=== PATIENT | male | born 1940 | race Caucasian/White ===

== ENCOUNTER → 2017-04-10 09:14 | Outpatient (CLI) | payer MEDICARE, OTHER, SELFPAY ==
--- NOTE | 2017-04-10 11:27 | PET_ITS ---
EXAMINATION: FDG PET CT INDICATIONS: A 76-year-old male with reported history of head and neck and primary lung carcinoma presenting for restaging examination. COMPARISON EXAMINATION: Previous FDG PET study dated 09/19/16. INDEX LESION SIZE SUV INTERPRETATION PERSISTENT: Left mid medial hemithorax pulmonary parenchyma, left upper lobe 19.6 mm (frame 228) compared to 15.8 mm, 09/19/16; craniocaudal 29.6 mm compared to 13.9 mm, 09/19/16 6.5 compared to 5.0, 09/19/16 Fulfills quantitative criteria for viable neoplasm, potential interim metabolic progression based on morphologic parameter NEW: Anterior neck, anterior commissure 14.5 mm (frame 269) 7.3 May be further investigated with CT of the neck with intravenous contrast as defined below TECHNIQUE: Following the intravenous administration of 16.71 mCi of F-18 deoxyglucose via the right wrist, multiplanar image acquisitions of the neck, chest, abdomen and pelvis to level of mid thigh, obtained at one hour post radiopharmaceutical administration contemporaneously interpreted with the current CT of the neck, chest, abdomen and pelvis to level of mid thigh, dated 04/10/17 via coregistration and previous FDG PET study dated 09/19/16 reveal: SERUM GLUCOSE LEVEL: 91 mg/dl. HEIGHT: 69 inches. WEIGHT: 145 lbs. FINDINGS: 1. Increased glucose metabolism is redemonstrated in the left upper medial hemithorax pulmonary parenchyma, left upper lobe generating a current calculated maximum standard uptake value of 5.6 compared to 5.0 defined on the FDG PET study dated 09/19/16. The maximal axial diameter of the metabolic, morphologic abnormality on the current examination is approximately 19.6 mm (AP). The current craniocaudal dimension is approximately 29.6 mm compared to 13.9 mm defined on the FDG PET study dated 09/19/16. 2. Newly identified increased glucose concentration is manifest in the anterior neck at the level of the laryngeal structures adjacent to the anterior commissure generating a calculated maximum standard uptake value of 7.3. The maximal axial diameter of the metabolic, morphologic abnormality on review of CT of the neck dated 04/10/17 is 14.5 mm (AP). 3. Normal physiologic distribution of the radiopharmaceutical is apparent in the hepatic (2.6) and splenic parenchyma, both renal units, bladder and visualized intestinal tract. There is uniform distribution of the radiopharmaceutical concentration compared on the cerebellar hemispheres and cerebral cortex. Diffuse intestinal tract activity is noted throughout all four quadrants of the abdominal-pelvic retroperitoneum, mesentery consistent with normal physiologic distribution of the radiopharmaceutical. Symmetric glucose metabolism is defined at the level of the anterior neck, laryngeal structures, which appears contiguous to the cricopharyngeus musculature without evidence of soft tissue thickening. Pertinent CT findings are as follows. CHEST: Emphysematous changes are noted in the bilateral upper lung zones. Additional parenchymal densities newly identified in the left upper lateral lung field demonstrate no evidence of quantitatively significant increased glucose metabolism. Atherosclerotic calcification is defined in the thoracic aorta without evidence of dilatation, aneurysm formation. Coronary arterial calcification is observed. ABDOMEN AND PELVIS: Atherosclerotic calcification is defined in the abdominal aorta without evidence of dilatation, aneurysm formation. Abdominal-pelvic arterial calcification is demonstrated. Dystrophic calcifications are manifest within the prostate gland. Right-left inguinal soft tissue densities are ametabolic. There is calcification apparent in the right hemiscrotum unchanged from the study dated 09/19/16. SKELETAL: Degenerative changes defined in the cervical, thoracic and lumbar spine demonstrate no evidence for glucose hypermetabolism. PET/PET/CT Tumor Base -Thigh Init IMPRESSION: 1. 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 2. Increased glucose concentration redemonstrated in the left mid medial hemithorax, left upper lobe fulfills quantitative criteria for viable neoplasm. (Chantal et al, Journal of Nuclear Medicine 43:302 P, 2002). 3. Facilitated glucose concentration currently identified in the anterior neck, laryngeal structures at the level of the anterior commissure warrants further investigation with CT of the neck with intravenous contrast and/or direct visualization secondary to the quantitative degree of uptake. Symmetric increased glucose concentration contiguous to the cricopharyngeus musculature is most consistent with physiologic distribution of the radiotracer. 4. Overall, compared to the prior FDG PET study dated 09/19/16, there is persistent evidence of viable neoplasm within the context of the left mid medial lung zone, left upper lobe demonstrating potential interim metabolic progression based on the increased craniocaudal morphologic parameter. Facilitated glucose concentration currently identified at the level of the anterior commissure, laryngeal structures warrants further clinical, potential radiologic investigation. Electronic Signature Tree Julian D.O. Electronically Signed: Tree Julian DO at 22:53 EST Tel , Service support ,
== END ==
PROVIDERS: Family Provider Family Medicine; PCP Family Medicine; Visit Provider Radiology Radiation Oncology
DX: C34.12 Malignant neoplasm of upper lobe, left bronchus or lung (principal); C32.9 Malignant neoplasm of larynx, unspecified
CPT/HCPCS: 78815; 99211; A9552; A4216; G0463

== ENCOUNTER 2017-12-15 05:18 | Day surgery (SDC) | payer MEDICARE, OTHER, SELFPAY ==
[2017-12-15 05:46] VITALS: BP 124/66; PULSE 60; RESP 14; TEMP 37.3; O2SAT 98; BMI 23.6
--- NOTE | 2017-12-15 07:27 | PCM.DCCATA ---
Discharge Diet: No Restrictions Discharge Activity: - - Take it easy the rest of the day of surgery. Be careful not to trip or fall. Avoid bumping the operated eye and do not rub the eye. You may stay alone, but need to be able to call and/or come in if necessary. Try to sleep on the unoperated side or on your back tonight. Call your doctor if you observe: - - new or increased pain, a worsening of vision, or if you have any questions. Also call the office if you are experiencing a severe headache on the operative side, nausea or vomiting. Allergies/Adverse Reactions: Allergies No Known Allergies Allergy (Verified 12/15/17 05:44) Medications to take at Discharge Lisinopril [Zestril] 20 mg PO DAILY 04/17/15 Amlodipine [Norvasc] 2.5 mg PO DAILY 03/15/16 Primary Care Physician: Hilario Rodriguez DO [Primary Care Provider] - Test Results: Test results from this visit will be discussed in further detail at your follow-up appointment, if applicable. -Take a pain reliever such as Tylenol, Aspirin or Ibuprofen if needed for eye aching or pain. If this is not enough relief for you pain, call your doctor (or the doctor aerospace control and warning systems), even at night. -You are scheduled for a follow-up appointment at [facility] the day after surgery. You should have someone drive you. -Transient pain and irritation are due to the incision that was made at the time of surgery and do not indicate any trouble. Our office numbers are or toll-free . If there is no answer, or if it is after our normal business hours, call your surgeon. Our home phone numbers are: Dr. Sanchez Dr. Aguila Dr. Quinones Dr. Whiteside If you are still unable to reach your doctor, call the answering service and [facility] , and the book sewing machine operator can contact the on-call doctor through a long-range beeper system. INSTRUCTIONS FOLLOWING TOPICAL ANESTHETIC CATARACT SURGERY Protect operated eye with glasses or metal shield at all times. Instill one drop of Cipro (or other antibiotic drop), one drop of Prednisolone and one drop of Flurbiprofen in the operated eye four times a day (breakfast, lunch, dinner and bedtime) until the doctor tells you to quit or decrease them. Wait 3-5 minutes between each drop. Your first drop for today was given after surgery. INSTRUCTIONS FOLLOWING RETROBULBAR CATARACT SURGERY Keep the eye patch and metal shield on until you see your surgeon the day after surgery - these will be removed in the office that day. Do not drive while the patch is on your eye. You will be instructed about the use of drops for the operated eye at that visit.
[2017-12-15] MEDS: Tetracaine 0.5% Ophthalmic Bottle 1 DRP OP (07:34)
[2017-12-15] MEDS: Povidone Iodine 30 ML Opthalmic Sol 1 DRP (07:35)
[2017-12-15 08:10] VITALS: BP 119/70; BP 124/66; PULSE 59; RESP 18; TEMP 36.3; O2SAT 99
[2017-12-15 08:15] VITALS: BP 124/66; BP 141/67; PULSE 58; RESP 18; O2SAT 98
[2017-12-15 08:20] VITALS: BP 124/66; BP 131/64; PULSE 55; RESP 18; O2SAT 99
[2017-12-15 08:28] VITALS: BP 124/66; BP 141/64; PULSE 57; RESP 18; TEMP 36.2; O2SAT 100
[2017-12-15 09:09] VITALS: BP 124/66
== END 2017-12-15 09:14 | disposition home or self-care (01) ==
LOC: SDC 05:18 → AC 05:20
PROVIDERS: Family Provider Family Medicine; PCP Family Medicine; Referring Provider Ophthalmology; Visit Provider Ophthalmology
PROC: (CPT 66984; principal; 2017-12-15 07:20)
DX: H25.813 Combined forms of age-related cataract, bilateral (principal); D31.32 Benign neoplasm of left choroid; H57.89 Other specified disorders of eye and adnexa; I10 Essential (primary) hypertension; Z87.891 Personal history of nicotine dependence; Z85.118 Personal history of other malignant neoplasm of bronchus and lung; Z92.21 Personal history of antineoplastic chemotherapy; Z92.3 Personal history of irradiation
CPT/HCPCS: 00142; 66984; J7120

== ENCOUNTER → 2018-03-19 12:12 | Outpatient (CLI) | payer MEDICARE, OTHER, SELFPAY ==
[2018-03-16 12:30] VITALS: BMI 23.9
--- OUTSIDE RECORDS SUMMARY | 2018-05-21 23:24 | XMS RPT_ITS ---
:1940 Author Organization OHIP Support Name Relationship Address Phone R Unavailable Unavailable Unavailable SHELLEY DE LEÓN Unavailable [address] + [place] [address] R Unavailable Unavailable Unavailable SHELLEY DE LEÓN Unavailable [address] + [place] [address] R Unavailable Unavailable Unavailable SHELLEY DE LEÓN Unavailable Unavailable + [place] [address] AMES, ROHIT Unavailable Unavailable + SON-IN-LAW AMES, (POA) Unavailable Unavailable + JENNA SOLARES Unavailable . + ., [place] . R Unavailable Unavailable Unavailable R Unavailable Unavailable Unavailable AMES, ROHIT Unavailable Unavailable + SON-[place]-LA[place] AMES, (POA) Unavailable Unavailable + AMES, ROHIT Unavailable Unavailable + SON[place] AMES, (POA) Unavailable Unavailable + AMES, ROHIT Unavailable Unavailable + SON[place] AMES, (POA) Unavailable Unavailable + AMES, ROHIT Unavailable Unavailable + SON[place] AMES, (POA) Unavailable Unavailable + AMES, ROHIT Unavailable Unavailable + SON[place] AMES, (POA) Unavailable Unavailable + AMES, ROHIT Unavailable Unavailable + SON-[place] AMES, (POA) Unavailable Unavailable + AMES, ROHIT Unavailable Unavailable + SON-[place] AMES, (POA) Unavailable Unavailable + AMES, ROHIT Unavailable Unavailable + SON[place] AMES, (POA) Unavailable Unavailable + AMES, ROHIT Unavailable Unavailable + AMES, (POA), SHELLEY Unavailable Unavailable + JENNA SOLARES Unavailable . + ., [place] . AMES, ROHIT Unavailable [address] + [place] [address] R Unavailable Unavailable Unavailable AMES, ROHIT Unavailable Unavailable + SON-IN-LAW AMES, (POA) Unavailable Unavailable + AMES, ROHIT Unavailable Unavailable + AMES, (POA), SHELLEY Unavailable Unavailable + AMES, ROHIT Unavailable Unavailable + SON-[place]-LA[place] AMES, (POA) Unavailable Unavailable + AMES, ROHIT Unavailable Unavailable + AMES, (POA), SHELLEY Unavailable Unavailable + POA AMES, SHELLEY Unavailable Unavailable + POA AMES, SHELLEY Unavailable Unavailable + POA AMES, SHELLEY Unavailable Unavailable + POA AMES, SHELLEY Unavailable Unavailable + POA AMES, SHELLEY Unavailable Unavailable + POA AMES, SHELLEY Unavailable Unavailable + AMES, ROHIT Unavailable Unavailable + SON-[place]-LA[place] AMES, (POA) Unavailable Unavailable + POA AMES, SHELLEY Unavailable Unavailable + JENNA SOLARES Unavailable . + ., [place] . AMES, ROHIT Unavailable [address] + [place] [address] R Unavailable Unavailable Unavailable Care Team Providers Name Role Phone Cherry Arsen Attending Unavailable Seider, Arsen Referring Unavailable Michael, Hilario Primary Care Unavailable Enriqueta Lopez Attending Unavailable Calabretta, Braxton Attending Unavailable Michael, Hilario Referring Unavailable Michael, Hilario Primary Care Unavailable Miesha, Jadiel Attending Unavailable Miesha, Jadiel Referring Unavailable Michael, Hilario Primary Care Unavailable Jacki Venegas Attending Unavailable Michael, Hilario Referring Unavailable Michael, Hilario Attending Unavailable Michael, Hilario Primary Care Unavailable TESTRAKE, HUGH Attending Unavailable TESTRAKE, HUGH Referring Unavailable Zender, Dr. Anastasia Martinez Attending Unavailable Michael, Dr. Hilario Ivan Primary Care Unavailable Zender, Dr. Anastasia Martinez Admitting Unavailable Seider, Arsen Deluna Referring Unavailable Zender, Dr. Anastasia Martinez Attending Unavailable Michael, Dr. Hilario Ivan Primary Care Unavailable Zender, Dr. Anastasia Martinez Admitting Unavailable Zender, Dr. Anastasia Martinez Attending Unavailable Seider, Arsen Deluna Referring Unavailable Michael, Dr. Hilario vIan Primary Care Unavailable Zender, Dr. Anastasia Martinez Admitting Unavailable Zender, Dr. Anastasia Martinez Attending Unavailable *SELF, REFERRED Referring Unavailable Michael, Dr. Hilario Ivan Primary Care Unavailable Lebron, Dr. Pang Admitting Unavailable Lebron, Dr. Pang Attending Unavailable Zender, Dr. Anastasia Martinez Referring Unavailable Michael, Dr. Hilario Ivan Primary Care Unavailable Zender, Dr. Anastasia Martinez Attending Unavailable Michael, Dr. Hliario Ivan Primary Care Unavailable Zender, Dr. Anastasia Martinez Attending Unavailable Michael, Dr. Hilario Ivan Primary Care Unavailable Zender, Dr. Anastasia Martinez Attending Unavailable Michael, Dr. Hilario Ivan Primary Care Unavailable Lebron, Dr. Pang Admitting Unavailable Lebron, Dr. Pang Attending Unavailable Zender, Dr. Anastasia Martinez Referring Unavailable Michael, Dr. Hilario Ivan Primary Care Unavailable Zender, Dr. Anastasia Martinez Attending Unavailable Michael, Dr. Hilario Ivan Primary Care Unavailable Lebron, Dr. Pang Admitting Unavailable Lebron, Dr. Pang Attending Unavailable Zender, Dr. Anastasia Martinez Referring Unavailable Michael, Dr. Hilario Ivan Primary Care Unavailable Lebron, Dr. Pang Admitting Unavailable Lberon, Dr. Pang Attending Unavailable Zender, Dr. Anastasia Martinez Referring Unavailable Michael, Dr. Hilario Ivan Primary Care Unavailable Zender, Dr. Anastasia Martinez Attending Unavailable Michael, Dr. Hilario Ivan Primary Care Unavailable Lebron, Dr. Pang Admitting Unavailable Lebron, Dr. Pang Attending Unavailable Zender, Dr. Anastasia Martinez Referring Unavailable Michael, Dr. Hilario Ivan Primary Care Unavailable Zender, Dr. Anastasia Martinez Attending Unavailable Michael, Dr. Hilario Ivan Primary Care Unavailable Zender, Dr. Anastasia Martinez Admitting Unavailable Zender, Dr. Anastasia Martinez Referring Unavailable Lebron, Dr. Pang Admitting Unavailable Lebron, Dr. Pang Attending Unavailable Zender, Dr. Anastasia Martinez Referring Unavailable Michael, Dr. Hilario Ivan Primary Care Unavailable Lebron, Dr. Pang Admitting Unavailable Lebron, Dr. Pang Attending Unavailable Zender, Dr. Anastasia Martinez Referring Unavailable Michael, Dr. Hilario Ivan Primary Care Unavailable Lebron, Dr. Pang Admitting Unavailable Lebron, Dr. Pang Attending Unavailable Zender, Dr. Anastasia Martinez Referring Unavailable Michael, Dr. Hilario Ivan Primary Care Unavailable Lebron, Dr. Pang Admitting Unavailable Lebron, Dr. Pang Attending Unavailable Zender, Dr. Anastasia Martinez Referring Unavailable Michael, Dr. Hilario Ivan Primary Care Unavailable Zender, Dr. Anastasia Martinez Attending Unavailable Michael, Dr. Hilario Ivan Referring Unavailable Michael, Dr. Hilario Ivan Primary Care Unavailable Zender, Dr. Anastasia Martinez Attending Unavailable Michael, Dr. Hilario Ivan Primary Care Unavailable Zender, Dr. Anastasia Martinez Attending Unavailable Zender, Dr. Anastasia Martinez Referring Unavailable Michael, Dr. Hilario Ivan Primary Care Unavailable Zender, Dr. Anastasia Martinez Attending Unavailable Zender, Dr. Anastasia Martinez Referring Unavailable Michael, Dr. Hilario Ivan Primary Care Unavailable PROBLEMS PROBLEMS DATE TYPE CONDITION / CODE ATTENDING STATUS SOURCE 03/19/2018 Unknown R05 - Cough / MichaelHilario cintron Active [place] R05(ICD-10) [facility] Repository 03/16/2018 Unknown R20.9 - Unspecified Venegas, Active [place] disturbances of skin [facility] R20.9(ICD-10) Repository 08/29/2017 Unknown Z93.1 - Gastrostomy Calabretta, Active [place] status / [facility] Z93.1(ICD-10) [facility] Repository 07/03/2017 Final diagnosis Essential (primary) Dr. Laci Rodríguez (discharge) hypertension / [facility] I10(ICD-10) Repository 07/03/2017 Final diagnosis Personal history of Dr. Laci Rodríguez (discharge) nicotine dependence [facility] / Z87.891(ICD-10) Repository 07/03/2017 Final diagnosis Dysphagia, Dr. Laci Rodríguez (discharge) unspecified / [facility] R13.10(ICD-10) Repository 07/03/[address] Laci Rodríguez diagnosis of larynx, [facility] unspecified / Repository C32.9(ICD-10) 07/03/2017 Final diagnosis Malignant neoplasm Dr. Laci Rodríguez (discharge) of larynx, [facility] unspecified / Repository C32.9(ICD-10) 07/03/2017 Final diagnosis Pressure ulcer of Dr. Laci Rodríguez (discharge) sacral region, stage [facility] 3 / L89.153(ICD-10) Repository 07/03/2017 Final diagnosis Atelectasis / Dr. Laci Rodríguez (discharge) J98.11(ICD-10) [facility] Repository 07/03/2017 Final diagnosis Chronic obstructive Dr. Laci Rodríguez (discharge) pulmonary disease, [facility] unspecified / Repository J44.9(ICD-10) 07/03/2017 Final diagnosis Alcohol abuse, Dr. Laci Rodríguez (discharge) uncomplicated / [facility] F10.10(ICD-10) Repository 07/03/2017 Final diagnosis Solitary pulmonary Dr. Laci Rodríguez (discharge) nodule / [facility] R91.1(ICD-10) Repository 07/03/2017 Final diagnosis Postprocedural fever Dr. Laci Rodríguez (discharge) / R50.82(ICD-10) [facility] Repository 07/03/2017 Final diagnosis Personal history of Dr. Laci Rodríguez (discharge) antineoplastic [facility] chemotherapy / Repository Z92.21(ICD-10) 07/03/2017 Final diagnosis Personal history of Dr. Laci Rodríguez (discharge) irradiation / [facility] Z92.3(ICD-10) Repository 06/23/2017 Final diagnosis Encounter for Dr. Bird Diana (discharge) antineoplastic Hospitals radiation therapy / Repository Z51.0(ICD-10) 06/23/2017 Final diagnosis Malignant neoplasm Dr. Bird Diana (discharge) of upper lobe, left Hospitals bronchus or lung / Repository C34.12(ICD-10) 06/14/[address] Laci Rodríguez diagnosis of supraglottis / [facility] C32.1(ICD-10) Repository 05/30/2017 Admitting Dysphagia, Dr. Sara Active [place] diagnosis unspecified / [facility] R13.10(ICD-10) Repository 05/30/2017 Final diagnosis Malignant neoplasm Dr. Sara Active [place] (discharge) of supraglottis / [facility] C32.1(ICD-10) Repository 05/11/2017 Final diagnosis Malignant neoplasm Dr. Laci Rodríguez (discharge) of unsp [facility] bronchus or lung / Repository C34.90(ICD-10) 05/11/2017 Final diagnosis Esophagitis, Dr. 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 Laci Rodríguez (discharge) disease, unspecified [facility] / I73.9(ICD-10) Repository 05/11/2017 Final diagnosis Emphysema, Dr. Laci Rodríguez (discharge) unspecified / [facility] J43.9(ICD-10) Repository 05/11/2017 Final diagnosis Alcohol dependence, Dr. Laci Rodríguez (discharge) in remission / [facility] F10.21(ICD-10) Repository 05/11/[address] Sara Active [place] abnormal finding of [facility] lung field / Repository R91.8(ICD-10) PROCEDURES PROCEDURES DATE CODE DESCRIPTION STATUS SOURCE 06/29/2017 [id number](ICD10- [id number] Completed [facility]als Repository 06/27/2017 [id number](ICD10- [id number] Completed [facility] Hospitals Repository 06/27/2017 1QZK0CE(ICD10- [id number] Completed [facility]) Hospitals Repository 06/27/2017 [id number](ICD10- [id number] Completed [facility]) Hospitals Repository 05/11/2017 [address]91([facility] 74382 Completed [place] CPT-4) Hospitals Repository 05/11/2017 07176([facility] 40233 Completed [place] CPT-4) Hospitals Repository 05/11/2017 46702([facility] 23805 Completed [place] CPT-4) Hospitals Repository RESULTS RESULTS Observed: 03/19/2018 Status: F Source: [place] CULTURE, SPUTUM 12:14 PM [facility] REPOSITORY Results called on 03/22/18- by AARON to (NURSE LINE) [phone]. Gram Stain Acceptable Specimen? Acceptable Specimen(Evaluation not needed) Gram Stain No organisms seen No cells seen Resp. Culture Copy of report sent to Infection Control Printer [id number] 03/22/18 [id number] AARON. ORGANISM 1: Meth. resistant Staph. aureus Amount Growth 3+ Meth. resistant Staph. aureus: REACTION Cefoxitin *NF POS Doxycline <=0.5 S Daptomycin $$ 0.25 S Clindamycin $$ R Inducable Clindamycin Resistan POS Erythromycin $ R Gentamicin $ <=0.5 S Levofloxacin $ >=8 R Linezolid $$$$ 2 S Moxifloxicin *NF >=8 R Oxacillin NF >=4 R Tigecycline $$$$ <=0.12 S Rifampin $$ <=0.5 S Tetracycline NF <=1 S Trimethoprim/Sulfametho $ <=10 S Vancomycin $ <=0.5 S (NF) indicates non-formulary drug at [facility]. Approval by Infectious Disease Specialist required before non-formulary drugs may be ordered and/or dispensed. * CLSI guidelines does not recommend testing of cephalosporins. This interpretation is deduced from Beta-lactam/penicillin results. Performed By: #### M100.0800 #### [facility] [address] [place], [address] PULMONARY VISIT REPORT Observed: 03/16/2018 Status: F Source: [place] 3:48 PM [facility] REPOSITORY [facility] [place] [address] [place] [address] OFFICE VISIT Date of Service: 03/16/18 MR#: [id number] Acct: [id number] Name: AMPARO DE LEÓN Rep #: [id number] : 1940 Provider: Jacki Venegas Age/Sex: 77/M Location: [facility] Status: Signed Assessment AND Plan 1. Chest congestion R09.89 Plan New. Treating with liquid Mucinex every 6 hours as needed. Contact the office to give us an update of how this medication is working for the patient. Offered a follow-up visit, the patient and his son declined. They state that they will contact the office if any further follow-up as needed. 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 The patient reports that he takes food and medications by mouth, preferred liquid Mucinex over capsules/pills. 3. Peripheral vascular disease I73.9 Plan Referral to vascular surgeon for evaluation and treatment. Plan Detail Other Orders Referrals: Other Medications New: HPI Shortness of breath: Chief Complaint: Circulation problems HPI Comments Details: This patient presents the office today for a follow-up visit scheduled by his son regarding concerns about the patient's leg circulation. The patient is ambulatory, currently on room air and accompanied today by his son. The patient was last seen in this office on January 25, 2017. At that time he was referred to a thoracic surgeon for a left upper lobe nodule diagnostic and treatment plan. The patient also had a history of laryngeal cancer. He currently has a tracheostomy placed June 27, 2017. The patient is nonverbal, does mouth words and nods yes and no. He is answering questions appropriately. The son does most of the speaking for the patient. Son reports that the patient has concerns about his feet and hands feeling cold. The [place] admits that [place] and did not realize he was making an appointment with a pulmonology practice for these concerns. While here, they decided that they should evaluate since thick sputum. The patient reports that he has chest congestion and feels as though he should be able to expectorate sputum from his tracheostomy. He is able to cough out some white sputum at times. They have not previously tried any Mucinex to thin the secretions. He is not currently on any inhalers. Does not use nebulizer. He only has an occasional cough. Denies any hemoptysis. Denies any fever, chills or body aches. Denies wheezing, chest tightness, chest pain or palpitations. They do report lower extremity edema and shortness of breath on exertion. The biggest concern is the cold sensation he feels in his hands and feet. See complete review of systems. Intake Vital Signs03/16/18 Height 5 ft 9 in 03/16/18 Weight: 162 lb Intake Visit Reasons: Shortness of breath Accompanied by: Son Allergies No Known Allergies Allergy (Verified 03/16/18 12:31) Medications Lisinopril [Zestril] 20 mg PO DAILY 04/17/15 [History Confirmed 03/16/18] Amlodipine [Norvasc] 2.5 mg PO DAILY 03/15/16 [History Confirmed 03/16/18] guaifenesin 200 mg/5 mL oral liquid 400 mg PO Q4H PRN #473 ml 03/16/18 [Rx Confirmed 03/16/18] PFS Medical History Pulmonary nodule, left (Chronic) Odynophagia (Acute) Former smoker (Chronic) Neutropenia (Acute) Normochromic normocytic anemia (Chronic) Peripheral vascular disease (Acute) Radiation esophagitis (Acute) Laryngeal cancer (Chronic) Alcohol abuse (Chronic) Hypertension, essential, benign (Chronic) Difficulty chewing (Chronic) Hypokalemia (Acute) Hypomagnesemia (Acute) Urine retention (Acute) Surgical History Status post insertion of percutaneous endoscopic gastrostomy (PEG) tube (Resolved) s/p PEG tube removal (Acute 08/29/17) Family History Mother Hypertension CVA (cerebral vascular accident) Social History Smoking Status: Former smoker second hand exposure: No alcohol intake: never substance use type: does not use caffeine: Yes what type of physical activity do you participate in: none Review of Systems Const CONSTITUTIONAL: Negative anorexia, body ache, chills, daytime sleepiness, fever(s), night sweats, oral thrush, stops breathing during sleep, weight loss, sleeping in chair, fatigue, weight loss, weight gain, frequent colds, seasonal allergies, other, headache(s) or orthopnea EETM Ear Nose Throat Mouth: Positive hard of hearing; negative hearing normal, hoarseness, dry mouth in morning, change in vision, itchy eyes, eye pain, swallowing Difficulty, ear pain, nose bleed, headache(s), mouth pain, nasal congestion, nasal discharge, sinus pain, sinus pressure, sore throat or other Cardio Cardiovascular: Negative chest pain, chest pain at rest, chest pain with activity, irregular heart rhythm, edema, shortness of breath when lying down, palpitations, murmur or other Resp Respiratory: Positive as per HPI; negative shortness of breath, pain with cough, wheezing, chest congestion, cough, chest tightness, pain on inspiration, inhalers, increase use of rescue inhalers, snoring, apnea or other Gastro Gastrointestional: Negative bloody stools, change in appetite, difficulty swallowing, reflux, hematemesis, melena stool, loose stool, constipation or other Genitourinary: Negative blood in urine, nocturia, pain with urination or other Musc Musculoskeletal: Negative body pain, back pain, neck pain or other Skin/Breast Skin/Breast: Negative dry skin, itching, rash, unusual bruising, breast lump or other Neuro Neurological: Negative restless legs, confusion, weakness or other Psych Psychocological: Negative abnormal sleep pattern, anxiety, thoughts of hurting self/others, hopelessness or other Lymph Lymphatic: Negative easy bleeding, easy bruising, swollen lymph nodes or other Exam Const Constitutional: Positive cooperative, in no acute respiratory distress, well developed, well nourished and poor hygiene Head Head: Positive normocephalic and atraumatic; negative cyanosis of lips/distal nose Eyes Eye: Positive clear conjunctiva; negative nystagmus or scleral abnormality Ears Ear: Positive hard of hearing and external ears normal; negative hearing normal Nose Nose: Positive external nose normal and no nasal discharge; negative epistaxis Mouth Mouth: Positive oral mucosae normal and no lesions; negative malodorous breath or oral thrush present Neck Neck: Positive normal visual inspection, full ROM and trachea midline (tracheostomy dry and intact); negative lymphadenopathy or tender Chest Wall Chest: Positive normal inspection of the chest and symmetric chest movement; negative increased A/P diameter Resp lung sounds: Positive clear to auscultation, diminished, normal expiratory time and normal respiratory effort; negative wheezes, rhonchi, rales, dullness to percussion or wheeze present on forced exhalation Cardio Cardiac: Positive regular rate, regular rhythm, S2 normal and S1 normal; negative murmur GI GI: Positive normal to inspection; negative distended Genitourinary: Positive deferred Musc Musculoskeletal: Positive steady gait and ROM normal; negative kyphosis or scoliosis Skin Pulmonary Skin Exam: Positive ulcers (right littlejohn, scabbed); negative rash Pulses Pulse: Yes pulses normal x4 extremities Extremities Extremities: Yes capillary refill normal, No clubbing, No cyanosis, Yes edema Location: lower extremity location: Bilateral pitting +2 Neuro Neurologic: Yes no focal neuro deficits, Yes normal concentration, Yes understands questions, Yes cooperative, Yes normal cognition, Yes normal coordination, No tremor Lymph Lymphatic: No lymphadenopathy, No tenderness, No cervical adenopathy Psych Appearance: Positive grossly normal and eye contact Mental Status: Positive mental status grossly normal Mood: Positive congruent mood Affect: Positive normal affect Coding Level of Care Code Off vis,est,level 4 Diagnoses Chest congestion R09.89 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 Peripheral vascular disease I73.9 03/16/18 1548 <Electronically signed by Jacki PIERCE> Date Jacki PIERCE Cosigner Signature: Date (if applicable) CC: Hilario Ramirez DO DISCHARGE INSTRUCTION Observed: 12/15/2017 Status: F Source: [place] 7:27 AM [facility] REPOSITORY [facility] Medical Records Department [address] [place] [address] Instructions for Home/Discharge Instructions 12/15/17 0727 MR#: [id number] Acct: [id number] Name: AMPARO DE LEÓN Rep #: [id number] : 1940 77 From: Jadiel Whiteside MD PCP: Hilario Ramirez DO Status: REG SDC Discharge Diet: No Restrictions Discharge Activity: - - Take it easy the rest of the day of surgery. Be careful not to trip or fall. Avoid bumping the operated eye and do not rub the eye. You may stay alone, but need to be able to call and/or come in if necessary. Try to sleep on the unoperated side or on your back tonight. Call your doctor if you observe: - - new or increased pain, a worsening of vision, or if you have any questions. Also call the office if you are experiencing a severe headache on the operative side, nausea or vomiting. Allergies/Adverse Reactions: Allergies No Known Allergies Allergy (Verified 12/15/17 05:44) Medications to take at Discharge Lisinopril [Zestril] 20 mg PO DAILY 04/17/15 Amlodipine [Norvasc] 2.5 mg PO DAILY 03/15/16 Primary Care Physician: Hilario Ramirez DO [Primary Care Provider] - Test Results: Test results from this visit will be discussed in further detail at your follow-up appointment, if applicable. -Take a pain reliever such as Tylenol, Aspirin or Ibuprofen if needed for eye aching or pain. If this is not enough relief for you pain, call your doctor (or the doctor subscription clerk), even at night. -You are scheduled for a follow-up appointment at [facility] the day after surgery. You should have someone drive you. -Transient pain and irritation are due to the incision that was made at the time of surgery and do not indicate any trouble. Our office numbers are or toll-free [phone]. If there is no answer, or if it is after our normal business hours, call your surgeon. Our home phone numbers are: Dr. Sanchez Dr. Aguila Dr. Quinones Dr. Whiteside If you are still unable to reach your doctor, call the answering service and [facility] , and the pin machine operator can contact the on-call doctor through a long-range beeper system. INSTRUCTIONS FOLLOWING TOPICAL ANESTHETIC CATARACT SURGERY Protect operated eye with glasses or metal shield at all times. Instill one drop of Cipro (or other antibiotic drop), one drop of Prednisolone and one drop of Flurbiprofen in the operated eye four times a day (breakfast, lunch, dinner and bedtime) until the doctor tells you to quit or decrease them. Wait 3-5 minutes between each drop. Your first drop for today was given after surgery. INSTRUCTIONS FOLLOWING RETROBULBAR CATARACT SURGERY Keep the eye patch and metal shield on until you see your surgeon the day after surgery - these will be removed in the office that day. Do not drive while the patch is on your eye. You will be instructed about the use of drops for the operated eye at that visit. 12/15/17 0727 <Electronically signed by Jadiel Whiteside MD> Date Jadiel Whiteside MD CC: Hilario Ramirez DO ESTABLISHED VISIT Observed: 09/15/2017 Status: UNK Source: [place] (OTOLARYNGOLOGY) 12:48 PM [facility]PITALS REPOSITORY Chief Complaint 07/14 SCC supraglottic s/p total laryngectomy History of Present Illness AMPARO DE LEÓN is a 76 year old male referred to me today by Dr. Sae England doing ok today. biggest issue is the mucus clogging his lisa tube and discomfort with placing it. eating well. no pain or other complaints. 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 [facility]#[id number]; Therapy: 15Aug2017 to (Last Rx:15Aug2017) Ordered Rx By: Anastasia Rodríguez; Dispense: 0 Days ; #:1; Refill: 11;For: Cancer of supraglottis, Dysphagia, S/P laryngectomy; JUN = N; Sent To: [address] AmLODIPine Besylate 5 MG Oral Tablet; Therapy: 28Apr2017 to Recorded Dispense: 0 Days ; #: Sufficient Tablet; Refill: 0; JUN = N; Record; Last Updated By: Joshua Fowler; 04/28/2017 11:28:19 AM Cilostazol 100 MG Oral Tablet; TAKE ONE TABLET BY MOUTH TWICE DAILY; Therapy: 10Aug2016 to Recorded Rx By: Keshia Perez; Dispense: 30 Days ; #:60 TABS; Refill: 0; JUN = N; Record; Last Updated By: Nicolette Keen; 09/15/2017 11:14:16 AM Lisinopril 20 MG Oral Tablet; Therapy: (Recorded:[id number]) to Recorded Dispense: 0 Days ; #: Sufficient TABS; Refill: 0; JUN = N; Record; Last Updated By: Nicolette Keen; 09/15/2017 11:14:16 AM Lisinopril 20 MG Oral Tablet; Therapy: 28Apr2017 to Recorded Dispense: 0 Days ; #: Sufficient Tablet; Refill: 0; JUN = N; Record; Last Updated By: Joshua Fowler; 04/28/2017 11:28:19 AM Normal Saline Flush 0.9 % Intravenous Solution; USE in tube UP TO five times daily; Therapy: 16Aug2017 to Recorded Rx By: Sara; Dispense: 24 Days ; #:360 SOLN; Refill: 0; JUN = N; Record; Last Updated By: Nicolette Keen; 09/15/2017 11:14:16 AM Nystatin 075795 UNIT/ML Mouth/Throat Suspension; swish and swallow 1 teaspoonful 3 times daily; Therapy: 04Nov2016 to Recorded Rx By: Theo Archibald; Dispense: 17 Days ; #:250 SUSP; Refill: 0; JUN = N; Record; Last Updated By: Nicolette Keen; 09/15/2017 11:14:16 AM Vitals Vital Signs Recorded: 15Sep2017 11:14AM Height5 ft 10 in [id number] lb 1 oz BMI Lgqvjbhfaf027.83 BSA Calculated4.95 Physical Exam The patient's incisions are clean dry and intact. There is no sign of infection. 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 - fu in 2-3 mon I personally spoke with and examined the patient. I agree with the assessment and plan. Dr. Anastasia Rodríguez MD This note was dictated with Mady Naturally Speaking and may contain some grammatical errors due to limitations of the software. Patient Discussion/Summary Dr. Rodríguez did not see anything concerning today. Your care plan is outlined below: -- Follow up with Dr. Rodríguez in 2-3 months. This appointment was scheduled at the end of your visit today. If you need to reschedule, please call the office at [phone]. Please keep in mind that las t minute cancellations will often result in delayed follow-up appointments. Dr. Rodríguez makes every effort to run on time for your appointments. Therefore, if you are more than 30 minutes late unrelated to a scan or another appointment such as chemotherapy or radiation, your kedar ointment will need to be rescheduled to another day. We appreciate your understanding. End of Encounter Meds AmLODIPine Besylate 5 MG Oral Tablet; Therapy: 28Apr2017 to Recorded Cilostazol 100 MG Oral Tablet; TAKE ONE TABLET BY MOUTH TWICE DAILY; Therapy: 10Aug2016 to Recorded Lisinopril 20 MG Oral Tablet; Therapy: (Recorded:[id number]) to Recorded Lisinopril 20 MG Oral Tablet; Therapy: 28Apr2017 to Recorded Normal Saline Flush 0.9 % Intravenous Solution; USE in tube UP TO five times daily; Therapy: 16Aug2017 to Recorded Nystatin 119210 UNIT/ML Mouth/Throat Suspension; swish and swallow 1 teaspoonful 3 times daily; Therapy: [id number] to Recorded Unspecified Medication; Please dispense one box of normal saline 3 ml lavages to use as directed. [facility]#[id number]; Therapy: 15Aug2017 to (Last Rx:15Aug2017) Ordered Signatures Electronically signed by : Anastasia Rodríguez MD; Sep 15 2017 12:48PM EST (Author) SURGERY VISIT REPORT Observed: 08/29/2017 Status: F Source: [place] 2:58 PM [facility] REPOSITORY [facility] [address] [place] [address] [address] [place] [address] OFFICE VISIT Date of Service: 08/29/17 MR#: [id number] Acct: [id number] Name: AMPARO DE LEÓN Rep #: [id number] : 1940 Provider: Braxton Juarez MD Age/Sex: 77/M Location: [facility] Status: Signed Intake Vital Signs08/29/17 Height 5 ft 9 in 08/29/17 Weight: 149 lb 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 Visit 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 Is patient in pain?: No Allergies No Known Allergies Allergy (Verified 08/29/17 13:56) Medications Lisinopril [Zestril] 20 mg PO DAILY 04/17/15 [History Confirmed 08/29/17] Amlodipine [Norvasc] 2.5 mg PO DAILY 03/15/16 [History Confirmed 08/29/17] [facility] Medical History Pulmonary nodule, left (Chronic) Odynophagia (Acute) Former smoker (Chronic) Neutropenia (Acute) Normochromic normocytic anemia (Chronic) Peripheral vascular disease (Acute) Radiation esophagitis (Acute) Laryngeal cancer (Chronic) Alcohol abuse (Chronic) Hypertension, essential, benign (Chronic) Difficulty chewing (Chronic) Hypokalemia (Acute) Hypomagnesemia (Acute) Urine retention (Acute) Surgical History Status post insertion of percutaneous endoscopic gastrostomy (PEG) tube (Resolved) s/p PEG tube removal (Acute 08/29/17) Family History Mother Hypertension CVA (cerebral vascular accident) Social History Smoking Status: Former smoker second hand exposure: No alcohol intake: never substance use type: does not use caffeine: Yes what type of physical activity do you participate in: none HPI HPI HPI: AMPARO DE LEÓN, is a 77 M who presents to the office today for PEG tube removal. The patient had laryngoscopy on June 27 and placement of PEG tube. The patient has been converted back to regular diet and he is no longer using the PEG tube. He is tolerating all of his diet and medication orally with no use of his PEG tube for over a month. ROS General General: Yes fatigue; no weight change Endo Endocrine: No thyroid disease or thyroid cancer Cardio Cardiovascular: No murmur, pacemaker or heart disease Psych Psychiatric: No depression Resp Respiratory: No shortness of breath, No sleep apnea, No emphysema Gastro Additional Details: Feeding tube Exam Const General: cooperative, comfortable Orientation: alert, oriented x3 Neck Other: Patient has tracheostomy Chest Chest palpation AND inspection: normal inspection of the chest Resp Effort AND Inspection: normal respiratory effort Auscultation: clear to auscultation bilaterally Cardio Rate: regular rate Rhythm: regular rhythm Heart Sounds: no murmurs GI Inspection: non-distended Palpation: soft, nontender Other: Feeding tube in place Office Procedures Procedure Time Out Time Out Informed consent given: Yes Consent signed: Yes Time out checklist: patient, procedure, site marked/identified, positioning of patient, supplies available, allergies confirmed, team agrees on procedure Time out staff in room: Yes Time out verified: Yes Time out date: 08/29/17 Time out time: 13:57 Assessment AND Plan Problems 1. Status post insertion of percutaneous endoscopic gastrostomy (PEG) tube Z93.1 Plan 1. The patient is no longer using his PEG tube. I did remove his PEG tube and there is minimal trauma or bleeding. Bandage was applied. I advised the patient to eat light meals for the next 2 days and to come back in follow-up if he is having a bleeding, infection, persistent drainage from the PEG tube site. Braxton Juarez MD Pager: [facility] [address] [place] [address] [facility] [address], [address] [place] [address] Office: Coding Level of Care Code Off vis,new,level 2 Diagnoses Status post insertion of percutaneous endoscopic gastrostomy (PEG) tube Z93.1 08/29/17 1458 <Electronically signed by Braxton Juarez MD> Date Braxton Juarez MD Cosigner Signature: Date (if applicable) CC: Hilario Ramirez DO ESTABLISHED VISIT Observed: 08/07/2017 Status: UNK Source: [place] (OTOLARYNGOLOGY) 8:37 AM HOSPITALS REPOSITORY Chief Complaint 07/14 SCC supraglottic s/p total laryngectomy History of Present Illness AMPARO DE LEÓN is a 76 year old male referred to me today by Dr. Sae England for evaluation of anterio commissure ulceration. 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 now s/p total laryngectomy. margins negative. The patient is doing ok today. No new lumps or bumps in the head or neck. tolerating tube feeds. still in facility. eating well. some issues with stoma. still on liquid diet. 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) Dysphagia (787.20) (R13.10) Past Medical History History of hypertension (V12.59) (Z86.79) History of malignant neoplasm (V10.90) (Z85.9) Family History No pertinent family history Social History Drinks beer (V49.89) (Z78.9) Person living alone (V60.3) (Z60.2) Allergies No Known Drug Allergies Recorded By: Joshua Fowler; 04/28/2017 11:28:19 AM Current Meds AmLODIPine Besylate 5 MG Oral Tablet; Therapy: 28Apr2017 to Recorded Dispense: 0 Days ; #: Sufficient Tablet; Refill: 0; JUN = N; Record; Last Updated By: Joshua Fowler; 04/28/2017 11:28:19 AM Lisinopril 20 MG Oral Tablet; Therapy: 28Apr2017 to Recorded Dispense: 0 Days ; #: Sufficient Tablet; Refill: 0; JUN = N; Record; Last Updated By: Joshua Fowler; 04/28/2017 11:28:19 AM Physical Exam The patient's incisions are clean dry and intact. There is no sign of infection. 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 - changed stoma tie - wear HME or saline bullets every 3 hours - start soft diet and adjust TF as necessary to maintain weight - fu in 6-7 weeks I personally spoke with and examined the patient. I agree with the assessment and plan. Dr. Anastasia Rodríguez MD This note was dictated with Mady Weathers Speaking and may contain some grammatical errors due to limitations of the software. Patient Discussion/Summary Dr. Rodríguez did not see anything concerning today. Your care plan is outlined below: -- OK to advance diet to soft foods and decrease the tube feeds as his oral intake increases. -- Use saline bullets every 3 hours or wear HME. You must do one or the other in order to prevent a mucus plug. -- Follow up with Dr. Rodríguez in 6-7 weeks. This appointment was scheduled at the end of your visit today. If you need to reschedule, please call the office at [phone]. Please keep in mind that last minute cancellations will often result in delayed follow-up appointments. Dr. Rodríguez makes every effort to run on time for your appointments. Therefore, if you are more than 30 minutes late unrelated to a scan or another appointment such as chemotherapy or radiation, your kedar ointment will need to be rescheduled to another day. We appreciate your understanding. End of Encounter Meds AmLODIPine Besylate 5 MG Oral Tablet; Therapy: 28Apr2017 to Recorded Lisinopril 20 MG Oral Tablet; Therapy: 28Apr2017 to Recorded Signatures Electronically signed by : Anastasia Rodríguez MD; Aug 07 2017 8:37AM EST (Author) PROGRESS Observed: 08/04/2017 Status: COMPLETED Source: [place] 2:[address] [facility] REPOSITORY [facility] ID: [id number] Author: Hugh Lopes Service: (none) Author Type: Physician Type: Progress Notes Filed: 08/05/2017 2:12 PM Note Text: Hugh Lopes DPM Department of Podiatry [address] [facility] [address] Dept: [phone] Dept Diabetic Nail Care SUBJECTIVE: Follow up office visit: This 76 year old male presents to clinic c/o painful toenails. Patient states that the nails are especially painful with shoe gear and pressure. Patient is not a diabetic. Patient denies claudication type symptoms when walking. No other pedal complaints at this time. No change in medications or medical history since last visit. OBJECTIVE: Vasc: DP and PT pulses are faintly palpable bilateral. CFT is less than 5 seconds bilateral. Skin temperature is warm to warm proximal to distal bilateral. There is no edema or varicosities noted. Hair growth present. Neuro: Protective sensation is decreased to the foot and toes when tested with the 5.07 SWM bilateral. Vibratory sensation is decreased at the hallu bilateral. significant neurological defecits. Derm: Inspection and palpation performed. Nails 1-5 b/l are painful, discolored-yellow, thick, crumbly, dystrophic and with subungal debris. Skin is of normal turgor and texture. Hyperkeratosis not present. NO ulcerations, scars, verruca or other lesions noted. Ortho: Ankle joint DF is full with the knee extended and full with knee flexed. No pain or crepitus noted. STJ, MTJ ROM are full and free of pain or crepitus. Muscle strength is 5/5 for dorsiflexors, plantarflexors, inverters, everters. ASSESSMENT: (B35.1) Onychomycosis (primary encounter diagnosis) Plan: 1. Patient was seen and evaluated. 2. Nails 1-5 bilateral were debrided in length and thickness. 3. RTC 3-4 months for nail care (M79.675) Pain in toe of left foot Plan: same as above (M79.674) Pain in toe of right foot Plan: same as above The documentation for this note was completed by Sheila Madera RN acting as scribe for Hugh Lopes DPM. August 04, 2017 2:33 PM. I agree with the Chief Complaint, ROS, and Past Histories independently gathered by the clinical administrative support specialist and the remaining scribed note accurately describes my personal service to the patient. Hugh Lopes DPM CNOV Observed: 08/04/2017 Status: COMPLETED Source: [place] 2:10 PM [facility] REPOSITORY Office Visit (PODIWS) AMPARO DE LEÓN ([id number]) 1940 M Date Time Provider Department 08/04/17 2:10 PM HUGH LOPES During your visit today, we recorded the following information about you: Hugh Lopes DPM 08/05/2017 2:12 PM Signed Hugh Lopes DPM Department of Podiatry [address] [facility] [address] Dept: [phone] Dept Diabetic Nail Care SUBJECTIVE: Follow up office visit: This 76 year old male presents to clinic c/o painful toenails. Patient states that the nails are especially painful with shoe gear and pressure. Patient is not a diabetic. Patient denies claudication type symptoms when walking. No other pedal complaints at this time. No change in medications or medical history since last visit. OBJECTIVE: Vasc: DP and PT pulses are faintly palpable bilateral. CFT is less than 5 seconds bilateral. Skin temperature is warm to warm proximal to distal bilateral. There is no edema or varicosities noted. Hair growth present. Neuro: Protective sensation is decreased to the foot and toes when tested with the 5.07 SWM bilateral. Vibratory sensation is decreased at the hallu bilateral. significant neurological defecits. Derm: Inspection and palpation performed. Nails 1-5 b/l are painful, discolored-yellow, thick, crumbly, dystrophic and with subungal debris. Skin is of normal turgor and texture. Hyperkeratosis not present. NO ulcerations, scars, verruca or other lesions noted. Ortho: Ankle joint DF is full with the knee extended and full with knee flexed. No pain or crepitus noted. STJ, MTJ ROM are full and free of pain or crepitus. Muscle strength is 5/5 for dorsiflexors, plantarflexors, inverters, everters. ASSESSMENT: (B35.1) Onychomycosis (primary encounter diagnosis) Plan: 1. Patient was seen and evaluated. 2. Nails 1-5 bilateral were debrided in length and thickness. 3. RTC 3-4 months for nail care (M79.675) Pain in toe of left foot Plan: same as above (M79.674) Pain in toe of right foot Plan: same as above The documentation for this note was completed by Sheila Madera RN acting as scribe for Hugh Lopes DPM. August 04, 2017 2:33 PM. I agree with the Chief Complaint, ROS, and Past Histories independently gathered by the clinical administrative support specialist and the remaining scribed note accurately describes my personal service to the patient. Hugh Lopes DPM Referring Provider: HUGH LOPES [[id number]] Allergies As of Date: 08/04/2017 (No Known Allergies) Date Reviewed: 08/04/2017 Reviewed by: Sheila Madera RN - Fully Assessed Reason for Visit: Established Patient [175] Cmt: nail care Primary Visit Diagnosis:Onychomycosis [B35.1] Other Visit Diagnoses:Pain in toe of left foot [M79.675] Pain in toe of right foot [M79.674] Prescriptions as of 08/04/2017 Sig: LISINOPRIL 20 MG TABLET Take 1 tablet by mouth once d* HYDROCHLOROTHIAZIDE 25 MG TAB* Take 1 tablet by mouth once d* Problem List As Of Date 08/04/2017 Noted Resolved Screening for colon cancer [Z12.11] INVALID FOR* GERD (gastroesophageal reflux disease) [K21.9] INVALID FOR* HTN (hypertension) [I10] INVALID FOR* COPD (chronic obstructive pulmonary disease) [J*INVALID FOR* Uncontrolled stage 2 hypertension [I10] INVALID FOR* Encounter Status:Closed by HUGH LOPES DPM on 08/05/17 TUMOR BOARD NOTE-HEAD Observed: 07/07/2017 Status: UNK [facility]: [facility] 11:45 AM [facility]IT[facility] REPOSITORY Note: Tumor Board Note AMPARO DE LEÓN was presented at [facility] Tumor Board Conference on 07-Jul-[address] Anastasia Rodríguez. Impression: Presented with recurrent laryngeal cancer underwent surgical resection with negative margins, findings consistent with squamous cell carcinoma, T3 N0 M0. Recommendations: Observation. Disclaimer SCC tumor board recommendations represent the consensus opinion of physicians present at a weekly patient care conference. The treating SCC physician is not always present, and many of the physicians formulating the recommendation have not personally seen or examined the patient under discussion. It is understood that the treating SCC physician considers the expertise of the Tumor Board Recommendation in formulating his/her plan for the patient. However, in many situations, based on individualized patient considerations, a different plan is determined by the treating physician to be the optimal medical management. Electronic Signatures: Chris Mixon (N MGR) (Signed 07-Jul-2017 11:47) Authored: Tumor Board, Disclaimer Last Updated: 07-Jul-2017 11:47 by Chris Mixon (N MGR) DISCHARGE SUMMARY Observed: 07/03/2017 Status: COMPLETED Source: [place] 8:43 PM HOSPITALS REPOSITORY Send Summary: Discharge Summary Providers: Provider Role Provider Name ? Referring Anastasia Rodríguez ? Attending Anastasia Rodríguez ? Primary Hilario Ramirez Note Recipients: Hilario Ramirez MD - [id number] [] Anastasia Rodríguez MD - [id number] [Preferred] Discharge: Summary: Admission Date: .27-Jun-2017 06:10:00 Discharge Date: 03-Jul-2017 Attending Physician at Discharge: Anastasia Rodríguez Admission Reason: laryngeal cancer Final Discharge Diagnoses: same Procedures: Date: 27-Jun-2017 08:05:00 Procedure Name: EGD, PEG placement Date: 27-Jun-2017 11:38:00 Procedure Name: total laryngectomy, cricpharyngeal myotomy Condition at Discharge: Satisfactory Disposition at Discharge: Intermediate Facility Vital Signs: Hospital Course: 76 y/o male with a history of supraglottic SCCa (chemoXRT 2017) and recently diagnosed with T1N0M0 laryngeal SCCa now s/p total laryngectomy, cricopharyngeal myotomy, and placement of SBT by Dr. Rodríguez on 06/27/2017. Please see operative report for full details. Patient tolerated the procedure well and recovered briefly in PACU before being transitioned to regular nursing floor. Post-op course was complicated by a post-operative fever. On POD1 the patient had a fever to 38.2. A urine culture was sent and it was negative for infection. A chest x-ray showed the known R upper lobe mass, left upper lobe opacities along with perihilar congestion. On 06/29 the bautista catheter was removed and the patient was able to void without issue. The ARCHITECTURE TECHNICIAN was discontinued and he was successfully transitioned to oral pain meds via his PEG. His tube feed diet was advanced as tolerated; at goal rate he was transitioned to intermittent bolus feeds. IV medication transitioned to oral as diet advanced. On the day of discharge, the pt was tolerating a diet, pain was controlled on pain medications via PEG, and he was ambulating and voiding spontaneously. He were discharged to a fpc facility in stable condition with instructions to follow up as outpatient. Discharge Information: and Continuing Care: Discharge Instructions: Activity: activity as tolerated. May shower.. May not return to school/work. May not drive while taking narcotics. No pushing, pulling, or lifting objects greater than 10 pounds. Weight-bearing Instructions: full weight bearing. Slowly increase your activity each day. No strenuous or vigorous exercising until cleared by your surgeon. Nutrition/Diet: nothing by mouth Tube Feed: Isosource 1.5: 250ml 5x/day; a total of 5 cans/day Flush tube with 60 ml of water before and after feeds Flush tube with 30 ml of free water flush 1 times per day, between feeds Additional Orders: Weight: weekly Additional Instructions: Call the office for signs of infection: sustained elevated temperature greater than 101 degrees, increased incisional pain, increased redness or swelling, tenderness to touch, or drainage along incision. Also call the office for persistent nausea or vomiting. FOR PATIENTS GOING TO [facility] FACILITY: Please make sure this patient has all suctioning, dressing, trach care and tube feeding supplies in their home prior to leaving the fpc facility Rehab Services: Occupational Therapy Orders: Eval and Treat ([facility]) daily Physical Therapy Orders: Eval and Treat ([facility]) daily Speech Therapy Orders: Eval and Treat ([facility]) daily No food or liquid trial until cleared by his surgeon Dr. Rodríguez/ Infectious Disease: PPD Status: not given MRSA: no VRE: no C. Diff: no Other Resistant Organism: no Isolation Type: none Care Recommendation: I recommend that INPATIENT care is required at:: Skilled Estimated Stay: Convalescent stay < 30 days Follow Up Appointments: Follow-Up Appointment 01: Physician/Dept/Service: Dr. Anastasia Rodríguez Reason for Referral: Post op visit Scheduled Date/Time: 12-Jul-2017 11:30 Location: [facility] [id number] [place] [address] Discharge Medications: Home Medication lisinopril - 20 milligram(s) once a day - PEG Tube amLODIPine - 5 milligram(s) once a day - PEG Tube petrolatum topical ointment - 1 application topically 3 times a day - to Incisions docusate sodium 10 mg/mL oral liquid - 10 milliliter(s) by PEG tube 2 times a day Artificial Tears (Preservative Free) - 2 drop(s) in each eye every 4 hours chlorhexidine 0.12% mucous membrane liquid - 15 milliliter(s) mucous membrane 3 times a day; use swabs to perform oral care polyethylene glycol 3350 oral powder for reconstitution - 17 gram(s) by PEG tube once a day PRN Medication acetaminophen 160 mg/5 mL oral liquid - 20.31 milliliter(s) by gastrostomy tube every 4 hours, As Needed - Mild (1-3) oxyCODONE 5 mg/5 mL oral solution - 10 milliliter(s) by gastrostomy tube every 4 hours x 5 days, As Needed -Pain Diagnosis Code: G89.3 ipratropium-albuterol 0.5 mg-2.5 mg/3 mLinhalation solution - 3 milliliter(s) inhaled every 4 hours, As needed, Shortness of Breath Lab Results - Pending: None Radiology Results - Pending: None Electronic Signatures: Caroline Aguilera (Resident)) (Signed 20-Jul-2017 20:45) Authored: Send Summary, Summary Content, Ongoing Care, Signature/Cosignature/Attestation Anastasia Rodríguez) (Signed 25-Jul-2017 11:31) Authored: Summary Content, Ongoing Care, Signature/Cosignature/Attestation Co-Signer: Send Summary, Summary Content, Ongoing Care, Signature/Cosignature/Attestation Last Updated: 25-Jul-2017 11:31 by Anastasia Rodríguez) CBC Collected: 07/03/2017 Status: F Source: [place] 4:30 AM [facility] REPOSITORY TYPE CODE TESTS RESULT OUT OF REFERENCE UNITS RANGE LAB WBCR(LOINC 4.4 - 11.3 x10E9/L ) WBC 5.5 LAB NRBC(LOINC 0.0-0.0 /100 WBC ) NUCLEATED RBC 0.0 LAB RBCCT(LOIN 4.50 - 5.90 x10E12/L C) Low RBC 3.55 LAB HGB(LOINC) 13.5 - 17.5 g/dL Low HGB 10.5 LAB HCT(LOINC) 41.0 - 52.0 % Low HCT 33.3 LAB MCV(LOINC) 80 - 100 fL MCV 94 LAB MCHC2(LOIN 32.0 - 36.0 g/dL C) Low MCHC 31.5 LAB PLTCT(LOIN 150 - 450 x10E9/L C) PLT 202 LAB RDWCV(LOIN 11.5 - 14.5 % C) RDW-CV 14.5 Performed By: #### CBC #### [facility] [address] [place] [address] MAGNESIUM Collected: 07/03/2017 Status: F Source: [place] 4:30 [facility] REPOSITORY TYPE CODE TESTS RESULT OUT OF REFERENCE UNITS RANGE LAB MG(LOINC) 1.60 - 2.40 mg/dL MAGNESIUM 2.04 Performed By: #### MG #### [facility] [address] [place] [address] RENAL FUNCTION PANEL Collected: 07/03/2017 Status: F Source: [place] 4:30 AM [facility] TYPE CODE TESTS RESULT OUT OF REFERENCE UNITS RANGE LAB GLU(LOINC) 74 - 99 mg/dL GLUCOSE 91 LAB SOD(LOINC) 136 - 145 mmol/L SODIUM 141 LAB K(LOINC) 3.5 - 5.3 mmol/L POTASSIUM 4.3 LAB CHLOR(LOIN 98 - 107 mmol/L C) CHLORIDE 106 LAB BIC(LOINC) 21 - 32 mmol/L BICARBONATE 26 LAB ANGAP(LOIN 10 - 20 mmol/L C) ANION GAP 13 LAB UREA(LOINC 6 - 23 mg/dL ) UREA NITROGEN 13 LAB CREA(LOINC 0.50 - 1.30 mg/dL ) CREATININE 0.65 LAB GFRFN(LOIN >60 mL/min/1.7 C) 3m2 GFR-NON AM. >60 LAB GFRAA(LOIN >60 mL/min/1.7 C) 3m2 GFR- AM. >60 Result Comment: CALCULATIONS OF ESTIMATED GFR ARE PERFORMED USING THE MDRD STUDY EQUATION FOR THE IDMS-TRACEABLE CREATININE METHODS. CLIN CHEM 2007;53:766-72 LAB CA(LOINC) 8.6 - 10.6 mg/dL CALCIUM Low 8.5 LAB PHOS(LOINC) 2.5 - 4.9 mg/dL PHOSPHORUS 2.5 Result Comment: The performance characteristics of phosphorus testing in heparinized plasma have been validated by the individual laboratory site where testing is performed. Testing on heparinized plasma is not approved by the FDA; however, such approval is not necessary. LAB ALB(LOINC) 3.4 - 5.0 g/dL Low ALBUMIN 2.8 Performed By: #### RENAL #### [facility] [address] [place] [address] CBC Collected: 07/02/2017 Status: F Source: [place] 6:30 AM [facility] TYPE CODE TESTS RESULT OUT OF REFERENCE UNITS RANGE LAB WBCR(LOINC 4.4 - 11.3 x10E9/L ) WBC 5.6 LAB NRBC(LOINC 0.0-0.0 /100 WBC ) NUCLEATED RBC 0.0 LAB RBCCT(LOIN 4.50 - 5.90 x10E12/L C) Low RBC 3.58 LAB HGB(LOINC) 13.5 - 17.5 g/dL Low HGB 10.7 LAB HCT(LOINC) 41.0 - 52.0 % Low HCT 32.8 LAB MCV(LOINC) 80 - 100 fL MCV 92 LAB MCHC2(LOIN 32.0 - 36.0 g/dL C) MCHC 32.6 LAB PLTCT(LOIN 150 - 450 x10E9/L C) PLT 186 LAB RDWCV(LOIN 11.5 - 14.5 % C) RDW-CV 14.3 Performed By: #### CBC #### [facility] [address] [place] [address] RENAL FUNCTION PANEL Collected: 07/02/2017 Status: F Source: [place] 6:30 AM [facility] TYPE CODE TESTS RESULT OUT OF REFERENCE UNITS RANGE LAB GLU(LOINC) 74 - 99 mg/dL GLUCOSE 97 LAB SOD(LOINC) 136 - 145 mmol/L SODIUM 140 LAB K(LOINC) 3.5 - 5.3 mmol/L POTASSIUM 4.1 LAB CHLOR(LOIN 98 - 107 mmol/L C) CHLORIDE High 108 LAB BIC(LOINC) 21 - 32 mmol/L BICARBONATE 22 LAB ANGAP(LOIN 10 - 20 mmol/L C) ANION GAP 14 LAB UREA(LOINC 6 - 23 mg/dL ) UREA NITROGEN 11 LAB CREA(LOINC 0.50 - 1.30 mg/dL ) CREATININE 0.61 LAB GFRFN(LOIN >60 mL/min/1.7 C) 3m2 GFR-NON AM. >60 LAB GFRAA(LOIN >60 mL/min/1.7 C) 3m2 GFR- AM. >60 Result Comment: CALCULATIONS OF ESTIMATED GFR ARE PERFORMED USING THE MDRD STUDY EQUATION FOR THE IDMS-TRACEABLE CREATININE METHODS. CLIN CHEM 2007;53:766-72 LAB CA(LOINC) 8.6 - 10.6 mg/dL CALCIUM Low 8.3 LAB PHOS(LOINC) 2.5 - 4.9 mg/dL PHOSPHORUS Low 2.4 Result Comment: The performance characteristics of phosphorus testing in heparinized plasma have been validated by the individual laboratory site where testing is performed. Testing on heparinized plasma is not approved by the FDA; however, such approval is not necessary. LAB ALB(LOINC) 3.4 - 5.0 g/dL Low ALBUMIN 3.0 Performed By: #### RENAL #### [facility] [address] [place] [address] MAGNESIUM Collected: 07/02/2017 Status: F Source: [place] 6:30 AM [facility]POS[facility] TYPE CODE TESTS RESULT OUT OF REFERENCE UNITS RANGE LAB MG(LOINC) 1.60 - 2.40 mg/dL MAGNESIUM 1.85 Performed By: #### MG #### [facility] [address] [place] [address] DAILY PROGRESS Observed: 07/02/2017 Status: COMPLETED Source: [place] NOTE-ENT 2:02 AM [facility] REPOSIT[facility] Service: ENT Subjective Data: AMPARO DE LEÓN is a 76 year old Male who is Hospital Day # 5 and POD #4 for Direct Laryngoscopy, Total laryngectomy. Additional Information: S: No subjective complaints. O: AFVSS Gen - NAD, resting comfortably in bed Ears - External ears normal Nose - Anterior nares clear, no rhinorrhea OC/OP - No masses or lesions appreciated, OP without drainage Neck - laryngectomy stoma with intact sutures, neck incision is clean/dry/intact, alfredo tube removed to examine stoma -drains in place with serosang drainage, holding suction Ext - SCDs in place A/P: 76 y/o male with a history of supraglottic SCCa (chemoXRT 2017) and recently diagnosed with T1N0M0 laryngeal SCCa now s/p total laryngectomy, cricopharyngeal myotomy, and placement of SBT. Active Issues Recurrent laryngeal SCCa Etoh abuse smoking - Monitor drains - Diet: NPO, mIVF, advance TFs - Analgesia: PRN tylenol and oxy 5/10 - Fluids: mIVR, wean as TFs increase - Resp: alfredo tube in place, HME filter placed - ID: Unasyn x 4 days - Embolic PPx: SQH, SCDs withhile in bed - GI PPx: PPI - ARMAMENT MECHANIC for post-laryngectomy teaching - restart home meds - Dispo: continued aminah care on SCC5 snf 07/03 [place] [id number] Objective Data: Objective Information: ---- Intake and Output ----- Mn/Dy/Year Time Intake Output Net July 01, 2017 10:00 pm 520 675 -155 July 01, 2017 2:00 pm 730 554 176 July 01, 2017 6:00 am 790 550 240 The Intake and Output Totals for the last 24 hours are: Intake Output Net [phone] Electronic Signatures: Amparo Hubbard (Resident)) (Signed 02-Jul-2017 08:32) Authored: Service, Subjective Data, Objective Data, Assessment and Plan Tavon Rao) (Signed 09-Jul-2017 22:43) Authored: Signature/Cosignature/Attestation Co-Signer: Service, Subjective Data, Objective Data, Assessment and Plan Last Updated: 09-Jul-2017 22:43 by Tavon Rao) CBC Collected: 07/01/2017 Status: F Source: [place] 5:30 AM [facility]POSITORY TYPE CODE TESTS RESULT OUT OF REFERENCE UNITS RANGE LAB WBCR(LOINC 4.4 - 11.3 x10E9/L ) WBC 4.7 LAB NRBC(LOINC 0.0-0.0 /100 WBC ) NUCLEATED RBC 0.0 LAB RBCCT(LOIN 4.50 - 5.90 x10E12/L C) Low RBC 3.17 LAB HGB(LOINC) 13.5 - 17.5 g/dL Low HGB 9.5 LAB HCT(LOINC) 41.0 - 52.0 % Low HCT 29.1 LAB MCV(LOINC) 80 - 100 fL MCV 92 LAB MCHC2(LOIN 32.0 - 36.0 g/dL C) MCHC 32.6 LAB PLTCT(LOIN 150 - 450 x10E9/L C) PLT 174 LAB RDWCV(LOIN 11.5 - 14.5 % C) RDW-CV 14.1 Performed By: #### CBC #### [facility] [address] [place] [address] MAGNESIUM Collected: 07/01/2017 Status: F Source: [place] 5:30 AM [facility]POSITORY TYPE CODE TESTS RESULT OUT OF REFERENCE UNITS RANGE LAB MG(LOINC) 1.60 - 2.40 mg/dL MAGNESIUM 1.92 Performed By: #### MG #### [facility] [address] [place] [address] RENAL FUNCTION PANEL Collected: 07/01/2017 Status: F Source: [place] 5:30 AM [facility]POSITORY TYPE CODE TESTS RESULT OUT OF REFERENCE UNITS RANGE LAB GLU(LOINC) 74 - 99 mg/dL GLUCOSE High 158 LAB SOD(LOINC) 136 - 145 mmol/L SODIUM 140 LAB K(LOINC) 3.5 - 5.3 mmol/L POTASSIUM 3.6 LAB CHLOR(LOIN 98 - 107 mmol/L C) CHLORIDE 107 LAB BIC(LOINC) 21 - 32 mmol/L BICARBONATE 25 LAB ANGAP(LOIN 10 - 20 mmol/L C) ANION GAP 12 LAB UREA(LOINC 6 - 23 mg/dL ) UREA NITROGEN 14 LAB CREA(LOINC 0.50 - 1.30 mg/dL ) CREATININE 0.60 LAB GFRFN(LOIN >60 mL/min/1.7 C) 3m2 GFR-NON AM. >60 LAB GFRAA(LOIN >60 mL/min/1.7 C) 3m2 GFR- AM. >60 Result Comment: CALCULATIONS OF ESTIMATED GFR ARE PERFORMED USING THE MDRD STUDY EQUATION FOR THE IDMS-TRACEABLE CREATININE METHODS. CLIN CHEM 2007;53:766-72 LAB CA(LOINC) 8.6 - 10.6 mg/dL CALCIUM Low 8.1 LAB PHOS(LOINC) 2.5 - 4.9 mg/dL PHOSPHORUS Low 2.3 Result Comment: The performance characteristics of phosphorus testing in heparinized plasma have been validated by the individual laboratory site where testing is performed. Testing on heparinized plasma is not approved by the FDA; however, such approval is not necessary. LAB ALB(LOINC) 3.4 - 5.0 g/dL Low ALBUMIN 2.7 Performed By: #### RENAL #### [facility] [address] [place] [address] DAILY PROGRESS Observed: 07/01/2017 Status: COMPLETED Source: [place] NOTE-ENT 1:30 AM [facility] Service: ENT Subjective Data: AMPARO DE LEÓN is a 76 year old Male who is Hospital Day # 5 and POD #4 for Direct Laryngoscopy, Total laryngectomy. Additional Information: S: No subjective complaints. O: AFVSS Gen - NAD, resting comfortably in bed Ears - External ears normal Nose - Anterior nares clear, no rhinorrhea OC/OP - No masses or lesions appreciated, OP without drainage Neck - laryngectomy stoma with intact sutures, neck incision is clean/dry/intact, alfredo tube removed to examine stoma -drains in place with serosang drainage, holding suction Ext - SCDs in place A/P: 76 y/o male with a history of supraglottic SCCa (chemoXRT 2017) and recently diagnosed with T1N0M0 laryngeal SCCa now s/p total laryngectomy, cricopharyngeal myotomy, and placement of SBT. Active Issues Recurrent laryngeal SCCa Etoh abuse smoking - Monitor drains - Diet: NPO, mIVF, advance TFs - Analgesia: PRN tylenol and oxy 5/10 - Fluids: mIVR, wean as TFs increase - Resp: alfredo tube in place, HME filter placed - ID: Unasyn x 4 days - Embolic PPx: SQH, SCDs withhile in bed - Drains: monitor, stripping with flap checks - GI PPx: PPI - ARMAMENT MECHANIC for post-laryngectomy teaching - restart home meds - Dispo: continued aminah care on SCC5 [place] [id number] Objective Data: Objective Information: ---- Intake and Output ----- Mn/Dy/Year Time Intake Output Net June 29, 2017 10:00 pm 1210 177.5 1032 June 29, 2017 2:00 pm 1000 434.5 565 June 29, 2017 6:00 am 700 412.5 287 The Intake and Output Totals for the last 24 hours are: Intake Output Net 2100 1065 1035 Signature/Cosignature/Attestation: Attending Attestation I saw and evaluated the patient. I personally obtained the miller and critical portions of the history and physical exam or was physically present for miller and critical portions performed by the resident/fellow. I reviewed the resident/fellow?s documentation and discussed the patient with the resident/fellow. I agree with the resident/fellow?s medical decision making as documented in the resident?s note. I personally evaluated the patient (as noted in the above attestation) on 01-Jul-2017 Electronic Signatures: Amparo Hubbard (Resident)) (Signed 01-Jul-2017 11:39) Authored: Subjective Data Marimar Wood (Resident)) (Signed 01-Jul-2017 01:32) Authored: Service, Subjective Data, Objective Data, Assessment and Plan, Signature/Cosignature/Attestation Pacheco Valencia) (Signed 02-Jul-2017 09:37) Authored: Signature/Cosignature/Attestation Co-Signer: Service, Subjective Data, Objective Data, Assessment and Plan, Signature/Cosignature/Attestation Last Updated: 02-Jul-2017 09:37 by Pacheco Valencia) CONSULT-WOUND CARE Observed: 06/30/2017 Status: COMPLETED Source: [place] 4:52 PM [facility] REPOSITORY Service: Service: wound care Consult: Reason: assess sacrum Allergies: ? No Known Allergies: Assessment: Wound location: Right coccyx size:1.5 x 0.7 cm undermining: no tracking: no Wound type: Stage 3 pressure injury Wound bed: yellow, pink Draining: moist Periwound skin: pink blanchable Therapeutic surface: Versacare Bed Recommendation: Daily Irrigate with normal saline or wound cleanser. Pack with Aquacel Ag (Silver) daily and as needed. Cover with Mepilex border dressing Turn and reposition at least every 2 hours. Plan: While inpatient, call with questions or if condition changes. Mini Gould BSN RN CWON Pager [phone] Electronic Signatures: Mini oGuld (STAFF N) (Signed 30-Jun-2017 17:02) Authored: Service, Allergies, Assessment/Recommendations, Signature/Cosignature/Attestation Last Updated: 30-Jun-2017 17:02 by Mini Gould (STAFF N) Observed: 06/30/2017 Status: F Source: [place] [facility] 2:11 PM [facility] REPOSITORY CULT./SM,LOWER PATIENT: AMPARO DE LEÓN LOCATION: C500 C50 BILL#: [id number] : 42 AGE: SEX: M ORDERED BY: ODILON ARRIOLA SOURCE: TRACHEAL ASPIRATE COLLECTED: 06/30/17 14:11 ANTIBIOTICS AT [facility].: RECEIVED : 06/30/17 16:41 SITE: R E S U L T S GRAM STAIN FINAL 06/30/17 17:40 3+ GRANULOCYTES. NO ORGANISMS SEEN. RESPIRATORY CULT./SM,LOWER FINAL 07/02/17 07:06 NO GROWTH Performed By: #### RESPL #### [facility] [address] [place] [address] DAILY PROGRESS Observed: 06/30/2017 Status: COMPLETED [facility]: [facility] 8:20 AM [facility] RE[facility] Service: ENT Subjective Data: AMPARO DE LEÓN is a 76 year old Male who is Hospital Day # 4 and POD #3 for Direct Laryngoscopy, Total laryngectomy. Additional Information: S: No subjective complaints. O: AFVSS Gen - NAD, resting comfortably in bed Ears - External ears normal Nose - Anterior nares clear, no rhinorrhea OC/OP - No masses or lesions appreciated, OP without drainage Neck - laryngectomy stoma with intact sutures, neck incision is clean/dry/intact, alfredo tube removed to examine stoma -drains in place with serosang drainage, holding suction Ext - SCDs in place A/P: 76 y/o male with a history of supraglottic SCCa (chemoXRT 2017) and recently diagnosed with T1N0M0 laryngeal SCCa now s/p total laryngectomy, cricopharyngeal myotomy, and placement of SBT. Active Issues Recurrent laryngeal SCCa Etoh abuse smoking - Monitor drains - Diet: NPO, mIVF, advance TFs - Analgesia: PRN tylenol and oxy 5/10 - Fluids: mIVR, wean as TFs increase - Resp: alfredo tube in place, HME filter placed - ID: Unasyn x 4 days - Embolic PPx: SQH, SCDs while in bed - Drains: monitor, stripping with flap checks - GI PPx: PPI - ARMAMENT MECHANIC for post-laryngectomy teaching - restart home meds - Dispo: continued aminah care on SCC5 ENT [id number] Objective Data: Objective Information: ---- Intake and Output ----- Mn/Dy/Year Time Intake Output Net June 30, 2017 6:00 am 700 210 490 June 29, 2017 10:00 pm 1210 177.5 1032 June 29, 2017 2:00 pm 1000 434.5 565 The Intake and Output Totals for the last 24 hours are: Intake Output Net 2740 822 2088 Recent Lab Results: Results: I have reviewed these laboratory results: Renal Function Panel 04-May-2018 04:37:00 Result Value Glucose, Serum 107 H NA 141 K 3.8 CL 105 Bicarbonate, Serum 28 Anion Gap, Serum 12 BUN 11 CREAT 0.72 GFR-Non >60 GFR- >60 Calcium, Serum 8.0 L Phosphorus, Serum 2.1 L ALB 2.7 L Complete Blood Count 30-Jun-2017 04:37:00 Result Value White Blood Cell Count 6.7 Nucleated Erythrocyte Count 0.0 Red Blood Cell Count 3.21 L HGB 9.5 L HCT 30.1 L MCV 94 MCHC 31.6 L PLT 153 RDW-CV 14.1 Magnesium, Serum 30-Jun-2017 04:37:00 Result Value Magnesium, Serum 2.06 Radiology Results: Results: Xray Chest 1 View [Jun 29 2017 9:20AM] SCIP Measures: Urinary Catheter Removed Post-Op Day 2: yes Patient on Beta Katya Prior to Admission: no Prophylactic antibiotics scheduled to be discontinued with 24 hr of anesthesia end time (48 hr for cardiac surgery): no Reason to Continue Antibiotics: Rule out infection Signature/Cosignature/Attestation: Attending Attestation I saw and evaluated the patient. I personally obtained the miller and critical portions of the history and physical exam or was physically present for miller and critical portions performed by the resident/fellow. I reviewed the resident/fellow?s documentation and discussed the patient with the resident/fellow. I agree with the resident/fellow?s medical decision making as documented in the resident?s note. I personally evaluated the patient (as noted in the above attestation) on 30-Jun-2017 Electronic Signatures: Pacheco Valencia) (Signed 01-Jul-2017 07:27) Authored: Signature/Cosignature/Attestation Co-Signer: Service, Subjective Data, Objective Data, SCIP Measures, Signature/Cosignature/Attestation Jr Mccallum (Resident)) (Signed 30-Jun-2017 08:40) Authored: Service, Subjective Data, Objective Data, SCIP Measures, Signature/Cosignature/Attestation Arsen Pino (Resident)) (Signed 30-Jun-2017 18:28) Entered: Subjective Data, Signature/Cosignature/Attestation Authored: Service, Subjective Data, Objective Data, SCIP Measures, Signature/Cosignature/Attestation Last Updated: 01-Jul-2017 07:27 by Pacheco Valencia) CBC Collected: 06/30/2017 Status: F Source: [place] [address]:[id number] [place] [address] REPOSITORY TYPE CODE TESTS RESULT OUT OF REFERENCE UNITS RANGE LAB WBCR(LOINC 4.4 - 11.3 x10E9/L ) WBC 6.7 LAB NRBC(LOINC 0.0-0.0 /100 WBC ) NUCLEATED RBC 0.0 LAB RBCCT(LOIN 4.50 - 5.90 x10E12/L C) Low RBC 3.21 LAB HGB(LOINC) 13.5 - 17.5 g/dL Low HGB 9.5 LAB HCT(LOINC) 41.0 - 52.0 % Low HCT 30.1 LAB MCV(LOINC) 80 - 100 fL MCV 94 LAB MCHC2(LOIN 32.0 - 36.0 g/dL C) Low MCHC 31.6 LAB PLTCT(LOIN 150 - 450 x10E9/L C) PLT 153 LAB RDWCV(LOIN 11.5 - 14.5 % C) RDW-CV 14.1 Performed By: #### CBC #### [facility] [address] [place] [address] MAGNESIUM Collected: 06/30/2017 Status: F Source: [place] [address]:[address] [place] [address] REPOSITORY TYPE CODE TESTS RESULT OUT OF REFERENCE UNITS RANGE LAB MG(LOINC) 1.60 - 2.40 mg/dL MAGNESIUM 2.06 Performed By: #### MG #### [facility] [address] [place] [address] RENAL FUNCTION PANEL Collected: 06/30/2017 Status: F Source: [place] [address]:[address] [place] [address] REPOSITORY TYPE CODE TESTS RESULT OUT OF REFERENCE UNITS RANGE LAB GLU(LOINC) 74 - 99 mg/dL GLUCOSE High 107 LAB SOD(LOINC) 136 - 145 mmol/L SODIUM 141 LAB K(LOINC) 3.5 - 5.3 mmol/L POTASSIUM 3.8 LAB CHLOR(LOIN 98 - 107 mmol/L C) CHLORIDE 105 LAB BIC(LOINC) 21 - 32 mmol/L BICARBONATE 28 LAB ANGAP(LOIN 10 - 20 mmol/L C) ANION GAP 12 LAB UREA(LOINC 6 - 23 mg/dL ) UREA NITROGEN 11 LAB CREA(LOINC 0.50 - 1.30 mg/dL ) CREATININE 0.72 LAB GFRFN(LOIN >60 mL/min/1.7 C) 3m2 GFR-NON AM. >60 LAB GFRAA(LOIN >60 mL/min/1.7 C) 3m2 GFR- AM. >60 Result Comment: CALCULATIONS OF ESTIMATED GFR ARE PERFORMED USING THE MDRD STUDY EQUATION FOR THE IDMS-TRACEABLE CREATININE METHODS. CLIN CHEM 2007;53:766-72 LAB CA(LOINC) 8.6 - 10.6 mg/dL CALCIUM Low 8.0 LAB PHOS(LOINC) 2.5 - 4.9 mg/dL PHOSPHORUS Low 2.1 Result Comment: The performance characteristics of phosphorus testing in heparinized plasma have been validated by the individual laboratory site where testing is performed. Testing on heparinized plasma is not approved by the FDA; however, such approval is not necessary. LAB ALB(LOINC) 3.4 - 5.0 g/dL Low ALBUMIN 2.7 Performed By: #### RENAL #### [facility] [address] [place] [address] DISCHARGE PROFILE2 Observed: 06/29/2017 Status: UNK Source: [place] 1:28 PM [facility] REPOSITORY Discharge Orders: Anticipated Discharge Date: ? Anticipated Discharge Date 03-Jul-2017 ? Anticipated Discharge Time 11:00 Problem List: Additional Dx: ? Laryngeal cancer: Catalog Name: Malignant neoplasm of larynx, unspecified ? Laryngeal mass: Catalog Name: Other diseases of larynx Significant Events: Surgical Procedure: Clinical Events This Visit, 27-Jun-2017, Direct Laryngoscopy, Total laryngectomy Surgical Procedure: Clinical Events This Visit, 27-Jun-2017, EGD, PEG placement Hospital Providers: Provider Role Provider Name ? Attending Anastasia Rodríguez DNAR: ? DNAR Status none Activity: activity as tolerated. May shower. May not return to school/work Instructions: May not drive while taking narcotics. No pushing, pulling, or lifting objects greater than 10 pounds. Weight-bearing Instructions: full weight bearing. Other activity instructions: Slowly increase your activity each day. No strenuous or vigorous exercising until cleared by your surgeon. Diet: ? Diet nothing by mouth Additional Orders: ? Weight weekly ? Additional Instructions Call the office for signs of infection: sustained elevated temperature greater than 101 degrees, increased incisional pain, increased redness or swelling, tenderness to touch, or drainage along incision. Also call the office for persistent nausea or vomiting. Call Provider If (Homegoing Patients): Breathing faster than normal. Breathing harder than normal or having retractions. Chills. 3 or more loose, watery bowel movements in 24 hours (diarrhea). Any new concerning symptoms. Otolaryngology: Total Laryngectomy: Laryngectomy Care: Cleanse stoma site with 1:1 mixture of hydrogen peroxide and normal saline to remove any crusting. Remove alfredo tube and cleanse with soap and water twice a day to remove any crusting. Dry and re-insert. Change HME disc daily. Suction every 4-6 hours and/or or as needed to clear secretions. May instill 2-3 mLs of normal saline lavage as needed for thick secretions. Change trach ties as needed.. Alfredo tube size 1055. Suction Catheter Size/Type 14Fr. Patient is an obligate neck breather. For respiratory distress give ventilation through the stoma in the neck. PEG Tube Care: PEG Tube Care: Cleanse with 1:1 mixture of hydrogen peroxide and normal saline to remove any crust. Spin bumper daily. If bumper does not spin freely notify MD. Monitor site for signs & symptoms of infection which include redness, warmth, increased tenderness and purulent drainage. Incision Care: Facial/Neck Incision Care: Cleanse all facial/neck incisions twice daily with baby shampoo or mild soap and water. Apply petroleum jelly/vaseline to incision line twice daily until incision has healed. Tube Feed Regimen: Tube Feed: Isosource 1.5: 250ml 5x/day; a total of 5 cans/day. Flush tube with 60 ml of water before and after feeds. Flush tube with 30 ml of free water flush 1 times per day, between feeds. Skilled Facility Instructions: FOR PATIENTS GOING TO [facility] FACILITY: Please make sure this patient has all suctioning, dressing, trach care and tube feeding supplies in their home prior to leaving the [facility] facility. Please order an electrolarynx for the patient prior to his discharge from the facility. Hospital Course (Home Care/Gold Form): Hospital Course: ? Hospital Course: include significant abnormal lab values 76 y/o male with a history of supraglottic SCCa (chemoXRT 2017) and recently diagnosed with T1N0M0 laryngeal SCCa now s/p total laryngectomy, cricopharyngeal myotomy, and placement of SBT by Dr. Rodríguez on 06/27/2017. Please see operative report for full details. Patient tolerated the procedure well and recovered briefly in PACU before being transitioned to regular nursing floor. Post-op course was complicated by a post-operative fever. On POD1 the patient had a fever to 38.2. A urine culture was sent and it was negative for infection. A chest x-ray showed the known R upper lobe mass, left upper lobe opacities along with perihilar congestion. On 06/29 the bautista catheter was removed and the patient was able to void without issue. The ARCHITECTURE TECHNICIAN was discontinued and he was successfully transitioned to oral pain meds via his PEG. His tube feed diet was advanced as tolerated; at goal rate he was transitioned to intermittent bolus feeds. IV medication transitioned to oral as diet advanced. On the day of discharge, the pt was tolerating a diet, pain was controlled on PO pain medication, and they were ambulating and voiding spontaneously. They were discharged to a fpc facility in stable condition with instructions to follow up as outpatient. Infectious Disease: ? PPD Status not given ? MRSA no ? VRE no ? C. Diff no ? Other Resistant Organism no ? Isolation Type none Gold Form Orders: Care Recommendation: ? I recommend that INPATIENT care is required at: Skilled ? Estimated Stay Convalescent stay < 30 days ? Prognosis Good ? Rehab Potential/Function Improve ? Provider Certification I certify that inpatient care is required at the level recommended above. To the best of my knowledge, all information provided about the individual is a true and accurate reflection of the individual's condition. Therapy Orders: ? Occupational Therapy Orders Eval and Treat ([facility]) daily ? Physical Therapy Orders Eval and Treat ([facility]) daily ? Speech Therapy Orders Eval and Treat ([facility]) daily No food or liquid trial until cleared by his surgeon Dr. Rodríguez/ Provider FINAL REVIEW of Orders: Final Review: ? Final Review of Medication Reconciliation and Orders Completed by Physician ? Reviewing Provider Arsen Pino MD (Resident) at 03-Jul-2017 10:27:20 Appointments: Follow-Up Appointment 01: ? Physician/Dept/Service Dr. Anastasia Rodríguez ? Reason for Referral Post op visit ? Scheduled Date/Time 12-Jul-2017 11:30 ? Location [facility] [address] [place] [address] ? ? Comments Please arrive 10-15 minutes early, bring photo ID, insurance information, and current list of medications. If unable to keep this appointment, please call to cancel at least 24 hours prior to appointment. Gold Form - Nursing Summary: Special Treatments/Procedures (in past 14 days): ? Chemotherapy no ? Dialysis no ? IV Medication yes ? Last Date Received 29-Jun-2017 ? Oxygen Therapy yes ? Last Date Received 30-Jun-2017 ? Transfusions no ? Fever no ? Radiation no ? Ventilator no ? Tracheostomy yes ? Date Tracheostomy Inserted 27-Jun-2017 ? Tracheotomy Type alfredo tube ? Tracheotomy Size #6 ? Suctioning yes ? Suctioning Frequency 6-8hours daily ? Secretions clear thick secretion Nutrition: ? Nutritional Status assist feed, feeding tube ? Date Tube Inserted 27-Jun-2017 ? Feeding Tube Type percutaneous tube ? Nutrition Comment Isosource 1.5@ 250x 5 daily Sensory/Comfort: ? Vision adequate ? Speech non-verbal, trach ? Pain no Elimination: ? Bladder continent ? Bowel continent ? Last Bowel Movement 02-Jul-2017 ? Toileting toilet Safety: ? Restraints no ? Sitter no ? Fall Risk weakness Medication/Hygiene/Mobility: ? Medication Administration assist ? Bathing assist ? Dressing assist ? Bed Mobility assist ? Wheelchair assist ? Transfers assist ? Ambulation assist ? Mobility wheel walker Pressure Ulcer 1: ? Location coccyx ? Appearance skin open redness ? Dressing Aqua-Floridalma/ kerlixs ? Dressing Change Frequency once daily Incision 1: ? Location bilateral neck incision ? Appearance partial heal ? Dressing open air petroleum jelly Electronic Signatures: Delta King (RN) (Signed 03-Jul-2017 16:15) Authored: Gold Form - Nursing Summary Cinthya Blas (MEDICAL POLICY SPECIALIST-CORE FILER) (Signed 03-Jul-2017 08:57) Authored: Discharge Orders, Otolaryngology, Hospital Course (Home Care/Gold Form), Gold Form Orders, Appointments, Gold Form - Complaint Investigations Officer Summary Arsen Pino (Resident)) (Signed 03-Jul-2017 10:27) Authored: Provider FINAL REVIEW of Orders Last Updated: 03-Jul-2017 16:15 by Delta King (RN) DAILY PROGRESS Observed: 06/29/2017 Status: COMPLETED Source: [facility] 8:20 AM [facility]ITALS REPOSITORY Service: ENT Subjective Data: AMPARO DE LEÓN is a 76 year old Male who is Hospital Day # 3 and POD #2 for Direct Laryngoscopy, Total laryngectomy. Additional Information: S: temp 38.2 overnight but no subjective complaints. CXR and UA obtained O: AFVSS Gen - NAD, resting comfortably in bed Ears - External ears normal Nose - Anterior nares clear, no rhinorrhea OC/OP - No masses or lesions appreciated, OP without drainage Neck - laryngectomy stoma with intact sutures, neck incision is clean/dry/intact, alfredo tube removed to examine stoma -drains in place with serosang drainage, holding suction Ext - SCDs in place A/P: 76 y/o male with a history of supraglottic SCCa (chemoXRT 2017) and recently diagnosed with T1N0M0 laryngeal SCCa now s/p total laryngectomy, cricopharyngeal myotomy, and placement of SBT. 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, start PRN tylenol and oxy 5/10 - Fluids: mIVR, wean as TFs increase - Resp: alfredo tube in place, HME filter placed - ID: Unasyn x 4 days, temp to 38.2, likely atelectasis, will f/u CXR - Embolic PPx: SQH, SCDs while in bed - Drains: monitor, stripping with flap checks - GI PPx: PPI - ARMAMENT MECHANIC for post-laryngectomy teaching - restart home meds - Dispo: continued aminah care on SCC5 [place] [id number] Objective Data: Objective Information: ---- Intake and Output ----- Mn/Dy/Year Time Intake Output Net June 29, 2017 6:00 am 700 412.5 287 June 28, 2017 10:00 pm 700 287.5 412 June 28, 2017 2:00 pm 700 365 335 The Intake and Output Totals for the last 24 hours are: Intake Output Net 2100 1065 1035 SCIP Measures: Urinary Catheter Removed Post-Op Day 2: yes Patient on Beta Katya Prior to Admission: no Prophylactic antibiotics scheduled to be discontinued with 24 hr of anesthesia end time (48 hr for cardiac surgery): no Reason to Continue Antibiotics: Rule out infection Signature/Cosignature/Attestation: Attending Attestation I saw and evaluated the patient. I personally obtained the miller and critical portions of the history and physical exam or was physically present for miller and critical portions performed by the resident/fellow. I reviewed the resident/fellow?s documentation and discussed the patient with the resident/fellow. I agree with the resident/fellow?s medical decision making as documented in the resident?s note. I personally evaluated the patient (as noted in the above attestation) on 29-Jun-2017 Electronic Signatures: Pacheco Valencia) (Signed 29-Jun-2017 16:45) Authored: Signature/Cosignature/Attestation Co-Signer: Service, Subjective Data, Objective Data, SCIP Measures, Signature/Cosignature/Attestation Arsen Pino (Resident)) (Signed 29-Jun-2017 15:49) Authored: Service, Subjective Data, Objective Data, SCIP Measures, Signature/Cosignature/Attestation Last Updated: 29-Jun-2017 16:45 by Pacheco Valencia) CBC Collected: 06/29/2017 Status: F Source: [place] 5:30 AM [facility]ITALS REPOSITORY TYPE CODE TESTS RESULT OUT OF REFERENCE UNITS RANGE LAB WBCR(LOINC 4.4 - 11.3 x10E9/L ) WBC 8.9 LAB NRBC(LOINC 0.0-0.0 /100 WBC ) NUCLEATED RBC 0.0 LAB RBCCT(LOIN 4.50 - 5.90 x10E12/L C) Low RBC 3.57 LAB HGB(LOINC) 13.5 - 17.5 g/dL Low HGB 10.6 LAB HCT(LOINC) 41.0 - 52.0 % Low HCT 33.6 LAB MCV(LOINC) 80 - 100 fL MCV 94 LAB MCHC2(LOIN 32.0 - 36.0 g/dL C) Low MCHC 31.5 LAB PLTCT(LOIN 150 - 450 x10E9/L C) PLT 155 LAB RDWCV(LOIN 11.5 - 14.5 % C) RDW-CV 14.2 Performed By: #### CBC #### [facility] [address] [place] [address] MAGNESIUM Collected: 06/29/2017 Status: F Source: [place] 5:30 AM HOSPITALS REPOSITORY TYPE CODE TESTS RESULT OUT OF REFERENCE UNITS RANGE LAB MG(LOINC) 1.60 - 2.40 mg/dL MAGNESIUM 1.88 Performed By: #### MG #### [facility] [address] [place] [address] RENAL FUNCTION PANEL Collected: 06/29/2017 Status: F Source: [place] 5:30 AM H[facility]PITALS REPOSITORY TYPE CODE TESTS RESULT OUT OF REFERENCE UNITS RANGE LAB GLU(LOINC) 74 - 99 mg/dL GLUCOSE 97 LAB SOD(LOINC) 136 - 145 mmol/L SODIUM 141 LAB K(LOINC) 3.5 - 5.3 mmol/L POTASSIUM 4.0 LAB CHLOR(LOIN 98 - 107 mmol/L C) CHLORIDE 104 LAB BIC(LOINC) 21 - 32 mmol/L BICARBONATE 25 LAB ANGAP(LOIN 10 - 20 mmol/L C) ANION GAP 16 LAB UREA(LOINC 6 - 23 mg/dL ) UREA NITROGEN 10 LAB CREA(LOINC 0.50 - 1.30 mg/dL ) CREATININE 0.74 LAB GFRFN(LOIN >60 mL/min/1.7 C) 3m2 GFR-NON AM. >60 LAB GFRAA(LOIN >60 mL/min/1.7 C) 3m2 GFR- AM. >60 Result Comment: CALCULATIONS OF ESTIMATED GFR ARE PERFORMED USING THE MDRD STUDY EQUATION FOR THE IDMS-TRACEABLE CREATININE METHODS. CLIN CHEM 2007;53:766-72 LAB CA(LOINC) 8.6 - 10.6 mg/dL CALCIUM 8.8 LAB PHOS(LOINC) 2.5 - 4.9 mg/dL PHOSPHORUS Low 1.9 Result Comment: The performance characteristics of phosphorus testing in heparinized plasma have been validated by the individual laboratory site where testing is performed. Testing on heparinized plasma is not approved by the FDA; however, such approval is not necessary. LAB ALB(LOINC) 3.4 - 5.0 g/dL Low ALBUMIN 3.3 Performed By: #### RENAL #### [facility] [address] [place] [address] TH CHEST 1 VIEW Observed: 06/28/2017 Status: F Source: [place] 9:55 PM HOSPITALS REPOSITORY Patient Name: AMPARO DE LEÓN STUDY: TH CHEST 1 VIEW; 06/28/2017 9:55 pm INDICATION: Signs/Symptoms: Febrile. COMPARISON: Chest radiograph from 05/04/[address] from 05/31/2017 ACCESSION NUMBER(S): [id number] ORDERING CLINICIAN: GLENNY LAL FINDINGS: The cardiomediastinal silhouette appears slightly more prominent than prior, likely due to combination AP projection and low lung volumes. Mild aortic knob calcifications again noted. There is again demonstration of a spiculated left suprahilar lung mass. Additional subtle patchy left upper zone airspace opacities are better seen on CT scan from 05/31/2017, and are likely felt to be inflammatory/infectious in nature. Mild bibasilar atelectasis, unchanged from prior. No sizable pleural effusion or pneumothorax. No acute osseous abnormality. IMPRESSION: 1. Redemonstration of spiculated left suprahilar lung mass. 2. Additional subtle patchy left apical airspace opacities are better seen on CT scan from 05/31/2017 and are likely felt to be inflammatory/infectious in nature. Electronically signed by: KATTY AGUILAR MD URINALYSIS Collected: 06/28/2017 Status: F Source: [place] 8:54 PM HOSPITALS REPOSITORY TYPE CODE TESTS RESULT OUT OF RANGE REFERENCE UNITS LAB COLU(LOIN STRAW,YELLOW C) COLOR YELLOW LAB APPRU(VALERIE CLEAR NC) APPEARANCE CLEAR LAB SPGRU(VALERIE 1.005 - 1.035 NC) SPECIFIC GRAVITY 1.029 LAB PABLO(LOINC 5.0 - 8.0 ) pH 5.0 LAB PROTU(VALERIE NEGATIVE mg/dL NC) PROTEIN Abnormal 30 (1+) LAB GLUCU(VALERIE NEGATIVE mg/dL NC) GLUCOSE NEGATIVE LAB BLDU(LOIN NEGATIVE C) BLOOD Abnormal MODERATE (2+) LAB KETU(LOIN NEGATIVE mg/dL C) KETONES Abnormal 5 (TRACE) LAB BILIU(VALERIE NEGATIVE NC) BILIRUBIN NEGATIVE LAB UROU2(VALERIE 0.0 - 1.9 mg/dL NC) UROBILINOGEN <2.0 LAB NITRU(VALERIE NEGATIVE NC) NITRITE NEGATIVE LAB LEUKU(VALERIE NEGATIVE NC) LEUKOCYTE ESTERASE NEGATIVE Performed By: #### UA #### [facility] [address] [place] [address] UA MICROSCOPIC Collected: 06/28/2017 Status: F Source: [place] 8:54 PM HOSPITALS REPOSITORY TYPE CODE TESTS RESULT OUT OF RANGE REFERENCE UNITS LAB WBCUR(LOINC 0-5 /HPF ) WBC 3 LAB RBCUR(LOINC 0-5 /HPF ) Abnormal RBC 17 LAB MUCOU(LOINC /LPF ) MUCUS 1+ Performed By: #### UAMIC #### [facility] [address] [place] [address] NUTRITION THERAPY-ASSESSMENT Observed: 06/28/2017 Status: UNK Source: [place] 10:08 AM [facility]ITALS REPOSITORY Assessment Subjective/Objective: Note Type: Assessment Note Authored by: Registered Dietitian Acid Adjuster Pager Number: [phone] Nutrition Note: The patient is a 76 year old Male recently diagnosed with T1N0M0 laryngeal SCCa now s/p total laryngetomy, cricopharyngeal myotomy, and placement of SBT. Patient with history of supraglottic SCCa diagnosed February,. Completed chemoradiation in July, (in [place] area). Patient also with new lung nodule. Consult for enteral assessment/recommendation. PEG tube in place. Trickle tube feeds to start 5/3. Medical Surgical History: as stated above HTN Objective Information: Intake Output IV Fluids 3850 mL Urine 1235 mL Blood 30 mL Drain 107.5 mL Height/Weight: Height in feet: 5 feet Height in inches: 9 inch(es) Height in cm: 175.2 centimeter(s) Weight in lbs: 153 pound(s) Weight (kg): 69.4 BMI (kg/m2): 22.609 square meter DBW (kg): 72.7 %DBW: 95 Weight history/ % weight change: UBW per patient: 150-155 lb 05/22/17) 69.2 kg Significant Weight Change: no Recent Lab Results: Results: I have reviewed these laboratory results: Renal Function Panel 28-Jun-2017 05:00:00 Result Value Glucose, Serum 112 H NA 137 K 4.3 CL 102 Bicarbonate, Serum 24 Anion Gap, Serum 15 BUN 11 CREAT 0.74 GFR-Non >60 GFR- >60 Calcium, Serum 8.8 Phosphorus, Serum 2.7 ALB 3.6 Complete Blood Count 28-Jun-2017 05:00:00 Result Value White Blood Cell Count 8.6 Nucleated Erythrocyte Count 0.0 Red Blood Cell Count 3.86 L HGB 11.7 L HCT 38.6 L MCV 100 MCHC 30.3 L PLT 155 RDW-CV 14.1 Magnesium, Serum 28-Jun-2017 05:00:00 Result Value Magnesium, Serum 1.95 Current Active Medications/PN: Ampicillin - Sulbactam 3 gm/NaCL 0.9% IVPB Soln 100 mL, (UNASYN) Every 6 Hours Recommended Infusion Time: 30 minute(s) Stop After 4 Days, 27-Jun-2017 Sodium Chloride 0.9% Infusion, IV Bag Volume = 1,000 mL Run at: 75 mL/hr IntraVenous <Continuous>, 27-Jun-2017 Nutrition Orders: NPO, Routine ., 27-Jun-2017 Food/Nutrition Related History: Change in Oral Intake/Appetite: no change GI Symptoms: none Oral Problems: denies Mobility: normal activity Food/Nutrition Related History: Patient difficulty to orient at times during interview. Patient reports eating well prior to surgery, no difficulty with swallowing. Weight stable. Nutrition Focused Physical Findings: Muscle Wasting: Temporal: yes Shoulder: no Clavicle: defer Scapula/Back: defer Biceps/Triceps: no Interosseous: no Quadriceps: no Calf: no Loss of Subcutaneous Fat: Eyes: no Perioral: no Triceps: no Chest: no Other Physical Findings: Skin: surgical sites Edema: none Change in Metabolic Demand: yes Subjective Global Assessment Rating: malnutrition not present at this time Estimated Needs: kcals/day: 6956-3030 gms protein/day: 85-105 mL fluid/day: 1 mL/kcal or per MD Nutrition Diagnosis: Diagnosis1 new. Dx: Increased nutrient needs. related to increased metabolic demand as evidenced by patient s/p surgery requiring increase nutrition intake to promote post-op healing and recovery. Nutrition Interventions: Individualized Nutrition Prescription Provided for: enteral nutrition, fluids Diet Education: not applicable Provided Nutrition Support Recommendations: Impact peptide 1.5 @ 50 mL/hr: 1800 kcal, 113 grams protein, 1200 mL volume, 924 mL free water Coordination of Care with: ENT Rounds (MD, MATTRESS FILLING MACHINE TENDER, Return Agent) Nutrition Goals: Goals: Nutrition Therapy: nutrition support goals are met within 48 hrs, nutrition support is meeting 75% of nutrient needs, tube feed tolerance, Blood Glucose 80-180 mg/dl, electrolytes within normal limits, promote healing, maintain stable weight Outcomes Summary: Nutrition Therapy Outcome Summary: Nutritional Therapy: Increased nutrient needs -- to start immunoenhancing/high protein tube feed formula NUTRITION RECOMMENDATIONS: Recommendations: 1. Start Impact peptide 1.5 @ 20 mL/hr. Increase by 10 mL ever 4-6 hours as tolerated to goal of 50 mL/hr water flush: 150 mL 6x/day or per MD 2. Once tolerating goal rate switch to bolus feeds: 250 mL 5x/day water flush: 60 mL pre/post bolus + additional 300 mL once between feeds 3. After 5-7 days switch to Isosource 1.5: 250 mL 5x/day (5 cans/day): 1875 kcal, 85 grams protein, 1250 mL volume water flush: 60 mL pre/post bolus + additional 300 mL once between feeds Nutrition Therapy Recommendations: Nutrition Therapy Recommendations: see RDN note 5/2 Dietitian Monitoring and Evaluation Plan: Monitoring and Evaluation Plan: fluid intake/adequacy, digestive function, Nutrition Support tolerance/adequacy, weight trend, skin healing/integrity, labs Electronic Signatures: Farzaneh Cortez (HERMILO, SUNNY) (Signed 28-Jun-2017 10:23) Authored: Assessment Subjective/Objective, Nutrition Focused Physical Findings, Estimated Needs, Nutrition Diagnosis, Nutrition Interventions, Nutrition Goals, Nutrition Recommendations, Dietitian Monitoring and Evaluation Plan Last Updated: 28-Jun-2017 10:23 by Farzaneh Cortez (HERMILO, SUNNY) DAILY PROGRESS Observed: 06/28/2017 Status: COMPLETED Source: [facility] 7:54 AM [facility]ITALS REPOSITORY Service: ENT Subjective Data: AMPARO DE LEÓN is a 76 year old Male who is Hospital Day # 2 and POD #1 for Direct Laryngoscopy, Total laryngectomy. Additional Information: S: weak cough reported overnight no complaints during AM rounds O: AFVSS Gen - NAD, resting comfortably in bed Ears - External ears normal Nose - Anterior nares clear, no rhinorrhea OC/OP - No masses or lesions appreciated, OP without drainage Neck - laryngectomy stoma with intact sutures, neck incision is clean/dry/intact, alfredo tube removed to examine stoma -drains in place with serosang drainage, holding suction Ext - SCDs in place A/P: 76 y/o male with a history of supraglottic SCCa (chemoXRT 2017) and recently diagnosed with T1N0M0 laryngeal SCCa now s/p total laryngectomy, cricopharyngeal myotomy, and placement of SBT. Active Issues Recurrent laryngeal SCCa Etoh abuse smoking - Monitor drains - Diet: NPO, mIVF, TTFs 06/29 - Analgesia: ARCHITECTURE TECHNICIAN - Fluids: mIVR - Resp: alfredo tube in place, HME filter placed - ID: Unasyn x 4 days - Embolic PPx: SQH, SCDs while in bed - Drains: monitor, stripping with flap checks - GI PPx: PPI - ARMAMENT MECHANIC for post-laryngectomy teaching - restart home meds - Dispo: continued aminah care on SCC5 [place] [id number] Objective Data: Objective Information: ---- Intake and Output ----- Mn/Dy/Year Time Intake Output Net June 28, 2017 6:00 am 800 590 210 June 27, 2017 10:00 pm 500 412.5 87 June 27, 2017 2:00 pm 2550 370 2180 The Intake and Output Totals for the last 24 hours are: Intake Output Net 1200 1372 0917 ---Intake--- Enteral - Oral PO Fluid/Feed (oral): 0 mL IV Fluids Lactated Ringer's: 1350 mL Lactated Ringer's: 1350 mL Procedure IV In: 1800 mL Procedure IV In: 1800 mL Procedure IV In: 1800 mL Procedure IV In: 1800 mL Procedure IV In: 1800 mL Procedure IV In: 500 mL Procedure IV In: 500 mL Procedure IV In: 500 mL Procedure IV In: 500 mL Procedure IV In: 500 mL IV Piggybacks: 200 mL ---Output--- Urine Procedure Urine Out: 170 mL Procedure Urine Out: 170 mL Indwelling Catheter - Urethral: 1065 mL Stool Stool: 0 mL GI PEG (Percutaneous Endoscopic Gastrostomy) Tube: 0 mL Blood Procedure Blood Loss: 30 mL Procedure Blood Loss: 30 mL Drain Drain: 35 mL Drain: 35 mL Drain: 35 mL Drain: 35 mL Drain: 72.5 mL Drain: 72.5 mL Drain: 72.5 mL Drain: 72.5 mL SCIP Measures: Urinary Catheter Removed Post-Op Day 2: no Reason Patient Needs Bautista: pod1 Patient on Beta Katya Prior to Admission: no Prophylactic antibiotics scheduled to be discontinued with 24 hr of anesthesia end time (48 hr for cardiac surgery): no Reason to Continue Antibiotics: Rule out infection Signature/Cosignature/Attestation: Attending Attestation I saw and evaluated the patient. I personally obtained the miller and critical portions of the history and physical exam or was physically present for miller and critical portions performed by the resident/fellow. I reviewed the resident/fellow?s documentation and discussed the patient with the resident/fellow. I agree with the resident/fellow?s medical decision making as documented in the resident?s note. I personally evaluated the patient (as noted in the above attestation) on 28-Jun-2017 Electronic Signatures: Elkin Santana) (Signed 09-Jul-2017 11:43) Authored: Signature/Cosignature/Attestation Co-Signer: Service, Subjective Data, Objective Data, SCIP Measures, Signature/Cosignature/Attestation Arsen Pino (Resident)) (Signed 28-Jun-2017 10:22) Authored: Service, Subjective Data, Objective Data, SCIP Measures, Signature/Cosignature/Attestation Last Updated: 09-Jul-2017 11:43 by Elkin Santana) DAILY PROGRESS Observed: 06/28/2017 Status: COMPLETED Source: [facility] , 6:18 AM [facility]PITALS REPOSITORY ENDOSCOPY Service: Surgery Endoscopy Subjective Data: AMPARO DE LEÓN is a 76 year old Male who is Hospital Day # 2 and POD #1 for Direct Laryngoscopy, Total laryngectomy. Doing well overnight, no acute events. Objective Data: Objective Information: ---- Intake and Output ----- Mn/Dy/Year Time Intake Output Net June 28, 2017 6:00 am 400 267.5 132 June 27, 2017 10:00 pm 500 412.5 87 June 27, 2017 2:00 pm 2550 370 2180 The Intake and Output Totals for the last 24 hours are: Intake Output Net 3450 1050 2400 T P R BP SpO2 Value 38 75 16 131/57 93% Date/Time 06/28 6:18 06/28 6:18 06/28 6:18 06/28 6:18 5 6:18 Range (36.9C - 38C ) (74 - 100 ) (14 - 20 ) (126 - 155 )/ (57 - 90 ) (93% - 100% ) As of 28-Jun-2017 00:31:00, patient is on 35% oxygen via tracheostomy collar. Highest temp of 38 C was recorded at 06/27 21:40 Physical Exam: Constitutional: sitting up in bed, calm, family at bedside ENMT: mucous membranes moist, no apparent injury, no lesions seen Head/Neck: b/l drains with serosang output, trach collar Respiratory/Thorax: cta b/l, nonlabored Cardiovascular: RRR Gastrointestinal: soft, nontender, PEG tube at 3.5 cm with 1 cm between bumper and skin; no signs of clotted blood or active bleeding Neurological: alert and oriented x3, intact senses, motor Assessment and Plan: Assessment: 76M with supraglottic SCC with chemo/radiation now POD#1 s/p PEG, total laryngectomy, cricopharyngeal myotomy. PEG site at 3.5 cm from skin with appropriate 1 cm distance from skin. No signs of bleeding. - PEG tube ok for meds and feeds - ok for anticoagulation - maintain external bumper at 3.5 cm - Surgical endoscopy to s/o, please call with questions or concerns Joss Masters PGY3 Surgical Endoscopy [id number] Electronic Signatures: Jose Deluca) (Signed 04-Jul-2017 10:58) Authored: Signature/Cosignature/Attestation Co-Signer: Service, Subjective Data, Objective Data, Assessment and Plan, Signature/Cosignature/Attestation Joss Masters (Resident)) (Signed 28-Jun-2017 07:02) Authored: Service, Subjective Data, Objective Data, Assessment and Plan, Signature/Cosignature/Attestation Last Updated: 04-Jul-2017 10:58 by Jose Deluca) CBC Collected: 06/28/2017 Status: F Source: [place] 5:00 AM HOSPITALS REPOSITORY TYPE CODE TESTS RESULT OUT OF REFERENCE UNITS RANGE LAB WBCR(LOINC 4.4 - 11.3 x10E9/L ) WBC 8.6 LAB NRBC(LOINC 0.0-0.0 /100 WBC ) NUCLEATED RBC 0.0 LAB RBCCT(LOIN 4.50 - 5.90 x10E12/L C) Low RBC 3.86 LAB HGB(LOINC) 13.5 - 17.5 g/dL Low HGB 11.7 LAB HCT(LOINC) 41.0 - 52.0 % Low HCT 38.6 LAB MCV(LOINC) 80 - 100 fL MCV 100 LAB MCHC2(LOIN 32.0 - 36.0 g/dL C) Low MCHC 30.3 LAB PLTCT(LOIN 150 - 450 x10E9/L C) PLT 155 LAB RDWCV(LOIN 11.5 - 14.5 % C) RDW-CV 14.1 Performed By: #### CBC #### [facility] [address] [place] [address] MAGNESIUM Collected: 06/28/2017 Status: F Source: [place] 5:00 HOSPITALS REPOSITORY TYPE CODE TESTS RESULT OUT OF REFERENCE UNITS RANGE LAB MG(LOINC) 1.60 - 2.40 mg/dL MAGNESIUM 1.95 Performed By: #### MG #### [facility] [address] [facility]. [place] [id number] RENAL FUNCTION PANEL Collected: 06/28/2017 Status: F Source: [place] 5:00 HOSPITALS REPOSITORY TYPE CODE TESTS RESULT OUT OF REFERENCE UNITS RANGE LAB GLU(LOINC) 74 - 99 mg/dL GLUCOSE High 112 LAB SOD(LOINC) 136 - 145 mmol/L SODIUM 137 LAB K(LOINC) 3.5 - 5.3 mmol/L POTASSIUM 4.3 LAB CHLOR(LOIN 98 - 107 mmol/L C) CHLORIDE 102 LAB BIC(LOINC) 21 - 32 mmol/L BICARBONATE 24 LAB ANGAP(LOIN 10 - 20 mmol/L C) ANION GAP 15 LAB UREA(LOINC 6 - 23 mg/dL ) UREA NITROGEN 11 LAB CREA(LOINC 0.50 - 1.30 mg/dL ) CREATININE 0.74 LAB GFRFN(LOIN >60 mL/min/1.7 C) 3m2 GFR-NON AM. >60 LAB GFRAA(LOIN >60 mL/min/1.7 C) 3m2 GFR- AM. >60 Result Comment: CALCULATIONS OF ESTIMATED GFR ARE PERFORMED USING THE MDRD STUDY EQUATION FOR THE IDMS-TRACEABLE CREATININE METHODS. CLIN CHEM 2007;53:766-72 LAB CA(LOINC) 8.6 - 10.6 mg/dL CALCIUM 8.8 LAB PHOS(LOINC) 2.5 - 4.9 mg/dL PHOSPHORUS 2.7 Result Comment: The performance characteristics of phosphorus testing in heparinized plasma have been validated by the individual laboratory site where testing is performed. Testing on heparinized plasma is not approved by the FDA; however, such approval is not necessary. LAB ALB(LOINC) 3.4 - 5.0 g/dL ALBUMIN 3.6 Performed By: #### RENAL #### [facility] [address] [place] [address] PATIENT PROFILE - Observed: 06/27/2017 Status: UNK Source: [facility] ADULT V2 7:01 PM HOSPITALS REPOSITORY Profile: Initial Info: How to be Addressed Amparo Spoken Language Preferred Luxembourger Are you currently using the Personal Electronic Health Record or [employer] OGK-5 no Stated Reason for Admission points to neck, laryngectomy Arrived From home Patient Belongings none Medications Brought to Hospital no General Health: Weight in kg 69.6 kilogram(s) Weight in lbs 153.5 pound(s) Height in feet 5 feet Height in inches 9 inch(es) Height in cm 175.2 centimeter(s) BMI (kg/m2) 22.674 square meter Weight Method actual (measured) Scale Type bed Height Method stated Blood Avoidance/Restrictions none Previous Transfusion Reaction no RSP Based Care: How would you like to participate in your care? keep family informed What is the number one concern for you during this hospitalization? learning trach care What is the most important thing we can do to support you during this hospitalization? keep informed Is there anything we need to know to best care for you? manage pain and allow for sleep Substance: Current or Former Substance Use never: Street Drugs YES: Cigarette/Tobacco, Alcohol Tobacco Cessation Education (provide if tobacco use within the last 12 mos) patient declined Health Mgmt: Symptoms/Conditions Managed at Home none Relationship/Environ: Primary Source of Support/Comfort child(mathieu) Lives With alone Living Arrangements house Significant Exposure none Resource/Environmental Concerns none Anticipated Transition To home Services Anticipated at Transition none Significant Indicators Complete Information Review: ? Allergies, Home Meds and Significant Events have been Reviewed and Verified with Patient/Family no ALLERGY, INTOLERANCE, ADVERSE EVENT: Allergies: ? No Known Allergies: Active Electronic Signatures: Jazmin Myles (RN) (Signed 27-Jun-2017 19:43) Authored: Profile, Additional Information Last Updated: 27-Jun-2017 19:43 by Jazmin Myles (RN) ADMISSION RISK SCREEN Observed: 06/27/2017 Status: UNK Source: [facility] - ADULT 6:55 PM HOSPITALS REPOSITORY Allergies: Allergies: ? No Known Allergies: Patient Verification: ? New W ID Band Applied in my Department no ? Type of ID Patient is Wearing W wristband, but not applied here ? Patient Transferred from Other Facility ([facility], [facility],etc) no ? Patient Identity Verified By patient ? ID Band FULL Name, include Middle, spelling matches patient's ID used for verification yes ? ID Band Matches Patient ID used for Verfication yes ? ID Band MRN Matches EMR MRN yes Advance Directive: ? Advance Directive Medical yes (1) ? Advance Directive type Living Will ? Living Will Availability Living Will not available now ? Living Will Requested 27-Jun-2017 ? Advance Directive Mental Health no; information given/requested ? Advance Directive Information Given (Mental Health) patient/family declined Falls Screen: Type of Assessment admission Moderate Risk Factors altered elimination, patient care equipment (scds, iv?s, chest tubes, bautista, etc) High Risk Factors gait instability, symptoms due to meds (sedatives, hypnotics, new diuretics and new laxatives) Risk for Injury Associated with Fall risk of surgical complications post surgery (recent abdominal, thoracic surgery, lower limb amputation) Fall Risk Conclusion high falls risk with risk for associated injury Siler Safety Interventions WDL *orient to call system *instruct to call for assistance before getting out of bed *non-slip footwear when patient is out of bed *call carrion in reach *personal items and telephone in reach *physically safe environment (no spills or clutter) *bed in lowest position with wheels locked *appropriate side rails in place *room/bathroom lighting operational, light cord in reach *appropriate signage on door Fall and Injury Risk Interventions supervised toileting (mandatory for all high risk patients), educate pt/family, monitor med side effects, consult Pharmacy, individualized toileting schedule, educate patient/family for risk for injury (fractures and bleeding), do not leave patient unattended while in the bathroom Family Violence Screen: ? Are you or have you been threatened or abused physically, emotionally, or sexually by anyone? no ? Do you feel UNSAFE going back to the place where you are living? no ? Clinical assessment: Are there any apparent signs of injuries/behaviors that could be related to abuse/neglect no ? Social Service Consult for abuse/neglect needed this visit? no Functional screen: ? Functional Screen: In the recent/past 2-4 weeks, patient or family have noticed no issues that require a rehabilitation consult at this time Learning Assessment (Patient): ? Patient is Able to be Assessed for Learning yes ? Factors Influencing Readiness to Learn anxiety; fatigue; pain ? Factors that Impact Ability to Learn communication limitations, visual problems ? Devices/Methods Used to Communicate glasses ? Learning Preferences audio; verbal instruction; video; written material; skill demonstration; pictorial ? Cultural Considerations none ? Developmental Considerations none ? Jain Considerations none Learning Assessment (Other Learner): ? Other learner available no Suicide/Depression Screen: ? During the past month, have you often been bothered by feeling down, depressed or hopeless? no (1) ? During the past month, have you often had little interest or pleasure in doing things? no (1) ? Have you had any thoughts of harming yourself? no (1) ? Have you had any thoughts of harming anyone else? no (1) Adult Nutrition Screen: ? Have you recently lost weight without trying no ? Have you been eating poorly because of a decreased appetite no ? MST Score 0 ? Risk MST = 0 or 1 Not at risk. Eating well with little or no weight loss ? Additional Risk (Order Nutrition Consult) tube feeding or parenteral nutrition ? Nutrition Consult needed this visit? yes ? Can Patient Participate in Room Service? no ? Patient requires Paper Dishes/Plastic Utensils no Pain Screen: ? Pain Scale numerical 0-10 (1) ? Pain Scale Education teaching provided (1) ? Current Pain Level 0 = None ? Acceptable Pain Level 4 = Moderate ? Expression of Pain (nonverbal) jerking, verbalization, withdrawn ? Chronic Pain no (1) Spiritual Screen: ? Are there any cultural, spiritual, denominational practices/values/needs that are important for us to know? no CAGE: Is this an injured patient at a Trauma Center ([facility] / [place]): no Vaccinations: Vaccination - Influenza Vaccination Screen: ? Is it flu season? (between and ) No Vaccination - Pneumonia Vaccination Screen: ? Patient has received a previous pneumonia vaccine: no/unknown... ? Pneumonia vaccine NOT indicated due to: No contraindications to vaccine ? Pneumonia vaccine indicated? yes Hemant: Skin - Hemant Scale: ? Hemant: Sensory Perception (response to environment) (4) no impairment ? Hemant: Moisture (degree skin exposed to moisture) (3) occasionally moist ? Hemant: Activity (ability to walk) (3) walks occasionally ? Hemant: Mobility (amount/control of body movement) (3) slightly limited ? Hemant: Nutrition (quality of food intake) (2) probably inadequate ? Hemant: Friction and Shear (2) potential problem ? Hemant: Score 17 ? Skin Intervention Orders (Nursing orders will be generated) elevate heels, up in chair < 1 hr intervals, turn side to side every 2 hrs, assess for therapeutic equipment, assess pressure points, hygiene care, toilet/ADL every 2 hrs awake, toilet/ADL every 4 hrs asleep, educate prevent/treat pressure ulcer Significant Indicatiors: Significant Indicators: Complete Pressure Injury: Pressure Injury Present on Admission no Electronic Signatures: Mario Mackenzie) (Signed 27-Jun-2017 19:01) Authored: Admission Risk Screens, Vaccinations, Hemant, Pressure Injury Last Updated: 27-Jun-2017 19:01 by Mario Mackenzie (FRANKLIN) References: 1. Data Referenced From Patient Profile - Preop v2 06/27/2017 6:34 AM DISCHARGE PLANNING Observed: 06/27/2017 Status: UNK Source: UNIVERSITY NOTE 6:33 PM HOSPITALS REPOSITORY Discharge Needs Assessment: ? Discharge Planning Assessment Date 02-Jul-2017 Patient Learning: ? Factors that Impact Ability to Learn none(1) Discharge Planning: Discharge Plannin06/27/17 @ 1700. Pt. arrived from home. Pt. lives alone, family lives across the street. Pt. was able to perform ADLs prior to admission. Pt. did NOT cook while at home. Pt. states that he has difficulty seeing without glasses, and does NOT wear regularly. home care may be appropriate at time of discharge. Will cont. to assess pt; discharge needs. Mario Mackenzie blindstitch lining feller Planning Note: 06/28/17@16:30pm Interdisciplinary rounds completed at the bedside with patient, daughter, RN BRANDON and SW. Pt. admitted with laryngeal cancer and s/p a total laryngectomy and direct laryngoscopy. Plan of care and goals for discharge reviewed with the patient. Patient informed of tentative discharge date. Prior to admission pt. was living at home independently but his family lives across the street and provide assistance. Pt. will need to transition to SNF for education of trach and peg care since his family will not be available to stay with him 24 hours a day for the first week. Pt. and daughter provided with SNF list and they will review and provide three choices. Verified address and phone number. Pt. has Medicare A&B insurance and [employer] as a secondary. PCP is Dr. Ramirez and pharmacy is [facility]. SW will follow to assist with SNF placement. DAJA Stone 06/29/17@14:00pm Social Work Lela from [facility] SNF Admissions called and shared they will be able to accept the patient and understand that pt. will be ready on Monday. I faxed the instructions for the Larytube and HME Guidelines to [facility] at [phone]. Pt. and family have been updated and pt. wants to go to [facility]. Will continue to follow. DAJA Stone 06/30/17@14;00pm Social Work Lela from [facility] SN[facility] called and shared that the RT reviewed the Larytube instructions and they do not feel they can provide the LOC that pt. requires and suggested an LTACH. Shared that pt. is not eligible for LTACH and offered to have them speak with the ENT MATTRESS FILLING MACHINE TENDER but Lela shared they still can not accept. Pt. and family have been updated and will determine if [facility] can accept and pt. and family in agreement with this plan. Will continue to follow for support and discharge planning.DAJA Stone 06/30/17@17:00pm Social Work Contacted [facility] but they now do not have a bed. Referral sent to [facility] to determine if they can accept and provide LOC required for this patient. Will continue to follow. DAJA Stone SOCIAL WORK NOTE Service Station Attendant Called by bedside RN that Pt's son here and had questions about SNF options. Reviewed notes and referrals in [employer] [facility]. Appears that facilities that have been applied to cannot accept or do not have beds. After speaking with son sent additional referrals to 1. [facility] ([place]) [facility] 3. [facility] ([place]) 4. [facility] ([place]) 5. [facility] ([place]) 6. [facility] ([place]). Told son would not anticipate response back over w/e from all facilities. Updated home health care provider in case family has additional questions tomorrow. Stephania Mena [facility] [place] WATER FILTERER [id number] 07/01/17 9:35 SOCIAL WORK NOTE Received call from RN that Pt's son asking to speak to social work. He stated that a family member also wants information sent to [facility] in [place] (not on [facility] list). Information sent there. Also updated son that [facility] in [place] said they could accept and have a private room. Stephania Mena [facility] [id number] 07/01/17 12:50 07/02/17 1256: technical project coordinator note: Gave pt his emergency Alfredo kit - explained use to pt and placed on [place] [id number] Electronic Signatures: Mario Mackenzie (CN) (Signed 27-Jun-2017 18:55) Authored: Discharge Planning Note Stephania Mena (COIL WINDER STRAP) (Signed 01-Jul-2017 12:50) Authored: Discharge Planning Note Clarisse Ba (CLIN COOR) (Signed 02-Jul-2017 12:56) Authored: Discharge Planning Note Shu Mccray (WATER FILTERER) (Signed 30-Jun-2017 16:47) Authored: Discharge Planning Note Last Updated: 02-Jul-2017 12:56 by Clarisse Ba (CLIN COOR) References: 1. Data Referenced From Patient Profile - Preop v2 06/27/2017 6:34 AM ARTERIAL BLOOD GAS Collected: 06/27/2017 Status: F Source: [place] 2:19 PM HOSPITALS REPOSITORY TYPE CODE TESTS RESULT OUT OF REFERENCE UNITS RANGE LAB PHART(LOIN 7.38 - 7.42 C) pH 7.38 LAB PCO2A(LOIN 38 - 42 mmHg C) PCO2 41 LAB PO2A(LOINC 85 - 95 mmHg ) PO2 High 156 LAB TEMP(LOINC degrees C ) PATIENT TEMPERATURE 36.3 Result Comment: NOTE: PATIENT RESULTS ARE NOT CORRECTED FOR TEMPERATURE. LAB SO2%A(LOINC) 94 - 100 % SO2 100 LAB BSEXB(LOINC) -2.0 - 3.0 mmol/L BASE EXCESS-BLOOD -0.8 LAB BICAR(LOINC) 22.0 - mmol/L 26.0 BICARB, CALCULATED 24.3 Performed By: #### [id number] #### [facility] [address] [place] [address] ARTERIAL H+H Collected: 06/27/2017 Status: F Source: [place] 2:19 PM HOSPITALS REPOSITORY TYPE CODE TESTS RESULT OUT OF RANGE REFERENCE UNITS LAB HCTN(LOINC) 41.0 - 52.0 % Low HCT 29.0 LAB HGBNC(LOINC 13.5 - 17.5 g/dL ) Low 9.9 HGB,CALCULAT ED Performed By: #### [id number] #### [facility] [address] [place] [address] POST OPERATIVE NOTE - Observed: 06/27/2017 Status: COMPLETED Source: [place] 11:38 AM HOSPITALS REPOSITORY Post Operative Note: PreOp Diagnosis: laryngeal cancer (Squamous Cell Carcinoma) Post-Procedure Diagnosis: same Procedure: total laryngectomy, cricpharyngeal myotomy Surgeon: Dr. Rodríguez Resident/Fellow/Other Executive Personal Assistant: Xena Santana Anesthesia: General Estimated Blood Loss (mL): 30 Specimen: yes Findings: laryngeal cancer Drains and/or Catheters: Right and Left neck Drain, PEG tube. Signature/Cosignature/Attestation: Attending Attestation I was present for miller portions of the procedure and the procedure lasted longer than 5 minutes. Electronic Signatures: Jr Mccallum (Resident)) (Signed 27-Jun-2017 11:56) Authored: Post Operative Note, Signature/Cosignature/Attestation Caroline Aguilera (Resident)) (Signed 27-Jun-2017 14:57) Authored: Post Operative Note Anastasia Rodríguez) (Signed 30-Jun-2017 14:30) Authored: Signature/Cosignature/Attestation Co-Signer: Post Operative Note, Signature/Cosignature/Attestation Last Updated: 30-Jun-2017 14:30 by Anastasia Rodríguez) POST OPERATIVE NOTE - Observed: 06/27/2017 Status: COMPLETED Source: [place] 8:05 AM HOSPITALS REPOSITORY Post Operative Note: PreOp Diagnosis: dysphagia Post-Procedure Diagnosis: dysphagia Procedure: EGD, PEG placement Surgeon: Dr. Deluca Resident/Fellow/Other Executive Personal Assistant: Dr. Masters Anesthesia: General Estimated Blood Loss (mL): 3 cc Blood Replacement: None Specimen: no Findings: Prior abdominal scarring from previous PEG Patient Returned To/Condition: Remained in OR with ENT Drains and/or Catheters: PEG tube with external bumper at 2.5 cm Signature/Cosignature/Attestation: Attending Attestation I was present for the entire procedure Electronic Signatures: Jose Deluca) (Signed 27-Jun-2017 10:21) Authored: Signature/Cosignature/Attestation Co-Signer: Post Operative Note, Signature/Cosignature/Attestation Joss Masters (Resident)) (Signed 27-Jun-2017 08:07) Authored: Post Operative Note, Signature/Cosignature/Attestation Last Updated: 27-Jun-2017 10:21 by Jose Deluca) ABO/RH GROUP TEST Collected: 06/27/2017 Status: F Source: [place] 6:54 AM [facility] REPOSITORY TYPE CODE TESTS RESULT OUT OF RANGE REFERENCE UNITS LAB ABORH(LOINC ) ABO TYPE A LAB RH(LOINC) RH TYPE POS Performed By: #### VERAB #### [facility] [address] [place] [address] PATIENT PROFILE - Observed: 06/27/2017 Status: UNK Source: [place] PREOP V2 6:34 AM HOSPITALS REPOSITORY Profile: Initial Info: How to be Addressed Amparo Spoken Language Preferred Luxembourger Source of Information patient Are you currently using the Personal Electronic Health Record or [employer] no Are you interested in learning more about [employer] for the management of your health declined Stated Reason for Admission neck surgery for cancer Primary Contact Name and Number daugher/son in law [phone] Limitations on Visitors/Phone Calls none Patient Belongings none Medications Brought to Hospital no General Health: Weight in kg 67.4 kilogram(s) Weight in lbs 148.5 pound(s) Weight Method actual (measured) Scale Type standing Height in cm 174 centimeter(s) Height Method stated BMI (kg/m2) 22.261 square meter Patient or Family Member Reaction to Anesthesia no previous reaction Blood Avoidance/Restrictions none Previous Transfusion Reaction no Health Mgmt: Symptoms/Conditions Managed at Home cardiovascular; respiratory; cancer Cancer Symptoms/Conditions lung Cancer Symptoms/Conditions Comment laryngeal Cardiovascular Symptoms/Conditions hypertension; myocardial infarction Respiratory Symptoms/Conditions COPD Barriers to Managing Health age Relationship/Environ: Lives With alone(1) Living Arrangements house; Son in law lives next door(1) Resource/Environmental Concerns none Anticipated Transition To home Services Anticipated at Transition none Substance: Current or Former Substance Use never: Street Drugs YES: Cigarette/Tobacco, Alcohol Tobacco Cessation Education (provide if tobacco use within the last 12 mos) not applicable Other Tobacco Use Comments 100 PY Alcohol Use Status past alcohol Risk Screens: Advance Directive Medical yes During the past month, have you often been bothered by feeling down, depressed or hopeless? no During the past month, have you often had little interest or pleasure in doing things? no Have you had any thoughts of harming yourself? no Have you had any thoughts of harming anyone else? no Patient is Able to be Assessed for Learning yes Factors Influencing Readiness to Learn acuteness of illness; anxiety Factors that Impact Ability to Learn none Devices/Methods Used to Communicate none Learning Preferences individual instruction; written material Cultural Considerations none Developmental Considerations none Jain Considerations none Other learner available no Falls Risk Patient location auto qualifies him/her for HIGH RISK. Are there any cultural, spiritual, denominational practices/values/needs that are important for us to know? no Pain Scale numerical 0-10 Pain Scale Education teaching provided Current Pain Level 0 = None Acceptable Pain Level 4 = Moderate Chronic Pain no Information Review: ? Allergies, Home Meds and Significant Events have been Reviewed and Verified with Patient/Family yes Allergy, Intolerance, Adverse Event: Allergies: ? No Known Allergies: Active Electronic Signatures: Juliette Julian (MARK ANTHONY) (Signed 27-Jun-2017 06:36) Authored: Profile, Additional Information Last Updated: 27-Jun-2017 06:36 by Juliette Julian (MARK ANTHONY) References: 1. Data Referenced From Patient Profile - Preop v2 05/11/2017 9:47 AM PREOP CHECKLIST Observed: 06/27/2017 Status: UNK Source: [place] 6:33 AM HOSPITALS REPOSITORY Preop Checklist: Preop Checklist: ? Arrival Date 27-Jun-2017 ? Arrival Time 06:20 ? Procedure Type flap ? NPO Status 27-Jun-2017 00:00 ? ID Band On yes ? Allergy Band no known allergies ? Consent Signed yes ? H&P Complete yes ? Anesthesia Assessment Completed yes ? EKG Performed see results tab ? Chest X-Ray Performed see results tab ? Chlorhexadine Bath Given not applicable ? Soap and water bath with hair shampoo the night before surgery yes ? SCD's Applied sent to OR ? [place] Hose Applied no ? Dentures not applicable ? Prosthetics not applicable ? Hearing Aids not applicable ? Valuables Secured not applicable ? Glasses / Contacts not applicable Electronic Signatures: Juliette Julian (MARK ANTHONY) (Signed 27-Jun-2017 06:34) Authored: Preop Checklist Last Updated: 27-Jun-2017 06:34 by Juliette Julian (MARK ANTHONY) HISTORY AND PHYSICAL Observed: 06/27/2017 Status: COMPLETED Source: UNIVERSITY - SURGICAL UPDATE < 6:28 AM HOSPITALS REPOSITORY 30 DAYS History & Physical Reviewed: I have reviewed the History and Physical dated: 20-Jun-2017 History and Physical reviewed and relevant findings noted. Patient examined to review pertinent physical findings.: No significant changes Home Medications Reviewed: no changes noted Allergies Reviewed: no changes noted This patient has been seen and discussed with the attending physician responsible for performing the procedure: yes Signatures/Attestation/Certification: Attending Provider ? Inpatient Certification Statement I certify this patient?s need for inpatient care based on the above documentation including; the order to admit as inpatient, the anticipated length of stay, diagnosis, problem list and plan of care, and discharge plan. Electronic Signatures: Elkin Santana) (Signed 27-Jun-2017 06:28) Authored: History & Physical Reviewed, Signatures/Attestation/Certification Anastasia Rodríguez) (Signed 30-Jun-2017 14:29) Authored: Signatures/Attestation/Certification Co-Signer: History & Physical Reviewed, Signatures/Attestation/Certification Last Updated: 30-Jun-2017 14:29 by Anastasia Rodríguez) OPERATIVE REPORT Observed: 06/27/2017 Status: UNK Source: [place] 12:00 [place] [address] Patient Name: AMPARO DE LEÓN : 1940 Date of Service: 06/27/2017 Patient Location: [id number] Patient Type: I Surgeon: Anastsaia Rodríguez MD Report Type: Operative Reports PREOPERATIVE DIAGNOSIS: Laryngeal squamous cell carcinoma. POSTOPERATIVE DIAGNOSIS: Laryngeal squamous cell carcinoma. OPERATION/PROCEDURE: 1. Total laryngectomy. 2. Cricopharyngeal myotomy. 3. Direct laryngoscopy. SURGEON: Anastasia Rodríguez MD INDUSTRIAL ELECTRICAL ENGINEER(S): Elkin Santana MD ANESTHESIA: General. COMPLICATIONS: None. ESTIMATED BLOOD LOSS: 30 cc. INDICATIONS: Mr. Amparo De León is a 76-year-old gentleman with a history of squamous cell carcinoma, status post chemoradiation with biopsy-proven recurrent disease on the left false vocal cord extending down to the anterior commissure. The patient had a preoperative swallow study which he failed. Therefore, a total laryngectomy was recommended. He had a PET scan that did not show any evidence of josé miguel disease or any metastatic disease. Risks discussed included, but not limited to, bleeding, infection, cranial neuropathies, chyle leak, and wound breakdown. The patient understood these risks, and consent was obtained. DESCRIPTION OF PROCEDURE: The patient was taken to the operating room and laid supine on the table. Time-out was performed, and general anesthesia was induced. The patient was intubated. The table was turned, and a Dedo laryngoscope was used to examine the oral cavity, oropharynx, hypopharynx, and larynx. His tumor seemed limited to the larynx with obvious changes on the left false cord going down to the anterior commissure and near the petiole of the epiglottis. The piriform and the base of tongue were clear bilaterally. After the direct laryngoscopy, an esophagoscopy and PEG tube placement was performed by Dr. Deluca. There were no concerning lesions other than a distal esophageal area of irregularity that had already been biopsied and was negative. Next, the patient was positioned. An apron incision was marked, and the skin was injected with 1% lidocaine with 1:100,000 epinephrine. The neck was then prepped and draped in sterile fashion. A 15 blade was used to make our skin incision. Bovie cautery was used to elevate subplatysmal flaps superiorly up to the level of the hyoid and then inferiorly down to the clavicle. Blue stays were placed. We started by clearly identifying the strap musculature inferiorly. This was done bilaterally with the Harmonic Scalpel. The anterior border of the sternocleidomastoid was also clearly identified inferiorly. Next, we identified the inferior border of the submandibular gland bilaterally and skeletonized the hyoid bone. Next, we elevated the strap musculature off the thyroid gland and then reflected the thyroid gland away from the laryngotracheal complex bilaterally, developing our inner tunnel and developing a plane between the great vessels and the laryngeal framework. Since we are preserving both sides of the thyroid gland, we followed the superior thyroid vessels superiorly, dividing the soft tissue lateral and superficial to this, releasing everything off the superior thyroid vessels and the thyroid. Next, the superior laryngeal neurovascular pedicle was identified bilaterally and divided with clips and Harmonic Scalpel. At this point, we entered inner tunnels, established bilaterally, and the inferior constrictor was released bilaterally off the thyroid lamina as well as the superior corner of the thyroid cartilage. The piriform sinus mucosa was reflected off the laryngeal framework, trying to preserve as much mucosa as possible. Next, we released the suprahyoid musculature and clearly identified our epiglottis. At this point, we made our tracheal cut between our 1st and 2nd tracheal ring and secured the trachea to the inferior skin flap. We divided the posterior wall of the trachea and identified the plane between the esophagus and the trachea releasing the larynx anteriorly. We elevated the cervical esophagus away from the ARCHITECTURE TECHNICIAN. We appeared to have an adequate tracheal margin just on direct visualization. Now, we turned our attention back up to the epiglottis and made our mucosal cuts, trying to preserve as much mucosa as possible, coming down lateral to the piriform mucosa and then through the postcricoid mucosa as well. At this point, the larynx was completely mobilized, and the specimen was divided posteriorly to examine the tumor. We appeared to have adequate mucosal margins all around. Therefore, the specimen was oriented for pathology, and frozen mucosal margins as well as the tracheal margin were all negative for tumor. The wound was then thoroughly irrigated, and hemostasis was achieved with bipolar cautery. Two 10 flat drains were placed, each traveling adjacent to the pharynx. The pharynx was then closed using canal type sutures in attempt to create the mucosa, reestablishing the neopharynx. A second layer using a 4-0 Vicryl was used to bolster our closure. This was done over salivary bypass tube. After the pharyngeal closure was complete, the neck was again irrigated, and there was no evidence of bleeding or chyle on Valsalva. The neck was then closed in layers using 3-0 Vicryl to reapproximate the platysma and a running 5-0 fast for the skin. The stoma had been secured with half mattress sutures to the inferior skin flap and then buried deep sutures to the superior skin flap. At this point, the case was complete. The patient was weaned from anesthesia and taken to PACU in stable condition. Elkin Santana MD for Anastasia Rodríguez MD EST TT: 06/29/2017 10:26 AM EST DICTATION NUMBER: [id number] SPHERIS JOB NUMBER: [id number] CC: Anastasia Rodríguez MD [facility] Electronically Signed by Dr. Anastasia Rodríguez 07/02/2017 11:07:56 PM [facility] SURGICAL PATHOLOGY Observed: 06/27/2017 Status: F Source: [facility]PART[facility] 12:00 AM HOSPITALS REPOSITORY Name AMPARO DE LEÓN Pathologist: ARSEN SALINAS MD Date of Procedure: 06/27/2017 Date Received: 06/27/2017 Date Reported 07/03/2017 Submitting Physician: ANASTASIA RODRÍGUEZ M.D Location: [place] Other External # FINAL DIAGNOSIS A. 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 Tumor Size: 2.5 x 1.7 x 0.8 cm Site(s) of involvement/Extent of Invasion: Carcinoma involves bilateral true and false vocal cords and left aryepiglottic fold. Carcinoma involves thyroid cartilage. Margins: uninvolved. Carcinoma is 1.3 cm from the anterior soft tissue margin. Angiolymphatic invasion: not identified Perineural invasion: present The gross and/or microscopic findings were reviewed in conjunction with pathology resident, Arti Rae M.D. Electronically Signed Out By ARSEN SALINAS MD/OLGA By the signature on this report, the individual or group listed as making the Final Interpretation/Diagnosis certifies that they have reviewed this case. Intraoperative Consultation: A: TOTAL LARYNGECTOMY Frozen Section 1: Date Ordered: {not entered} Date Received: 06/27/2017 10:34 Date Called: 06/27/2017 11:15 Intraoperative Diagnosis: Bronchial and mucosal margins: Negative for carcinoma. Intraoperative Consult Pathologist(s): NITESH MIX M.D., PhD. (P) hng/06/27/2017 Clinical History: Laryngeal Mass Specimens Submitted As: A: TOTAL LARYNGECTOMY Gross Description: A. Received fresh for intraoperative consultation, labeled with the patient's name and hospital number, is a total laryngectomy specimen, 8.5 x 7.0 x 5.0 cm, including hyoid bone, 6.5 x 5.0 x 1.5 cm, larynx from epiglottis to subglottis, and two tracheal rings. The thyroid gland is not present. The outer portion of the specimen is inked black. The specimen is opened longitudinally along the posterior surface. An ulcerated area, 2.5 x 1.7 x 0.8 cm, is present, involving the true and false left vocal cords extending to the right. The lesion is 1.7 cm from the closet proximal mucosal margin [aryepiglottic] and 3.4 cm from the distal tracheal margin. On cut section, the mass invades to a depth of 0.8 cm and is 1.3 cm from anterior soft tissue margin. It does not extend into the thyroid cartilage. The anterior surface is covered by red- brown strap muscles, which are grossly unremarkable. There is no evidence of neoplasm within the soft tissue. Photographs have been taken. Industrial Editor sections are submitted in 23 cassettes following decalcification. MXB/KAF Summary of Cassettes: Specimen Label Site A 1-2 lowest tracheal ring 3-7 mucosal margins circumferentially 8-9 anterior soft tissue margin, at the area of the lesion 10 lateral soft tissue margins, left 11 lateral soft tissue margin, right 12 posterior soft tissue margin 13-14 mass with deepest extent and tumor with adjacent left true and false vocal cords and ventricle 15 left true and false vocal cords, and ventricle, reminder 16-18 right true and false vocal cords, and ventricle with tumor 19 anterior commissure 20 aryepiglottic folds / pyriform sinuses (perpendicular sections), left 21 aryepiglottic folds / pyriform sinuses (perpendicular sections), right 22-23 epiglottis (perpendicular section), including pre- epiglottic space mxb/06/28/2017 Performed By: #### [facility] #### [facility] Surgical Pathology Department [address] [place], [place] [id number] OPERATIVE REPORT Observed: 06/27/2017 Status: UNK Source: [place] 12:00 [place] [address] Patient Name: AMPARO DE LEÓN : 1940 Date of Service: 06/27/2017 Patient Location: [facility] [place] [id number] Patient Type: I Surgeon: Jose Deluca MD Report Type: Operative Reports PREOPERATIVE DIAGNOSIS: Dysphagia. POSTOPERATIVE DIAGNOSIS: Dysphagia. OPERATION/PROCEDURE: Percutaneous endoscopic gastrostomy. SURGEON: Jose Deluca MD INDUSTRIAL ELECTRICAL ENGINEER(S): ANESTHESIA: General endotracheal. COMPLICATIONS: None. INDICATIONS: The patient is a 76-year-old male undergoing surgery by the ENT service for oropharyngeal cancer. PEG tube was required due to suspected postprocedural dysphagia. Risks and benefits were explained by the ENT service. PROCEDURE: The patient was taken to the operating room and placed on the operating room table in supine position. Following induction of general anesthetic, the patient was intubated endotracheally. A time-out was performed per protocol, and he received preoperative IV antibiotics and DVT prophylaxis. The endoscope was placed by the ENT service for evaluation of esophagus, stomach, and duodenum. The abdominal wall was prepped and draped sterilely. At a site in the left upper quadrant, where single finger depression was seen in the gastric lumen, safe check technique was performed after prepping the abdominal wall with simultaneous aspiration of air in the syringe and visualization of the needle in the gastric lumen. At this site, an 8 mm transverse incision was created, and the Angiocath was advanced into the gastric lumen. This was grasped with endoscopic snare and the blue guidewire was advanced and endoscope were brought out through the mouth. PEG tube was affixed to this and brought back to the anterior abdominal wall. Second intubation was performed. External T-bar was placed at 3.5 cm allowing for 1 cm laxity at the abdominal wall. There was no evidence of bleeding internally nor externally. Gastroscope was withdrawn without further findings. The patient tolerated the procedure well. Jose Deluca MD EST TT: 06/27/2017 10:00 PM EST DICTATION NUMBER: [id number] SIMÓN JOB NUMBER: [id number] CC: Anastasia RAMIREZ Electronically Signed by Dr. Jose Deluca 07/07/2017 01:24:43 PM AMB - NARRATIVE Observed: 06/23/2017 Status: UNK Source: [facility] NOTE-RADIATION ONCOLOGY 12:53 PM HOSPITALS REPOSITORY Discipline and Description: Discipline: Radiation oncology Topic: Treatment completion note Description: Brief History: 76 year old male with a history of laryngeal cancer s/p chemoradiation completed at [facility] in . He developed a biopsy proven recurrence along the left false vocal cord. PET scan also showed a REMA lung nodule that was hypermetabolic and noted to be enlarged from a prior scan. This was biopsied at an outside hospital and found to be SCC, believed to be a new primary. He was recommended to undergo SBRT to the lung lesion prior to treatment of the laryngeal recurrence. The radiation planning and treatment procedures were explained to the patient in advance, and all questions were answered. The benefits and goals of treatment, options and alternatives, limitations, side effects and risks of radiation were also explained. The patient provided informed consent. Technical Summary: Region(s) Treated: REMA Radiation Dose Prescribed: 50 Gy/5 fx Radiation Technique/Machine Used: SBRT on Versa Additional radiation technical details available in our radiation oncology EMR [employer] and our treatment planning system. Radiation Treatment Dates: 06/14/2017 - 06/23/2017 Total Elapsed Days: 10 Clinical Summary: The patient tolerated treatment well with only mild fatigue. He otherwise had no acute toxicity associated with treatment. Followup/Disposition: The patient will be seen in our department for followup visit in approximately 1 month. He will have surgery for his recurrent laryngeal cancer with Dr. Rodríguez in two weeks. Thank you for allowing me to participate in the care of this very nice patient. Radhames Todd PGY-II Radiation Oncology Send Note Using Auto Fax: Note Recipients: Hilario Ramirez MD - [id number] [] Anastasia Rodríguez MD - [id number] [Preferred] Electronic Signatures: Radhames Todd ( (Resident)) (Signed 28-Jun-2017 12:59) Authored: Discipline and Description, To Send Document via Auto Fax Bird Diana) (Signed 29-Jun-2017 14:34) Authored: Discipline and Description Co-Signer: Discipline and Description, To Send Document via Auto Fax Last Updated: 29-Jun-2017 14:34 by Bird Diana) CBC Collected: 06/14/2017 Status: F Source: [place] [address] [place] [address] REPOSITORY TYPE CODE TESTS RESULT OUT OF REFERENCE UNITS RANGE LAB WBCR(LOINC 4.4 - 11.3 x10E9/L ) WBC 5.9 LAB NRBC(LOINC 0.0-0.0 /100 WBC ) NUCLEATED RBC 0.0 LAB RBCCT(LOIN 4.50 - 5.90 x10E12/L C) Low RBC 4.29 LAB HGB(LOINC) 13.5 - 17.5 g/dL Low HGB 13.0 LAB HCT(LOINC) 41.0 - 52.0 % Low HCT 39.8 LAB MCV(LOINC) 80 - 100 fL MCV 93 LAB MCHC2(LOIN 32.0 - 36.0 g/dL C) MCHC 32.7 LAB PLTCT(LOIN 150 - 450 x10E9/L C) PLT 201 LAB RDWCV(LOIN 11.5 - 14.5 % C) RDW-CV 13.9 Performed By: #### CBC #### [facility] [address] [place] [address] PREALBUMIN Collected: 06/14/2017 Status: F Source: [address] REPOSITORY TYPE CODE TESTS RESULT OUT OF REFERENCE UNITS RANGE LAB PREAL(LOIN 18.0 - 40.0 mg/dL C) PREALBUMIN 23.0 Performed By: #### PREAL #### [facility] [address] [place] [address] COMPREHENSIVE PANEL Collected: 06/14/2017 Status: F Source: [place] [address] [place] [address] REPOSITORY TYPE CODE TESTS RESULT OUT OF REFERENCE UNITS RANGE LAB GLU(LOINC) 74 - 99 mg/dL GLUCOSE 94 LAB SOD(LOINC) 136 - 145 mmol/L SODIUM 139 LAB K(LOINC) 3.5 - 5.3 mmol/L POTASSIUM 5.3 LAB CHLOR(LOIN 98 - 107 mmol/L C) CHLORIDE 103 LAB BIC(LOINC) 21 - 32 mmol/L BICARBONATE 28 LAB ANGAP(LOIN 10 - 20 mmol/L C) ANION GAP 13 LAB UREA(LOINC 6 - 23 mg/dL ) UREA NITROGEN 17 LAB CREA(LOINC 0.50 - 1.30 mg/dL ) CREATININE 0.79 LAB GFRFN(LOIN >60 mL/min/1.7 C) 3m2 GFR-NON AM. >60 LAB GFRAA(LOIN >60 mL/min/1.7 C) 3m2 GFR- AM. >60 Result Comment: CALCULATIONS OF ESTIMATED GFR ARE PERFORMED USING THE MDRD STUDY EQUATION FOR THE IDMS-TRACEABLE CREATININE METHODS. CLIN CHEM 2007;53:766-72 LAB CA(LOINC) 8.6 - 10.6 mg/dL CALCIUM 9.4 LAB ALB(LOINC) 3.4 - 5.0 g/dL ALBUMIN 4.1 LAB AP(LOINC) 33 - 136 U/L ALKALINE PHOSPHATASE 56 LAB TP(LOINC) 6.4 - 8.2 g/dL TOTAL PROTEIN 6.4 LAB AST(LOINC) 9 - 39 U/L AST 10 LAB TBILI(LOINC) 0.0 - 1.2 mg/dL BILIRUBIN,TOTAL 0.4 LAB ALT(LOINC) 10 - 52 U/L ALT Low 7 Result Comment: Patients treated with Sulfasalazine may generate falsely decreased results for ALT. Performed By: #### CMP #### [facility] [address] [place] [address] COAGULATION SCREEN Collected: 06/14/2017 Status: F Source: [place] 3:01 PM HOSPITALS REPOSITORY TYPE CODE TESTS RESULT OUT OF REFERENCE UNITS RANGE LAB PT(LOINC) 9.8 - 12.7 sec PROTHROMBIN TIME 11.2 LAB INR(LOINC) 0.9 - 1.1 PT, INR 1.0 LAB APTT(LOINC 25 - 36 sec ) APTT 31 Result Comment: THE APTT IS NO LONGER USED FOR MONITORING UNFRACTIONATED HEPARIN THERAPY. FOR MONITORING HEPARIN THERAPY, USE THE HEPARIN ASSAY. Performed By: #### COAGS #### [facility] [address] [place] [address] TSH Collected: 06/14/2017 Status: F Source: [place] 3:01 PM HOSPITALS REPOSITORY TYPE CODE TESTS RESULT OUT OF RANGE REFERENCE UNITS LAB TSH2(LOINC) 0.44 - 3.98 mIU/L TSH 3.92 Result Comment: TSH testing is performed using different testing methodology at [facility] than at other [facility]. Direct result comparisons should only be made within the same method. . Patients receiving more than 5 mg/day of biotin may have interference in test results. A sample should be taken no sooner than eight hours after previous dose. Contact [phone] for additional information. Performed By: #### TSH2 #### [facility] [address] [place] [address] TYPE + SCREEN Collected: 06/14/2017 Status: F Source: [place] 3:01 PM HOSPITALS REPOSITORY TYPE CODE TESTS RESULT OUT OF REFERENCE UNITS RANGE LAB ABORH(LOINC ) ABO TYPE A LAB RH(LOINC) RH TYPE POS LAB ABSC(LOINC) ANTIBODY NEG SCREEN Performed By: #### T+S #### [facility] [address] [place] [address] TUMOR BOARD NOTE-HEAD Observed: 06/02/2017 Status: UNK Source: [facility] AND NECK 11:37 AM HOSPITALS REPOSITORY Note: Tumor Board Note AMPARO DE LEÓN was presented at [facility] Tumor Board Conference on 02-Jun-2017 . Presenter: Dr. Anastasia Rodríguez Impression: Presented with history of laryngeal cancer S/P chemoradiation 2016 with lung cancer found during that workup up; surveillance imaging revealing recurrent mass, biopsy revealing squamous cell carcinoma, p16 neg; T1 N0 M0. Recommendations: Surgical resection. Disclaimer SCC tumor board recommendations represent the consensus opinion of physicians present at a weekly patient care conference. The treating SCC physician is not always present, and many of the physicians formulating the recommendation have not personally seen or examined the patient under discussion. It is understood that the treating SCC physician considers the expertise of the Tumor Board Recommendation in formulating his/her plan for the patient. However, in many situations, based on individualized patient considerations, a different plan is determined by the treating physician to be the optimal medical management. Electronic Signatures: Chris Mixon (N MGR) (Signed 02-Jun-2017 11:41) Authored: Tumor Board, Disclaimer Last Updated: 02-Jun-2017 11:41 by Chris Mixon (N MGR) NR CT NECK WITH Observed: 05/30/2017 Status: F Source: [facility] CONTRAST 1:09 PM HOSPITALS REPOSITORY Patient Name: AMPARO DE LEÓN STUDY: NR CT NECK WITH CONTRAST; 05/30/2017 1:09 pm INDICATION: Signs/Symptoms: eval for disease. COMPARISON: None. ACCESSION NUMBER(S): [id number] ORDERING CLINICIAN: ANASTASIA RODRÍGUEZ TECHNIQUE: Following intravenous injection 90 cc Optiray [address] was performed from the skullbase to the thoracic inlet and multiplanar reconstructions were made. FINDINGS: *The visualized paranasal sinuses nasopharynx and oropharynx are unremarkable. *There is thickening of the epiglottis and aryepiglottic folds Likely due to previous or ongoing irradiation. *The major salivary glands are normal. *There is no measurable cervical lymphadenopathy. *The larynx and related cartilages are normal. *Atherosclerotic calcifications at the bifurcations. Luminal narrowing cannot be excluded. *The thyroid gland is normal. *The thoracic inlet is normal. IMPRESSION: *Thickening of the epiglottis and aryepiglottic folds consistent with previous or ongoing irradiation *No evidence of mass with in the aerodigestive tract *No evidence of regional lymph node metastases. THIS EXAMINATION WAS INTERPRETED AT [facility] [place] Electronically signed by: CLEMENTE MONROE MD GI COMP PHARYNGEAL Observed: 05/30/2017 Status: F Source: [facility] SPEECH EVAL 11:44 AM HOSPITALS REPOSITORY Patient Name: AMPARO DE LEÓN STUDY: GI COMP PHARYNGEAL SPEECH EVAL; 05/30/2017 11:44 am INDICATION: Signs/Symptoms: eval swallowing function for any aspiration. COMPARISON: None. ACCESSION NUMBER(S): [id number] ORDERING CLINICIAN: ANASTASIA RODRÍGUEZ TECHNIQUE: Radiographic and videographic assistance was provided to the speech pathologist performing modified barium swallow. The patient was given food of different consistencies mixed with approximately 150 mL of barium and the swallowing response was observed. Fluoroscopic time was 3.2 minutes. FINDINGS: Oral phase swallowing function was remarkable for poor bolus formation, oral residue, and spillage into pharynx (poolling) with thin, nectar, honey, puree, and solids. The pharyngeal phase was remarkable for residue in valleculae with thin, nectar, honey, puree, and solid, laryngeal penetration with thin, nectar, and honey, aspiration (before, during, and after swallow) with thin, and reduced laryngeal elevation/epiglottic deflection. IMPRESSION: 1. Abnormal modified barium swallow study; .. Correlate with detailed report from speech pathologist for dietary recommendations. I personally reviewed the images/study and I agree with the findings as stated. This study was interpreted at [facility], [place], [place]. Electronically signed by: SIMONE COSTELLO MD [facility] SURGICAL PATHOLOGY Observed: 05/27/2017 Status: F Source: [facility] DEPARTMENT 12:00 AM HOSPITALS REPOSITORY Pathologist: ARSEN SALINAS MD Date of Procedure: 05/27/2017 Date Received: 05/27/2017 Date Reported: 05/29/2017 Submitting Physician: ANASTASIA RODRÍGUEZ M.D Location: [facility] [place] FINAL DIAGNOSIS . [place], [place], [id number] (03/08/17): 1. LUNG, LEFT UPPER LOBE, TRANSBRONCHIAL BIOPSY: -- PULMONARY PARENCHYMA WITH NO EVIDENCE OF MALIGNANCY. 2. LUNG, LEFT UPPER LOBE, ENDOBRONCHIAL BIOPSY: -- SCANT MINUTE FOCI OF SQUAMOUS CELL CARCINOMA, SEE NOTE. Note: A submitted immunostain for p40 is positive in tumor nuclei. A submitted immunostain for p16 shows predominantly nuclear staining in the carcinoma with weak cytoplasmic staining. A submitted immunostain for TTF- 1 is negative in the carcinoma. The findings are not specific with regard to site of origin. Per report, the amount of material present is insufficient for further studies. Electronically Signed Out By ARSEN SALINAS MD/OLGA By the signature on this report, the individual or group listed as making the Final Interpretation/Diagnosis certifies that they have reviewed this case. Clinical History: Lung nodule Specimens Submitted As: A: [id number] (03/08/17) Slide/Block Description Received from [facility], Department of Pathology and Laboratory Medicine, [address] [place] [address], [place], [address], are eight (8) slides labelled [id number]. Keep Slides: N Slides Returned: N Personal Consult: N Performed By: #### [facility] #### [facility] Surgical Pathology Department [address] [facility] [address] CLINIC NOTE - RAD Observed: 05/22/2017 Status: COMPLETED Source: [place] ONC-OUTPATIENT CONSULT 6:09 PM HOSPITALS REPOSITORY Visit Information: Visit Type Outpatient Consult Disease Group Adult Oncology History of Present Illness: Interval History: I am asked by Dr. Rodríguez to see him to discuss about SBRT to his left upper lobe cancer. Briefly, AMPARO DE LEÓN is a 76 year old male who was diagnosed with laryngeal cancer in February 2016. At that time, he had hoarseness. During the workup, a left upper lobe nodule was noted. He had chemoradiation for his laryngeal cancer in [place] that completed in July 2016. During the follow up, the REMA lung nodule has gotten bigger. He had bronchoscopy and biopsy of the lung nodule in [facility] and confirmed to be malignant. A repeat PET scan 04/10/2017 showed that the REMA lung nodule measured 1.96 X 2.96 CM, with SUV of 5.6. There is also FDG uptake in the anterior larynx. He was seen by Dr. Rodríguez on 04/28 and had EUS with Dr. Rodríguez on 05/11. A 5 mm area of ulceration was noted along the left anterior false cord. This was biopsied and sent to Pathology. During the esophagoscopy, friable papillomatous circumferential area was noted at 40 cm from the superior incisors. Multiple biopsies from this region were sent to Pathology for analysis. Biopsy of the larynx showed INVASIVE POORLY DIFFERENTIATED KERATINIZING SQUAMOUS CELL CARCINOMA. P16 by immunohistochemistry: Negative. Biopsy of the esophagus showed no evidence of malignancy. He is going to have supracricoid laryngectomy with Dr. Rodríguez. And Dr. Rodríguez asked me to see him about SBRT to the REMA lung cancer. Patient denies fever, chills or night sweats. No problems eating drinking or swallowing. No hemoptysis. He has stable hoarseness. No weight Loss. Nothing makes it better or worse. phlegm is his biggest issue. The patient's family and social history was reviewed in detail along with a complete review of systems was performed. Please see the scanned in patient intake form that I personally reviewed with the patient. ? System Review All other systems have been reviewed and are negative for complaint. ? Constitutional POSITIVE: Malaise NEGATIVE: Fever, Chills, Anorexia, Weight Loss ? Eyes NEGATIVE: Blurry Vision, Drainage, Diploplia, Redness, Vision Loss/ Change ? ENMT NEGATIVE: Nasal Discharge, Nasal Congestion, Ear Pain, Mouth Pain, Throat Pain Comments hoarseness ? Respiratory POSITIVE: Dry Cough, Shortness of Breath NEGATIVE: Productive Cough, Hemoptysis, Wheezing ? Cardiology POSITIVE: Dyspnea on Exertion NEGATIVE: Chest Pain, Orthopnea, Palpitations, Syncope ? Gastrointestinal NEGATIVE: Abdominal Pain, Constipation, Diarrhea, Nausea, Vomiting ? Genitourinary NEGATIVE: Discharge, Dysuria, Flank Pain, Frequency, Hematuria ? Musculoskeletal POSITIVE: Stiffness NEGATIVE: Decreased ROM, Pain, Swelling, Weakness ? Neurological NEGATIVE: Dizziness, Confusion, Headache, Seizures, Syncope Allergies and Intolerances: Allergies: No Known Allergies: Active Outpatient Medication Profile: * Incomplete Medication History as of 22-May-2017 16:52 documented in Structured Notes amLODIPine 5 mg oral tablet: Last Dose Taken: lisinopril 20 mg oral tablet: Last Dose Taken: Problem List: Family History: Family History: No Family History items are recorded in the problem list. Smoking Status: former smoker Additional History: 2 pack per day for 60 years. Quit after the dignosis Performance Status: ECOG Performance Status: 1- Restricted from physically stenuous work Vitals and Measurements: Vitals: Temp: 36.8 HR: 71 RR: 18 BP: 100/68 SPO2%: NA Measurements: HT(cm): 175 WT(kg): 69.2 BSA: 1.83 BMI: 22.5 Physical Exam: Constitutional: Well developed, awake/alert/oriented x3, no distress, alert and cooperative. There is horseness Eyes: PERRL, EOMI, clear sclera ENMT: No trismus. mucous membranes moist, no visible and palpable lesions. Tongue mobile. Head/Neck: Neck supple, trachea midline, no palpable nodes. There is submental swelling. Respiratory/Thorax: Patent airways, CTAB, scattered wheesing Cardiovascular: Regular, rate and rhythm. Gastrointestinal: Nondistended, soft, non-tender, no rebound tenderness or guarding. Musculoskeletal: ROM intact, no joint swelling, normal strength Extremities: normal extremities Neurological: alert and oriented x3 Lymphatic: No significant lymphadenopathy Psychological: Appropriate mood and behavior Skin: Warm and dry, no lesions, no rashes Lab Results: Lab Results: ? Results CBC date/time WBC HGB HCT PLT Neut 04-May-2017 09:32 6.3 13.2(L) 40.5(L) 195 4.23 BMP date/time NA K CL CO2 BUN CREAT 04-May-2017 09:32 138 4.9 103 N/A 26(H) 0.97 Assessment and Plan: Assessment and Plan: 76 year old male with recurrent laryngeal cancer after chemoradiation. He also has a stage T1BNo REMA lung cancer. I agree that he is a good candidate for SBRT to the lung cancer. I discuss with him and his son-in-law about the diagnosis and the rationale, procedure and potential side effects of SBRT. He agrees to proceed. We will plan to complete his SBRT before his laryngeal surgery. I will go ahead to schedule CT simulation. Note Recipients: Anastasia Rodríguez MD - [id number] Hilario Ramirez MD - [id number] Attestation: Attestation: I saw and evaluated the patient. I personally obtained the miller and critical portions of the history and physical exam or was physically present for miller and critical portions performed by the resident/fellow. I reviewed the resident/fellow?s documentation and discussed the patient with the resident/fellow. I agree with the resident/fellow?s medical decision making as documented in the resident?s note I personally evaluated the patient (as noted in the above attestation) on: 22-May-2017 Electronic Signatures: Bird Diana) (Signed 22-May-2017 18:47) Authored: Information and History, History of Present Illness, Review of Systems, Allergies and Outpatient Medication Profile, Problem List, Social History, Performance Assessments, Vitals and Measurements, Physical Exam, Results, Assessment and Plan, To Send Document via Auto Fax, Attestation Last Updated: 22-May-2017 18:47 by Bird Diana) CLINIC NOTE - Observed: 05/22/2017 Status: UNK Source: [facility] 4:50 PM [facility]PITALS REPOSITORY Patient Visit Information: ? Visit Type Consult ? Source of Information patient ? Accompanied by family Vital Signs: ? Temp (degrees C) 36.8 degrees C ? Temperature tympanic ? Heart Rate (beats/min) 71 beats per minute ? Respiration (breaths/min) 18 breath per minute ? BP Systolic (mm Hg) 100 mmHg ? BP Diastolic (mm Hg) 68 mmHg ? BP Mean (mm Hg) 78 mmHg ? Height in cm 175 centimeter(s) ? Weight in kg 69.2 kilogram(s) ? Weight Method standing scale ? BMI (kg/m2) 22.5 ? BSA (m2) 1.83 ? SpO2 Patient On room air Allergies: No Known Allergies: Active Outpatient Medication Profile: * Incomplete Medication History as of 22-May-2017 16:52 documented in Structured Notes amLODIPine 5 mg oral tablet: Last Dose Taken: lisinopril 20 mg oral tablet: Last Dose Taken: Each Visit: Have you fallen in the last 6 months? no Do you have a fear of falling? no Not a falls risk implement environmental risk factors interventions Is the patient using an assistive device no Do you feel you need assistance? no Are there cultural/spiritual/denominational practices/values/needs important for us to know during your visit today no Nutrition Referrals for (to be completed by nurse) Head and Neck pt here for lung cancer treatment - s/p PRACTICE PROFESSIONAL for HN During the past 2 weeks my weight has (0) not changed As compared to my normal intake, I would rate my food intake during the past month as (0) unchanged I have had the following problems that have kept me from eating enough during the past 2 weeks (Check all that apply) (0) no problem eating Activities and function Over the past month, I would generally rate my activity as (0) normal with no limitations Score 6 or > notify clinician 0 Clinician notified no Electronic Signatures: Josefina Aly (FRANKLIN) (Signed 22-May-2017 16:53) Authored: Patient Visit Information, Vital Signs, Allergies, Outpatient Medication Profile, Adult Admission Risk Screen Last Updated: 22-May-2017 16:53 by Josefina Aly (FRANKLIN) POST OPERATIVE NOTE - Observed: 05/11/2017 Status: COMPLETED Source: [place] 11:08 AM [facility]OSPITALS REPOSITORY Post Operative Note: PreOp Diagnosis: supraglottic mass, lung cancer Post-Procedure Diagnosis: same Procedure: DL Bronchoscopy Esophagoscopy Surgeon: Sara Resident/Fellow/Other Executive Personal Assistant: Allie Anesthesia: General Estimated Blood Loss (mL): <5ml Specimen: yes Complications: none Findings: A 5mm area of ulceration noted along the Left anterior false cord. Friable papillomatous lesion noted at 40cm from incisors during esophagoscopy. Bx sent to pathology Signature/Cosignature/Attestation: Attending Attestation I was present for miller portions of the procedure and the procedure lasted longer than 5 minutes. Electronic Signatures: Simone Mcduffie (Resident)) (Signed 11-May-2017 11:13) Authored: Post Operative Note, Signature/Cosignature/Attestation Anastasia Rodríguez) (Signed 15-May-2017 13:24) Authored: Signature/Cosignature/Attestation Co-Signer: Post Operative Note, Signature/Cosignature/Attestation Last Updated: 15-May-2017 13:24 by Anastasia Rodríguez) HISTORY AND PHYSICAL Observed: 05/11/2017 Status: COMPLETED Source: [place] - SURGICAL UPDATE < 10:41 AM HOSPITALS REPOSITORY 30 DAYS History & Physical Reviewed: I have reviewed the History and Physical dated: 04-May-2017 History and Physical reviewed and relevant findings noted. Patient examined to review pertinent physical findings.: No significant changes Home Medications Reviewed: no changes noted Allergies Reviewed: no changes noted This patient has been seen and discussed with the attending physician responsible for performing the procedure: yes Signatures/Attestation/Certification: Attending Provider ? Inpatient Certification Statement N/A - observation patient/other outpatient visits Electronic Signatures: Simone Mcduffie (Resident)) (Signed 11-May-2017 11:42) Authored: History & Physical Reviewed, Signatures/Attestation/Certification Anastasia Rodríguez) (Signed 15-May-2017 13:24) Authored: Signatures/Attestation/Certification Co-Signer: History & Physical Reviewed, Signatures/Attestation/Certification Last Updated: 15-May-2017 13:24 by Anastasia Rodríguez) PREOP CHECKLIST Observed: 05/11/2017 Status: UNK Source: [place] 9:54 AM [facility]OS[facility]ITALS REPOSITORY Preop Checklist: Preop Checklist: ? Arrival Date 11-May-2017 ? Arrival Time 09:44 ? Procedure Type Laryngoscopy ? NPO Status 10-May-2017 22:00 ? ID Band On yes ? Allergy Band no known allergies ? Consent Signed yes ? H&P Complete pending ? Anesthesia Assessment Completed pending ? EKG Performed see results tab ? Chest X-Ray Performed not ordered ? Chlorhexadine Bath Given not applicable ? Soap and water bath with hair shampoo the night before surgery yes ? SCD's Applied sent to [place] ? [place] Hose Applied yes ? Dentures sent with family with shelley ? Prosthetics not applicable ? Hearing Aids not applicable ? Valuables Secured not applicable ? Glasses / Contacts not applicable ? Bowel Prep no Cardiovascular Assessment: ? Apical regular ? Radial Pulses palpable ? Pedal Pulses palpable ? Extremities warm Respiratory Assessment: ? Respirations unlabored regular ? Air Exchange equal Neurological Assessment: ? Level of Consciousness alert, oriented ? Mobility moves all extremities ? Able to Express Self yes ? Age Appropriate yes ? Emotional Status calm Preop Education: ? Surgical Site Infection Prevention yes ? Pain Scales and Management yes Language / Communication: ? Language / Communication Luxembour[place] Electronic Signatures: Jazmin Pruitt (RN) (Signed 11-May-2017 09:55) Authored: Preop Checklist Last Updated: 11-May-2017 09:55 by Jazmin Pruitt (RN) [facility] SURGICAL PATHOLOGY Observed: 05/11/2017 Status: F Source: [facility] 12:00 AM [facility]OSPITALS REPOSITORY Name AMPARO DE LEÓN Pathologist: BROOKE PETE MD Date of Procedure: 05/11/2017 Date Received: 05/11/2017 Date Reported 05/16/2017 Submitting Physician: ANASTASIA RODRÍGUEZ M.D Location: [facility] Other External # FINAL DIAGNOSIS A. 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 SEE NOTE. P16 by immunohistochemistry: Negative Reference Range: Negative: <50% strong nuclear and cytoplasmic invasive tumor cell staining Equivocal: 50-70% strong nuclear and cytoplasmic invasive tumor cell staining Positive: >70% strong nuclear and cytoplasmic invasive tumor cell staining B. ESOPHAGEAL BIOPSY: --FRAGMENTS OF SQUAMOCOLUMNAR JUNCTION MUCOSA WITH MILD CHRONIC ACTIVE INFLAMMATION. SEE NOTE --NO EVIDENCE OF INTESTINAL METAPLASIA. Note: An immunostain for Helicobacter pylori is negative. Tinsel Machine Operator: Dr. Sae Hough (part B) kourtney The gross and/or microscopic findings were reviewed in conjunction with pathology resident, Ailyn Stein M.D. Electronically Signed Out By BROOKE PETE MD/KOURTNEY By the signature on this report, the individual or group listed as making the Final Interpretation/Diagnosis certifies that they have reviewed this case. Clinical History: Supraglottic CA, Lung CA Specimens Submitted As: A: LEFT ANTERIOR FALSE CORD B: ESOPHAGEAL BIOPSY Gross Description: A: Received in formalin, labeled with the patient's name and hospital number and A, are multiple fragments of tolentino-white, soft tissue aggregating to 1.1 x 0.2 x 0.2 cm. The specimen is submitted in toto in one cassette. DJO B: Received in formalin, labeled with the patient's name and hospital number and B, are multiple fragments of tolentino-white, soft tissue aggregating to 0.9 x 0.2 x 0.2 cm. The specimen is submitted in toto in one cassette. DJO djo/05/11/2017 One or more of the reagents used to perform assays on this specimen MAY have contained components considered to be Laboratory Developed Tests (LDT). LDT's have not been cleared or approved by the U.S. Food and Drug Administration. These assays/tests were developed and their performance characteristics determined by the Department of Pathology Immunohistochemistry Lab at [facility]. The FDA does not require this test to go through premarket FDA review. This test is used for clinical purposes. It should not be regarded as investigational or for research. This laboratory is certified under the Clinical Laboratory Improvement Amendments (CLIA) as qualified to perform high complexity clinical laboratory testing. The assays/tests were performed with appropriate positive and negative controls which stained appropriately.The assays/tests were performed with appropriate positive and negative controls which stained appropriately. Performed By: #### [facility] #### [facility] Surgical Pathology Department [address] [facility] [address] CBC AND DIFFERENTIAL Collected: 05/04/2017 Status: F Source: [place] 9:32 AM HOSPITALS REPOSITORY TYPE CODE TESTS RESULT OUT OF REFERENCE UNITS RANGE LAB WBCR(LOINC 4.4 - 11.3 x10E9/L ) WBC 6.3 LAB NRBC(LOINC 0.0-0.0 /100 WBC ) NUCLEATED RBC 0.0 LAB RBCCT(LOIN 4.50 - 5.90 x10E12/L C) Low RBC 4.34 LAB HGB(LOINC) 13.5 - 17.5 g/dL Low HGB 13.2 LAB HCT(LOINC) 41.0 - 52.0 % Low HCT 40.5 LAB MCV(LOINC) 80 - 100 fL MCV 93 LAB MCHC2(LOIN 32.0 - 36.0 g/dL C) MCHC 32.6 LAB PLTCT(LOIN 150 - 450 x10E9/L C) PLT 195 LAB RDWCV(LOIN 11.5 - 14.5 % C) RDW-CV 13.5 LAB NEUT(LOINC 40.0 - 80.0 % ) % NEUTROPHIL 66.7 LAB IG(LOINC) 0.0 - 0.9 % % AUTOMATED 0.8 IMMATURE GRAN Result Comment: Percent differential counts (%) should be interpreted in the context of the absolute cell counts (cells/L). LAB LYMPH(LOINC) 13.0 - % 44.0 % LYMPHOCYTE 19.0 LAB MONO(LOINC) 2.0 - 10.0 % % MONOCYTE High 11.4 LAB EOS(LOINC) 0.0 - 6.0 % % EOSINOPHIL 1.3 LAB BASO(LOINC) 0.0 - 2.0 % % BASOPHIL 0.8 LAB #NEUT(LOINC) 1.60 - x10E9/L 5.50 NEUTROPHIL 4.23 LAB #LYMP(LOINC) 0.80 - x10E9/L 3.00 LYMPHOCYTE 1.20 LAB #MONO(LOINC) 0.05 - x10E9/L 0.80 MONOCYTE 0.72 LAB #EOS(LOINC) 0.00 - x10E9/L 0.40 EOSINOPHIL 0.08 LAB #BASO(LOINC) 0.00 - x10E9/L 0.10 BASOPHIL 0.05 Performed By: #### CBCDF #### [facility] [address] [place] [id number] COAGULATION SCREEN Collected: 05/04/2017 Status: F Source: [place] 9:32 [facility] REPOS[facility] TYPE CODE TESTS RESULT OUT OF REFERENCE UNITS RANGE LAB PT(LOINC) 9.8 - 12.7 sec PROTHROMBIN TIME 11.8 LAB INR(LOINC) 0.9 - 1.1 PT, INR 1.1 LAB APTT(LOINC 25 - 36 sec ) APTT 30 Result Comment: THE APTT IS NO LONGER USED FOR MONITORING UNFRACTIONATED HEPARIN THERAPY. FOR MONITORING HEPARIN THERAPY, USE THE HEPARIN ASSAY. Performed By: #### COAGS #### [facility] [address] [place] [id number] COMPREHENSIVE PANEL Collected: 05/04/2017 Status: F Source: [place] 9:32 [facility] REPOS[facility] TYPE CODE TESTS RESULT OUT OF REFERENCE UNITS RANGE LAB GLU(LOINC) 74 - 99 mg/dL GLUCOSE High 119 LAB SOD(LOINC) 136 - 145 mmol/L SODIUM 138 LAB K(LOINC) 3.5 - 5.3 mmol/L POTASSIUM 4.9 LAB CHLOR(LOIN 98 - 107 mmol/L C) CHLORIDE 103 LAB BIC(LOINC) 21 - 32 mmol/L BICARBONATE 24 LAB ANGAP(LOIN 10 - 20 mmol/L C) ANION GAP 16 LAB UREA(LOINC 6 - 23 mg/dL ) UREA High NITROGEN 26 LAB CREA(LOINC 0.50 - 1.30 mg/dL ) CREATININE 0.97 LAB GFRFN(LOIN >60 mL/min/1.7 C) 3m2 GFR-NON AM. >60 LAB GFRAA(LOIN >60 mL/min/1.7 C) 3m2 GFR- AM. >60 Result Comment: CALCULATIONS OF ESTIMATED GFR ARE PERFORMED USING THE MDRD STUDY EQUATION FOR THE IDMS-TRACEABLE CREATININE METHODS. CLIN CHEM 2007;53:766-72 LAB CA(LOINC) 8.6 - 10.6 mg/dL CALCIUM 9.5 LAB ALB(LOINC) 3.4 - 5.0 g/dL ALBUMIN 4.2 LAB AP(LOINC) 33 - 136 U/L ALKALINE PHOSPHATASE 54 LAB TP(LOINC) 6.4 - 8.2 g/dL TOTAL PROTEIN 6.4 LAB AST(LOINC) 9 - 39 U/L AST 11 LAB TBILI(LOINC) 0.0 - 1.2 mg/dL BILIRUBIN,TOTAL 0.5 LAB ALT(LOINC) 10 - 52 U/L ALT Low 8 Result Comment: Patients treated with Sulfasalazine may generate falsely decreased results for ALT. Performed By: #### CMP #### [facility] [address] [address] CHEST; 2 VIEW AP Observed: 05/04/2017 Status: F Source: [place] 9:16 AM HOSPITALS REPOSITORY Patient Name: AMPARO DE LEÓN STUDY: CHEST; 2 VIEW AP; 05/04/2017 9:16 am INDICATION: Signs/Symptoms: C32.1/Resp NOS PRE-OP. COMPARISON: None. ACCESSION NUMBER(S): [id number] ORDERING CLINICIAN: ANASTASIA RODRÍGUEZ FINDINGS: CARDIOMEDIASTINAL SILHOUETTE: Cardiomediastinal silhouette is normal in size and configuration. Extensive coronary artery calcifications and correlate with coronary artery disease risk factors. LUNGS: There is pulmonary hyperinflation. Several nodular densities overlying the left apex are noted. While this probably represents areas of atelectasis/scar comparison to more remote x-rays would be helpful. If these are not available limited CT scan through the lung apices are recommended to exclude developing nodules or infiltrates. ABDOMEN: No remarkable upper abdominal findings. BONES: Osteopenia and loss of height of several mid thoracic vertebral bodies consistent with insufficiency fractures. IMPRESSION: Pulmonary hyperinflation and correlate with a component of emphysema. Nonspecific left apical nodular airspace opacities probably reactive in nature but comparison to mA right x-rays or limited CT scan evaluation to exclude developing nodules or infiltrates. I personally reviewed the image(s) / study and resident interpretation. I agree with the findings as stated. This study was interpreted at [place], [place]. Electronically signed by: Anisa ESTRADA MD PET/CT TUMOR BASE Observed: 04/10/2017 Status: F Source: [facility] [facility] 11:27 AM [facility] REPOSITORY [facility] Imaging Services [address] [place] [id number] PET/CT Tumor Base -Thigh Init MR#: [id number] Acct: [id number] Name: AMPARO DE LEÓN Rep #: [id number] : 1940 M 76 From: Tree Julian DO PCP: Hilario Ramirez DO Status: REG CLI Study: PET/CT Tumor Base -Thigh Init Date of Exam: 04/10/17 Exam# [id number] Ordering Dr: Arsen Carey MD EXAMINATION: FDG PET CT INDICATIONS: A 76-year-old male with reported history of head and neck and primary lung carcinoma presenting for restaging examination. COMPARISON EXAMINATION: Previous FDG PET study dated 09/19/16. INDEX LESION SIZE SUV INTERPRETATION PERSISTENT: Left mid medial hemithorax pulmonary parenchyma, left upper lobe 19.6 mm (frame 228) compared to 15.8 mm, 09/19/16; craniocaudal 29.6 mm compared to 13.9 mm, 09/19/16 6.5 compared to 5.0, 09/19/16 Fulfills quantitative criteria for viable neoplasm, potential interim metabolic progression based on morphologic parameter NEW: Anterior neck, anterior commissure 14.5 mm (frame 269) 7.3 May be further investigated with CT of the neck with intravenous contrast as defined below TECHNIQUE: Following the intravenous administration of 16.71 mCi of F-18 deoxyglucose via the right wrist, multiplanar image acquisitions of the neck, chest, abdomen and pelvis to level of mid thigh, obtained at one hour post radiopharmaceutical administration contemporaneously interpreted with the current CT of the neck, chest, abdomen and pelvis to level of mid thigh, dated 04/10/17 via coregistration and previous FDG PET study dated 09/19/16 reveal: SERUM GLUCOSE LEVEL: 91 mg/dl. HEIGHT: 69 inches. WEIGHT: 145 lbs. FINDINGS: 1. Increased glucose metabolism is redemonstrated in the left upper medial hemithorax pulmonary parenchyma, left upper lobe generating a current calculated maximum standard uptake value of 5.6 compared to 5.0 defined on the FDG PET study dated 09/19/16. The maximal axial diameter of the metabolic, morphologic abnormality on the current examination is approximately 19.6 mm (AP). The current craniocaudal dimension is approximately 29.6 mm compared to 13.9 mm defined on the FDG PET study dated 09/19/16. 2. Newly identified increased glucose concentration is manifest in the anterior neck at the level of the laryngeal structures adjacent to the anterior commissure generating a calculated maximum standard uptake value of 7.3. The maximal axial diameter of the metabolic, morphologic abnormality on review of CT of the neck dated 04/10/17 is 14.5 mm (AP). 3. Normal physiologic distribution of the radiopharmaceutical is apparent in the hepatic (2.6) and splenic parenchyma, both renal units, bladder and visualized intestinal tract. There is uniform distribution of the radiopharmaceutical concentration compared on the cerebellar hemispheres and cerebral cortex. Diffuse intestinal tract activity is noted throughout all four quadrants of the abdominal-pelvic retroperitoneum, mesentery consistent with normal physiologic distribution of the radiopharmaceutical. Symmetric glucose metabolism is defined at the level of the anterior neck, laryngeal structures, which appears contiguous to the cricopharyngeus musculature without evidence of soft tissue thickening. Pertinent CT findings are as follows. CHEST: Emphysematous changes are noted in the bilateral upper lung zones. Additional parenchymal densities newly identified in the left upper lateral lung field demonstrate no evidence of quantitatively significant increased glucose metabolism. Atherosclerotic calcification is defined in the thoracic aorta without evidence of dilatation, aneurysm formation. Coronary arterial calcification is observed. ABDOMEN AND PELVIS: Atherosclerotic calcification is defined in the abdominal aorta without evidence of dilatation, aneurysm formation. Abdominal-pelvic arterial calcification is demonstrated. Dystrophic calcifications are manifest within the prostate gland. Right-left inguinal soft tissue densities are ametabolic. There is calcification apparent in the right hemiscrotum unchanged from the study dated 09/19/16. SKELETAL: Degenerative changes defined in the cervical, thoracic and lumbar spine demonstrate no evidence for glucose hypermetabolism. PET/PET/CT Tumor Base -Thigh Init IMPRESSION: 1. 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 2. Increased glucose concentration redemonstrated in the left mid medial hemithorax, left upper lobe fulfills quantitative criteria for viable neoplasm. (Chantal et al, Journal of Nuclear Medicine 43:302 P, 2002). 3. Facilitated glucose concentration currently identified in the anterior neck, laryngeal structures at the level of the anterior commissure warrants further investigation with CT of the neck with intravenous contrast and/or direct visualization secondary to the quantitative degree of uptake. Symmetric increased glucose concentration contiguous to the cricopharyngeus musculature is most consistent with physiologic distribution of the radiotracer. 4. Overall, compared to the prior FDG PET study dated 09/19/16, there is persistent evidence of viable neoplasm within the context of the left mid medial lung zone, left upper lobe demonstrating potential interim metabolic progression based on the increased craniocaudal morphologic parameter. Facilitated glucose concentration currently identified at the level of the anterior commissure, laryngeal structures warrants further clinical, potential radiologic investigation. Electronic Signature Tree Julian D.O. Electronically Signed: Tree Julian DO at 22:53 EST Tel , Service support , CC: Hilario Ramirez DO; Arsen Carey MD Pay Station Collector: Signed ALLERGIES ALLERGIES DATE TYPE / CODE NAME / CODE REACTION SEVERITY SOURCE 03/16/2018 Drug No Known Unknown [facility] Allergy/416 Allergies/[id number] [facility] [id number](SNOM 0388(RXNORM) Repository ED CT) Drug NO KNOWN [facility] Class/44780 ALLERGIES Main [place] 1003(SNOMED Repository CT) ENCOUNTERS ENCOUNTERS ADMIT/DISCHARGE ACCOUNT ADMITTING ENCOUNTER LOCATION SOURCE NUMBER CLASS 03/19/2018 [id number] Ambulatory [facility] ing:BFHLAB Repository 03/16/2018/03/16/19 [id number] Ambulatory BMSBuilding:B [place] 19 [place].PMW [facility] [place] 12/15/2017/12/16/[id number] ing:SDCRoom: Repository AC02 09/15/[id number] Repository 08/29/2017/08/30/19 [id number] Ambulatory BMSBuilding:B [place] 18 MS.WSA [facility] [place] 08/04/2017/08/09/19 [id number] Ambulatory [address] Repository 07/31/[id number] Repository 07/12/[id number] Repository 07/12/2017 [id number] [facility] Repository 06/27/2017/07/04/[id number] Sara Inpatient UHCBuilding:C [place] 18 Anastasia A Encounter 500Room: [facility] T5251Gpr: Repository H4575G 06/23/[id number] Bird Diana [facility] Repository 06/22/[id number] Bird Diana [facility] Repository 06/21/[id number] Bird Diana [facility] Repository 06/19/[id number] Bird Diana [facility] Repository 06/16/2017 [id number] [facility] Repository 06/16/2017 [id number] Ambulatory [facility] Repository 06/16/[id number] Bird Diana [facility] Repository 06/14/2017 [id number] [facility] Repository 06/14/[id number] Bird Diana [facility] Repository 06/09/[id number] Bird Diana [facility] Repository 05/31/[id number] Bird Diana [facility] Repository 05/30/2017 [id number] Ambulatory [facility] Repository 05/30/2017 [id number] Ambulatory [facility] Repository 05/27/2017 [id number] [facility] Repository 05/22/[id number] Bird Diana Ambulatory [facility] Repository 05/22/[id number] Sara Ambulatory [facility] Hospitals Repository 05/11/2017/05/12/[id number] Sara [facility] MORRoom: Hospitals TZMZ2Fqy: Repository TMOR10 05/04/2017 [id number] Ambulatory [facility] Repository 05/04/[id number] Sara [facility] Repository 04/10/2017 [id number] [facility]:ONC Repository PAYERS PAYERS ENCOUNTER GUARANTOR PAYER SUBSCRIBER SOURCE 03/19/2018 AMPARO E Primary AMPARO E [place] [id number] Insurance:MEDICARE RASTETTERDOB: Community KAYLEN PART A [facility] [id number] [place] Number: Repository [address]Qia: [phone] [id number] [phone] () Date:2018-03-19 03/19/2018 Secondary AMPARO E [place] Insurance:CIGNAPolicy [facility]: [facility] Number: [id number] Hospital [id number] Repository Date:6683-81-33[address], [place] [address]WD: 03/19/2018 Tertiary NOT GIVENUNK [place] Insurance:SELF PAY [facility] Number: Effective Repository Date:2018-03-19 03/16/2018 AMPARO E Primary AMPARO E [place] [id number] Insurance:MEDICARE RASTETTERDOB: Community KAYLEN PART A [facility] [id number] Number: Repository [address]Bvi: 330 [id number] [phone] () Date:2018-02-28 03/16/2018 Secondary AMPARO E [place] Insurance:CIGNAPolicy RASTETTERDOB: Community Number: [id number] Hospital [id number] Repository Date:3335-96-64[address], [place] [address]LS: 03/16/2018 Tertiary NOT GIVENUNK [place] Insurance:SELF PAY [facility]: Effective Repository Date:2018-03-14 12/15/2017 [facility] Insurance:MEDICARE RASTETTERDOB: Community KAYLEN PART A [facility] [id number] Number: Repository [address]Oah: 330 [id number] [phone] () Date:2017-11-03 12/15/2017 Secondary AMPARO E [place] Insurance:CIGNAPolicy RASTETTERDOB: Community Number: [id number] Hospital [id number] Repository Date:8481-29-79[address], [place] [address]YB: 12/15/2017 Tertiary NOT GIVENUNK [place] Insurance:SELF PAY [facility] Number: Effective Repository Date:2017-11-03 09/15/2017 [facility] Insurance:MedicarePol RASTETTERDOB: [facility] icy Number: [id number] Repository KAYLEN [id number] 2 [place] Date:2046-68-13Xdjp [place], [place] [address]Oao: (330) Name:Ashley Martinez [address]Rbw: (HP) [phone] () 09/15/2017 Secondary [facility] Insurance:MedicarePol RASTETTERDOB: Hospitals icy Number: [id number] Repository [id number] 2 KAYLEN Date:4854-19-46Jkwq [place] Name:Ashley Land [address]Wwr: () 09/15/2017 Tertiary [facility] Insurance:Cigna RASTETTERDOB: [facility] [id number] Repository Number: 2 KAYLEN [id number] [place] Date:6974-44-27Xtan 17[address]Lsl: (330) Name:[address]5642 () 08/29/2017 AMPARO E Primary AMPARO E [place] [id number] Insurance:MEDICARE RASTETTERDOB: [facility] [id number] [place] Number: Repository [phone]: 330) [id number] [phone] (HP) Date:2017-08-22 08/29/2017 Secondary AMPARO E [place] [facility] Community Number: [id number] Hospital [id number] Repository Date:1141-66-50WM[address] [address]BD: 08/29/2017 Tertiary NOT GIVENUNK [place] Insurance:SELF PAY [facility] Number: Effective Repository Date:2017-08-29 07/31/2017 [facility]: Insurance:MedicarePol RASTETTERDOB: [facility] icy Number: [id number] Repository KAYLEN [id number] [facility] [place] Date:7624-32-94Utlw [place], [place] [address]Jil: (330) Name:Ashley Martinez [address]Qus: (HP) [phone] () 07/31/2017 Secondary [place] [employer] Insurance:MedicarePol RASTETTERDOB: [facility] icy Number: [id number] Repository [id number] 2 KAYLEN Date:1274-79-28Htnf [place] Name:Ashley Emery [address]Rmg: () 07/31/2017 Tertiary [place] [employer] Insurance:Cigna RASTETTERB: [facility] [id number] Repository Number: 2 KAYLEN [id number] [place] Date:4783-47-09Sqbw [address]Agc: (330) Name:[address]5642 () 07/12/2017 [facility]: Insurance:MedicarePol RASTETTERDOB: [facility] icy Number: [id number] Repository KAYLEN [id number] 2 [place] Date:7897-34-49Dkgn [place] [address]Uic: (330) Name:Ashley Michelle [address]17[address]Epr: (HP) [phone] () 07/12/2017 Secondary [facility] Insurance:MedicarePol RASTETTERDOB: [facility] icy Number: [id number] Repository [id number] 2 KAYLEN Date:8756-22-93Phql [place] Name:Ashley Land [address]Tjg: (HP) 07/12/2017 Tertiary [facility] Insurance:[facility] Hospital[facility]: [facility] [id number] Repository Number: 2 K[place] [id number] [place] Date:4243-00-10Fdaa [address]Eoq: (330) Name:[address]5642 () 07/12/2017 [facility]: Insurance:MedicarePol RASTETTERDOB: [facility] icy Number: [id number] Repository KAYLEN [id number] 2 [place], [place] Date:8422-21-84Zcse [place], [place] [address]Cil: (330) Name:Ashley Martinez [address]Pek: (HP) [phone] () 07/12/2017 Secondary [facility] Insurance:MedicarePol RASTETTDOB: Hospitals icy Number: [id number] Repository [id number] 2 KAYLEN Date:2868-95-65Azzr [place] Name:Ashley Land [address]Fcn: () 07/12/2017 [facility] Insurance:[facility] HospitalB: [facility] [id number] Repository Number: 2 K[place] [id number] [place] Date:3654-95-86Kgew 118[address]Pdm: (330) Name:[place] [address] () 06/27/2017 [facility] Insurance:MedicarePol RASTETTERDOB: [facility] icy Number: [id number] Repository KAYLEN [id number] 2 [place] Date:2011-74-75Jtgs [place] [address]Zct: (330) Name:Ashley Martinez [address]Xdg: (HP) [phone] () 06/27/2017 Secondary [facility] Insurance:MedicarePol RASTETTERDOB: [facility] icy Number: [id number] Repository [id number] 2 K[place]LEN Date:0602-03-00Agqx [place] Name:Ashley Land [address]Ant: () 06/27/2017 [facility] Insurance:[facility] HospitalB: [facility] [id number] Repository Number: 2 [place] [id number] [place] Date:1990-76-11Pome [address]Nhx: (330) Name:[address]5642 () 06/23/2017 [facility]: Insurance:MedicarePol RASTETTERDOB: [facility] icy Number: [id number] Repository K[place]LEN [id number] 2 [place] Date:9406-04-30Eooj [place] [address]Txa: (330) Name:Ashley Martinez [address]Jrw: (HP) [phone] (HP) 06/23/2017 Secondary [facility] Insurance:MedicarePol RASTETTERDOB: [facility] icy Number: [id number] Repository [id number] 2 KAYLEN Date:8290-18-49Ymoa [place] Name:Ashley Land [address]Yzc: (HP) 06/23/2017 Tertiary [facility] Insurance:[facility] HospitalB: [facility] [id number] Repository Number: 2 K[place]LEN [id number] [place] Date:6805-48-60Knyh [address]Vde: (330) Name:[facility] [phone] () 06/22/2017 [facility]: Insurance:MedicarePol RASTETTERDOB: [facility] icy Number: [id number] Repository KAYLEN [id number] 2 [place] Date:5119-83-88Libg [place] [address]Tzq: (330) Name:Ashley Martinez [address]Oph: (HP) [phone] (HP) 06/22/2017 Secondary [facility] Insurance:MedicarePol RASTETTERDOB: [facility] icy Number: [id number] Repository [id number] 2 KAYLEN Date:6927-48-61Ydqs [place] Name:Ashley Land [address]Khu: (HP) 06/22/2017 Tertiary [facility] Insurance:[facility] HospitalB: [facility] [id number] Repository Number: 2 K[place]LEN [id number] [place] Date:2334-30-04Znuo [address]Bjt: (330) Name:[facility] [phone] () 06/21/2017 [facility]: Insurance:MedicarePol RASTETTERDOB: [facility] icy Number: [id number] Repository KAYLEN [id number] 2 [place] Date:9153-90-62Ahko [place] [address]Tzy: (330) Name:Ashley Martinez 957[address]Hbc: (HP) [phone] (HP) 06/21/2017 Secondary [facility] Insurance:MedicarePol RASTETTERDOB: Hospitals icy Number: [id number] Repository [id number] 2 KAYLEN Date:1892-06-73Gvqo [place] Name:[place]ley [place] [address]Ivb: (HP) 06/21/2017 Tertiary [facility] Insurance:[facility] HospitalB: [facility] [id number] Repository Number: 2 KAYLEN [id number] [place] Date:1462-51-18Qoan [address]Dga: (330) Name:[address]5642 () 06/19/2017 [facility]: Insurance:MedicarePol RASTETTERDOB: [facility] icy Number: [id number] Repository KAYLEN [id number] 2 [place] Date:5168-89-56Ftca [place] [address]Kyn: (330) Name:Ashley Martinez 27[address]Weo: (HP) [phone] (HP) 06/19/2017 Secondary [facility] Insurance:MedicarePol RASTETTBANNERB: Hospitals icy Number: [id number] Repository [id number] 2 KAYLEN Date:6765-23-04Ikpg [place] Name:Ashley Land [address]Tad: (HP) 06/19/2017 Tertiary [facility] Insurance:[facility] HospitalB: [facility] [id number] Repository Number: 2 KAYLEN [id number] [facility], [place] Date:6199-04-30Rptc [address]Ijm: (330) Name:[address]5642 () 06/16/2017 [facility]: Insurance:MedicarePol RASTETTERDOB: [facility] icy Number: [id number] Repository KAYLEN [id number] 2 KAYLEN [facility] Date:1284-50-29Tfua [place], [place] [address]Egz: (330) Name:Ashley Martinez 240[address]Pwn: () [phone] () 06/16/2017 Secondary [facility] Insurance:MedicarePol RASTETTERDOB: [facility] icy Number: [id number] Repository [id number] 2 KAYLEN Date:9433-60-13Vckc [place] Name:Ashley Land [address]Xhc: () 06/16/2017 Tertiary [facility] Insurance:[facility] HospitalB: [facility] [id number] Repository Number: 2 KAYLEN [id number] [facility], [place] Date:3775-53-49Mykh [address]Ozo: (330) Name:[address]5642 () 06/16/2017 [facility] Primary AMPARO E [place] [id number] Insurance:MEDICARE [facility] VEGASTETTERDOB: Community KAYLEN PART A [facility] [id number] Hospital [place] Number: Repository [address]Cuv: [id number] [phone] Date:2017-06-16 () 06/16/2017 Secondary AMPARO E [place] Insurance:[facility]: Community Number: [id number] Hospital [id number] Repository Date:8571-14-03WP [place] [address]CR: 06/16/2017 Tertiary NOT GIVENUNK [place] Insurance:SELF PAY [facility] Number: Effective Repository Date:2017-06-16 06/16/2017 [facility]: Insurance:MedicarePol RASTETTERDOB: [facility] icy Number: [id number] Repository KAYLEN [id number] 2 [place] Date:9393-16-99Dkvh [place], [place] [address]Zyo: (330) Name:Ashley Martinez [address]Esd: (HP) [phone] () 06/16/2017 Secondary [facility] Insurance:MedicarePol RASTETTERDOB: [facility] icy Number: [id number] Repository [id number] 2 KAYLEN Date:5576-48-61Suhd [place] Name:Ashley Land [address]Mdf: (HP) 06/16/2017 Tertiary [facility] Insurance:[facility] HospitalB: [facility] [id number] Repository Number: 2 K[place]LEN [id number] [place] Date:3340-54-70Bcjl [address]Icv: (330) Name:[address]56 () 06/14/2017 [facility] Insurance:MedicarePol RASTETTERDOB: [facility] icy Number: [id number] Repository KAYLEN [id number] 2 [place] Date:9030-15-38Atnv [place], [place] [address]Jiw: (330) Name:Ashley Michelle 614[address]Zxf: (HP) [phone] (HP) 06/14/2017 Secondary [facility] Insurance:MedicarePol RASTETTERDOB: Hospitals icy Number: [id number] Repository [id number] 2 K[place]LEN Date:2950-11-43Wbzb [place] Name:Ashley Land [address]Rtl: () 06/14/2017 [facility] Insurance:[facility] HospitalB: [facility] [id number] Repository Number: 2 K[place]LEN [id number] [place] Date:0417-83-37Bitz [address]Upa: (330) Name:[address]5642 () 06/14/2017 [facility]: Insurance:MedicarePol RASTETTERDOB: [facility] icy Number: [id number] Repository KAYLEN [id number] 2 [place] Date:8443-29-30Zuue [place] [address]Vgf: (330) Name:Ashley Martinez [address]Baj: (HP) [phone] () 06/14/2017 [facility] Insurance:MedicarePol RASTETTERDOB: [facility] icy Number: [id number] Repository [id number] 2 K[place]LEN Date:0049-43-69Nbqq [place] Name:Ashley Land [address]Jft: () 06/14/2017 [facility] Insurance:[facility] HospitalB: [facility] [id number] Repository Number: 2 K[place]LEN [id number] [place] Date:2636-06-06Mevp [address]Poz: (330) Name:[facility] [id number] () 06/09/2017 [facility]: Insurance:MedicarePol RASTETTERDOB: [facility] icy Number: [id number] Repository KAYLEN [id number] 2 [place] Date:8676-31-43Behx [place] [address]Xkt: (330) Name:Ashley Martinez [address]Ywy: (HP) [phone] (HP) 06/09/2017 Secondary [facility] Insurance:MedicarePol RASTETTERDOB: [facility] icy Number: [id number] Repository [id number] 2 K[place]LEN Date:3637-49-63Dehf [place] Name:Ashley Land [address]Xgp: (HP) 06/09/2017 Tertiary [facility] Insurance:[facility] HospitalB: [facility] [id number] Repository Number: 2 [place] [id number] [place] Date:0590-79-02Qgum [address]Kfl: (330) Name:[facility] [phone] () 05/31/2017 [facility]: Insurance:MedicarePol RASTETTERDOB: [facility] icy Number: [id number] Repository KAYLEN [id number] 2 [place] Date:1351-12-99Nwey [place], [place] [address]Say: (330) Name:Ashley Martinez 206[address]Ybm: (HP) [phone] (HP) 05/31/2017 Secondary [facility] Insurance:MedicarePol RASTETTERDOB: Hospitals icy Number: [id number] Repository [id number] 2 KAYLEN Date:1977-04-75Gbex [place] Name:Ashley Land [address]Mkn: (HP) 05/31/2017 Tertiary [facility] Insurance:[facility] HospitalB: [facility] [id number] Repository Number: 2 K[place] [id number] [place] Date:0479-65-18Zrnq 888[address]Vkl: (330) Name:[facility] [phone] () 05/30/2017 [facility]: Insurance:MedicarePol RASTETTERDOB: [facility] icy Number: [id number] Repository KAYLEN [id number] 2 [place] Date:4132-67-18Fmux [place] [address]Mpl: (330) Name:Ashley Martinez 400[address]Mka: (HP) [phone] (HP) 05/30/2017 Secondary [facility] Insurance:MedicarePol RASTETTERDOB: Hospitals icy Number: [id number] Repository [id number] 2 [place]LEN Date:3464-84-99Xwxy [place] Name:Ashley Land [address]Kqz: () 05/30/2017 Tertiary [facility] Insurance:[facility] HospitalB: [facility] [id number] Repository Number: 2 [place] [id number] [place] Date:8238-09-16Quoz [address]Tqd: (330) Name:[address]56 () 05/30/2017 [facility]: Insurance:MedicarePol RASTETTERDOB: [facility] icy Number: [id number] Repository KAYLEN [id number] 2 [place] Date:0914-42-79Vgjt [place] [address]Jbw: (330) Name:Ashley Martinez 28[address]Kji: (HP) [phone] (HP) 05/30/2017 Secondary [facility] Insurance:MedicarePol RASTETTERDOB: Hospitals icy Number: [id number] Repository [id number] 2 KAYLEN Date:0086-92-22Abad [place], [place] Name:Ashley Land [address]Zph: (HP) 05/30/2017 Tertiary [facility] Insurance:[facility] HospitalB: [facility] [id number] Repository Number: 2 K[place] [id number] [place] Date:7741-18-50Sdla [address]Uyf: (330) Name:[address]5642 () 05/27/2017 [facility]: Insurance:MedicarePol RASTETTERDOB: [facility] icy Number: [id number] Repository KAYLEN [id number] 2 [place] Date:1588-85-62Gicl [place] [address]Lkx: (330) Name:Ashley Michelle 679[address]Yfu: (HP) [phone] (HP) 05/27/2017 Secondary [facility] Insurance:MedicarePol RASTETTERDOB: [facility] icy Number: [id number] Repository [id number] 2 K[place]LEN Date:1186-50-92Sryo [place] Name:Ashley Land [address]Ehd: (HP) 05/27/2017 Tertiary [facility] Insurance:[facility] HospitalB: [facility] [id number] Repository Number: 2 [place] [id number] [place] Date:5973-09-16Zhui 6[address]Zoy: (330) Name:[facility] [id number] () [facility]/22/2017 [facility] Insurance:MedicarePol RASTETTERDOB: [facility] icy Number: [id number] Repository KAYLEN [id number] 2 [place] Date:5599-46-34Ptbn [place] [address]Yki: (330) Name:Ashley Martinez 74[address]Hkd: (HP) [phone] (HP) 05/22/2017 Secondary [facility] Insurance:MedicarePol RASTETTDOB: Hospitals icy Number: [id number] Repository [id number] 2 K[place]LEN Date:3770-82-07Vlxy [place] Name:Ashley Land [address]Gwv: () 05/22/2017 [facility] Insurance:[facility] HospitalB: [facility] [id number] Repository Number: 2 [place] [id number] [place] Date:9107-84-79Pcgh [address]Sls: (330) Name:[place] [address] () 05/22/2017 [facility]: Insurance:MedicarePol RASTETTERDOB: [facility] icy Number: [id number] Repository KAYLEN [id number] 2 [place] Date:3280-62-82Zqgi [place] [address]Yef: (330) Name:Ashley Martinez 627[address]Uwj: (HP) [phone] () 05/22/2017 Secondary [facility] Insurance:MedicarePol RASTETTERDOB: [facility] icy Number: [id number] Repository [id number] 2 [place] Date:4785-07-34Vtsm [place] Name:Ashley Land [address]Noh: () 05/22/2017 [facility] Insurance:[facility]: [facility] [id number] Repository Number: 2 [place] [id number] [place] Date:0665-78-10Mwvq [address]Jpa: (330) Name:[address]5642 () 05/11/2017 [facility] Insurance:MedicarePol RASTETTERDOB: [facility] icy Number: [id number] Repository KAYLEN [id number] 2 [place] Date:2617-23-75Dswh [place] [address]Sid: (330) Name:Ashley Martinez 23[address]Bqv: (HP) [phone] (HP) 05/11/2017 Secondary [facility] Insurance:MedicarePol RASTETTERDOB: [facility] icy Number: [id number] Repository [id number] 2 KAYLEN Date:9539-67-31Fsoq [place] Name:Ashley Land [address]Wal: (HP) 05/11/2017 T[facility]iary [facility] Insurance:[facility]: [facility] [id number] Repository Number: 2 [place] [id number] [place] Date:[id number] [id number]: (330) Name:[facility] [phone] () [facility]04/2017 [facility] Insurance:MedicarePol RASTETTERDOB: [facility] icy Number: [id number] Repository KAYLEN [id number] 2 KAYLEN [facility], [place] Date:[facility] [place] [place] [address]Wvr: (330) A [id number]: (HP) [phone] (HP) 05/04/2017 [facility] Insurance:MedicarePol RASTETTERDOB: [facility] icy Number: [id number] Repository [id number] 2 KAYLEN Date:Plan Name:[place], [place] B [address]Isf: (HP) 05/04/2017 [facility] [id number] Repository Number: 2 KAYLEN [id number] [facility], [place] Date:Plan Name:[facility] [id number]: (HP) [facility]04/2017 [facility] Insurance:MedicarePol RASTETTERDOB: [facility] icy Number: [id number] Repository KAYLEN [id number] 2 [place] [place], [place] Date:7153-50-77Obbs [place], [place] [address]Dpz: ([phone]) Name:Ashley Martinez [id number]: () [phone] () 05/04/2017 Secondary [employer] [facility] RASTETTERDOB: [facility] icy Number: [id number] Repository [id number] 2 KAYLEN Date:0848-69-44Vrtw [place], [place] Name:Ashley Land [id number]: () 05/04/2017 Tertiary [facility] Insurance:[facility] HospitalTETTERDOB: [facility] [id number] Repository Number: 2 KAYLEN [id number] [place], [place] Date:[id number] [address]Hfe: [phone]) Name:[place] [phone] () 04/10/2017 AMPARO E Primary AMPARO E [place] [id number] Insurance:MEDICARE [facility]ST[facility]TERDOB[facility] [id number] Repository [id number]: [id number] [phone] Date:2017-04-06 () 04/10/2017 Secondary AMPARO E [place] [facility] RASTETTERDOB: Community Number: [id number] [id number] Repository Date:0781-10-50IS [place] [address]GU: 04/10/2017 Tertiary NOT GIVENUNK [place] Insurance:SELF [facility]Y [facility] Number: Effective Repository Date:2017-04-06
== END ==
PROVIDERS: Family Provider Family Medicine; PCP Family Medicine; Visit Provider Family Medicine
DX: R05 Cough (principal)
CPT/HCPCS: 87070; 87077; 87186; 87205

== ENCOUNTER → 2018-04-05 12:16 | Outpatient (CLI) | payer MEDICARE, OTHER, SELFPAY ==
[2018-03-16 12:30] VITALS: BMI 23.9
--- NOTE | 2018-04-05 12:19 | ART_ITS ---
Reason For Study: atherosclerosis Left Segmental Pressures Left brachial= 113mmHg. Left posterior tibial artery = 65mmHg. Left dorsalis pedis artery = 57mmHg. Right Segmental Pressures Right brachial= 104mmHg. Right posterior tibial artery = 76mmHg. Right dorsalis pedis artery = 61mmHg. Indices The right ankle brachial index by the dorsalis pedis is .54. The right ankle brachial index by the posterior tibial artery is .67. The left ankle brachial index by the dorsalis pedis is .50. The left ankle brachial index by the posterior tibial artery is .58. Interpretation Summary 1. Bilateral moderate arterial occlussive disease with AUBREY 0.67/0.58 and biphasic flow noted. Ordering Physician: Remi Schmitt Performed By: SAGAR BALLARD RVT
== END ==
PROVIDERS: Family Provider Family Medicine; PCP Family Medicine; Referring Provider Surgery Vascular Surgery; Visit Provider Surgery Vascular Surgery
DX: I70.213 Atherosclerosis of native arteries of extremities with intermittent claudication, bilateral legs (principal); I10 Essential (primary) hypertension; Z87.891 Personal history of nicotine dependence
CPT/HCPCS: 93922

== ENCOUNTER → 2018-04-13 10:06 | Outpatient (CLI) | payer MEDICARE, OTHER, SELFPAY ==
[2018-03-16 12:30] VITALS: BMI 23.9
== END ==
PROVIDERS: Family Provider Family Medicine; PCP Family Medicine; Visit Provider Family Medicine
DX: J04.10 Acute tracheitis without obstruction (principal)
CPT/HCPCS: 87070; 87077; 87186; 87205

== ENCOUNTER 2018-07-23 10:57 | Emergency (ER) | payer MEDICARE, OTHER, SELFPAY ==
[2018-03-16 12:30] VITALS: BMI 23.9
[2018-07-23 10:58] VITALS: BP 115/64; PULSE 79; RESP 16; TEMP 36.6; O2SAT 97; BMI 23.3
[2018-07-23 12:09] LABS: Bacteria 0 SEEN /hpf (None Seen); Mucous, Urine 0 SEEN /hpf (<or=2+); Red Blood Cells-Urine 0 SEEN /hpf (0-5); Squamous Epithelial Cells - UA 0 SEEN /hpf (0-5); White Blood Cells 0 SEEN /hpf (0-5)
[2018-07-23] MEDS: Morphine 4 MG/ML Syringe IV ×2 (12:10→12:49)
[2018-07-23] MEDS: Ondansetron 4 MG/2 ML Vial IV (12:10)
[2018-07-23 12:24] LABS: Absolute Lymphocyte Count 0.99 X10^3/ul (0.83-4.51); Absolute Neutrophil Count 4.7 X10^3/uL (2.0-7.7); Basophil# 0.01 X10^3/uL; Basophil% 0.2 % (0-1); Eosinophil# 0.15 X10^3/uL; Eosinophils% 2.3 % (0-5); Hematocrit 39.7 % (40-54); Hemoglobin 12.7 g/dl (13.0-16.5); Lymphocyte # 0.99 X10^3/ul (4.0); Mean Corpuscular Hgb 27.8 pg (27.0-32.0); Mean Corpuscular Volume 86.9 fL (80-94); Mean Platelet Vol. 9.2 fl (6.2-12.0); Monocyte# 0.75 X10^3/uL; Monocyte% 11.4 % (0-10); Neutrophil # 4.67 X10^3/uL (2.7-7.7); Neutrophil % 70.9 % (47-70); Platelet Count 327 K/mm3 (150-450); RBC Distribution Width SD 47.3 fl (35.1-43.9); Red Blood Count 4.57 M/mm3 (4.6-6.2); White Blood Count 6.6 K/mm3 (4.4-11.0)
[2018-07-23 12:25] LABS: POSITIVE COUNT NO; POSITIVE DIFFERENTIAL NO; POSITIVE MORPHOLOGY NO
[2018-07-23 12:28] LABS: Color, Urine Yellow (Yellow); Glucose, Dipstick Normal (Normal); Ketone-Dipstick Negative (Negative); Leukocyte Esterase-Dipstick Negative /ul (Negative); Nitrite-Dipstick Negative (Negative); Occult Blood-Urine Negative /ul (Negative); Protein-Dipstick Negative (Negative); Urine Bilirubin Dipstick Negative (Negative); Urine Clarity Clear (Clear); Urine Urobilinogen Normal (Normal)
[2018-07-23 12:36] LABS: ALB/GLOB Ratio 0.9 RATIO (0.9-2.4); AST(SGOT) 10 U/L (15-37); Alanine Aminotransfer ALT/SGPT 11 U/L (16-61); Albumin, Serum 3.7 g/dL (3.2-5.0); Alkaline Phosphatase 72 U/L (45-117); Anion Gap 6 (5-15); BUN 16 mg/dL (7-18); BUN/Creat Ratio 18.4 RATIO (10-20); Calcium,Total 9.3 mg/dL (8.5-10.1); Chloride 104 mmol/L (98-107); Creatinine, Serum 0.87 mg/dL (0.70-1.30); EST Glomerular Filtration Rate 91 mL/min (>60); Est Glom Filt Rate - Afr Amer 110 mL/min (>60); Estimated Creatinine Clearance 72.23 ml/min; Glucose 100 mg/dL (74-106); Potassium 4.4 mmol/L (3.5-5.1); Protein, Total 7.7 g/dL (6.4-8.2); Sodium Level 137 mmol/L (136-145)
--- NOTE | 2018-07-23 12:43 | CT_ITS ---
STUDY: CT ABDOMEN AND PELVIS WITHOUT CONTRAST REASON FOR EXAM: Male, 77 years old. Left flank pain radiating to left thigh RADIATION DOSAGE (If Supplied By Facility): CTDIvol = ( 6.33 ) mGy, DLP = ( 31.36 ) mGycm TECHNIQUE: Transaxial images were obtained from the dome of the diaphragm to the symphysis pubis without oral contrast, and without intravenous contrast. Sagittal and coronal images were reconstructed. Individualized dose optimization techniques were used for this CT. COMPARISON: 01/17/2017 FINDINGS: The visualized lung bases are unremarkable. Mild cardiomegaly Normal liver. Normal gallbladder and extrahepatic biliary system. Normal spleen. Normal pancreas. Normal bilateral adrenal glands. There is mild cortical atrophy of the right kidney, consistent with chronic medical renal disease. Normal left kidney. There is a small hiatal hernia. Normal small intestine. Significant fecal retention noted throughout the colon. Chronic diverticulosis without evidence of acute diverticulitis. The appendix is visualized and appears normal. There is diffuse atherosclerotic calcification of the abdominal aorta, without a demonstrated aneurysm. Normal inferior vena cava. Normal retroperitoneum. Prominent distention of the bladder. Enlarged prostate with calcifications Normal abdominal wall. Diffuse demineralization. Chronic compression fracture of L1 and L2. CT/Abdomen/Pelvis without Cont IMPRESSION: Significant fecal retention noted throughout the colon. Correlate diverticulosis without acute diverticulitis. Normal appendix No evidence of left-sided urolithiasis or renal obstruction. Mild atrophy of the right kidney. Prominent distention of the bladder with enlarged prostate could represent urinary retention Electronically Signed: Napoleon Hanley DO at 13:23 EDT Tel , Service support ,
[2018-07-23] MEDS: guaiFENesin 1,200 MG Tablet 1200 MG PO (12:53)
[2018-07-23 14:15] VITALS: BP 145/72; PULSE 75; RESP 18; O2SAT 95
--- NOTE | 2018-07-23 14:23 | ED.DCSUM_ITS ---
- ER Visit Summary Date of Service: 07/23/18 Chief Complaint: Back pain with left-sided back pain for 2 to 3 weeks History of Present Illness: The patient is a 77 M no fever chills no cough congestion most of the pain is in the left flank and left paraspinal region. He denies any abdominal pain. 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 Physical Examination: Not appear in acute distress. Moist mucous membranes, no obvious facial deformity. There is right and left sided swelling which is chronic over the lower face region No C-spine tenderness supple neck. Tracheostomy site is clean dry and intact Regular rate and rhythm without any obvious murmurs Course lungs bilaterally speaking in full sentences without any obvious respiratory distress Abdomen soft and nontender no guarding or rebound Moves all extremities without any difficulty or pain. There is left paraspinal and CVA tenderness which appears to be mechanical, worse with movement and palpation Skin does not show any obvious rashes or lesions, no trauma. Alert oriented ?3 with no gross focal deficit Emergency Department Course and Treatment: Patient is given analgesia, I did a work-up including urinalysis and CT which showed significant constipation, urinalysis was negative blood work is negative. Patient will be discharged with reassurance, as well as MiraLAX. Logical symptoms and does not meet criteria for an emergent MRI. Discharge stable condition Impression: [Back pain Constipation] This note was generated with [employer] dictation software. It may contain incorrect words, spelling, and punctuation that were not noted in review of the chart prior to signing ED Disposition - Plan for ED Patient: Disposition: Home or Assisted Living Instructions: Relieving Back Pain, ED Constipation Prescriptions: Polyethylene Glycol 3350 [Miralax] 17 gm PO DAILY #10 packet Cyclobenzaprine [Flexeril] 10 mg PO TID #20 tab Referrals: Hilario Rodriguez DO [Primary Care Provider] -
[2018-07-23 14:39] VITALS: RESP 18
[2018-07-23] MEDS: Electrolyte Solution/Peg's 4000 ML PO (14:51)
== END 2018-07-23 14:52 | disposition home or self-care (01) ==
PROVIDERS: Emergency Provider Emergency Medicine; Family Provider Family Medicine; PCP Family Medicine
DX: M54.9 Dorsalgia, unspecified (principal); K59.00 Constipation, unspecified; Z79.899 Other long term (current) drug therapy; Z93.0 Tracheostomy status; Z85.819 Personal history of malignant neoplasm of unspecified site of lip, oral cavity, and pharynx
CPT/HCPCS: 31720; 74176; 80053; 81001; 85025; 96374; 96375; 96376; 99282; J7030; A4216; J2405

== ENCOUNTER → 2018-08-01 07:04 | Outpatient (CLI) | payer MEDICARE, OTHER, SELFPAY ==
[2018-07-23 10:58] VITALS: BMI 23.3
--- NOTE | 2018-08-01 07:45 | MRI_ITS ---
STUDY: MRI LUMBAR SPINE WITHOUT CONTRAST REASON FOR EXAM: Male, 77 years old. Severe low back pain and left leg weakness. History of lung and throat carcinoma. TECHNIQUE: Standardized fat and water weighted pulse sequences were obtained in the sagittal and axial planes. COMPARISON: CT abdomen and pelvis without contrast 07/23/2018. FINDINGS: T11-T12: (Sagittal only). Normal endplates. Normal disc height and morphology. No ventral extradural defect. Normal central canal and bilateral intervertebral neural foramina. T12-L1: Normal T12 inferior endplate. Old anterior wedge compression fracture of the upper L1 vertebral body. Increased disc space height due to the compression fracture of the upper L1 vertebral body. Normal central canal and bilateral lateral recesses. Normal facet joints. Normal bilateral intervertebral neural foramina. Normal lumbar lordosis. There is no substantial scoliosis. Normal conus medullaris that terminates at the T12-L1 disc level. L1-2: Normal L1 inferior endplate. Old compression fracture of the upper L2 vertebral body. Increased disc space height to 2 compression fracture of the upper L2 vertebral body. No extruded disc fragment. Normal central canal and bilateral lateral recesses. Normal facet joints. Normal bilateral intervertebral neural foramina. L2-3: Normal endplates. Normal disc height, hydration and morphology. Normal bilateral facet joints. Normal central canal and bilateral lateral recesses. Normal bilateral intervertebral neural foramina. L3-4: Normal endplates. Normal disc space height. Mild central canal stenosis with an AP canal diameter of 1.06 cm. Mild degenerative facet arthropathy. Normal bilateral lateral recesses. Mild asymmetric degenerative facet arthropathy. Normal bilateral intervertebral neural foramina. L4-5: Modic type II degenerative vertebral marrow fatty change underneath the L4 inferior endplate. Expansile lytic metastases to the L5 vertebral body, normal central canal. Moderate stenosis of the lateral recesses. Normal right lateral recess. Normal right facet joint. Normal right intervertebral neural foramen. Left L5 pedicle, left L5 transverse process, left L4-L5 facet joint and the left L4 pedicle. This is causing moderate stenosis of the left intervertebral neural foramen. L5-S1: Normal S1 superior endplate. Intact L5 inferior endplate despite lytic metastases. Moderate disc space height narrowing. Normal central canal and bilateral lateral recesses. Lytic metastases includes the left L5-S1 facet joint. Moderate stenosis of the bilateral intervertebral foramina. Normal visualized sacral ala. Normal visualized paraspinous soft tissue structures. MRI/Spine Lumbar (Routine) IMPRESSION: 1. 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 This is causing moderate stenosis of the left L4-L5 intervertebral neural foramen. 2. Moderate stenosis of the bilateral L5-S1 intervertebral neural foramina. 3. Mild central canal stenosis at L3-L4 disc level. 4. Old compression fractures of the upper L1-L2 vertebral bodies. 5. T11 benign vertebral body hemangioma. Electronically Signed: Andrew Boggs MD at 16:04 EDT , Service support ,
== END ==
PROVIDERS: Family Provider Family Medicine; PCP Family Medicine; Referring Provider Family Medicine; Visit Provider Family Medicine
DX: R29.898 Other symptoms and signs involving the musculoskeletal system (principal)
CPT/HCPCS: 72148

== ENCOUNTER 2018-08-01 15:21 | Inpatient (IN) | payer MEDICARE, OTHER, SELFPAY ==
[2018-08-01 15:22] VITALS: BP 134/70; PULSE 111; RESP 20; TEMP 36.9; O2SAT 96; BMI 24.7
--- NOTE | 2018-08-01 15:41 | ED.VIS.GEN ---
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 Patient states it was like I was spitting it up from my throat. History is somewhat limited because he is trached and cannot talk and writes much of his statements down. He denies vomiting. He has a chronic cough with thick mucus production that has basically been unchanged recently, the trach is been there for about a year ever since a resection of laryngeal cancer. Denies having any trouble breathing today. States his abdomen hurts him from time to time, he states it was hurting him a little earlier but now it is fine. He has been constipated recently and doing MiraLAX and laxatives, along with enemas/suppositories, he had a CT of his abdomen/pelvis a week or so ago showing this, he did have a bowel movement subsequently but he has not had one in the past 2 days. He is on no anticoagulants. He denies having a nosebleed that he knows of. Family saw no bright red blood in anything that he put into the bucket. None of it came out of his tracheostomy. It apparently was a large amount of liquid and all was black. No syncope, he states he basically feels fine now. Ate breakfast this AM about 4-5 hrs prior to this, eggs, hashbrowns, coffee. He had a outpatient MRI of his low back today and working up pain that was radiating into his legs off and on, because of his history of cancer. He states that his back pain is minimal at this time. - Past Medical History (1) Peripheral vascular disease Status: Chronic (2) Radiation esophagitis Status: Chronic (3) Hypertension, essential, benign Status: Chronic (4) Laryngeal cancer Status: Chronic Comment: diagnosed February of 2016 on biopsy of the epiglottis and false vocal cord (5) Normochromic normocytic anemia Status: Chronic Comment: due to laryngeal CA and chemotherapy/radiation (6) Pulmonary nodule, left Status: Chronic (7) Status post insertion of percutaneous endoscopic gastrostomy (PEG) tube Status: Resolved Past Medical History - Allergies and Home Meds Allergies/Adverse Reactions: Allergies No Known Allergies Allergy (Verified 08/01/18 15:36) Primary Care Physician: Hilario Rodriguez DO [Primary Care Provider] - Surgical History: - - larynx. tracheostomy. PEG and removal. Lives: Spouse/ Significant Other Smoking Status: Former smoker - Family History Maternal Family History: Family History (Last Reviewed 03/16/18 @ 12:42 by Jacki Venegas NP-C) Mother Hypertension CVA (cerebral vascular accident) Family History: Reports: No pertinent history Review of Systems General: Denies: Chills, Fever Eyes: Denies: Visual changes - bilaterally, Diplopia ENT: Reports: Sore throat. Denies: Rhinorrhea Cardiovascular: Reports: Chest pain Respiratory: Reports: Cough, Sputum. Denies: Dyspnea Gastrointestinal: Reports: Abdominal pain - gone now, Constipation. Denies: Nausea, Melena, Hematochezia Genitourinary: Denies: Dysuria, Hematuria Musculoskeletal: Reports: Back pain. Denies: Neck pain, Extremity Pain Skin: Denies: Rash, Wounds Neurological: Denies: Headache, Weakness, Numbness Physical Exam Vital Signs/Narrative: Vital Signs Temp Pulse Resp BP Pulse Ox 08/01/18 15:22 98.4 F 111 H 20 H 134/70 H 96 Inital Vital Signs reviewed: Yes General: Well nourished, Well developed, No Acute Distress Head: Normocephalic, Atraumatic Eyes: Perrl, EOMI ENT: Moist mucous membranes, No rhinorrhea, - - asymmetric left jaw swelling. no intraoral mucosal lesion/abn/bleeding. Both nares clear, no blood/discharge present. even w/ tongue depressor, limited view of POP due to painless difficulty opening mouth. Neck: Supple, Nontender, No lymphadenopathy, - - trach site benign, trach patent Cardiovascular: Regular rate, Regular rhythm, No murmurs, Tachycardia - mild Respiratory: No distress, CTA bilaterally, Chest nontender Abdomen: Soft, Nontender, Nondistended, Normal bowel sounds. Negative for: Pulsatile mass Back: Nontender, Normal Inspection, - - painless ROM. Negative for: CVA tenderness, Spinal tenderness Extremities: Nontender, No edema Skin: Normal color, No rash, No Trauma Neurological: Alert, Cranial nerves II-XII grossly intact, Normal Strength, Normal Sensation Psychological: Normal affect, Normal Mood Diagnostic/Tx/Re-eval Laboratory Results 08/01/18 08/01/18 08/01/18 15:55 15:55 15:55 WBC 6.9 RBC 4.00 L Hgb 11.3 L Hct 34.9 L MCV 87.3 MCH 28.3 MCHC 32.4 RDW 15.0 H RDW Differential 48.4 H Plt Count 310 MPV 9.3 Immature Gran % (Auto) 0.400 Neut % (Auto) 79.6 H Lymph % (Auto) 9.5 L [place] % (Auto) 8.6 Eos % (Auto) 1.6 Baso % (Auto) 0.3 Absolute Neuts (auto) 5.5 Absolute Lymphs (auto) 0.65 L Total Counted Not Reportable Sodium 141 Potassium 4.2 Chloride 106 Carbon Dioxide 27.0 Anion Gap 8 BUN 22 H Creatinine 1.14 Estim Creat Clear Calc 51.54 Est GFR (MDRD) Af Amer 80 Est GFR (MDRD) Non-Af 66 BUN/Creatinine Ratio 19.3 Glucose 154 H Calcium 9.2 Blood Type A POSITIVE Antibody Screen NEGATIVE - Medical Decision Making Labs show a drop in hemoglobin over 1 g in the past week, and his BUN is 22 which is abnormal, not very high, possibly due to recent upper GI bleeding also possibly just simply mildly dehydrated. He has had no active symptoms in the emergency department, other than a mild resting tachycardia he has been clinically and hemodynamically stable. On reevaluation he is doing well and family states that they obtain more history that he did vomit up a small amount of blood prior to the black substance that was nonbloody. It did sound like he had hematemesis. With vomiting for several days before this, a Ifeoma-Aguilar tear could be an explanation for this. Gastritis or peptic ulcer disease is also possible not able to be ruled out in the emergency department. His abdomen is very benign so no acute/emergent imaging is necessary, he did have an abdominal/pelvic CT about a week ago that showed no masses or other acute pathology except for constipation. I reassured the family about this as well. He lives alone. I think he should be admitted to be observed and ensure stability and lack of recurrent or active bleeding, which I doubt he is having now based on lack of symptoms. Discussed with Dr. Cope who request that I speak with surgery for since we do not have gastroenterology. Discussed with Dr. Cho who is willing to evaluate and consult on this patient. Admitted to medical surgical observation. ED Disposition - Plan for ED Patient: Disposition: Acute Care [facility] Diagnosis: Upper GI bleeding Referrals: Hilario Rodriguez DO [Primary Care Provider] -
[2018-08-01 16:09] LABS: Absolute Lymphocyte Count 0.65 X10^3/ul (0.83-4.51); Absolute Neutrophil Count 5.5 X10^3/uL (2.0-7.7); Basophil# 0.02 X10^3/uL; Basophil% 0.3 % (0-1); Eosinophil# 0.11 X10^3/uL; Eosinophils% 1.6 % (0-5); Hematocrit 34.9 % (40-54); Hemoglobin 11.3 g/dl (13.0-16.5); Lymphocyte # 0.65 X10^3/ul (4.0); Lymphocyte % 9.5 % (19-41); Mean Corp Hgb Conc 32.4 g/gl (32-36); Mean Corpuscular Hgb 28.3 pg (27.0-32.0); Mean Corpuscular Volume 87.3 fL (80-94); Mean Platelet Vol. 9.3 fl (6.2-12.0); Monocyte# 0.59 X10^3/uL; Monocyte% 8.6 % (0-10); Neutrophil # 5.45 X10^3/uL (2.7-7.7); Neutrophil % 79.6 % (47-70); Platelet Count 310 K/mm3 (150-450); RBC Distribution Width SD 48.4 fl (35.1-43.9); White Blood Count 6.9 K/mm3 (4.4-11.0)
[2018-08-01 16:16] LABS: Anion Gap 8 (5-15); BUN 22 mg/dL (7-18); BUN/Creat Ratio 19.3 RATIO (10-20); Calcium,Total 9.2 mg/dL (8.5-10.1); Chloride 106 mmol/L (98-107); Creatinine, Serum 1.14 mg/dL (0.70-1.30); EST Glomerular Filtration Rate 66 mL/min (>60); Est Glom Filt Rate - Afr Amer 80 mL/min (>60); Estimated Creatinine Clearance 51.54 ml/min; Glucose 154 mg/dL (74-106); Potassium 4.2 mmol/L (3.5-5.1); Sodium Level 141 mmol/L (136-145)
[2018-08-01 16:20] LABS: POSITIVE COUNT NO; POSITIVE DIFFERENTIAL NO; POSITIVE MORPHOLOGY NO
--- NOTE | 2018-08-01 17:54 | NURSING ---
HOSPITALIST FOR DR DOTSON
[2018-08-01] MEDS: Pantoprazole Sodium 40 MG Tablet PO (18:02)
--- NOTE | 2018-08-01 18:17 | CASEMGMT ---
RN CM Assessment Introduced role of RN CM to patient and patient family, Dtr Jade Rosenbaum and Son in law Malcolm.? Patient is alert, oriented and able?to participate in RN CM Assessment, however Patient mouths words, writes on paper, information obtained from Dtr and Son-in-law at bedside. ?Care providers, pharmacy, and demographics verified. Presentation: Black Liquid from Mouth and Nose, +Constipation, +Back Pain, +Trach Re-Admit: No Barriers/Issues: Per Dtr Jade patient lives alone and had Surgery/HHC over 1yr ago. States Concern for patient living alone and needing some help,slowly deconditioning. [facility] has discussed and looking into SENIOR LIVING, however [facility] would not take patient d/t patient requiring higher skilled level. This CM discussed LT planning and encouraged to reach out to Area of Aging/to apply and see if qualifies for AJIT for possible [facility] bed. Denies being a . Also given General Resource guide with ROMY and other Contacts. PCP: Hilario Rodriguez Specialists: Uro- Dr Hickman, Vasc Surgeon- Dr Rasheed, Onc- Dr Goodman Preferred Pharmacy: [facility] Insurance: [employer], [employer] PPO Rx Benefit:?Yes LNOK: Son-in-law Malcolm Garcia, Dtr Jade Rosenbaum LW/HPOA: Yes both, aware not on file at [facility], HPOA- Dtr Jade Rosenbaum Living Arrangements:?Lives alone in a [place] home, approx 3 steps to enter ADL?s: Independent with ambulation and ADL's Transportation: Patient drives DME: Shower bench, RTS, Suction equipment for Trach, Walker HHC: Past, cannot recall Agency SNF: [facility] in past Goal: Home with [facility] Nurse/Aide to assist with bathing vs SENIOR LIVING DC PLAN: Home with [facility], Family would like to speak with washtub worker regarding DC Options/resources for SENIOR LIVING. SW to provide resources for Private Pay help. TAYLOR Navarrete
[2018-08-01 18:25] VITALS: BMI 24.7
[2018-08-01 18:59] VITALS: BP 154/78; PULSE 95; RESP 17
--- NOTE | 2018-08-01 19:48 | HP.PCM_ITS ---
Problem List (1) Upper GI bleeding Status: Acute (2) Former smoker Status: Chronic Comment: quit February 2016 (3) Normochromic normocytic anemia Status: Chronic Comment: due to laryngeal CA and chemotherapy/radiation (4) Peripheral vascular disease Status: Chronic (5) Laryngeal cancer Status: Chronic Comment: diagnosed February of 2016 on biopsy of the epiglottis and false vocal cord (6) Alcohol abuse Status: Chronic Comment: states he quit drinking in February of 2016 when he was diagnosed with Laryngeal cancer...also quit smoking (7) Hypertension, essential, benign Status: Chronic History of Present Illness Date of Admission: 08/01/18 Chief Complaint: Hematemesis The patient is a 77 y/o M w/ PMHx: Former EtOH Abuse, PVD, HTN, HLD, Former Tobacco use, Hx Laryngeal CA s/p chemotherapy and radiation s/p Trach and prior PEG now reversed who presents to the [facility] ED on 08/01/18 with history of ongoing lower back discomfort for the last 2 weeks with recent ED evaluation near the end of June with a noncontrast CT obtained at that time with significant prostate enlargement as well as bladder distention and constipation with attempts to relieve his constipation and despite some improvement with bowel function ongoing back discomfort with follow-up MRI ordered but in the interim patient had notably increased Aleve oral intake with onset of black coffee-ground melanotic emesis with ongoing intractable nausea as well as vomiting aggressively for the last several days prompting evaluation in the ED. Work-up in the ED included T 98.4, heart rate initially 111 with improvement 95, BP 134/70, respiratory rate 20, 96% on room air, CBC with WBC 6.9, hemoglobin 11.3, platelet 310 without market shift, BMP with BUN 22, glucose [address] Khan discussed patient presentation with Dr. Cho who evaluated the patient in the ED and was amenable to patient admission to [facility]. Hospitalist medicine was requested to admit patient. Past Medical History Past Medical History (Chronic Problems): Chronic Problems (Last Reviewed 03/16/18 @ 12:42 by Jacki Venegas NP-C) Pulmonary nodule, left (Chronic) Former smoker (Chronic) quit February 2016 Normochromic normocytic anemia (Chronic) due to laryngeal CA and chemotherapy/radiation Peripheral vascular disease (Chronic) Radiation esophagitis (Chronic) 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 on biopsy of the epiglottis and false vocal cord Alcohol abuse (Chronic) states he quit drinking in February of 2016 when he was diagnosed with Laryngeal cancer...also quit smoking Hypertension, essential, benign (Chronic) Difficulty chewing (Chronic) Medical History: Medical History (Last Reviewed 03/16/18 @ 12:42 by STAN Medina) Pulmonary nodule, left (Chronic) R91.1 Odynophagia (Acute) R13.10 Former smoker (Chronic) Z87.891 quit February 2016 Neutropenia (Acute) D70.9 Normochromic normocytic anemia (Chronic) D64.9 due to laryngeal CA and chemotherapy/radiation Peripheral vascular disease (Chronic) I73.9 Radiation esophagitis (Chronic) K20.8 Laryngeal cancer (Chronic) C32.9 diagnosed February of 2016 on biopsy of the epiglottis and false vocal cord Alcohol abuse (Chronic) F10.10 states he quit drinking in February of 2016 when he was diagnosed with Laryngeal cancer...also quit smoking Hypertension, essential, benign (Chronic) I10 Difficulty chewing (Chronic) R63.3 Hypokalemia (Acute) E87.6 Hypomagnesemia (Acute) E83.42 Urine retention (Acute) R33.9 Allergies No Known Allergies Allergy (Verified 08/01/18 15:36) Home Medications: Ambulatory Orders Medication Instructions Recorded Lisinopril [Zestril] 20 mg PO DAILY 04/17/15 Amlodipine Besylate 7.5 mg PO DAILY 08/01/18 Guaifenesin [Mucinex] 1,200 mg PO BID 08/01/18 Ibuprofen [Advil Liqui-Gels] 400 mg PO Q4H PRN PRN 08/01/18 Oxybutynin Chloride [Ditropan Xl] 10 mg PO DAILY 08/01/18 Polyethylene Glycol 3350 [Miralax] 17 gm PO DAILY 08/01/18 Tamsulosin HCl 0.8 mg PO DAILY 08/01/18 Surgical History: Surgical History (Last Reviewed 03/16/18 @ 12:42 by STAN Medina) Status post insertion of percutaneous endoscopic gastrostomy (PEG) tube (Resolved) Z93.1 s/p PEG tube removal Onset Date: ~08/29/17 Surgical History: - - Laryngeal CA resection, tracheostomy, PEG insertion and removal. Psychiatric History: No pertinent psych hx Lives: Spouse/ Significant Other Smoking Status: Former smoker Tobacco Use: Non-smoker Alcohol: Sober Drugs: None - *Family History Maternal Family History: Family History (Last Reviewed 03/16/18 @ 12:42 by STAN Medina) Mother Hypertension CVA (cerebral vascular accident) History Items: Hypertension, Stroke Paternal Family History: Family History (Last Reviewed 03/16/18 @ 12:42 by STAN Medina) Mother Hypertension CVA (cerebral vascular accident) History Items: Hypertension Review of Systems Constitutional: Reports: Anorexia, Malaise, Weakness, Fatigue. Denies: Chills, Fever, Weight Change HEENT: Denies: Head Aches, Sinus Congestion, Sinus Drainage Cardiovascular: Denies: Chest Pain, Palpitations Respiratory: Denies: Cough, Shortness of breath at rest, Sputum production Gastrointestinal: Reports: Abdominal Pain, Constipation, Hematemesis, Nausea, Vomiting Genitourinary: Reports: Retention. Denies: Dysuria Musculoskeletal: Reports: Back Pain, Joint Pain. Denies: Joint Tenderness Skin: Denies: Rash, Wounds Neurological: Reports: Balance problems. Denies: Focal weakness, Numbness, Tingling Psychiatric: Denies: Anxiety, Depression, Homicidal Ideations, Suicidal Ideations Hematologic/ Lymphatic: Reports: Anemia, Easy Bruising, Easy Bleeding VTE Information - Inpt Only VTE Present on Admission: No VTE Mechan Device Prophylaxis: SCD's VTE Pharm Prophylaxis ordered?: No Reason prophylaxis not ordered:: Medical Contraindication Patient Problems: Active and Suspected Problems (Last Reviewed 03/16/18 @ 12:42 by STAN Medina) Upper GI bleeding (Acute) Subjective: Seated upright in the ED bed, fatigued appearing. Objective: Physical Examination: General: awake, alert, oriented x 3 and cooperative, seated upright the ED bed, fatigued appearing. Skin: normal color, turgor, no icterus, cyanosis. HEENT: AT/NC, EOMI, PERRLA, dry MM, no carotid bruits or JVD noted, trach in place, no discharge. Lungs: CTA bilaterally, moderate effort, mild decrease BL bases, no rales, ronchi or wheezing. Heart: Regular rate and rhythm; no gallop, rub audible. Abdomen: soft, NTTP, ND, hyperactive BS, no HSM. Extremities: no cyanosis, clubbing, or edema. Neurological: patient awake, alert, oriented x 3; cognitive function intact; pupils equally reactive to light and accomodation; cranial nerves II-XII grossly normal, moving all 4 extremities though severely limited by complaint of lumbar back discomfort especially with increased movement attempts, no focal deficits, moderately to severely globally decreased. Psychiatric: affect appears fatigued, no acute evidence of depressive or anxiety feelings. - Physical Exam Vital Signs Temp Pulse Resp BP Pulse Ox 98.4 F 95 17 154/78 H 96 08/01/18 15:22 08/01/18 18:59 08/01/18 18:59 08/01/18 18:59 08/01/18 15:22 Oxygen Delivery Method Room Air Weight: 157 lb 13.616 oz Body Mass Index (BMI) 24.7 Laboratory Tests Past 24 Hrs 08/01/18 08/01/18 08/01/18 15:55 15:55 15:55 WBC 6.9 RBC 4.00 L Hgb 11.3 L Hct 34.9 L MCV 87.3 MCH 28.3 MCHC 32.4 RDW 15.0 H RDW Differential 48.4 H Plt Count 310 MPV 9.3 Immature Gran % (Auto) 0.400 Neut % (Auto) 79.6 H Lymph % (Auto) 9.5 L [place] % (Auto) 8.6 Eos % (Auto) 1.6 Baso % (Auto) 0.3 Absolute Neuts (auto) 5.5 Absolute Lymphs (auto) 0.65 L Total Counted Not Reportable Sodium 141 Potassium 4.2 Chloride 106 Carbon Dioxide 27.0 Anion Gap 8 BUN 22 H Creatinine 1.14 Estim Creat Clear Calc 51.54 Est GFR (MDRD) Af Amer 80 Est GFR (MDRD) Non-Af 66 BUN/Creatinine Ratio 19.3 Glucose 154 H Calcium 9.2 Blood Type A POSITIVE Antibody Screen NEGATIVE Assessment/Plan All Active Problems (Last Reviewed 03/16/18 @ 12:42 by Jacki Venegas, VANNESA-C) Upper GI bleeding (Acute) Chest congestion (Acute) Status post insertion of percutaneous endoscopic gastrostomy (PEG) tube (Resolved) Odynophagia (Acute) Neutropenia (Acute) Hypokalemia (Acute) Hypomagnesemia (Acute) Urine retention (Acute) Abnormal cardiac enzyme level (Resolved) Syncope (Resolved) The patient is a 77 y/o M w/ PMHx: Former EtOH Abuse, PVD, HTN, HLD, Former Tobacco use, Hx Laryngeal CA s/p chemotherapy and radiation s/p Trach and prior PEG now reversed who presents to the [facility] ED on 08/01/18 with history of ongoing lower back discomfort for the last 2 weeks with recent ED evaluation near the end of June with a noncontrast CT obtained at that time with significant prostate enlargement as well as bladder distention and constipation with attempts to relieve his constipation and despite some improvement with bowel function ongoing back discomfort with follow-up MRI ordered but in the interim patient had notably increased Aleve oral intake with onset of black coffee-ground melanotic emesis. (1) Acute GI Bleed w/ resultant Acute on Chronic Blood Loss Anemia: Patient w/ hematemesis: Admission Hgb 11.3, decreased from prior 07/23/18 Hgb 12.7, althouhg baseline appears 10-11 range, will admit to [facility] given clinically stable, maintain on IVFs, obtain serial H+H q 6 hours, maintain on IV PPI. Dr. Cho consulted. Likely onset secondary to recent NSAID increased intake secondary to intractable back pain. Per Dr. Cho, noted suspected PUD or diffuse gastritis related to recent NSAID intake versus possible MW Tear with frequent emesis. (2) Intractable Back Pain secondary to Metastatic Disease with Laryngeal CA: Recent complaints, ongoing discomfort since ED prior evaluation, MRI Lumbar Spine obtained w/ noted expansile lytic metastases to the left L5 vertebral body, left L5 pedicle, left L4 pedicle, left L4-L5 facet joint, left L5 transverse process causing moderate stenosis of the left L4-L5 intervertebral neural foramen, moderate stenosis of the bilateral L5-S1 intervertebral neural foramina, mild central canal stenosis at L3-L4 disc level, old compression fractures of the upper L1-L2 vertebral bodies, T11 benign vertebral body hemangioma. s/p Radiation and chemotherapy, s/p Trach and PEG which has since been reversed. Dr. Goodman consulted, pending. (3) Constipation: Recent constipation, several bowel regimens instituted, noted BP liquid following 2 days prior, but prior to this had no BM for nearly 1-2 weeks per family. Complicated presentation as ongoing nausea and emesis. Holding on further oral aggressive regimen pending #1 evaluation. (4) BPH with Hx Urinary Retention: Prior UroLift, following with Dr. Hickman, continue home Flomax regimen and encourage continued outpatient follow-up. (5) Hypertension: Continue home regimen including lisinopril, Norvasc, PRN hydralazine. (6) Former EtOH Abuse: Sober since 2017 dx Laryngeal CA, encouraged continued sobriety. (7) GERD: PPI. (8) DVT Prophylaxis: SCDs, defer chemoprophylaxis given acute presentation #1. Code Visit OBSV E&M: 72303 Initial observation care L3
--- NOTE | 2018-08-01 20:25 | CON.PCM_ITS ---
Problem List (1) Upper GI bleeding Status: Acute Reason for Consult Date of Consultation: 08/01/18 History of Present Illness: The patient is a 77 year old gentleman who I have been asked to see by Dr. Lyla Edward for surgical consultation regarding upper GI bleeding. The patient's been ill for the last week and a half with severe left flank pain left lower back pain. A month ago he had a UroLift procedure for prostate he presented to the emergency room here was drawn July 23, 2018. This was because of severe low back left flank pain. A noncontrasted CT was obtained. Significant prostate enlargement and significant bladder distention was byron ntified. It was felt that he was constipated. Over the next ensuing several days efforts were made to relieve his constipation. It is of note that the CAT scan was without IV or oral contrast. The patient took some suppositories that improve that. His flank pain persisted. A MRI was ordered. In the meantime the patient apparently started taking Aleve. Today he had black coffee ground melanotic emesis.. June 2016 his hemoglobin was 11.5. July 21, 2018 it was 12.7. August 01, 2018 it was11.3. The patient was brought to the emergency room because for the past couple days he has had intractable nausea vomiting and retching. There is concerned that he might have a Ifeoma-Aguilar tear. 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 He had a lung cancer treated with radiation he had the laryngeal cancer treated with radiation and then he had recurrence that he had it treated with a total laryngectomy. The patient has had 2 previous PEG tubes. Once with with his original diagnosis of laryngeal cancer and then at the second placement was performed when he had the recurrent disease. As an outpatient on August 01, 2018 today he had an MRI performed. This demonstrates an expansile lytic metastasis to the left L5 vertebrae left L5 pedicle left L4 pedicle left L4-5 facet joint at the left L5 transverse process causing moderate stenosis of the left L4-5 intervertebral neural foramen. There is mild central canal stenosis at L3-4. Old compression fractures of L1-2. The patient's local radiation oncologist is Dr. Evangelista and his medical oncologist is Dr Goodman and his primary care physician is Dr. Hilario Rodriguez. The patient denies any other previous abdominal surgery. 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 and chemotherapy/radiation Peripheral vascular disease (Chronic) Radiation esophagitis (Chronic) 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 on biopsy of the epiglottis and false vocal cord Alcohol abuse (Chronic) states he quit drinking in February of 2016 when he was diagnosed with Laryngeal cancer...also quit smoking Hypertension, essential, benign (Chronic) Difficulty chewing (Chronic) Medical History: Medical History (Last Reviewed 03/16/18 @ 12:42 by STAN Medina) Pulmonary nodule, left (Chronic) R91.1 Odynophagia (Acute) R13.10 Former smoker (Chronic) Z87.891 quit February 2016 Neutropenia (Acute) D70.9 Normochromic normocytic anemia (Chronic) D64.9 due to laryngeal CA and chemotherapy/radiation Peripheral vascular disease (Chronic) I73.9 Radiation esophagitis (Chronic) K20.8 Laryngeal cancer (Chronic) C32.9 diagnosed February of 2016 on biopsy of the epiglottis and false vocal cord Alcohol abuse (Chronic) F10.10 states he quit drinking in February of 2016 when he was diagnosed with Laryngeal cancer...also quit smoking Hypertension, essential, benign (Chronic) I10 Difficulty chewing (Chronic) R63.3 Hypokalemia (Acute) E87.6 Hypomagnesemia (Acute) E83.42 Urine retention (Acute) R33.9 Allergies No Known Allergies Allergy (Verified 08/01/18 15:36) Home Medications: Ambulatory Orders Medication Instructions Recorded Lisinopril [Zestril] 20 mg PO DAILY 04/17/15 Amlodipine Besylate 7.5 mg PO DAILY 08/01/18 Guaifenesin [Mucinex] 1,200 mg PO BID 08/01/18 Ibuprofen [Advil Liqui-Gels] 400 mg PO Q4H PRN PRN 08/01/18 Oxybutynin Chloride [Ditropan Xl] 10 mg PO DAILY 08/01/18 Polyethylene Glycol 3350 [Miralax] 17 gm PO DAILY 08/01/18 Tamsulosin HCl 0.8 mg PO DAILY 08/01/18 Surgical History: Surgical History (Last Reviewed 03/16/18 @ 12:42 by STAN Medina) Status post insertion of percutaneous endoscopic gastrostomy (PEG) tube (Resolved) Z93.1 s/p PEG tube removal Onset Date: ~08/29/17 Surgical History: - - larynx. tracheostomy. PEG and removal. Lives: Spouse/ Significant Other Smoking Status: Former smoker Tobacco Use: Cigarettes - *Family History Maternal Family History: Family History (Last Reviewed 03/16/18 @ 12:42 by STAN Medina) Mother Hypertension CVA (cerebral vascular accident) History Items: No pertinent history Review of Systems Constitutional: Reports: Anorexia, Weakness, Fatigue HEENT: Reports: Difficulty Swallowing Cardiovascular: Reports: - - Midsternal chest pain. Epigastric pain Respiratory: Reports: Hemoptysis Gastrointestinal: Reports: Constipation. Denies: Abdominal Pain Endocrine: Reports: - - Denies weight loss. Denies: Change in Body Habitus Patient Problems: Active and Suspected Problems (Last Reviewed 03/16/18 @ 12:42 by STAN Medina) Upper GI bleeding (Acute) - Physical Exam General: Alert, Cooperative, - - Dark emesis HEENT: - - Fullness of the left mandible cheek area, permanent tracheostomy Lungs: Clear to auscultation, Normal air movement Cardiovascular: Regular rate, Regular Rhythm Abdomen: Bowel Sounds Present, Soft, Non Tender, Non-Distended Extremities: No Calf Tenderness Neurological: - - Cognition intact Vital Signs Temp Pulse Resp BP Pulse Ox 98.4 F 95 17 154/78 H 96 08/01/18 15:22 08/01/18 18:59 08/01/18 18:59 08/01/18 18:59 08/01/18 15:22 Oxygen Delivery Method Room Air Weight: 157 lb 13.616 oz Body Mass Index (BMI) 24.7 Laboratory Tests Past 24 Hrs 08/01/18 08/01/18 08/01/18 15:55 15:55 15:55 WBC 6.9 RBC 4.00 L Hgb 11.3 L Hct 34.9 L MCV 87.3 MCH 28.3 MCHC 32.4 RDW 15.0 H RDW Differential 48.4 H Plt Count 310 MPV 9.3 Immature Gran % (Auto) 0.400 Neut % (Auto) 79.6 H Lymph % (Auto) 9.5 L [place] % (Auto) 8.6 Eos % (Auto) 1.6 Baso % (Auto) 0.3 Absolute Neuts (auto) 5.5 Absolute Lymphs (auto) 0.65 L Total Counted Not Reportable Sodium 141 Potassium 4.2 Chloride 106 Carbon Dioxide 27.0 Anion Gap 8 BUN 22 H Creatinine 1.14 Estim Creat Clear Calc 51.54 Est GFR (MDRD) Af Amer 80 Est GFR (MDRD) Non-Af 66 BUN/Creatinine Ratio 19.3 Glucose 154 H Calcium 9.2 Blood Type A POSITIVE Antibody Screen NEGATIVE Assessment/Plan All Active Problems (Last Reviewed 03/16/18 @ 12:42 by Jacki Venegas, VANNESA-C) Upper GI bleeding (Acute) Chest congestion (Acute) Status post insertion of percutaneous endoscopic gastrostomy (PEG) tube (Resolved) Odynophagia (Acute) Neutropenia (Acute) Hypokalemia (Acute) Hypomagnesemia (Acute) Urine retention (Acute) Abnormal cardiac enzyme level (Resolved) Syncope (Resolved) 77-year-old gentleman who has been taking NSAIDs in the form of Aleve and treatment of severe left flank low back pain which likely is secondary to bony metastasis. He has a history of left lung cancer and laryngeal cancer. He has had 2 previous PEG tubes but the most recent one removed a year ago. He has had a mild drop in hemoglobin. The material that he is currently vomiting is dark. He previously had significant bladder distention. Not sure whether he continued she was have retention. I offered consideration for post void straight cath residual. Nursing staff will contact his urologist for input regarding this issue. I suspect possible peptic ulcer disease or diffuse gastritis related to the NSAID. It is of course also possible that he has a Ifeoma-Aguilar tear secondary to his vomiting. He has had a previous history of tobacco and alcohol use but none currently. He does not have any history of esophageal varices. I will pursue PT PTT. Patient will require hydration. Keep him n.p.o. Plan an upper endoscopy tomorrow. The patient will benefit from hematology oncology and radiation oncology advice. The patient may also require pain specialty assistance. The patient is clearly at higher risk. I anticipate proceeding with monitored anesthesia care to facilitate the esophagogastroduodenoscopy. The patient and family members present have had an opportunity to ask and have questions answered. We will proceed as scheduling timing permits tomorrow. Michael Cho M.D., F.A.C.S.
[2018-08-01 21:36] VITALS: BMI 22.1
[2018-08-01 21:37] VITALS: BP 105/77; PULSE 89; RESP 24; TEMP 36.8; O2SAT 98
[2018-08-01] MEDS: 0.9% Normal Saline 1,000 ML 100 ML IV (22:03)
[2018-08-01 22:09] LABS: Hemoglobin 11.4 g/dl (13.0-16.5)
[2018-08-01 22:18] VITALS: O2SAT 97
[2018-08-01] MEDS: Morphine 2 MG/ML Syringe IV (22:45)
[2018-08-01] MEDS: 0.9% NaCl Peripheral Flush Adult/Peds IV ×2 (22:48→22:49)
[2018-08-01 23:30] VITALS: PULSE 89; RESP 24; O2SAT 98
[2018-08-02] VITALS (12 sets, daily range): BP systolic 113–152; BP diastolic 71–90; PULSE 62–94; RESP 16–20; TEMP 36.5–37.4; O2SAT 94–99; BMI 22.1
[2018-08-02 04:02] LABS: Absolute Lymphocyte Count 0.78 X10^3/ul (0.83-4.51); Basophil# 0.02 X10^3/uL; Basophil% 0.4 % (0-1); Eosinophil# 0.17 X10^3/uL; Hematocrit 31.7 % (40-54); Hemoglobin 10.3 g/dl (13.0-16.5); Lymphocyte # 0.78 X10^3/ul (4.0); Lymphocyte % 13.7 % (19-41); Mean Corp Hgb Conc 32.5 g/gl (32-36); Mean Corpuscular Hgb 28.2 pg (27.0-32.0); Mean Corpuscular Volume 86.8 fL (80-94); Mean Platelet Vol. 9.2 fl (6.2-12.0); Monocyte% 12.3 % (0-10); Neutrophil # 4.01 X10^3/uL (2.7-7.7); Neutrophil % 70.2 % (47-70); POSITIVE COUNT NO; POSITIVE DIFFERENTIAL NO; POSITIVE MORPHOLOGY NO; Platelet Count 280 K/mm3 (150-450); RBC Distribution Width CV 14.9 % (11.6-14.6); RBC Distribution Width SD 46.4 fl (35.1-43.9); Red Blood Count 3.65 M/mm3 (4.6-6.2); White Blood Count 5.7 K/mm3 (4.4-11.0)
[2018-08-02 04:05] LABS: International Normalized Ratio 1.1; Prothrombin Time (Protime)PT. 14.2 SECONDS (11.7-14.9)
[2018-08-02 04:39] LABS: AST(SGOT) 9 U/L (15-37); Alanine Aminotransfer ALT/SGPT 13 U/L (16-61); Albumin, Serum 2.9 g/dL (3.2-5.0); Alkaline Phosphatase 47 U/L (45-117); Anion Gap 7 (5-15); BUN 21 mg/dL (7-18); BUN/Creat Ratio 26.6 RATIO (10-20); Calcium,Total 8.3 mg/dL (8.5-10.1); Chloride 110 mmol/L (98-107); Creatinine, Serum 0.79 mg/dL (0.70-1.30); EST Glomerular Filtration Rate 101 mL/min (>60); Est Glom Filt Rate - Afr Amer 123 mL/min (>60); Estimated Creatinine Clearance 60.62 ml/min; Glucose 93 mg/dL (74-106); Magnesium 1.9 mg/dL (1.6-2.6); Phosphorus 2.7 mg/dL (2.5-4.9); Potassium 4.2 mmol/L (3.5-5.1); Protein, Total 5.9 g/dL (6.4-8.2); Sodium Level 141 mmol/L (136-145)
[2018-08-02] MEDS: Morphine 2 MG/ML Syringe IV ×2 (05:45→12:25)
--- NOTE | 2018-08-02 06:00 | EKG12_ITS ---
Test Reason : PRE-OP Blood Pressure : / mmHG Vent. Rate : 090 BPM Atrial Rate : 090 BPM P-R Int : 156 ms QRS Dur : 082 ms QT Int : 348 ms P-R-T Axes : 047 -22 043 degrees QTc Int : 425 ms Normal sinus rhythm Normal ECG Confirmed by MARION RODRIGUES, SANDRA ([id number]), deputy editor in chief NORMA TAYLOR ([id number] on 08/03/2018 8:16:46 AM Referred By: Lyla Edward Confirmed By:SANDRA SCHULTZ MD
[2018-08-02] MEDS: 0.9% Normal Saline 1,000 ML 100 ML IV ×2 (07:49→23:09)
--- NOTE | 2018-08-02 09:27 | PCM.PROGNOTE ---
Patient Problems: Active and Suspected Problems (Last Reviewed 03/16/18 @ 12:42 by STAN Medina) Upper GI bleeding (Acute) Cancer of left lung (Acute) Cancer, metastatic to bone (Acute) Lesion of lumbar spine (Acute) Subjective: The patient is a 77-year-old male with a past medical history of former alcohol abuse, peripheral vascular disease, hypertension, hyperlipidemia, former tobacco dependence, and history of simultaneous left lung and laryngeal cancer (status post chemotherapy, radiation, total laryngectomy and trach) who presented to the ED at [facility] on 08/01/18 after having a black emesis at home. He admitted to taking Aleve at home for persistent low back pain. He complained of nausea and emesis for the previous few days. Vital signs of presentation to the emergency department were temperature 98.4, pulse rate 111, blood pressure 134/70, respiratory rate 20 and he was 96 to 98% saturated on room air. CBC was remarkable for a hemoglobin of 11.3 with normochromic normocytic indices. Hemoglobin on 07/23/2018 was 12.7 and the preceding month was 11.5. Weightless were within normal limits. BMP was remarkable for an elevated BUN at 22 and a creatinine of 1.14, up from 0.87 on 07/23/2018. MRI was done on 08/01 as an OP and showed a expansile lytic metastasis to the left L5 vertebral body, left L5 pedicle, left L4 pedicle, left L4-L5 facet joint and the left L5 transverse process. This lytic metastasis is causing moderate stenosis of the left L4-L5 intervertebral neural foramen. There was moderate stenosis of bilateral L5-S1 intervertebral neuroforamina. There was mild central canal stenosis at L3-L4. There were old compression fractures of the upper L1-L2 vertebral bodies. Patient was evaluated by Dr. Michael Cho in the emergency room and he felt comfortable keeping the patient at [facility]. Dr. Cho recommended admission and to keep the patient n.p.o. for EGD on 08/02/2018. Patient was placed on a Protonix 40 mg IV every 12 hours. Afebrile since admission. Vital signs are stable. Pulse ox is 96 to 98% on room air. Fluid balance since admission is +860 cc. All lab was personally reviewed. White blood cell count remains normal with an unremarkable differential. Hemoglobin is 10.3 and platelets are 280,000. PT and PTT are within normal limits. BUN is 21 and the creatinine is 0.79 today, down from 1.14 with hydration. Continues to c/o back pain on the left side. denies radiation of the pain into the LLE. 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 Also c/o pain in the left jaw and sometimes has trouble swallowing. - Physical Exam General: Alert, Oriented x3, Cooperative HEENT: Atraumatic, Normocephalic, - - the left neck is indurated and brawny.....no definite mass is palpated, the right neck is much softer Oral: No Gingival or Mucosal Lesions/ Ulcerations, Dry Mucosa, - - white coating on the tongue - appears to be thrush Neck: No JVD, Negative Carotid Bruits Lungs: Clear to auscultation Cardiovascular: Regular rate, Regular Rhythm, Normal S1, Normal S2, No murmurs, No rub noted, No Gallop Abdomen: Bowel Sounds Present, Soft, Non Tender, Non-Distended Extremities: No clubbing, No cyanosis, No edema Skin: No breakdown Lymphatic: - - no supraclavicular adenopwthy appreciated Psych/Mental Status: Appropriate Vital Signs Temp Pulse Resp BP Pulse Ox 98.8 F 90 18 125/71 H 97 08/02/18 07:30 08/02/18 07:30 08/02/18 07:30 08/02/18 07:30 08/02/18 07:30 Oxygen Delivery Method Room Air Weight: 150 lb 5.684 oz Body Mass Index (BMI) 22.1 Intake and Output for Last 24 Hours 07/31/18 08/01/18 08/02/18 23:59 23:59 23:59 Intake Total 1320 / 1320 Output Total 460 / 460 Balance 860 / 860 Laboratory Tests Past 24 Hrs 08/01/18 08/01/18 08/01/18 15:55 15:55 15:55 WBC 6.9 RBC 4.00 L Hgb 11.3 L Hct 34.9 L MCV 87.3 MCH 28.3 MCHC 32.4 RDW 15.0 H RDW Differential 48.4 H Plt Count 310 MPV 9.3 Immature Gran % (Auto) 0.400 Neut % (Auto) 79.6 H Lymph % (Auto) 9.5 L [place] % (Auto) 8.6 Eos % (Auto) 1.6 Baso % (Auto) 0.3 Absolute Neuts (auto) 5.5 Absolute Lymphs (auto) 0.65 L Total Counted Not Reportable PT INR APTT Sodium 141 Potassium 4.2 Chloride 106 Carbon Dioxide 27.0 Anion Gap 8 BUN 22 H Creatinine 1.14 Estim Creat Clear Calc 51.54 Est GFR (MDRD) Af Amer 80 Est GFR (MDRD) Non-Af 66 BUN/Creatinine Ratio 19.3 Glucose 154 H Calcium 9.2 Phosphorus Magnesium Total Bilirubin AST ALT Alkaline Phosphatase Total Protein Albumin Globulin Albumin/Globulin Ratio Blood Type A POSITIVE Antibody Screen NEGATIVE 08/01/18 08/02/18 08/02/18 21:50 03:36 03:36 WBC 5.7 RBC 3.65 L Hgb 11.4 L 10.3 L Hct 35.0 L 31.7 L MCV 86.8 MCH 28.2 MCHC 32.5 RDW 14.9 H RDW Differential 46.4 H Plt Count 280 MPV 9.2 Immature Gran % (Auto) 0.400 Neut % (Auto) 70.2 H Lymph % (Auto) 13.7 L [place] % (Auto) 12.3 H Eos % (Auto) 3.0 Baso % (Auto) 0.4 Absolute Neuts (auto) 4.0 Absolute Lymphs (auto) 0.78 L Total Counted Not Reportable PT 14.2 INR 1.1 APTT 33.0 Sodium Potassium Chloride Carbon Dioxide Anion Gap BUN Creatinine Estim Creat Clear Calc Est GFR (MDRD) Af Amer Est GFR (MDRD) Non-Af BUN/Creatinine Ratio Glucose Calcium Phosphorus Magnesium Total Bilirubin AST ALT Alkaline Phosphatase Total Protein Albumin Globulin Albumin/Globulin Ratio Blood Type Antibody Screen 08/02/18 03:36 WBC RBC Hgb Hct MCV MCH MCHC RDW RDW Differential Plt Count MPV Immature Gran % (Auto) Neut % (Auto) Lymph % (Auto) [place] % (Auto) Eos % (Auto) Baso % (Auto) Absolute Neuts (auto) Absolute Lymphs (auto) Total Counted PT INR APTT Sodium 141 Potassium 4.2 Chloride 110 H Carbon Dioxide 24.0 Anion Gap 7 BUN 21 H Creatinine 0.79 Estim Creat Clear Calc 60.62 Est GFR (MDRD) Af Amer 123 Est GFR (MDRD) Non-Af 101 BUN/Creatinine Ratio 26.6 H Glucose 93 Calcium 8.3 L Phosphorus 2.7 Magnesium 1.9 Total Bilirubin 0.40 AST 9 L ALT 13 L Alkaline Phosphatase 47 Total Protein 5.9 L Albumin 2.9 L Globulin 3.0 Albumin/Globulin Ratio 1.0 Blood Type Antibody Screen Medical Necessity - Tobacco Use Smoking Status: Former smoker Tobacco Use: Non-smoker Assessment/Plan All Active Problems (Last Reviewed 03/16/18 @ 12:42 by Jacki Venegas, CLOTH EXAMINER-C) Upper GI bleeding (Acute) Cancer of left lung (Acute) Cancer, metastatic to bone (Acute) Lesion of lumbar spine (Acute) Chest congestion (Acute) Status post insertion of percutaneous endoscopic gastrostomy (PEG) tube (Resolved) Odynophagia (Acute) Neutropenia (Acute) Hypokalemia (Acute) Hypomagnesemia (Acute) Urine retention (Acute) Abnormal cardiac enzyme level (Resolved) Syncope (Resolved) Impressions 1. UGI bleed - PUD? toya sims tear? 2. Hx of laryngeal CA - S/P laryngectomy 3. hx of lung CA - due to metastatic laryngeal CA or to primary lung CA - nephew tells me it is a second primary 4. 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 S/P tracheostomy 6. intractable back pain 7. former nicotine and alcohol dependence 8. anemia due to blood loss +/- CA 9. HTN 10. possible recurrent laryngeal CA in the left neck 11. thrush with some painful swallowing - possible esophageal candidiasis 12. BPH with urine retention - urinating every hour and does not feel as though he is emptying his bladder EGD today continue the protonix consult oncology start pain meds for the new anthony mets lumbar spine - diflucan Will need palliative radiation to the LS spine for pain relief Contniue to hydrate recheck the lab in the AM ST eval for swallowing Recheck lab in the a.m. Pt is no longer able to care for himself and family is interested in assisted living Code Visit Inpatient E&M: 08839 Subs Hosp L3
--- NOTE | 2018-08-02 10:10 | NURSING ---
called report to ac. pt left for surgery
--- NOTE | 2018-08-02 11:00 | EGD_PTH ---
PATIENT: AMPARO DE LEÓN LOC: MS3 U#:[id number] AGE/SX: 77/M ROOM: MS311 RE08/02/[address]: Dr. Crista Camargo DO : 1940 BED: 1 DIS: 08/05/2018 SPEC #: [id number] RECD: 08/02/18 11:36 STATUS: ANDRIA REQ #: [id number] GILLIAN: 08/02/18 11:[address]: Michael Cho DEPT: SURGICAL PATHOLOGY RECD BY: Kathy Leija ENTERED: 08/02/18 13:45 SP TYPE: EGD BIOPSY OTHR DR: MD Dr. Crista Meredith, MD Dr. Hilario Benson Dr., DO MD Shweta Jay, ZOOLOGY PROFESSOR-C Tissues: A - Gastric mucous membrane B - Esophagus, NOS Procedures: PAS Fungus (control) Special Stain Group I Surgery Specimen Level IV Comments: @ Ordering doctor for SSI edited from to @ by APURVA at 08/03/18 1111 @ Ordering doctor for SUIV edited from to @ by APURVA at 08/03/18 1111 @ Ordering doctor for PASF edited from to @ by APURVA at 08/03/18 1111 @ Submitting doctor edited from to @ by APURVA at 08/03/18 1111 HEADER OPERATION: EGD ([facility]) PRE-OP DIAGNOSIS: Acute GI bleed TISSUE SUBMITTED: A. Antral biopsy and H. Pylori, B. Distal esophagus biopsy MICROSCOPIC DIAGNOSIS A. Gastric antrum, biopsy: Mild chronic gastritis. See comment. B. Distal esophagus, biopsy: Ulceration with associated acute and chronic inflammation and granulation. Negative for fungal organisms. See comment. AM:lisa 08/03/18 COMMENT A. The results of immunohistochemistry for Helicobacter pylori will be reported separately ([id number]). B. PASF stain with matched control supports the above diagnosis. MICROSCOPIC DESCRIPTION Slides are reviewed. GROSS DESCRIPTION A - Received in fixative is one container labeled with the patient's name and designated antral biopsy. The specimen consists of one irregular fragment of light tolentino soft tissue that measures 0.5 x 0.3 x 0.1 cm. The specimen is totally submitted in one cassette. B - Received in fixative is one container labeled with the patient's name and designated distal esophagus biopsy. The specimen consists of multiple irregular fragments of light tolentino soft tissue that in aggregate measure 0.7 x 0.3 x 0.1 cm. The specimen is totally submitted in one cassette. / SJ:lisa 08/02/18 TC: CPT: 84312 x2, 33260
--- NOTE | 2018-08-02 11:00 | IMM_PTH ---
PATIENT: AMPARO DE LEÓN LOC: MS3 U#:[id number] AGE/SX: 77/M ROOM: TN311 RE08/02/[address]: Dr. Crista Camargo DO : 1940 BED: 1 DIS: 08/05/2018 SPEC #: [id number] RECD: 08/02/18 13:52 STATUS: SOUAnabell REQ #: [id number] GILLIAN: 08/02/18 11:[address]: Michael Cho DEPT: IMMUNOHISTOCHEMISTRY RECD BY: Arlen Perez ENTERED: 08/02/18 13:53 SP TYPE: IMMUNO OTHR DR: MD Dr. Crista Meredith DO Dr. Joseph Prah, MD Dr. Mark Stutzman, DO Tyra Schlabach, AUTOMOTIVE DETAILER-C Tissues: A - Stomach, NOS Procedures: H Pylori (initial) PHYSICIAN & INSTITUTION [place] [id number] SPECIMEN INFORMATION: Tissue Source: A - Antral biopsy Clinical Info: Acute GI bleed Specimen Number: [id number] CPT code: 73576 METHODOLOGY: Deparaffinized sections of prefer/formalin-fixed tissue or PAP/DQ stained slides are incubated with monoclonal/polyclonal antibodies/oligonucleotide probes. Localization is made via biotin free immunoperoxidase method. Appropriate controls are performed and reacted as expected. Results on target cell population are indicated in the following table: RESULTS: ANTIBODY / CLONE RESULT Block A H Pylori (polyclonal) negative These tests were developed and their performance characteristics determined by [facility]. They may not have been cleared or approved by the U.S. Food and Drug Administration. The FDA has determined that such clearance or approval is not necessary. INTERPRETATION: A. Antral biopsy: Negative for Helicobacter pylori organisms. AM:lisa 08/03/18
--- NOTE | 2018-08-02 11:04 | PN.SURG_ITS ---
Patient Problems: Active and Suspected Problems (Last Reviewed 03/16/18 @ 12:42 by STAN Medina) Upper GI bleeding (Acute) Subjective: Patient to go for upper scope today for hematemesis. He denies any further hematemesis. - Physical Exam General: Alert, Oriented x3, Cooperative Vital Signs Temp Pulse Resp BP Pulse Ox 98.8 F 90 18 125/71 H 97 08/02/18 07:30 08/02/18 07:30 08/02/18 07:30 08/02/18 07:30 08/02/18 07:30 Oxygen Delivery Method Room Air Weight: 150 lb 5.684 oz Body Mass Index (BMI) 22.1 Intake and Output for Last 24 Hours 07/31/18 08/01/18 08/02/18 23:59 23:59 23:59 Intake Total 1320 / 1320 Output Total 460 / 460 Balance 860 / 860 Laboratory Tests Past 24 Hrs 08/01/18 08/01/18 08/01/18 15:55 15:55 15:55 WBC 6.9 RBC 4.00 L Hgb 11.3 L Hct 34.9 L MCV 87.3 MCH 28.3 MCHC 32.4 RDW 15.0 H RDW Differential 48.4 H Plt Count 310 MPV 9.3 Immature Gran % (Auto) 0.400 Neut % (Auto) 79.6 H Lymph % (Auto) 9.5 L [place] % (Auto) 8.6 Eos % (Auto) 1.6 Baso % (Auto) 0.3 Absolute Neuts (auto) 5.5 Absolute Lymphs (auto) 0.65 L Total Counted Not Reportable PT INR APTT Sodium 141 Potassium 4.2 Chloride 106 Carbon Dioxide 27.0 Anion Gap 8 BUN 22 H Creatinine 1.14 Estim Creat Clear Calc 51.54 Est GFR (MDRD) Af Amer 80 Est GFR (MDRD) Non-Af 66 BUN/Creatinine Ratio 19.3 Glucose 154 H Calcium 9.2 Phosphorus Magnesium Total Bilirubin AST ALT Alkaline Phosphatase Total Protein Albumin Globulin Albumin/Globulin Ratio Blood Type A POSITIVE Antibody Screen NEGATIVE 08/01/18 08/02/18 08/02/18 21:50 03:36 03:36 WBC 5.7 RBC 3.65 L Hgb 11.4 L 10.3 L Hct 35.0 L 31.7 L MCV 86.8 MCH 28.2 MCHC 32.5 RDW 14.9 H RDW Differential 46.4 H Plt Count 280 MPV 9.2 Immature Gran % (Auto) 0.400 Neut % (Auto) 70.2 H Lymph % (Auto) 13.7 L [place] % (Auto) 12.3 H Eos % (Auto) 3.0 Baso % (Auto) 0.4 Absolute Neuts (auto) 4.0 Absolute Lymphs (auto) 0.78 L Total Counted Not Reportable PT 14.2 INR 1.1 APTT 33.0 Sodium Potassium Chloride Carbon Dioxide Anion Gap BUN Creatinine Estim Creat Clear Calc Est GFR (MDRD) Af Amer Est GFR (MDRD) Non-Af BUN/Creatinine Ratio Glucose Calcium Phosphorus Magnesium Total Bilirubin AST ALT Alkaline Phosphatase Total Protein Albumin Globulin Albumin/Globulin Ratio Blood Type Antibody Screen 08/02/18 03:36 WBC RBC Hgb Hct MCV MCH MCHC RDW RDW Differential Plt Count MPV Immature Gran % (Auto) Neut % (Auto) Lymph % (Auto) [place] % (Auto) Eos % (Auto) Baso % (Auto) Absolute Neuts (auto) Absolute Lymphs (auto) Total Counted PT INR APTT Sodium 141 Potassium 4.2 Chloride 110 H Carbon Dioxide 24.0 Anion Gap 7 BUN 21 H Creatinine 0.79 Estim Creat Clear Calc 60.62 Est GFR (MDRD) Af Amer 123 Est GFR (MDRD) Non-Af 101 BUN/Creatinine Ratio 26.6 H Glucose 93 Calcium 8.3 L Phosphorus 2.7 Magnesium 1.9 Total Bilirubin 0.40 AST 9 L ALT 13 L Alkaline Phosphatase 47 Total Protein 5.9 L Albumin 2.9 L Globulin 3.0 Albumin/Globulin Ratio 1.0 Blood Type Antibody Screen Medical Necessity - Tobacco Use Smoking Status: Former smoker Tobacco Use: Non-smoker Assessment/Plan All Active Problems (Last Reviewed 03/16/18 @ 12:42 by Jacki Venegas NP-C) Upper GI bleeding (Acute) Chest congestion (Acute) Status post insertion of percutaneous endoscopic gastrostomy (PEG) tube (Resolved) Odynophagia (Acute) Neutropenia (Acute) Hypokalemia (Acute) Hypomagnesemia (Acute) Urine retention (Acute) Abnormal cardiac enzyme level (Resolved) Syncope (Resolved) I am following this patient with Dr. Cho Proceed with upper scope. Code Visit Inpatient E&M: 46065 Subs Hosp L1 - No charge
--- NOTE | 2018-08-02 11:12 | CASEMGMT ---
Per admission questions patient has a Healthcare POA and Healthcare LW. He is aware they are not on file at [facility]. Cathleen ABRAHAM MSW
--- NOTE | 2018-08-02 11:17 | CASEMGMT ---
URMILA spoke w/pt's son in law Álvarez, and sister Emily initially in room in regard to discharge plan. Pt is off the floor at a test at present. We reviewed all options, including SNF, home health care, and assisted living. Family explains pt is having a difficult time at home, and they were already looking into assisted living for pt. They explain looked at [facility] but were told pt's care needs were too great. They have an appointment with [facility] on Monday. Family asked about Medicare and the coverage for SNF and AL. SW explained that shelter facility is covered by Medicare after a 3 day inpt stay. SW explained that AL is not covered by Medicare at all. SW explained that Medicaid can cover AL in certain facilities, to get that coverage however is a process. Son in law Fowler said that they are looking at pt's finances now, have an patent prosecution attorney involved, to see what pt can and cannot afford. URMILA explained will get family lists for AL, SNF w/prices and home health care. Malcolm was thinking about the cost for AL vs SNF vs private hiring additional help at home. Malcolm explained that pt has been in a lot of pain recently and is having difficulty getting around and caring for himself at present. URMILA explained will need to see if pt will have a three day qualifying stay under Medicare, or if would be private pay. Malcolm asked about cost, URMILA explained will get him a list of local nursing homes w/approximate costs, as well as AL and home health care agencies. URMILA brought all of the above information to the surgery waiting area, spoke again pedro/Malcolm, granddaughter Zaria and sister Emily. SW gave son the AL list, home health care list, and SNF list w/approximate cost. SW encouraged them to look into nursing facilities and let SW where they may want to send a referral. URMILA explained did speak w/physician and it's unclear if pt will qualify under Medicare or not, pt may. SW also explained that oncology's input will be needed, as far as what the plan may be for radiation/chemo, and if the pt even wants this. SW explained also that this could impact if a facility can take pt or not. Family feels that they would be able to transport pt for any cancer treatments. URMILA again asked family to let SW know where they may want a referral sent, family states understanding. URMILA spoke w/Melinda in TCU in regard to radiation and chemo, for clarification. She explained if pt needs radiation and gets it at [facility], they can take pt. The issue becomes transportation to and from radiation if it's elsewhere. She explained that radiation can be billed separately to Medicare by the group home, but they have to cover transportation. If a pt needs chemo, they cannot take the pt. TCU would have availability later in the week for this pt. SW spoke w/Malcolm again and explained the above information, he states understanding. They may be agreeable to TCU should pt have a three day qualifying stay, especially if radiation is needed. Pt is just coming up now from his procedure earlier, and still needs to speak w/oncology, so some questions still need answered before making a definite answer. SW did put pt on TCU list. Plan: TBD. Pt on TCU list, is yet to be determined how long pt will be here, and if SNF vs C vs AL is appropriate. Also, pt still to meet w/oncology to determine a plan in regard to the cancer. URMILA will continue to follow. DAJA Payne
--- NOTE | 2018-08-02 11:23 | PCA ---
pt off floor
--- NOTE | 2018-08-02 11:24 | OP.ENDO_ITS ---
08/02/2018 Hilario Rodriguez [address] [facility] [place] [address] Re : Upper GI endoscopy procedure for Henri Garcia Dear Dr. Rodriguez This procedure was performed on July. My impressions and recommendations are as follows: Impressions : - LA Grade D reflux, monilial, acute and erosive esophagitis. Biopsied. Upper GI bleeding is secondary to severe erosive distal esophagitis with likely monilial component - 6 cm hiatal hernia. - Normal stomach. Biopsied. - Normal examined duodenum. Recommendations : - [facility] - NPO except sips chips - Continue present medications. - Telephone my office for pathology results in 1 week. My findings are described in the full procedure note, which is enclosed. If I can be of further assistance, please feel free to contact me at Doctor phone number(s): Work: . Sincerely, Michael Cho MD 08/02/2018 11:24:22 AM This report has been signed electronically.
[2018-08-02] MEDS: Lisinopril 20 MG Tablet PO (12:27)
[2018-08-02] MEDS: guaiFENesin 1,200 MG Tablet 1200 MG PO ×2 (12:28→21:34)
[2018-08-02] MEDS: amLODIPine 5 MG Tablet 7.5 MG PO (12:28)
[2018-08-02] MEDS: Tolterodine Tartrate 2 MG CAP.SA PO (12:29)
[2018-08-02] MEDS: Fluconazole Suspension 40 MG/ML 35 ML Bottle 200 MG PO (14:01)
[2018-08-02] MEDS: oxyCODONE 5 MG Tablet 10 MG PO ×3 (14:02→23:08)
--- NOTE | 2018-08-02 15:55 | ONC.CONS.INP ---
Subjective Date of Service:: 08/02/18 Chief Complaint: H/o laryngeal ca, probable metastatic bone lesion History of Present Illness: Mr. Henri Garcia is 77 -year-old man with a PMH positive for ETOH abuse, tobacco use. He underwent microlaryngoscopy with biopsy on 03/15/2016, which revealed a supraglottic mass with involvement the vocal cords. 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 He underwent a PET CT scan on 04/11/2016, which demonstrated abnormal hypermetabolic activity in the anterior neck involving the pre-epiglottic space and a left upper lobe lung nodule (. He received concomitant chemoradiation with cisplatin on 04/26/2016- 06/27/2016. He had a PET/CT 09/19/2016 which continued to demonstrate uptake in the and also REMA node increased in size and avidity. At that time, patient was referred for biopsy of lung mass. The patient has been lost to follow up with [facility] since 08/2016. Per son and daughter in law, patient underwent biopsy of left lung mass at a facility in [place] (?[facility]) and also a repeat laryngeal biopsy at approx early 2017. Patient was told the pathology of them did not match and believed lung to be a separate primary. Subsequently he underwent what was described as SBRT to left lung 09/2017 at and a complete laryngectomy 09/2017 at . States he followed up with the surgeon and radiation oncologist at each once but has not seen a medical oncologist since 2017. Reports patient began c/o mid to low back pain May 2018, he attributed initially to a fall he experienced January 2018. Progressively worsened (taking Aleve), presented to his pcp and MRI lumbar spine was ordered. At that visit, a large left sided mass noted along his mandible and pcp ordered CT neck as well. In the interim, patient experienced hematemesis and presented to [facility] ED 08/01/18. He was subsequently admitted and underwent EGD earlier today. MRI spine obtained 08/01/18 revealed expansile lytic metastases to the left L5 and L4, causing moderate stenosis of the left L4-L5 intervertebral neural foramen and an old compression fractures of the upper L1-L2 vertebral bodies. EGD revealed acute and erosive esophagitis. On Protonix. Rates left-sided low back pain 5 out of 10, occasionally radiates down left leg. Specifically denies numbness tingling of LLE, incontinence and saddle anesthesia. In terms of left jaw mass, admits it is impairing his ability to eat and as a result he has lost approximately 5 pounds. Past Medical History: Chronic Problems (Last Reviewed 03/16/18 @ 12:42 by STAN Medina) Pulmonary nodule, left (Chronic) Former smoker (Chronic) quit February 2016 Normochromic normocytic anemia (Chronic) due to laryngeal CA and chemotherapy/radiation Peripheral vascular disease (Chronic) Radiation esophagitis (Chronic) 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 on biopsy of the epiglottis and false vocal cord Alcohol abuse (Chronic) states he quit drinking in February of 2016 when he was diagnosed with Laryngeal cancer...also quit smoking Hypertension, essential, benign (Chronic) Difficulty chewing (Chronic) Past Medical/Surgical History: Past Medical History - Most Recent Inpatient Visit Past Medical History Start: 08/01/18 18:23 Text: Status: Complete Freq: Protocol: Document 08/01/18 18:25 [facility] (Rec: 08/01/18 18:28 [facility] [id number]) BMI Required to complete PMH What is Patient's BMI 24.7 Past Medical History Unable History Recalled No Query Text:Pt Unable/Family Not Present Neurologic Medical History Hx Stroke/TIA No Hx Dementia/Alzheimer's No Hx Parkinson's Disease No Hx Seizures No Hx Multiple Sclerosis No Hx Migraines No Cardiac Medical History VTE Present on Admission No Hx of Deep Vein Thrombosis/VTE/PE No Hx Hypertension Yes: controlled with med Hx Chest Pain/Angina Yes Hx Heart Attack No Hx Cardiac Surgery/Stents/Etc. No Hx Heart Failure No Hx Pacemaker/AICD No Hx Irregular Heartbeat and/or Afib No Hx Anticoagulant Therapy No Query Text:(Coumadin, Aspirin, Plavix, Xarelto, etc.) Hx Pain in Legs when Walking/Leg Cramps Yes: lower legs with pain with walking Respiratory Medical History Hx COPD Yes: mild/no inhaler Hx Emphysema No Hx Smoking Yes: 1 ppd/quit 2 yrs ago Smoking Status Former smoker Tobacco Use Cigarettes Years Smoking 60 Packs Smoked per Day 2 Hx Smoking Cessation Date 2015 Hx Smoking Cessation Counseling No Hx Smoking Exposure No Hx Tobacco Use in last 12 months Yes Sent to [facility] Yes Hx of Pipe Smoking No Hx of Cigar Smoking No Hx Sleep Apnea No Do you snore loudly (louder than talking No or can be heard through closed doors)? Do you often feel tired/ fatigued/ Yes sleepy during daytime? Has anyone observed you stop breathing No during sleep? STOP Results Positive GI Medical History Hx Ulcer No Hx Hepatitis No Hx Cirrhosis No Hx GI Bleed No Hx Unplanned Weight Loss No Genitourinary Medical History Indwelling Catheter in Place on Arrival/ No Admission Hx Renal Disease No Hx Dialysis No Musculoskeletal History Hx Arthritis No Hx Rheumatoid Arthritis No Endocrine Medical History Hx Diabetes No Hx Thyroid Disease No Hematologic Medical History Hx of Blood Transfusion No Hx of Transfusion in last 3 Months No Ever experience any problems with No transfusion(s)? Hx of Preganancy in last 3 Months N/A Nurse Filling Out Transfusion & JLAMP Questions: Date: 08/01/18 Time: 18:27 Psycho/Social Medical History Hx Depression No Hx Anxiety No Hx Behavior Disorder No Hx Alcohol Use Yes: 3-4 beers per day/quit 3yrs ago since troat cancer Hx Substance Use No Other Medical History Hx Blood Disorders No Hx Anemia No Hx Cancer Yes: throat ca/lung ca/chemo and radiation/remission Hx Drug Resistant Organism No Wound/Pressure Injury Present on Arrival No /Admission Query Text:If yes, chart assessment in Shift/Clinical Findings Central Line/PICC/VAD Present on Arrival No /Admission Antibiotics within last 7 days? No Risk for Readmission Number of Risk Factors 4 At Risk for Readmission Patient is At Risk For Readmission Patient is eligible for Call Back Y Past Medical History (Last Reviewed 03/16/18 @ 12:42 by Jacki Venegas NP-C) Pulmonary nodule, left (Chronic) Odynophagia (Acute) Former smoker (Chronic) Neutropenia (Acute) Normochromic normocytic anemia (Chronic) Peripheral vascular disease (Chronic) Radiation esophagitis (Chronic) Laryngeal cancer (Chronic) Alcohol abuse (Chronic) Hypertension, essential, benign (Chronic) Difficulty chewing (Chronic) Hypokalemia (Acute) Hypomagnesemia (Acute) Urine retention (Acute) Past Surgical History (Last Reviewed 03/16/18 @ 12:42 by Jacki Venegas NP-C) Status post insertion of percutaneous endoscopic gastrostomy (PEG) tube (Resolved) s/p PEG tube removal (Acute ~08/29/17) Maternal Family History: Family History (Last Reviewed 03/16/18 @ 12:42 by STAN Medina) Mother Hypertension CVA (cerebral vascular accident) Family History: Hypertension, Stroke Paternal Family History: Family History (Last Reviewed 03/16/18 @ 12:42 by STAN Medina) Mother Hypertension CVA (cerebral vascular accident) Family History: Hypertension - Social History Lives: Spouse/ Significant Other Smoking Status: Former smoker Tobacco Use: Non-smoker Alcohol: Sober Drugs: None Allergies/Adverse Reactions: Allergy/AdvReac Type Severity Reaction Status Date / Time No Known Allergies Allergy Verified 08/01/18 15:36 Review of Systems Constitutional:: Reports: Weakness, Weight loss, Appetite change. Denies: Fever, Sweats, Chills Cardiovascular:: Denies: Chest pain, Palpitations, Dyspnea on exertion, Orthopnea, PND, Shortness of breath Respiratory: Reports: Cough. Denies: Hemoptysis, Shortness of Breath, Wheezing Gastrointestinal:: Reports: Constipation - Occasionally, Difficulty swallowing. Denies: Abdominal pain, Nausea, Vomiting, Diarrhea, Melena, Hematochezia Genitourinary: Denies: Dysuria, Hematuria, 15, Flank pain Musculoskeletal:: Reports: Back pain - See HPI. Denies: Myalgia, Arthralgia Skin: Denies: Rash, Skin Changes, Wounds Neurological:: Denies: Headache, Dizziness, Numbness, Tingling, Visual changes, Tinnitus, Hearing loss Psychiatric: Denies: Anxiety, Depression, Homicidal Ideations, Suicidal Ideations Vital Signs Height 5 ft 9 in Weight: 150 lb 5.684 oz Weight in Pounds 150.4 lbs Pulse Ox 96 Temperature 97.7 F Pulse Rate 94 Respiratory Rate 16 Blood Pressure 152/71 Blood Pressure Position Semi-Fowlers - Physical Exam General: Alert, Oriented x3, No apparent distress HEENT: Atraumatic, PERRLA, EOMI, Normocephalic, - - Left side of mandible mass nontender to palpation Oropharynx:: Negative for: Dry mucosa, Ulcerated lesions Neck:: Supple, Trachea midline, - - Trach in place. Negative for: JVD, bilateral Cardiac:: Regular rate, Regular rhythm, Normal S1, Normal S2. Negative for: Murmur Lungs: Diminished, Excusion symmetrical. Negative for: Rhonchi, Wheezes Abdomen:: Bowel sounds x 4, Soft, Non-tender, Non-distended. Negative for: Hepatosplenomegaly Extremities:: Negative for: Cyanosis, Edema, Calf tenderness Neurological: Neuro grossly intact Skin:: Negative for: Lesions, Rash, Petechiae, Ecchymosis Psychiatric:: Appropriate affect, Euthymic Lymphatics:: Negative for: Cervical lymphadenopathy, Supraclavicular lymphadenopathy, Axillary lymphadenopathy Laboratory Data: Laboratory Tests 08/02/18 08/02/18 08/02/18 Range/Units 03:36 03:36 03:36 WBC 5.7 (4.4-11.0) K/mm3 RBC 3.65 L (4.6-6.2) M/mm3 Hgb 10.3 L (13.0-16.5) g/dl Hct 31.7 L (40-54) % MCV 86.8 (80-94) fL MCH 28.2 (27.0-32.0) pg MCHC 32.5 (32-36) g/gl RDW 14.9 H (11.6-14.6) % RDW Differential 46.4 H (35.1-43.9) fl Plt Count 280 (150-450) K/mm3 MPV 9.2 (6.2-12.0) fl Immature Gran % (Auto) 0.400 (0.0-0.9) % Neut % (Auto) 70.2 H (47-70) % Lymph % (Auto) 13.7 L (19-41) % Calloway % (Auto) 12.3 H (0-10) % Eos % (Auto) 3.0 (0-5) % Baso % (Auto) 0.4 (0-1) % Absolute Neuts (auto) 4.0 (2.0-7.7) X10^3/uL Absolute Lymphs (auto) 0.78 L (0.83-4.51) X10^3/ul Total Counted Not Reportable PT 14.2 (11.7-14.9) SECONDS INR 1.1 APTT 33.0 (24.1-36.2) Seconds Sodium 141 (136-145) mmol/L Potassium 4.2 (3.5-5.1) mmol/L Chloride 110 H (98-107) mmol/L Carbon Dioxide 24.0 (21.0-32.0) mmol/L Anion Gap 7 (5-15) BUN 21 H (7-18) mg/dL Creatinine 0.79 (0.70-1.30) mg/dL Estim Creat Clear Calc 60.62 ml/min Est GFR (MDRD) Af Amer 123 (>60) mL/min Est GFR (MDRD) Non-Af 101 (>60) mL/min BUN/Creatinine Ratio 26.6 H (10-20) RATIO Glucose 93 (74-106) mg/dL Calcium 8.3 L (8.5-10.1) mg/dL Phosphorus 2.7 (2.5-4.9) mg/dL Magnesium 1.9 (1.6-2.6) mg/dL Total Bilirubin 0.40 (0.20-1.00) mg/dL AST 9 L (15-37) U/L ALT 13 L (16-61) U/L Alkaline Phosphatase 47 (45-117) U/L Total Protein 5.9 L (6.4-8.2) g/dL Albumin 2.9 L (3.2-5.0) g/dL Globulin 3.0 (2.2-4.2) g/dL Albumin/Globulin Ratio 1.0 (0.9-2.4) RATIO Blood Type Antibody Screen 08/01/18 08/01/18 08/01/18 Range/Units 21:50 15:55 15:55 WBC (4.4-11.0) K/mm3 RBC (4.6-6.2) M/mm3 Hgb 11.4 L (13.0-16.5) g/dl Hct 35.0 L (40-54) % MCV (80-94) fL MCH (27.0-32.0) pg MCHC (32-36) g/gl RDW (11.6-14.6) % RDW Differential (35.1-43.9) fl Plt Count (150-450) K/mm3 MPV (6.2-12.0) fl Immature Gran % (Auto) (0.0-0.9) % Neut % (Auto) (47-70) % Lymph % (Auto) (19-41) % Calloway % (Auto) (0-10) % Eos % (Auto) (0-5) % Baso % (Auto) (0-1) % Absolute Neuts (auto) (2.0-7.7) X10^3/uL Absolute Lymphs (auto) (0.83-4.51) X10^3/ul Total Counted PT (11.7-14.9) SECONDS INR APTT (24.1-36.2) Seconds Sodium 141 (136-145) mmol/L Potassium 4.2 (3.5-5.1) mmol/L Chloride 106 (98-107) mmol/L Carbon Dioxide 27.0 (21.0-32.0) mmol/L Anion Gap 8 (5-15) BUN 22 H (7-18) mg/dL Creatinine 1.14 (0.70-1.30) mg/dL Estim Creat Clear Calc 51.54 ml/min Est GFR (MDRD) Af Amer 80 (>60) mL/min Est GFR (MDRD) Non-Af 66 (>60) mL/min BUN/Creatinine Ratio 19.3 (10-20) RATIO Glucose 154 H (74-106) mg/dL Calcium 9.2 (8.5-10.1) mg/dL Phosphorus (2.5-4.9) mg/dL Magnesium (1.6-2.6) mg/dL Total Bilirubin (0.20-1.00) mg/dL AST (15-37) U/L ALT (16-61) U/L Alkaline Phosphatase (45-117) U/L Total Protein (6.4-8.2) g/dL Albumin (3.2-5.0) g/dL Globulin (2.2-4.2) g/dL Albumin/Globulin Ratio (0.9-2.4) RATIO Blood Type A POSITIVE Antibody Screen NEGATIVE 08/01/18 Range/Units 15:55 WBC 6.9 (4.4-11.0) K/mm3 RBC 4.00 L (4.6-6.2) M/mm3 Hgb 11.3 L (13.0-16.5) g/dl Hct 34.9 L (40-54) % MCV 87.3 (80-94) fL MCH 28.3 (27.0-32.0) pg MCHC 32.4 (32-36) g/gl RDW 15.0 H (11.6-14.6) % RDW Differential 48.4 H (35.1-43.9) fl Plt Count 310 (150-450) K/mm3 MPV 9.3 (6.2-12.0) fl Immature Gran % (Auto) 0.400 (0.0-0.9) % Neut % (Auto) 79.6 H (47-70) % Lymph % (Auto) 9.5 L (19-41) % Calloway % (Auto) 8.6 (0-10) % Eos % (Auto) 1.6 (0-5) % Baso % (Auto) 0.3 (0-1) % Absolute Neuts (auto) 5.5 (2.0-7.7) X10^3/uL Absolute Lymphs (auto) 0.65 L (0.83-4.51) X10^3/ul Total Counted Not Reportable PT (11.7-14.9) SECONDS INR APTT (24.1-36.2) Seconds Sodium (136-145) mmol/L Potassium (3.5-5.1) mmol/L Chloride (98-107) mmol/L Carbon Dioxide (21.0-32.0) mmol/L Anion Gap (5-15) BUN (7-18) mg/dL Creatinine (0.70-1.30) mg/dL Estim Creat Clear Calc ml/min Est GFR (MDRD) Af Amer (>60) mL/min Est GFR (MDRD) Non-Af (>60) mL/min BUN/Creatinine Ratio (10-20) RATIO Glucose (74-106) mg/dL Calcium (8.5-10.1) mg/dL Phosphorus (2.5-4.9) mg/dL Magnesium (1.6-2.6) mg/dL Total Bilirubin (0.20-1.00) mg/dL AST (15-37) U/L ALT (16-61) U/L Alkaline Phosphatase (45-117) U/L Total Protein (6.4-8.2) g/dL Albumin (3.2-5.0) g/dL Globulin (2.2-4.2) g/dL Albumin/Globulin Ratio (0.9-2.4) RATIO Blood Type Antibody Screen Assessment and Plan Mr. Garcia is a 77 y/o man with a PMH significant for PVD, HTN, HLD, Former Tobacco and ETOH use and Hx Laryngeal CA s/p concomitant chemoradiation with high-dose cisplatin in 2017. Patient presented to [facility] emergency department on 08/01/2018 subsequent to one episode of hematemesis and with a history of ongoing lower back discomfort x2 weeks. 1. Intractable back pain- MRI lumbar spine obtained 08/01/18 revealed expansile lytic metastases to the left L5 vertebral body, left L5 pedicle, left L4 pedicle, left L4-L5 facet joint, left L5 transverse process causing moderate stenosis of the left L4-L5 intervertebral neural foramen, moderate stenosis of the bilateral L5-S1 intervertebral neural foramina, mild central canal stenosis at L3-L4 disc level, old compression fractures of the upper L1-L2 vertebral bodies, T11 benign vertebral body hemangioma. Palliative radiation may be considered in the future subsequent to further imaging. In the interim analgesia recommended. Specifically he is not experiencing any symptoms concerning for spinal cord compression. 2. Left sided mandibular fullness-area is fixed not mobile. Nontender to palpation. Interfering with patient's ability to eat. Very concerning for recurrence. 3. H/o laryngeal ca-status post concomitant chemoradiation with high-dose cisplatin in 2017. Patient self-reported recurrence in 2018 status post complete laryngectomy approximately June 2017 at . 4. H/o of left sided lung ca- Patient is unsure of histology. Believes he underwent SBRT to left lung lesion approx June 2017 at . Collectively, presentation is concerning for recurrent disease with likely skeletal metastasis. CT neck/chest and complete imaging of spine by way of MRI would be of benefit. metastatic disease. Daughter and son in law are fair historians, although he is a complex case in that his care has been quite fragmented and he has been lost to medical oncology follow-up. Will urgently request records from (laryngectomy and SBRT left lung) and [facility] (left lung biopsy). Patient's case was discussed with Dr. Katz as well as Dr. Santos and both were in agreement with aforementioned plan. Shweta Davies, MSN, RECREATION SPECIALIST, AOCNP Medications: Prescriptions This Visit Medication Instructions Recorded Amlodipine Besylate 7.5 mg PO DAILY 08/01/18 Guaifenesin [Mucinex] 1,200 mg PO BID 08/01/18 Ibuprofen [Advil Liqui-Gels] 400 mg PO Q4H PRN PRN 08/01/18 Oxybutynin Chloride [Ditropan Xl] 10 mg PO DAILY 08/01/18 Polyethylene Glycol 3350 [Miralax] 17 gm PO DAILY 08/01/18 Tamsulosin HCl 0.8 mg PO DAILY 08/01/18 Medications Added to Medication List This Visit Category Date Time Status Amlodipine [Norvasc] Med 08/02/18 10:00 Active 7.5 mg PO DAILY Fluconazole Suspension [Fluconazole] Med 08/02/18 12:27 Active 200 mg PO DAILY Lisinopril [Zestril] Med 08/02/18 10:00 Active 20 mg PO DAILY Oxycodone [Oxyir] Med 08/02/18 12:33 Active 10 mg PO Q4H PRN PRN Polyethylene Glycol 3350 [Miralax] Med 08/02/18 10:00 Active 17 gm PO DAILY Tolterodine Tartrate [Detrol LA] Med 08/02/18 10:00 Active 2 mg PO DAILY Primary Care Provider: Hilario Rodriguez DO Referring Provider: Lyla Edward MD - Problem List (1) Laryngeal cancer Status: Chronic Comment: diagnosed February of 2016 on biopsy of the epiglottis and false vocal cord (2) Cancer of left lung Status: Acute Qualifiers: Lung location: upper lobe of lung Qualified Code(s): C34.12 - Malignant neoplasm of upper lobe, left bronchus or lung (3) Lesion of lumbar spine Status: Acute
--- NOTE | 2018-08-02 17:02 | MRI_ITS ---
HISTORY: Lung cancer, metastatic disease to bone, back pain COMPARISON: CT chest, MR cervical and lumbar spine performed same day. TECHNIQUE: Multisequence multiplanar MR imaging of the thoracic spine was performed per department protocol without and with 14 mL Dotarem IV gadolinium. # of images incl. paperwork: 226 FINDINGS: Large area of signal abnormality involving the T3 vertebral body extending into the left pedicle as seen by decreased signal on T1 and hyperintense signal on T2 and STIR, and robust enhancement following contrast administration compatible with metastatic disease. Similar signal abnormality involving the T2 vertebral body with extension into the right pedicle and abnormal enhancement particularly within the right pedicle also representing metastatic focus. No other abnormal enhancement or signal abnormality to suggest additional foci of metastatic disease. There are benign osseous hemangiomas within the T9 and T10 vertebral bodies. There is a subacute moderate-sized Schmorl's node of the T12 vertebral body with up to 50% loss of central height which demonstrates enhancement along the margins of the Schmorl's node. Small Schmorl's node inferior endplate of T6 with mild focal enhancement. Thoracic alignment is preserved. No acute fracture or subluxation. Old moderate T8 compression fracture with 50% loss of central height. Old inferior T6 vertebral body compression fracture with up to 40% loss of central height. T12 and L1 large Schmorl's nodes with 50% loss of central height. No significant anterior marginal osteophytes. No significant disc space narrowing. Thoracic cord is normal in caliber, morphology, and signal characteristics. No abnormal enhancement. Throughout the thoracic spine, no significant disc bulges or disc protrusions. No canal or foraminal stenosis. Partially seen large left upper lobe lung mass.Paravertebral soft tissues show no gross signal abnormalities. MRI/Spine Thoracic W/WO Contrast IMPRESSION: 1. Metastatic disease involving the T3 and T2 vertebra as described above without pathologic fracture. 2. Benign osseous hemangiomas within the T9 and T10 vertebral bodies. 3. No canal or foraminal stenosis of the thoracic spine. 4. No acute compression fractures. Multiple old compression fractures as described. at 0306 Reported and signed by: Devaughn Garcia MD Electronically Signed: Devaughn Garcia MD at 3:05 EDT Tel , Service support ,
--- NOTE | 2018-08-02 17:02 | CT_ITS ---
HISTORY: Laryngeal cancer, history of radiation esophagitis. Throat pain. COMPARISON: CT chest performed that same time. CT neck 03/02/2016. PET CT 04/10/2017 TECHNIQUE: Helical CT axial images are obtained from the base of skull through the thoracic inlet with 100ml of Isovue 300 intravenous contrast. Multiplanar reconstruction. A radiation dose optimization technique was used for this scan. # of images incl. paperwork: 328 FINDINGS: AERODIGESTIVE: Interval total laryngectomy. Tracheostomy tube in place. Small focus of questionable focal asymmetry versus postoperative change along the right anterior aspect of the infrahyoid airway best seen on series 3 image 49. Nasopharynx has a normal appearance. No abnormal enhancement is seen within the postoperative bed. Tongue base has a normal appearance. LYMPH NODES: No abnormal cervical lymphadenopathy. NECK GLANDS: Unremarkable bilateral parotid and submandibular glands. Note that the submandibular glands are somewhat atrophied when compared to February 2016 exam compatible with history of radiation. Portions of the residual thyroid gland is unremarkable. SOFT TISSUES: The neck and facial soft tissues show no cellulitic changes or abnormal fluid collections. SKULL BASE: Imaged portions of the paranasal sinuses and mastoid air cells are essentially clear. VASCULAR: Carotid vasculature shows moderate atherosclerotic changes at the carotid bifurcations without occlusion or high-grade stenosis of bilateral ICAs. No contrast opacification of the left vertebral artery. Normal-appearing right vertebral artery. Normal origin of the great vessels. LUNG APICES: The visualized lung apices demonstrate partially seen large left upper lobe solid mass. Please refer to CT chest performed at same time for further detail. BONES: No destructive lytic or blastic osseous lesions. Mild cervical spine degenerative changes. CT/Soft Tissue Neck WITH Contrast IMPRESSION: 1. Status post total laryngectomy. Tracheostomy tube in place. 2. Small focus of mild asymmetry right anterior aspect of the resection bed as described above without abnormal enhancement. This may be postoperative in nature. Nevertheless, follow-up with PET/CT may be more helpful for evaluation of the neck for residual/recurrent neoplasm. 3. No abnormal cervical lymphadenopathy. 4. Partially seen left upper lobe pulmonary mass, please refer to CT chest performed at same time for further detail. Individualized dose optimization techniques were used for this CT. at 2310 Reported and signed by: Devaughn Garcia MD Electronically Signed: Devaughn Garcia MD at 23:09 EDT Tel , Service support ,
--- NOTE | 2018-08-02 17:02 | CT_ITS ---
HISTORY: History of laryngeal cancer and lung cancer COMPARISON: CT chest 01/17/[address] 04/10/2017 TECHNIQUE: Helical CT axial images of the thorax with 100ml of Isovue 300 intravenous contrast. Multiplanar reconstruction. A radiation dose optimization technique was used for this scan. # of images incl. paperwork: 861 FINDINGS: LUNGS: Marked interval increase size of left upper lobe mass which is confluent with the left suprahilar region, measuring 4.0 x 5.6 x 5.5 cm in greatest TV/AP/CC dimensions. There is encasement and severe narrowing of the left upper lobe segmental pulmonary artery at the level of the hilum. Mild bibasilar subsegmental atelectasis. Mild centrilobular pulmonary emphysema. Mild scarring right middle lobe and superior segment left lower lobe. No additional pulmonary masses or suspicious nodules. MEDIASTINUM: Other than direct extension of right upper lobe mass into the right hilum as described, the remainder of the mediastinum demonstrates no abnormal lymphadenopathy. No right hilar lymphadenopathy. There has been interval laryngectomy with placement of tracheostomy tube. PLEURA: Small left pleural effusion. No right pleural effusion. No pneumothorax. CARDIAC: Normal heart size. Small pericardial effusion. VASCULAR: Thoracic aorta is normal in caliber without aneurysm. Moderate ASVD. The pulmonary vasculature demonstrates no significant dilatation. CHEST WALL: Chest wall is intact. No abnormal axillary lymphadenopathy. BONES: No suspicious osseous lytic or blastic lesions seen. Several old thoracic vertebral body compression deformities. UPPER ABDOMEN: The visualized upper abdomen demonstrates partially seen enlargement of the left adrenal gland without definite focal mass, unchanged from prior exam.. No acute abnormality of the visualized upper abdomen. CT/Chest WITH Contrast IMPRESSION: 1. Marked interval increase size of left upper lobe mass now measuring 4.0 x 5.6 x 5.5 cm with direct extension into the left hilum with severe narrowing of the left upper lobe pulmonary artery. 2. No evidence for metastases within the remainder of the lungs. 3. Small left pleural effusion. Small pericardial effusion. 4. Mild bibasilar subsegmental atelectasis. 5. Pulmonary emphysema. 6. Interval laryngectomy as described with tracheostomy tube in place. 7. Please refer to MRI thoracic and lumbar spine performed on same day, for further detail regarding osseous metastases. Individualized dose optimization techniques were used for this CT. at 2339 Reported and signed by: Devaughn Garcia MD Electronically Signed: Devaughn Garcia MD at 23:38 EDT Tel , Service support ,
--- NOTE | 2018-08-02 17:02 | MRI_ITS ---
HISTORY: Metastatic disease to bone, lung cancer, history of laryngeal cancer, lumbar back pain COMPARISON: MRI thoracic spine and CT chest performed same day. TECHNIQUE: Post gadolinium-enhanced T1-weighted sagittal and axial MR imaging of the lumbar spine was performed with 14 ml of Dotarem IV gadolinium. # of images incl. paperwork: 70 FINDINGS: There is extensive abnormal enhancement involving the L5 vertebral body which extends into the left pedicle and left facet joints and then extends cranially with involvement of the left L4 facet joints and L4 left-sided pedicle. This results in complete obliteration of the left L4-L5 neural foramina. No pathologic fracture of the L5 vertebra. Lumbar alignment is preserved. Large old Schmorl's nodes of the L1 and L2 vertebra with up to 50% loss of central height. There is enhancement along the margins of the L1 Schmorl's node which is most likely reactive in nature and perhaps secondary to acute on chronic changes resulting in reactive changes accounting for the enhancement and less likely small metastatic deposit. Partially seen T11 benign osseous hemangioma, please refer to MRI thoracic spine performed same day for further detail. Lumbar alignment is within normal limits . No acute fracture or subluxation. No significant anterior marginal osteophytes. The conus is identified opposite the L1 level and is normal in morphology and signal characteristics. Severe disc space narrowing L4-L5. Moderate disc space narrowing L5-S1. Note that this study was probably performed for postgadolinium enhanced imaging. No significant canal stenosis throughout the lumbar spine. Aforementioned severe left foraminal stenosis at L4-L5 due to obliteration from extensive tumor involvement. Moderate left foraminal stenosis at L5-S1. No other significant neural foraminal stenosis. Post contrast imaging demonstrates no abnormal enhancement of the cauda equina or neural roots to suggest arachnoiditis or neuritis respectively. Paravertebral soft tissues show no gross signal abnormalities. MRI/Spine Lumbar WITH Contrast IMPRESSION: 1. Extensive metastatic disease involving the L5 vertebra and posterior elements with cranial extension into the facet joints of left L4 and left L4 pedicle. Obliteration of the left L4-L5 neural foramina with tumor. 2. Focal enhancement involving a large Schmorl's node of superior endplate of L1 which most likely is reactive in nature and represents acute on chronic Schmorl's node and less likely a small deposit of metastatic disease. 3. Please refer to MRI thoracic spine performed at same time for further detail regarding thoracic spine metastatic disease. at 0318 Reported and signed by: Devaughn Garcia MD Electronically Signed: Devaughn Garcia MD at 3:16 EDT Tel , Service support ,
--- NOTE | 2018-08-02 17:02 | MRI_ITS ---
HISTORY: Metastatic disease to bone, lung cancer, history of prior chemoradiation COMPARISON: CT chest performed same day and MRI thoracic spine same day TECHNIQUE: Multisequence multiplanar MR imaging of the cervical spine was performed per department protocol without and with 14 ml of Dotarem intravenous gadolinium. # of images incl. paperwork: 336 FINDINGS: Cervical alignment is within normal limits. No acute fracture or subluxation. Vertebral body heights are normal. Mild anterior marginal osteophytes at C5, C6, C7 levels. No abnormal marrow signal of the cervical spine to suggest metastatic disease. Fatty marrow changes suggestive of prior radiation treatment. Moderate discogenic endplate marrow changes at the C5-C6 level. Abnormal marrow signal within the T2 and T3 vertebral bodies compatible with metastatic disease, please refer to MRI thoracic spine performed at same time for further detail. The visualized posterior fossa is normal in signal. Cervicomedullary junction and cervical cord are normal in caliber, morphology, and signal characteristics without abnormal enhancement. Moderate disc space narrowing at C5-C6 and C6-C7 levels. All the cervical disks are desiccated. C2-3: A 2 mm central disc protrusion mildly effacing the ventral thecal sac without overall canal stenosis. No foraminal stenosis. C3-4: 3 mm central disc protrusion which combines with mild hypertrophic changes of the posterior elements results in mild canal stenosis. No neural foraminal stenosis. C4-5: 3 mm asymmetric to the right broad-based disc protrusion which combines with mild hypertrophic changes of the posterior elements results in moderate canal stenosis and moderate right foraminal stenosis. No left foraminal stenosis. C5-6: A 2 mm broad-based disc osteophyte complex resulting in mild canal stenosis and mild bilateral neural foraminal stenosis. C6-7: A 3 mm asymmetric to the right broad-based disc protrusion resulting in mild canal stenosis and moderate right foraminal stenosis. Moderate left foraminal stenosis. C7-T1: No disc bulges, disc protrusions, canal stenosis or neural foraminal stenosis. No abnormal enhancement is seen involving the cervical cord, nerve roots, or abnormal enhancing cervical osseous lesions or soft tissue lesions. Abnormal enhancement of T2 and T3 vertebral bodies will be discussed in more detail on the MR thoracic spine performed at same time. Paravertebral soft tissues show no gross signal abnormalities. MRI/Spine Cervical W/WO Contrast IMPRESSION: 1. No MR evidence for metastatic disease to cervical spine. 2. Metastatic disease of the T2 and T3 vertebral bodies, please refer to MRI thoracic spine performed at same time for further detail. 3. Varying degrees of canal and foraminal stenosis from the C3-C4 through the C6-C7 levels as described above, most pronounced at C4-C5. 4. Evidence of prior radiation treatment as demonstrated by fatty marrow changes of the cervical spine. at 0127 Reported and signed by: Devaughn Garcia MD Electronically Signed: Devaughn Garcia MD at 1:26 EDT Tel , Service support ,
[2018-08-02] MEDS: Acetaminophen 325 MG Tablet 650 MG PO (21:33)
[2018-08-03] VITALS (15 sets, daily range): BP systolic 98–145; BP diastolic 40–88; PULSE 81–99; RESP 12–18; TEMP 36.6–37.2; O2SAT 92–98
--- NOTE | 2018-08-03 | ASPIGT_PTH ---
PATIENT: AMPARO DE LEÓN LOC: MS3 U#:[id number] AGE/SX: 77/M ROOM: MS311 RE08/02/[address]: Dr. Crista Camargo DO : 1940 BED: 1 DIS: 08/05/2018 SPEC #: [id number] RECD: 08/03/18 11:42 STATUS: ANDRIA REObey #: [id number] GILLIAN: 08/03/18 00:[address]: Crista Camargo DEPT: SURGICAL PATHOLOGY RECD BY: Kathy Leija ENTERED: 08/03/18 13:58 SP TYPE: ASP RAD OTHR DR: MD Dr. Devang Meredith MD Dr. Mark Stutzman, DO Dr. Robert D Cebul, MD Dr. Steve Walston, DO Tyra Schlabach, RETAIL SALES ASSOCIATE SEASONAL-C Tissues: A - Vertebra, NOS Procedures: FNA Specimen Adequacy Special Stain Group II Surgery Specimen Level IV Imprint (control) HEADER OPERATION: CT guided lumbar mass biopsy PRE-OP DIAGNOSIS: Throat cancer, mets to spine/bone TISSUE SUBMITTED: Left paraspinal mass L5, 18 gauge core x2 MICROSCOPIC DIAGNOSIS Left paraspinal mass, CT-guided core biopsy: Metastatic non-small cell carcinoma, favor squamous cell carcinoma. SJ:lisa 08/06/18 COMMENT The specimen is evaluated at the time of biopsy by Dr. Barros. Immediate Evaluation = Malignant cells present. Immunohistochemistry ([id number]) supports the above diagnosis. As per EMR, the patient has history of laryngeal carcinoma and also lung mass. Correlation with clinical, radiologic findings and appropriate follow up are necessary. Case has been reviewed in consultation with Dr. Maya who concurs with the above diagnosis. IDC:AM MICROSCOPIC DESCRIPTION Slides are reviewed. GROSS DESCRIPTION Received in fixative is one container labeled with the patient's name and designated paraspinal mass L5, CT-guided core biopsy. The specimen consists of multiple elongated fragments of tolentino soft tissue that in aggregate measure 1 x 0.1 x <0.1 cm. The specimen is totally submitted in one cassette. / SJ:rg 08/03/18 TC:[address] [facility]: [id number], [id number] ADDENDUM ADDENDUM ADDENDUM ADDENDUM ADDENDUM ADDENDUM ADDENDUM 08/27/2018 10:10 ADDENDUM 08/27/2018 10:10 ADDENDUM 08/27/2018 10:10 ADDENDUM 08/27/2018 10:10 ADDENDUM 08/27/2018 10:10 PD-L1 (KEYTRUDA) [facility] INTERPRETATION: Expression Tumor proportion score: 1% Please see complete report in e-chart or EMR for complete details
--- NOTE | 2018-08-03 | IMM_PTH ---
PATIENT: AMPARO DE LEÓN LOC: MS3 U#:[id number] AGE/SX: 77/M ROOM: MS311 RE08/02/[address]: Dr. Crista Camargo DO : 1940 BED: 1 DIS: 08/05/2018 SPEC #: [id number] RECD: 08/06/18 12:03 STATUS: ANDRIA REObey #: [id number] GILLIAN: 08/03/18 00:[address]: Crista Camargo DEPT: IMMUNOHISTOCHEMISTRY RECD BY: Arlen Perez ENTERED: 08/06/18 12:07 SP TYPE: IMMUNO OTHR DR: MD Dr. Devang Meredith MD Dr. Mark Stutzman, DO Dr. Robert D Cebul, MD Dr. Steve Walston, DO Tyra Schlabach, BUNDLING MACHINE OPERATOR-C Tissues: Vertebra, NOS Procedures: RCC (add) NAPSIN A (add) CK20 (add) CK5-6 (add) CK7 (add) CK8 (add) HEP PAR (add) P16 (add) TTF1 (add) Vimentin (add) Pankeratin (initial) P40 (add) PSAP (add) PHYSICIAN & [place] [id number] SPECIMEN INFORMATION: Tissue Source: Left paraspinal mass L5, CT-guided biopsy Clinical Info: Left paraspinal mass L5 Specimen Number: [id number] CPT code: 42205, 61327 x12 METHODOLOGY: Deparaffinized sections of prefer/formalin-fixed tissue or PAP/DQ stained slides are incubated with monoclonal/polyclonal antibodies/oligonucleotide probes. Localization is made via biotin free immunoperoxidase method. Appropriate controls are performed and reacted as expected. Results on target cell population are indicated in the following table: RESULTS: ANTIBODY / CLONE RESULT AE1-3 (AE1/AE3/PCK26) positive CK7 (OV-TL12/30) negative CK8 (99utyxN55) positive, focal CK20 (KS20.8) negative Vimentin (V9) negative TTF-1 (8G7G3/1) negative Napsin A (Rabbit Polyclonal) negative HepPar (OCh1E5) negative RCC (PN-15) negative PSAP (PASE/4LJ) negative CK5-6 (D5 & 1684) positive P40 (BC28) positive P16 (E6H4) positive, patchy and focal (negative for block staining) These tests were developed and their performance characteristics determined by [facility]. They may not have been cleared or approved by the U.S. Food and Drug Administration. The FDA has determined that such clearance or approval is not necessary. INTERPRETATION: Left paraspinal mass, CT-guided core biopsy: Metastatic non-small cell carcinoma, favor squamous cell carcinoma. SJ:lisa 08/07/18 Case has been reviewed in consultation with Dr. Maya who concurs with the above diagnosis. IDC:AM
--- NOTE | 2018-08-03 05:58 | PCM.PN.SRG ---
Patient Problems: Active and Suspected Problems (Last Reviewed 03/16/18 @ 12:42 by Jacki Venegas RESIDENTIAL DOOR UNIT INSTALLER-C) Upper GI bleeding (Acute) Cancer of left lung (Acute) Cancer, metastatic to bone (Acute) Lesion of lumbar spine (Acute) Subjective: Pt states he has not had any further hematemesis, denies current abdominal pain - Physical Exam Abdomen: Soft, Non Tender Vital Signs Temp Pulse Resp BP Pulse Ox 97.8 F 81 18 98/46 L 94 08/03/18 03:36 08/03/18 03:36 08/03/18 03:36 08/03/18 03:36 08/03/18 03:36 Oxygen Delivery Method Room Air Weight: 150 lb 5.684 oz Body Mass Index (BMI) 22.1 Intake and Output for Last 24 Hours 08/01/18 08/02/18 08/03/18 23:59 23:59 23:59 Intake Total 2658 / 2658 829 / 829 Output Total 1410 / 1410 925 / 925 Balance 1248 / 1248 -96 / -96 Medical Necessity - Tobacco Use Smoking Status: Former smoker Tobacco Use: Non-smoker Assessment/Plan All Active Problems (Last Reviewed 03/16/18 @ 12:42 by Jacki Venegas, RESIDENTIAL DOOR UNIT INSTALLER-C) Upper GI bleeding (Acute) Cancer of left lung (Acute) Cancer, metastatic to bone (Acute) Lesion of lumbar spine (Acute) Chest congestion (Acute) Status post insertion of percutaneous endoscopic gastrostomy (PEG) tube (Resolved) Odynophagia (Acute) Neutropenia (Acute) Hypokalemia (Acute) Hypomagnesemia (Acute) Urine retention (Acute) Abnormal cardiac enzyme level (Resolved) Syncope (Resolved) Labs pending Pt with suspected monilial/reflux hemorrhagic esophagitis and hiatal hernia Recommend medical treatment with 3 weeks oral fluconazole and ongoing PPI Will convert to oral pantoprazole Will start oral diet At this point he appears stable and I will sign off, recontact as needed please
--- NOTE | 2018-08-03 06:03 | PN.SURG_ITS ---
Patient Problems: Active and Suspected Problems (Last Reviewed 03/16/18 @ 12:42 by Jacki Venegas ENVIRONMENTAL ENGINEERING ASSISTANT-C) Upper GI bleeding (Acute) Cancer of left lung (Acute) Cancer, metastatic to bone (Acute) Lesion of lumbar spine (Acute) Subjective: Pt states he has not had any further hematemesis, denies current abdominal pain - Physical Exam Abdomen: Soft, Non Tender Vital Signs Temp Pulse Resp BP Pulse Ox 97.8 F 81 18 98/46 L 94 08/03/18 03:36 08/03/18 03:36 08/03/18 03:36 08/03/18 03:36 08/03/18 03:36 Oxygen Delivery Method Room Air Weight: 150 lb 5.684 oz Body Mass Index (BMI) 22.1 Intake and Output for Last 24 Hours 08/01/18 08/02/18 08/03/18 23:59 23:59 23:59 Intake Total 2658 / 2658 829 / 829 Output Total 1410 / 1410 925 / 925 Balance 1248 / 1248 -96 / -96 Medical Necessity - Tobacco Use Smoking Status: Former smoker Tobacco Use: Non-smoker Assessment/Plan All Active Problems (Last Reviewed 03/16/18 @ 12:42 by Jacki Venegas, ENVIRONMENTAL ENGINEERING ASSISTANT-C) Upper GI bleeding (Acute) Cancer of left lung (Acute) Cancer, metastatic to bone (Acute) Lesion of lumbar spine (Acute) Chest congestion (Acute) Status post insertion of percutaneous endoscopic gastrostomy (PEG) tube (Resolved) Odynophagia (Acute) Neutropenia (Acute) Hypokalemia (Acute) Hypomagnesemia (Acute) Urine retention (Acute) Abnormal cardiac enzyme level (Resolved) Syncope (Resolved) Labs pending Pt with suspected monilial/reflux hemorrhagic esophagitis and hiatal hernia Recommend medical treatment with 3 weeks oral fluconazole and ongoing PPI Will convert to oral pantoprazole Will start oral diet At this point he appears stable and I will sign off, recontact as needed please
[2018-08-03 06:30] LABS: Hematocrit 31.5 % (40-54); Hemoglobin 10.1 g/dl (13.0-16.5); Mean Corp Hgb Conc 32.1 g/gl (32-36); Mean Corpuscular Hgb 28.3 pg (27.0-32.0); Mean Corpuscular Volume 88.2 fL (80-94); Mean Platelet Vol. 9.1 fl (6.2-12.0); Platelet Count 265 K/mm3 (150-450); RBC Distribution Width CV 14.8 % (11.6-14.6); RBC Distribution Width SD 46.5 fl (35.1-43.9); Red Blood Count 3.57 M/mm3 (4.6-6.2); Scan Indicated on CBC? Y/N NO; White Blood Count 5.5 K/mm3 (4.4-11.0)
[2018-08-03 06:41] LABS: Anion Gap 7 (5-15); BUN 11 mg/dL (7-18); BUN/Creat Ratio 13.7 RATIO (10-20); Calcium,Total 8.3 mg/dL (8.5-10.1); Chloride 108 mmol/L (98-107); EST Glomerular Filtration Rate 99 mL/min (>60); Est Glom Filt Rate - Afr Amer 120 mL/min (>60); Estimated Creatinine Clearance 75.78 ml/min; Glucose 72 mg/dL (74-106); Potassium 4.4 mmol/L (3.5-5.1); Sodium Level 140 mmol/L (136-145)
--- NOTE | 2018-08-03 09:15 | CT_ITS ---
PROCEDURE: CT guided biopsy of the destructive soft tissue mass along the left side of the L5 vertebrae. DATE OF EXAMINATION: August 03, 2018. INDICATION: Male, 77 years old. Metastatic laryngeal carcinoma. PHYSICIAN: Dr. Pedicelli. [place] RADIATION DOSAGE (If Supplied By Facility): CTDIvol = ( 27.5 ) mGy, DLP = ( 311.21 ) mGycm. Individualized dose optimization techniques were utilized. CONSENT: The risks, benefits and alternatives to the procedure were explained to the patient, and the patient agreed to the procedure and signed the consent. SEDATION: Conscious sedation was performed. The patient received 2 mg of Versed and 50 mcg of fentanyl intravenously. Conscious sedation was started 11:10 AM and terminated at 11:32 AM. The patient was independently monitored by the department nurse. STERILE BARRIER TECHNIQUE: The following sterile barrier precautions were used during the procedure: hand hygiene; use of 2% chlorhexidine aseptic; use of a cap, mask, sterile gown, sterile gloves, sterile full body drape, and a large sterile sheet. PROCEDURE/TECHNIQUE: (All elements of maximal sterile barrier technique followed, including US elements as applicable) The risks, benefits, and alternatives to the procedure were explained to patient, and the patient agreed to the procedure and signed a consent form for the procedure. A timeout was performed to confirm the patient's identity, the type of procedure, to be performed and the site of entry. The patient was in the [id number] decubitus position. The overlying skin was prepped and draped in usual sterile fashion. The left paralumbar mass was localized. Utilizing a 18-gauge core biopsy needle, 2 core biopsies were performed. The specimen was sent to the pathology for adequacy. CT/Biopsy/Inj or Needle Placement IMPRESSION: Successful CT-guided biopsy of the left L5 paravertebral mass. The patient tolerated the procedure well. Electronically Signed: Zacarias Ga, at 13:26 EDT , Service support ,
[2018-08-03] MEDS: amLODIPine 5 MG Tablet 7.5 MG PO (09:22)
[2018-08-03] MEDS: Pantoprazole Sodium 40 MG Tablet PO (09:22)
[2018-08-03] MEDS: guaiFENesin 1,200 MG Tablet 1200 MG PO ×2 (09:23→23:01)
[2018-08-03] MEDS: Lisinopril 20 MG Tablet PO (09:23)
[2018-08-03] MEDS: Polyethylene Glycol 3350 17 GM PACKET PO (09:23)
[2018-08-03] MEDS: Fluconazole Suspension 40 MG/ML 35 ML Bottle 200 MG PO (09:24)
[2018-08-03] MEDS: 0.9% Normal Saline 1,000 ML 100 ML IV (09:25)
[2018-08-03] MEDS: oxyCODONE 5 MG Tablet 10 MG PO ×4 (10:00→23:07)
--- NOTE | 2018-08-03 10:09 | CON.PCM_ITS ---
Date of Service: 08/02/18 Referring Provider: Dr. Raman RODRIGUES Diagnosis: Henri Garcia is a 77-year-old male who was diagnosed with a squamous cell carcinoma of the supraglottic larynx and treated with definitive concurrent chemoradiation (from 04/26/2016 - 06/27/2016) who appears to have been diagnosed with a local recurrence of disease and underwent complete laryngectomy (10/16/2017) and also was diagnosed with a left upper lobe lung cancer status post SBRT (2017). He now presents with progressive low back pain and left leg radiculopathy and has evidence for a large metastatic lesion involving L5 as well as apparent metastatic disease involving T2 and T3 with evidence of a 4 x 5.6 x 5.5 cm left upper lobe mass with extension directly into the left hilum. History of Present Illness: 03/15/2016: Patient was diagnosed with a supraglottic mass involving the vocal cords, biopsy of the mass proved positive for invasive squamous cell carcinoma which was p16 positive. 04/11/2016: PET scan was performed which demonstrated increased glucose metabolism defined in the anterior neck at the level of the laryngeal structures in the midline in the region of the preepiglottic space extending anteriorly towards the anterior commissure with a calculus in maximum SUV of 12. There is also focal increased glucose concentration demonstrated in the left mid medial hemithorax pulmonary parenchyma left upper lobe generating a calculated maximum SUV of 2.2 which fits borderline quantitative criteria for neoplasm the corresponding CT abnormality is measured at 1.8 cm. From 04/26/2016 - 06/27/2016: Received concurrent chemoradiation therapy with cisplatin. 09/19/2016: PET scan was performed which demonstrated focal increased glucose concentration in the left mid medial hemithorax pulmonary parenchyma left upper lobe generating a calculated maximum SUV of 5 compared to 2.2 on the previous scan dated 04/11/2016. The maximal diameter of this CT abnormality is 1.6 cm. There has been interval metabolic resolution of the prior to find laryngeal hypermetabolic focus. 10/11/2016: Patient underwent CT-guided biopsy of left upper lobe lung lesion and pathology demonstrated minute fragments of lung parenchyma tissue with mild interstitial fibrosis, this is negative for malignancy in the submitted specimen. 02/14/2017: Patient underwent FNA of a mid neck mass which was negative for malignant cells. 04/10/2017: PET scan was performed which demonstrated increased glucose meta bolism redemonstrated in the left upper medial hemithorax pulmonary parenchyma left upper lobe generating a current maximum SUV of 5.6 compared to 5 on the previous PET scan from 09/19/2016. The maximal diameter of this lesion is about 1.9 cm ap x 3 cm cc. Newly identified increased glucose concentration is manifest in the anterior neck at the level of the laryngeal structures adjacent to the anterior commissure generating a calculated maximum SUV of 7.3 with the maximal axial diameter of the CT structure at 1.5 cm, this warrants direct visualization or CT of the neck with contrast as there is symmetric increased glucose concentration contiguous with her cricopharyngeal musculature and this may represent physiologic distribution. Following the CT-guided biopsy attempt in September 2016 patient was lost to follow-up in [place]. The patient's family explained that he underwent a repeat laryngeal biopsy at in 2018 and was told that this pathology was different from the original laryngeal tumor and he subsequently underwent a complete laryngectomy in 10/16/2017. They also report that he had a left lung biopsy in early 2017 and was subsequently treated with SBRT to the left lung in September 2017. Since this time he has seen his surgeon and radiation oncologist at each 1 time but otherwise has not been followed by oncology. May 2018: Patient began having low back pain that he had attributed to a fall in January 2018. This has progressively worsened and he has been taking Aleve frequently. PCP also noted a potential large left-sided mass noted in the mandible and a CT neck was pursued as well as spine imaging for the back pain. 07/23/2018: CT chest abdomen without contrast was performed which demonstrated a chronic compression fracture of L1 and L2. Significant fecal retention noted through the colon. No evidence of left-sided ureter lysis or renal obstruction, there is mild atrophy of the right kidney, prominent distention of the bladder with enlarged prostate could represent urinary retention. No other abnormalities were noted. 08/01/2018: Patient presented to the emergency room with several day history of ongoing intractable nausea with vomiting as well as coffee ground melanotic emesis. 08/02/2018: EGD was performed which demonstrated upper GI bleeding secondary to erosive distal esophagitis and a 6 cm hiatal hernia. 08/02/2018: MRI of the cervical, thoracic, and lumbar spine was completed. This demonstrated evidence for metastatic disease involving the T3 and T2 vertebra, there is disease in the T3 vertebral body extending into the left pedicle and in the T2 vertebral body extending into the right pedicle. There is extensive abnormal enhancement involving the L5 vertebral body extending into the left pedicle and left facet joints which also extends cranially with involvement of the left L4 facet joint in L4 left-sided pedicle with resulting complete obliteration of the left L4-5 neural foramina, there is no pathologic fracture of L5. There is a large Schmorl's node of the L1 and L2 vertebra with up to 50% loss of height and enhancement along the margin is most likely reactive. There is a benign osseous hemangioma noted in T9 and T10. Cervical spine demonstrated no abnormalities. 08/02/2018: CT neck with contrast was performed. There has been interval total laryngectomy with a tracheostomy tube in place. There is a small focus of questionable asymmetry versus postoperative change along the right anterior aspect of the infrahyoid airway. No abnormal enhancement is seen within the postoperative bed. No abnormal cervical lymphadenopathy is noted. No other abnormalities are described. Could consider PET/CT for further evaluation of the small focal asymmetry. 08/02/2018: CT chest with contrast was performed and this demonstrated a marked interval increase in size of the left upper lobe mass which is confluent with the left suprahilar region and measures 4 x 5.6 x 5.5 cm in greatest dimensions. There is encasement and severe narrowing of the left upper lobe segmental pulmonary artery at the level of the hilum. There are no other additional pulmonary masses or suspicious nodules. There is no evidence for suspicious adenopathy involving the mediastinum. There is a small left pleural effusion and a small pericardial effusion. Pulmonary emphysema is noted. There are no suspicious osseous lytic or blastic lesions seen, several old thoracic vertebral body compression deformities are noted. No other evidence of disease is appreciated. Radiation Treatment History: 1) From 04/26/2016 - 06/27/2016: Received concurrent chemoradiation therapy with cisplatin, for supraglottic SCC. Treatment records not available at this time. 2) 09/2017: underwent lung SBRT to left upper lobe lung cancer per patient family. Treatment records not available at this time. Interval History: Patient was seen as an inpatient consult due to back pain and suspected metastatic disease recurrence. History was gathered from the patient as well as his family including his sister and son-in-law. Patient reports that about 11 months ago he began having mild back pain which intensified in May 2018 after sustaining a fall. The pain is in the low back focused mostly on the left and does radiate at times into his left thigh. He denies focal weakness. He does have bilateral cold feeling/may be numbness in the feet which is not new. He also reports over the last few months having a more difficult time with urination with a weaker stream, he was seen by urology and had a procedure to improve this but patient states this did not help. He currently has a catheter for urinary retention. Patient denies having shortness of breath. He does have persistent congestion in his chest. He presented after having hematemesis but reports no episodes while in the hospital. He denies having melena. Other than the low back he denies any other sites of pain. He denies headaches, vision changes, changes in cognition. He has a total laryngectomy with tracheostomy but swallows without difficulty. He does not have a PEG tube. He believes over the last year there has been some increase in the soft tissue mass involving his left neck/cheek area making it more difficult for him to eat, this does not cause pain. He denies having unexpected weight loss. He previously lived at home alone and believes he was able to take care of his daily needs but was having more difficulty recently. Patient denies having other problems or concerns at this time. I have reviewed the medical, surgical, and other pertinent history in details and have updated medication and allergy information in the electronic medical record. 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 and chemotherapy/radiation Peripheral vascular disease (Chronic) Radiation esophagitis (Chronic) Supralaryngeal cancer (Chronic) diagnosed February of 2016 on biopsy of the epiglottis and false vocal cord Alcohol abuse (Chronic) states he quit drinking in February of 2016 when he was diagnosed with Laryngeal cancer...also quit smoking Hypertension, essential, benign (Chronic) Difficulty chewing (Chronic) Hypokalemia (Acute) Hypomagnesemia (Acute) Urine retention (Acute) Lung Cancer Surgical History Status post insertion of percutaneous endoscopic gastrostomy (PEG) tube (Resolved) s/p PEG tube removal (Acute ~08/29/17) Social History - Tobacco Smoking Status Former smoker Social History - Living Arrangements Patients Living Arrangements Alone Home Medications Medication Instructions Recorded Lisinopril [Zestril] 20 mg PO DAILY 04/17/15 Amlodipine Besylate 7.5 mg PO DAILY 08/01/18 Guaifenesin [Mucinex] 1,200 mg PO BID 08/01/18 Ibuprofen [Advil Liqui-Gels] 400 mg PO Q4H PRN PRN 08/01/18 Oxybutynin Chloride [Ditropan Xl] 10 mg PO DAILY 08/01/18 Polyethylene Glycol 3350 [Miralax] 17 gm PO DAILY 08/01/18 Tamsulosin HCl 0.8 mg PO DAILY 08/01/18 Allergy/AdvReac Type Severity Reaction Status Date / Time No Known Allergies Allergy Verified 08/01/18 15:36 Review of Systems: A 12-point review of systems was completed and was negative except for what is noted in the HPI/Interval History and by the nurse. Height/Weight/BMI: Height: 5 ft 9 in Weight: 150.4 lbs Vital Signs Temperature 98.1 F 08/03/18 09:15 Temperature Source Oral 08/03/18 09:15 Pulse Rate 99 08/03/18 09:15 Pulse Strength Weak (1+) 08/02/18 07:30 Respiratory Rate 18 08/03/18 09:15 Respiratory Effort 08/02/18 21:44 Respiratory Depth Normal 08/02/18 21:44 Respiratory Pattern Normal 08/02/18 21:44 Blood Pressure 116/67 08/03/18 09:15 Blood Pressure Mean 83 08/03/18 09:15 Blood Pressure Source Monitor 08/03/18 09:15 Blood Pressure Position Semi-Fowlers 08/03/18 09:15 Blood Pressure Location Right Arm 08/03/18 09:15 Baseline BP 125/71 08/02/18 11:44 Pulse Ox 95 08/03/18 09:15 Oxygen Delivery Method Room Air 08/03/18 09:15 Physical Exam: ECO KARNOFSKY SCORE: 60% CONSTITUTIONAL: Well-developed, well-nourished, and in no apparent distress. HEENT: Mucous membranes moist. No evidence of thrush or lesions within the visualized oropharynx or oral cavity. No trismus. Pupils are equal, round, and reactive to light and accommodation. Extraocular movements are intact. Sclerae are anicteric. NECK: Supple,with no thyromegaly, and non-tender. Trachea midline. No cervical or supraclavicular adenopathy noted. CARDIAC: Regular rate and rhythm. Normal S1, S2. No murmurs, rubs, or gallops. PULMONARY/CHEST: Lungs are clear to auscultation and percussion bilaterally. No wheezes, rhonchi, or crackles noted. No increased work of breathing. ABDOMINAL: Abdomen soft, non-tender, non-distended. No hepatomegaly. Normoactive bowel sounds in all four quadrants. No guarding, rebound. BACK: Straight and aligned. No CVA tenderness. Axial skeleton non-tender to percussion. EXTREMITIES: Full range of motion in all four extremities, with normal strength equally and symmetrically. No evidence of edema. No clubbing. SKIN: Skin is warm and dry. No rashes or lesions evident. NEUROLOGICAL EXAM: Alert and oriented x 3. Cranial nerves II through XII are grossly intact. No focal neurological deficit. Speech is fluent. There is no upper or lower extremity sensory deficit or motor deficit. Muscle strength is 5/5 in all muscle groups. Gait and posture are steady. There are no abnormal cerebellar signs. PSYCHIATRIC: Appropriate mood and affect for the clinical situation. Imaging: As per HPI Laboratory Data: Laboratory Tests 08/03/18 06:05 WBC 5.5 Hgb 10.1 L Plt Count 265 CMP, CBC, Coags 08/02/18 unremarkable Assessment/Plan: Henri Garcia is a 77-year-old male who was diagnosed with a squamous cell carcinoma of the supraglottic larynx and treated with definitive concurrent chemoradiation (from 04/26/2016 - 06/27/2016) who appears to have been diagnosed with a local recurrence of disease and underwent complete laryngectomy (10/16/2017) and also was diagnosed with a left upper lobe lung cancer status post SBRT (2017). He now presents with progressive low back pain and left leg radiculopathy and has evidence for a large metastatic lesion involving L5 as well as apparent metastatic disease involving T2 and T3 with evidence of a 4 x 5.6 x 5.5 cm left upper lobe mass with extension directly into the left hilum. I reviewed in detail the imaging findings with the patient and his family. In summary there is a very large left upper lobe mass in the same location as his previously identified lung cancer likely representing lung cancer recurrence and there is evidence of bone metastases at T2 and T3 as well as L5. Clinically his symptoms of mid/left low back pain extending to the left thigh are consistent with the L5 disease and foraminal narrowing, it is unclear if he has urinary retention related to this disease or if this is a separate issue but may be related. There are no neurologic symptoms and pain is under much better control currently. I reviewed that these findings are highly suggestive of lung cancer recurrence and likely metastatic disease from the lung cancer primary. CT head and neck demonstrated no evidence of disease recurrence from the previously treated supraglottic laryngeal cancer. I discussed my recommendations to pursue CT-guided biopsy of the L5 metastasis to confirm metastatic disease and also confirm origin. I reviewed that if this is found to be stage IV lung cancer the mainstay for treatment will be systemic therapy and he will be meeting with medical oncology in the near future to discuss options. I reviewed the use of radiation therapy for bone metastases with goals of palliating symptoms and preventing symptom worsening or neurologic compromise. We will attempt to obtain all outside treatment records to confirm the history gathered from his family. He will be discharged tomorrow to rehab and current plan is for him to return on 08/06/[address] simulation to initiate treatment planning. GI bleeding appears to have resolved and his hemoglobin is stable, he is being managed on Protonix. I reviewed the logistics of radiation therapy including CT simulation, treatment planning, and daily fractionated treatment delivery with weekly physician visits. The risks, benefits, and alternatives to palliative radiation therapy were discussed in detail and all questions were addressed. I reviewed the potential acute and chronic toxicities from palliative lumbar spine radiation and this would include but is not limited to fatigue, skin irritation, reduced blood count, pain flare, diarrhea/loose stool, bone weakening/fracture risk, rare risk of nerve damage or secondary cancer formation. Following our discussion the patient was in agreement to pursue biopsy as well as planned for palliative radiation therapy and informed consent was obtained. We will plan to have him return to our department on 08/06/[address] simulation. Thank you for allowing me to participate in the management and care of your patient. If I may answer any questions in the interim, please do not hesitate to contact me at any time. Jason Santos DO, MS Part Maker, Department of Radiation Oncology [facility]
[2018-08-03] MEDS: Ondansetron 4 MG/2 ML Vial IV (11:08)
[2018-08-03] MEDS: fentaNYL 100 MCG/2 ML Ampul IV (11:10)
[2018-08-03] MEDS: Midazolam 2 MG/2 ML Syringe IV (11:10)
--- NOTE | 2018-08-03 11:31 | PCA ---
pt off floor
--- NOTE | 2018-08-03 12:03 | NURSING ---
REPORT CALLED TO MARK ANTHONY SÁNCHEZ FOLLOWING CT BIOPSY. AWARE VS AT [id number] AND 1232. PT RETURNS TO FLOOR VIA TRANSPORTER ON BED.
--- NOTE | 2018-08-03 12:12 | CASEMGMT ---
Social Work Note URMILA updated that pt's son in law Malcolm is requesting to speak to this worker. URMILA met with pt Malcolm, introduced self and role at [facility]. Pt is currenrly off floor for procedure. Malcolm states that the oncologist updated him that pt does have stage 4 cancer. SW provided support to Malcolm. Malcolm states that the plan, he thinks, is for pt to go to TCU Monday. Malcolm asked then what the next steps will be for pt. URMILA confirmed with Malcolm that pt is able to go to TCU Monday and that they have a bed on hold for pt and physician is aware of discharge plan. URMILA informed Malcolm that it was mentioned that pt will be going to [facility] then on Monday for Palliative Care radiation. Malcolm confirms that that is the plan. URMILA informed Malcolm that once pt is on TCU and receives his Palliative Radiation there will be a SW on TCU that will be able to assist pt with the next step from TCU. URMILA spoke with Malcolm regarding [facility], Patient Portal Representative at SNF,skilled at different SNF and Palliative Care/Hospice. URMILA again though informed Malcolm that it is too soon to tell what pt's next step will be once pt discharges from TCU but again stated that there will be a SW on TCU that will be able to assist pt and Malcolm on pt's next transition from TCU. URMILA educated Malcolm on private pay at [facility] and SNF and also Hospice referral process and the option to go to SNF with Hospice in the event pt refuses further treatment later on. URMILA informed Malcolm that this worker is available till about 3:30pm today but there is a SW on Monday that will be available to talk to Malcolm if he has further questions. Malcolm states understanding and thanked this worker. SW provided support to Malcolm throughout the entire conversation and again reiterated that there will be a SW on TCU that will continue to work with pt. URMILA also informed Malcolm that there will be weekly family meetings on TCU where pt's family is able to meet with staff on TCU and discuss pt's continued care. Malcolm states understanding. URMILA placed a call to Melinda in TCU, left message, confirming that pt will be discharged to TCU Monday and that pt will go to [facility] on Monday to begin Palliative radiation. Green sheet on chart. Plan: TCU Monday Marcela Link FARM MACHINERY SET UP MECHANIC, HEAD OF PHYSICS
[2018-08-03] MEDS: Tolterodine Tartrate 2 MG CAP.SA PO (12:34)
--- NOTE | 2018-08-03 15:55 | PCM.PN.BLA ---
Progress Note Biopsies show esophagitis and mild gastritis, H pylori negative. No obvious yeast However, the pt was felt to have oral thrush and he had plagues that appeared c/w paul so I recommend oral diflucan at least for a short course of treatment R Cebul
--- NOTE | 2018-08-03 17:54 | PCM.PROGNOTE ---
Patient Problems: Active and Suspected Problems (Last Reviewed 03/16/18 @ 12:42 by STAN Medina) Upper GI bleeding (Acute) Cancer of left lung (Acute) Cancer, metastatic to bone (Acute) Lesion of lumbar spine (Acute) Subjective: Afebrile, vital signs stable, 92 to 94% saturation on room air. Complaining of being hungry this morning and was placed on a full liquid diet by Dr. Cho which she is tolerating well. All lab and imaging was personally reviewed. The white blood cell count is normal at 5.5 today. Hemoglobin is stable at 10.1. Platelets are within normal limits. The creatinine today is 0.8, down from 1.14 at admission. Serum calcium corrected for hypoalbuminemia is within normal limits. There were no bony metastasis in the cervical spine. The thoracic MRI revealed bone metastasis in T2 and T3. The lumbar spine MRI with contrast confirmed the bone metastasis in L4 and L5. CT of the chest with contrast showed an enlarging left upper lobe mass. Soft tissue CT of the neck showed a small focus of mild asymmetry in the right anterior aspect of the resection bed without abnormal enhancement, possibly postoperative in nature but a PET/CT was recommended to further evaluate this area. In addition to being hungry he complained of some difficulty with swallowing and a consult for speech therapy was put in. He told me that the Oxy IR has helped somewhat with the pain and he looked comfortable. Speech therapy after evaluation recommended and unrestricted p.o. diet. They did not feel he was at risk for aspiration. The patient was seen in consultation by Dr. Santos from radiation oncology today and I reviewed his consult. CT simulation scheduled for Monday. He went for a biopsy of the L% vertebral mass today with IR Biopsies of the esophagus and stomach showed esophagitis and mild gastritis. H. pylori was negative. There was no obvious yeast. He did have plaques that appear to be consistent with Lina at the time of the EGD. Objective: - Physical Exam General: Alert, Oriented x3, Cooperative HEENT: Atraumatic, Normocephalic, - - the left neck is indurated and brawny.....no definite mass is palpated, the right neck is much softer...likely due to previous radiation Oral: No Gingival or Mucosal Lesions/ Ulcerations, Dry Mucosa, - - white coating on the tongue - appears to be thrush Neck: No JVD, Negative Carotid Bruits Lungs: Clear to auscultation Cardiovascular: Regular rate, Regular Rhythm, Normal S1, Normal S2, No murmurs, No rub noted, No Gallop Abdomen: Bowel Sounds Present, Soft, Non Tender, Non-Distended Extremities: No clubbing, No cyanosis, No edema Skin: No breakdown Lymphatic: - - no supraclavicular adenopathy appreciated Psych/Mental Status: Appropriate - Physical Exam Vital Signs Temp Pulse Resp BP Pulse Ox 98.5 F 88 18 126/72 H 92 08/03/18 15:15 08/03/18 15:15 08/03/18 15:15 08/03/18 15:15 08/03/18 15:15 Oxygen Flow Rate (L/min) [5] 4 Oxygen Flow Rate (L/min) [4] 4 Oxygen Flow Rate (L/min) [3] 4 Oxygen Flow Rate (L/min) [2] 4 Oxygen Delivery Method [5] Nasal Cannula Oxygen Delivery Method [4] Nasal Cannula Oxygen Delivery Method [3] Nasal Cannula Oxygen Delivery Method [2] Nasal Cannula Oxygen Delivery Method [1 ( Room Air Initial Baseline)] Oxygen Delivery Method Room Air Weight: 150 lb 5.684 oz Body Mass Index (BMI) 22.1 Intake and Output for Last 24 Hours 08/01/18 08/02/18 08/03/18 23:59 23:59 23:59 Intake Total 2658 / 2658 1558 / 1558 Output Total 1410 / 1410 1325 / 1325 Balance 1248 / 1248 233 / 233 Laboratory Tests Past 24 Hrs 08/03/18 08/03/18 06:05 06:05 WBC 5.5 RBC 3.57 L Hgb 10.1 L Hct 31.5 L MCV 88.2 MCH 28.3 MCHC 32.1 RDW 14.8 H RDW Differential 46.5 H Plt Count 265 MPV 9.1 Sodium 140 Potassium 4.4 Chloride 108 H Carbon Dioxide 25.0 Anion Gap 7 BUN 11 Creatinine 0.80 Estim Creat Clear Calc 75.78 Est GFR (MDRD) Af Amer 120 Est GFR (MDRD) Non-Af 99 BUN/Creatinine Ratio 13.7 Glucose 72 L Calcium 8.3 L Medical Necessity - Tobacco Use Smoking Status: Former smoker Tobacco Use: Non-smoker Assessment/Plan All Active Problems (Last Reviewed 03/16/18 @ 12:42 by Jacki Venegas, [employer]ELOPMENT [employer]NAGER-C) Upper GI bleeding (Acute) Cancer of left lung (Acute) Cancer, metastatic to bone (Acute) Lesion of lumbar spine (Acute) Chest congestion (Acute) Status post insertion of percutaneous endoscopic gastrostomy (PEG) tube (Resolved) Odynophagia (Acute) Neutropenia (Acute) Hypokalemia (Acute) Hypomagnesemia (Acute) Urine retention (Acute) Abnormal cardiac enzyme level (Resolved) Syncope (Resolved) Impressions 1. UGI bleed - esophagitis and gastritis on the biopsies. No ulcer. Favor Ifeoma Aguilar tear 2. Hx of laryngeal CA - S/P laryngectomy 3. hx of lung CA - a primary lung CA 4. new bone metastasis in the lumbar spine at L5 and in the Thoracic spine at T2, T3. 5. S/P tracheostomy 6. intractable back pain due to the L5 bone metastasis with extension into the left foramen causing pain radiating into the Left leg 7. former nicotine and alcohol dependence 8. anemia due to blood loss +/- CA 9. HTN 10. possible recurrent laryngeal CA in the left neck - ruled out on CT neck 11. thrush with some painful swallowing - possible esophageal candidiasis...no yeast obvious on the biopsy but with plaques in the esophagus - CMV? 12. BPH with urine retention - urinating every hour and does not feel as though he is emptying his bladder continue the Diflucan and get a scraping of the tongue for fungal stain and culture CMV IGG and I[facility] TCU on Monday and CT simulation on Monday await the path results on the L5 bone biopsy DC the IV fluids if tolerating full liquids continue the Oxy IR for pain....if not with good relief consider changing to a Fentanyl patch or adding a long acting opiate until the tumor shrinks with the radiation Code Visit Inpatient E&M: 22805 Subs Hosp L2
[2018-08-04 05:24] VITALS: BP 98/55; PULSE 78; RESP 18; TEMP 37.3; O2SAT 94
[2018-08-04 07:57] VITALS: O2SAT 92
[2018-08-04 07:58] VITALS: BP 102/61; PULSE 88; RESP 16; TEMP 37.3; O2SAT 93
[2018-08-04] MEDS: oxyCODONE 5 MG Tablet 10 MG PO (08:05)
[2018-08-04] MEDS: Polyethylene Glycol 3350 17 GM PACKET PO (10:40)
[2018-08-04] MEDS: Pantoprazole Sodium 40 MG Tablet PO (10:40)
[2018-08-04] MEDS: Finasteride 5 MG Tablet PO (10:40)
[2018-08-04] MEDS: amLODIPine 5 MG Tablet 7.5 MG PO (10:40)
[2018-08-04] MEDS: Tamsulosin HCl 0.4 MG Capsule PO ×2 (10:40→18:13)
[2018-08-04] MEDS: guaiFENesin 1,200 MG Tablet 1200 MG PO ×2 (10:40→21:16)
[2018-08-04] MEDS: Fluconazole Suspension 40 MG/ML 35 ML Bottle 200 MG PO (10:41)
[2018-08-04 10:49] VITALS: BP 121/59; PULSE 93
[2018-08-04] MEDS: 0.9% NaCl Peripheral Flush Adult/Peds IV ×2 (11:42→13:42)
[2018-08-04] MEDS: proMETHazine 25 MG/ML Syringe 12.5 MG IV ×2 (11:42→20:20)
[2018-08-04] MEDS: oxyCODONE HCl Cr 10 MG Tablet PO ×2 (13:39→21:16)
[2018-08-04] MEDS: 0.9% Normal Saline 1,000 ML 80 ML IV (13:45)
[2018-08-04 14:26] VITALS: BP 117/59; PULSE 82; RESP 16; TEMP 37.1; O2SAT 96
--- NOTE | 2018-08-04 17:12 | PCM.PROGNOTE ---
Patient Problems: Active and Suspected Problems (Last Reviewed 03/16/18 @ 12:42 by Jacki Venegas NP-C) Upper GI bleeding (Acute) Cancer of left lung (Acute) Cancer, metastatic to bone (Acute) Lesion of lumbar spine (Acute) Subjective: Afebrile, vital signs stable, 93 to 96% saturated on room air. Poor oral intake. Urine in the Bautista bag is dark yellow/orange Started having bilious vomit this AM.....improved after Phenergan. He tells me that the Oxycodone is not very effective and he still has 7/10 pain. Objective: PHYSICAL EXAM: GENERAL: alert, Cooperative, NAD, sitting in the bedside chair but asking to go back to bed ORAL: dry mucosa, tongue has a patchy white coating NECK: No JVD, no nuchal rigidity, trachea midline LUNGS: CTA, symmetric chest expansion, not tachypneic, trach site is without purulent discharge or periwound erythema HEART: RRR, Normal S1 and S2, no rub, no gallop ABDOMEN: soft, NT, ND, BS present, no guarding with palpation EXTREMITIES: no edema, no cyanosis, no calf tenderness SKIN: No rashes, no breakdown NEUROLOGIC: no focal neurologic deficits PSYCH: appropriate, normal affect, pleasant - Physical Exam Vital Signs Temp Pulse Resp BP Pulse Ox 98.7 F 82 16 117/59 L 96 08/04/18 14:26 08/04/18 14:26 08/04/18 14:26 08/04/18 14:26 08/04/18 14:26 Oxygen Flow Rate (L/min) [5] 4 Oxygen Flow Rate (L/min) [4] 4 Oxygen Flow Rate (L/min) [3] 4 Oxygen Flow Rate (L/min) [2] 4 Oxygen Delivery Method [5] Nasal Cannula Oxygen Delivery Method [4] Nasal Cannula Oxygen Delivery Method [3] Nasal Cannula Oxygen Delivery Method [2] Nasal Cannula Oxygen Delivery Method [1 ( Room Air Initial Baseline)] Oxygen Delivery Method Room Air Weight: 150 lb 5.684 oz Body Mass Index (BMI) 22.1 Intake and Output for Last 24 Hours 08/02/18 08/03/18 08/04/18 23:59 23:59 23:59 Intake Total 2658 / 2658 2286 / 2286 220 / 220 Output Total 1410 / 1410 1650 / 1650 1125 / 1125 Balance 1248 / 1248 636 / 636 -905 / -905 Laboratory Tests Past 24 Hrs 08/01/18 15:55 CMV IgG Ab Pending CMV IgM Ab Pending Medical Necessity - Tobacco Use Smoking Status: Former smoker Tobacco Use: Non-smoker Assessment/Plan All Active Problems (Last Reviewed 03/16/18 @ 12:42 by Jacki Venegas, VANNESA-C) Upper GI bleeding (Acute) Cancer of left lung (Acute) Cancer, metastatic to bone (Acute) Lesion of lumbar spine (Acute) Chest congestion (Acute) Status post insertion of percutaneous endoscopic gastrostomy (PEG) tube (Resolved) Odynophagia (Acute) Neutropenia (Acute) Hypokalemia (Acute) Hypomagnesemia (Acute) Urine retention (Acute) Abnormal cardiac enzyme level (Resolved) Syncope (Resolved) Impressions 1. UGI bleed - esophagitis and gastritis on the biopsies. No ulcer. Favor Ifeoma Aguilar tear 2. Hx of laryngeal CA - S/P laryngectomy 3. hx of lung CA - a primary lung CA....records have been requested from the institution that previously treated 4. new bone metastasis in the lumbar spine at L5 and in the Thoracic spine at T2, T3. S/P L5 bone bx on 08/03 5. S/P tracheostomy 6. intractable back pain due to the L5 bone metastasis with extension into the left foramen causing pain radiating into the Left leg 7. former nicotine and alcohol dependence 8. anemia due to blood loss +/- CA 9. HTN 10. possible recurrent laryngeal CA in the left neck - ruled out on CT neck 11. thrush with some painful swallowing - possible esophageal candidiasis...no yeast obvious on the biopsy but with plaques in the esophagus - CMV? 12. BPH with urine retention - urinating every hour and does not feel as though he is emptying his bladder 13. recurrent vomiting today 14. clinically dry Phenergan PRN.....if this is not effective consider trying Reglan IV fluids today recheck lab in the AM Add Oxycontin 10 mg q 12H to drug regimen for better pain control Fungal smear on tongue scrapings he is pending and so is the fungal culture Continue Diflucan for now If stable will be transferred to TCU tomorrow Code Visit Inpatient E&M: 54886 Subs Hosp L2
[2018-08-04 20:23] VITALS: BP 123/57; PULSE 90; RESP 16; TEMP 37.6; O2SAT 96
[2018-08-05] MEDS: 0.9% Normal Saline 1,000 ML 80 ML IV ×2 (02:20→14:32)
[2018-08-05 02:22] VITALS: BP 94/47; PULSE 87; RESP 16; TEMP 37.7; O2SAT 97
[2018-08-05 06:53] LABS: Anion Gap 9 (5-15); BUN 12 mg/dL (7-18); BUN/Creat Ratio 14.7 RATIO (10-20); Calcium,Total 8.4 mg/dL (8.5-10.1); Chloride 105 mmol/L (98-107); Creatinine, Serum 0.82 mg/dL (0.70-1.30); EST Glomerular Filtration Rate 97 mL/min (>60); Est Glom Filt Rate - Afr Amer 118 mL/min (>60); Estimated Creatinine Clearance 73.93 ml/min; Glucose 96 mg/dL (74-106); Magnesium 1.9 mg/dL (1.6-2.6); Potassium 4.3 mmol/L (3.5-5.1); Sodium Level 138 mmol/L (136-145)
[2018-08-05 07:07] LABS: Absolute Lymphocyte Count 0.88 X10^3/ul (0.83-4.51); Absolute Neutrophil Count 3.6 X10^3/uL (2.0-7.7); Basophil# 0.02 X10^3/uL; Basophil% 0.4 % (0-1); Eosinophil# 0.17 X10^3/uL; Eosinophils% 3.1 % (0-5); Hematocrit 29.8 % (40-54); Hemoglobin 9.7 g/dl (13.0-16.5); Lymphocyte # 0.88 X10^3/ul (4.0); Lymphocyte % 15.9 % (19-41); Mean Corp Hgb Conc 32.6 g/gl (32-36); Mean Corpuscular Hgb 28.4 pg (27.0-32.0); Mean Corpuscular Volume 87.4 fL (80-94); Monocyte# 0.83 X10^3/uL; Neutrophil # 3.63 X10^3/uL (2.7-7.7); Neutrophil % 65.2 % (47-70); Platelet Count 253 K/mm3 (150-450); RBC Distribution Width CV 14.9 % (11.6-14.6); RBC Distribution Width SD 48.2 fl (35.1-43.9); Red Blood Count 3.41 M/mm3 (4.6-6.2); White Blood Count 5.6 K/mm3 (4.4-11.0)
[2018-08-05 07:15] LABS: POSITIVE COUNT NO; POSITIVE DIFFERENTIAL NO; POSITIVE MORPHOLOGY NO
[2018-08-05] MEDS: oxyCODONE 5 MG Tablet 10 MG PO (07:35)
[2018-08-05] MEDS: Acetaminophen 325 MG Tablet 650 MG PO (08:16)
--- NOTE | 2018-08-05 08:17 | NURSING ---
trach care provided for patient at his request, sterile technique utilized. medicated for pain. denies further needs call light within reach. no distress noted.
[2018-08-05 08:22] VITALS: BP 110/59; PULSE 93; RESP 16; TEMP 37.3; O2SAT 93
[2018-08-05] MEDS: proMETHazine 25 MG/ML Syringe 12.5 MG IV (09:03)
[2018-08-05] MEDS: 0.9% NaCl Peripheral Flush Adult/Peds IV ×3 (09:04→19:46)
[2018-08-05] MEDS: Bisacodyl 10 MG Suppository RECTAL (09:32)
[2018-08-05] MEDS: Metoclopramide 10 MG/2 ML Vial 5 MG IV ×2 (11:11→19:46)
[2018-08-05] MEDS: Finasteride 5 MG Tablet PO (14:32)
[2018-08-05] MEDS: Fluconazole Suspension 40 MG/ML 35 ML Bottle 200 MG PO (14:32)
[2018-08-05] MEDS: Tamsulosin HCl 0.4 MG Capsule PO ×2 (14:32→18:38)
[2018-08-05] MEDS: Pantoprazole Sodium 40 MG Tablet PO (14:32)
[2018-08-05] MEDS: guaiFENesin 1,200 MG Tablet 1200 MG PO (14:32)
[2018-08-05 15:49] VITALS: BP 117/47; PULSE 85; RESP 18; TEMP 37.4; O2SAT 93
--- NOTE | 2018-08-05 16:29 | PCM.TXEXTCAR ---
- Diet 08/03/18 15:43 Diet: Full Liquid Is pt able to select menu?: Yes - Routine Orders/Code Status Enema Type: Fleetz Enema Frequency: Daily PRN Suppository Type: Dulcolax 10mg Suppository Frequency: Daily PRN O2 Frequency: PRN Keep PO Greater than or Equal to (%): 90 - Therapies Weight Bearing: Full weight bearing Physical Therapy: Eval and Treat Occupational Therapy: Eval and Treat - Problem/Diagnosis (1) Cancer of left lung Status: Chronic Current Visit: Yes (2) Cancer, metastatic to bone Status: Chronic Current Visit: Yes (3) Upper GI bleeding Status: Acute Current Visit: Yes (4) Hypokalemia Status: Resolved Current Visit: No (5) Hypomagnesemia Status: Resolved Current Visit: No (6) Neutropenia Status: Resolved Current Visit: No (7) Odynophagia Status: Acute Current Visit: No (8) Urine retention Status: Acute Current Visit: No (9) Alcohol abuse Status: Chronic Comment: states he quit drinking in February of 2016 when he was diagnosed with Laryngeal cancer...also quit smoking Current Visit: No (10) Difficulty chewing Status: Chronic Current Visit: No (11) Former smoker Status: Chronic Comment: quit February 2016 Current Visit: No (12) Hypertension, essential, benign Status: Chronic Current Visit: No (13) Laryngeal cancer Status: Chronic Comment: diagnosed February of 2016 on biopsy of the epiglottis and false vocal cord Current Visit: No (14) Normochromic normocytic anemia Status: Chronic Comment: due to laryngeal CA and chemotherapy/radiation Current Visit: No (15) Peripheral vascular disease Status: Chronic Current Visit: No (16) Radiation esophagitis Status: Chronic Current Visit: No (17) Status post insertion of percutaneous endoscopic gastrostomy (PEG) tube Status: Inactive Current Visit: No (18) Tracheostomy in place Status: Chronic Current Visit: Yes (19) Chronic back pain Status: Chronic Comment: new bone lesion at L5 - biopsied on 08/03/18 Current Visit: Yes (20) Alcohol dependence in remission Status: Chronic Current Visit: Yes (21) Thrush of mouth and esophagus Status: Suspected Comment: fungal stain and culture of the tongue scrapings is pending Current Visit: Yes (22) BPH (benign prostatic hyperplasia) Status: Chronic Current Visit: Yes (23) Nausea and vomiting Status: Acute Comment: suspect due to narcotics Current Visit: Yes - Allergies/Procedures Done in Hospital Allergies/Adverse Reactions: Allergies No Known Allergies Allergy (Verified 08/01/18 15:36) Procedures: - - bone biopsy by Dr. Ga on 08/03/18 - report is pending - Type of Care/Length of Stay Estimated LOS: Convalescent Care Less Than 30 days Type of Care Needed: Skilled Rehab Potential: Fair Prognosis: Fair - Additional Orders/Day of Discharge H&P will serve as current which was dated: 08/01/18 Day of Discharge: 08/05/18 - Dietary and Speech Recommendations Dietitian Recommendations/Changes: Recommend advance diet as tolerated to transitional. Will provide Ensure Enlive 120 mL 4x/day w/ medpass. - Follow Up Care Primary Care Physician: Hilario Rodriguez DO [Primary Care Provider] - Please follow up with your Primary Care Physician in: following DC from TCU Please Follow Up With: Jason Santos DO When: Has an appt Monday for CT simulation to start radiation to the lumber spine
--- NOTE | 2018-08-05 16:40 | PCM.DC.SUM ---
Discharge Date and Diagnosis - Problem List Patient Problems: Active and Suspected Problems (Last Reviewed 03/16/18 @ 12:42 by STAN Medina) Upper GI bleeding (Acute) Thrush of mouth and esophagus (Suspected) fungal stain and culture of the tongue scrapings is pending Nausea and vomiting (Acute) suspect due to narcotics Date of Admission: 08/01/18 Date of Discharge: 08/05/18 - Primary Discharge Diagnosis Active and Suspected Problems (Last Reviewed 03/16/18 @ 12:42 by STAN Medina) Upper GI bleeding (Acute) - suspect due to a Ifeoma Aguilar tear and erosive esophagitis Thrush of mouth and esophagus (Suspected) fungal stain and culture of the tongue scrapings is pending - CMV also pending for esophagitis with plaques Nausea and vomiting (Acute) suspect due to narcotics Urine retention requiring Bautista placement - Secondary Discharge Diagnosis Chronic Problems (Last Reviewed 03/16/18 @ 12:42 by STAN Medina) Cancer of left lung (Chronic) - a primary lung CA Cancer, 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 No MR evidence for metastatic disease to cervical spine. 2. Metastatic disease of the T2 and T3 vertebral bodies, please refer to MRI thoracic spine performed at same time for further detail. 3. Varying degrees of canal and foraminal stenosis from the C3-C4 through the C6-C7 levels as described above, most pronounced at C4-C5. 4. Evidence of prior radiation treatment as demonstrated by fatty marrow changes of the cervical spine. at 0127 Reported and signed by: Devaughn Garcia MD Electronically Signed: Devaughn Garcia MD at 1:26 EDT Tel , Service support , Chest CT 08/02/18 17:02 IMPRESSION: 1. Marked interval increase size of left upper lobe mass now measuring 4.0 x 5.6 x 5.5 cm with direct extension into the left hilum with severe narrowing of the left upper lobe pulmonary artery. 2. No evidence for metastases within the remainder of the lungs. 3. Small left pleural effusion. Small pericardial effusion. 4. Mild bibasilar subsegmental atelectasis. 5. Pulmonary emphysema. 6. Interval laryngectomy as described with tracheostomy tube in place. 7. Please refer to MRI thoracic and lumbar spine performed on same day, for further detail regarding osseous metastases. Individualized dose optimization techniques were used for this CT. at 2339 Reported and signed by: Devaughn Garcia MD Electronically Signed: Devaughn Garcia MD at 23:38 EDT Tel , Service support , Lumbar Spine MRI 08/02/18 17:02 IMPRESSION: 1. Extensive metastatic disease involving the L5 vertebra and posterior elements with cranial extension into the facet joints of left L4 and left L4 pedicle. Obliteration of the left L4-L5 neural foramina with tumor. 2. Focal enhancement involving a large Schmorl's node of superior endplate of L1 which most likely is reactive in nature and represents acute on chronic Schmorl's node and less likely a small deposit of metastatic disease. 3. Please refer to MRI thoracic spine performed at same time for further detail regarding thoracic spine metastatic disease. at 0318 Reported and signed by: Devaughn Garcia MD Electronically Signed: Devaughn Garcia MD at 3:16 EDT Tel , Service support , Soft Tissue Neck CT 08/02/18 17:02 IMPRESSION: 1. Status post total laryngectomy. Tracheostomy tube in place. 2. Small focus of mild asymmetry right anterior aspect of the resection bed as described above without abnormal enhancement. This may be postoperative in nature. Nevertheless, follow-up with PET/CT may be more helpful for evaluation of the neck for residual/recurrent neoplasm. 3. No abnormal cervical lymphadenopathy. 4. Partially seen left upper lobe pulmonary mass, please refer to CT chest performed at same time for further detail. Individualized dose optimization techniques were used for this CT. at 2310 Reported and signed by: Devaughn Garcia MD Electronically Signed: Devaughn Garcia MD at 23:09 EDT Tel , Service support , Thoracic Spine MRI 08/02/18 17:02 IMPRESSION: 1. Metastatic disease involving the T3 and T2 vertebra as described above without pathologic fracture. 2. Benign osseous hemangiomas within the T9 and T10 vertebral bodies. 3. No canal or foraminal stenosis of the thoracic spine. 4. No acute compression fractures. Multiple old compression fractures as described. at 0306 Reported and signed by: Devaughn Garcia MD Electronically Signed: Devaughn Garcia MD at 3:05 EDT Tel , Service support , Biopsy CT 08/03/18 09:15 IMPRESSION: Successful CT-guided biopsy of the left L5 paravertebral mass. The patient tolerated the procedure well. Electronically Signed: Zacarias Ga, at 13:26 EDT , Service support , Laboratory Results - last 24 hr 08/05/18 08/05/18 05:31 05:31 WBC 5.6 RBC 3.41 L Hgb 9.7 L Hct 29.8 L MCV 87.4 MCH 28.4 MCHC 32.6 RDW 14.9 H RDW Differential 48.2 H Plt Count 253 MPV 9.0 Immature Gran % (Auto) 0.400 Neut % (Auto) 65.2 Lymph % (Auto) 15.9 L [place] % (Auto) 15.0 H Eos % (Auto) 3.1 Baso % (Auto) 0.4 Absolute Neuts (auto) 3.6 Absolute Lymphs (auto) 0.88 Total Counted Not Reportable Sodium 138 Potassium 4.3 Chloride 105 Carbon Dioxide 24.0 Anion Gap 9 BUN 12 Creatinine 0.82 Estim Creat Clear Calc 73.93 Est GFR (MDRD) Af Amer 118 Est GFR (MDRD) Non-Af 97 BUN/Creatinine Ratio 14.7 Glucose 96 Calcium 8.[address] Jason Santos-radiation oncology [employer] Shweta Davies - oncology Dr. Michael Cho - General surgery Operations: None Procedures: EGD - Impressions : - LA Grade D reflux, monilial, acute and erosive esophagitis. Biopsied. Upper GI bleeding is secondary to severe erosive distal esophagitis with likely monilial component - 6 cm hiatal hernia. - Normal stomach. Biopsied. - Normal examined duodenum., - - bone biopsy of L5 by Dr. Ga on 08/03/18 Summary of Care Provided: The patient is a 77-year-old male with a past medical history of former alcohol abuse, peripheral vascular disease, hypertension, hyperlipidemia, former tobacco dependence, and history of simultaneous left lung and laryngeal cancer (status post chemotherapy, radiation, total laryngectomy and trach) who presented to the ED at [facility] on 08/01/18 after having a black emesis at home. He admitted to taking Aleve at home for persistent low back pain. He complained of nausea and emesis for the previous few days. Vital signs of presentation to the emergency department were temperature 98.4, pulse rate 111, blood pressure 134/70, respiratory rate 20 and he was 96 to 98% saturated on room air. CBC was remarkable for a hemoglobin of 11.3 with normochromic normocytic indices. Hemoglobin on 07/23/2018 was 12.7 and the preceding month was 11.5. Weightless were within normal limits. BMP was remarkable for an elevated BUN at 22 and a creatinine of 1.14, up from 0.87 on 07/23/2018. MRI was done on 08/01 as an OP and showed a expansile lytic metastasis to the left L5 vertebral body, left L5 pedicle, left L4 pedicle, left L4-L5 facet joint and the left L5 transverse process. This lytic metastasis is causing moderate stenosis of the left L4-L5 intervertebral neural foramen. There was moderate stenosis of bilateral L5-S1 intervertebral neuroforamina. There was mild central canal stenosis at L3-L4. There were old compression fractures of the upper L1-L2 vertebral bodies. Patient was evaluated by Dr. Michael Cho in the emergency room and he felt comfortable keeping the patient at [facility]. Dr. Cho recommended admission and to keep the patient n.p.o. for EGD on 08/02/2018. Patient was placed on a Protonix 40 mg IV every 12 hours. He was taken to the endoscopy suite on 08/03/18 for EGD and this revealed LA Grade D reflux, suspected monilial erosive esophagitis with plaquing, 6 cm hiatal hernia and a normal stomach and duodenum. He was started on a full liquid diet the following day which he tolerated well. Oncology was consulted to the pt for the large lytic lesion located at L5. Dr. Santos was also consulted and a bone biopsy was done by Dr. Ga on 08/03/18. Pathology is pending. A CT scan of the neck and the chest showed an enlarging lung mass in the REMA. There was no definite evidence of any recurrent disease in the neck. Dr. Santos has him scheduled for CT simulation on 08/06/18 to start radiation to the lytic lesion at L5 for palliation and pain relief. He continued to complain of severe back pain and was started on oxycodone but stated it did not last very long and he was started on Oxycontin 10 mg BID. On 08/04/18 he started having bilious vomiting that continued despite Zofran and Phenergan. OxyContin and oxycodone were discontinued and the patient was given Reglan with improvement. Later in the day he tolerated his diet and had no more nausea or vomiting. He was started on a low dose of Gabapentin to see if this would help the pain in the back that radiates around to the abdomen. He was transferred to TCU and will be transported to radiation daily from TCU. Will continue Protonix 40 PO BID. Fungal stain and culture of scrapings from the tongue are pending. CMV IGM and IGG are pending. CMV can also cause plaques in the esophagus. PHYSICAL EXAM: GENERAL: alert, Cooperative, NAD, sitting in bed ORAL: dry mucosa, tongue has a patchy white coating NECK: No JVD, no nuchal rigidity, trachea midline LUNGS: CTA, symmetric chest expansion, not tachypneic, trach site is without purulent discharge or periwound erythema HEART: RRR, Normal S1 and S2, no rub, no gallop ABDOMEN: soft, NT, ND, BS present, no guarding with palpation....had a few episodes bilious emesis this AM and this has resolved EXTREMITIES: no edema, no cyanosis, no calf tenderness SKIN: No rashes, no breakdown NEUROLOGIC: no focal neurologic deficits PSYCH: appropriate, normal affect, pleasant This note was generated with [employer]! dictation software. It may contain incorrect words, spelling, and punctuation that were not noted in checking the note before signing. Patient Problems: Active and Suspected Problems (Last Reviewed 03/16/18 @ 12:42 by Jacki Venegas NP-C) Upper GI bleeding (Acute) Thrush of mouth and esophagus (Suspected) fungal stain and culture of the tongue scrapings is pending Nausea and vomiting (Acute) suspect due to narcotics - Physical Exam Vital Signs Temp Pulse Resp BP Pulse Ox 99.4 F H 85 18 117/47 L 93 08/05/18 15:49 08/05/18 15:49 08/05/18 15:49 08/05/18 15:49 08/05/18 15:49 Oxygen Flow Rate (L/min) [5] 4 Oxygen Flow Rate (L/min) [4] 4 Oxygen Flow Rate (L/min) [3] 4 Oxygen Flow Rate (L/min) [2] 4 Oxygen Delivery Method [5] Nasal Cannula Oxygen Delivery Method [4] Nasal Cannula Oxygen Delivery Method [3] Nasal Cannula Oxygen Delivery Method [2] Nasal Cannula Oxygen Delivery Method [1 ( Room Air Initial Baseline)] Oxygen Delivery Method Room Air Weight: 150 lb 5.684 oz Body Mass Index (BMI) 22.1 Intake and Output for Last 24 Hours 08/03/18 08/04/18 08/05/18 23:59 23:59 23:59 Intake Total 2286 / 2286 614 / 614 2228 / 2228 Output Total 1650 / 1650 1125 / 1125 2100 / 2100 Balance 636 / 636 -511 / -511 128 / 128 Laboratory Tests Past 24 Hrs 08/05/18 08/05/18 05:31 05:31 WBC 5.6 RBC 3.41 L Hgb 9.7 L Hct 29.8 L MCV 87.4 MCH 28.4 MCHC 32.6 RDW 14.9 H RDW Differential 48.2 H Plt Count 253 MPV 9.0 Immature Gran % (Auto) 0.400 Neut % (Auto) 65.2 Lymph % (Auto) 15.9 L [place] % (Auto) 15.0 H Eos % (Auto) 3.1 Baso % (Auto) 0.4 Absolute Neuts (auto) 3.6 Absolute Lymphs (auto) 0.88 Total Counted Not Reportable Sodium 138 Potassium 4.3 Chloride 105 Carbon Dioxide 24.0 Anion Gap 9 BUN 12 Creatinine 0.82 Estim Creat Clear Calc 73.93 Est GFR (MDRD) Af Amer 118 Est GFR (MDRD) Non-Af 97 BUN/Creatinine Ratio 14.7 Glucose 96 Calcium 8.4 L Magnesium 1.9 Home Medications: Medications to take at Discharge Amlodipine Besylate 7.5 mg PO DAILY 08/01/18 Guaifenesin [Mucinex] 1,200 mg PO BID 08/01/18 Oxybutynin Chloride [Ditropan Xl] 10 mg PO DAILY 08/01/18 Acetaminophen [Tylenol Extra Strength] 1,000 mg PO Q8H #1 tablet 08/05/18 Finasteride [Proscar] 5 mg PO DAILY tablet 08/05/18 Fluconazole Suspension [Fluconazole] 200 mg PO DAILY ml 08/05/18 Gabapentin [Neurontin] 100 mg PO BID #1 capsule 08/05/18 Gabapentin [Neurontin] 200 mg PO QHS #1 capsule 08/05/18 Lisinopril [Zestril] 10 mg PO DAILY #1 tablet 08/05/18 Melatonin 3 mg PO QHS PRN PRN tablet 08/05/18 Pantoprazole Sodium [Protonix] 40 mg PO DAILY tablet 08/05/18 Polyethylene Glycol 3350 [Miralax] 17 gm PO BID packet 08/05/18 Tamsulosin HCl [Flomax] 0.4 mg PO BID@0830,1730 capsule 08/05/18 Following Prescrptions Were Given to Patient: Acetaminophen [Tylenol Extra Strength] 1,000 mg PO Q8H #1 tablet Gabapentin [Neurontin] 200 mg PO QHS #1 capsule Lisinopril [Zestril] 10 mg PO DAILY #1 tablet Gabapentin [Neurontin] 100 mg PO BID #1 capsule Primary Care Physician: Hilario Rodriguez DO [Primary Care Provider] - Please follow up with your Primary Care Physician in: following DC from TCU Please Follow Up With: Jason Santos DO When: Has an appt Monday for CT simulation to start radiation to the lumber spine Disposition: [facility] facility Minutes spent on discharge:: 40 Patient Condition:: Stable Medical Necessity - Tobacco Use Smoking Status: Former smoker Tobacco Use: Non-smoker Meaningful Use Info Meaningful Use Diagnoses (Choose all that apply): None applicable Code Visit Inpatient E&M: 81472 Disch Hosp
--- NOTE | 2018-08-05 16:44 | DS.PCM_ITS ---
Discharge Date and Diagnosis - Problem List Patient Problems: Active and Suspected Problems (Last Reviewed 03/16/18 @ 12:42 by STAN Medina) Upper GI bleeding (Acute) Thrush of mouth and esophagus (Suspected) fungal stain and culture of the tongue scrapings is pending Nausea and vomiting (Acute) suspect due to narcotics Date of Admission: 08/01/18 Date of Discharge: 08/05/18 - Primary Discharge Diagnosis Active and Suspected Problems (Last Reviewed 03/16/18 @ 12:42 by STAN Medina) Upper GI bleeding (Acute) - suspect due to a Ifeoma Aguilar tear and erosive esophagitis Thrush of mouth and esophagus (Suspected) fungal stain and culture of the tongue scrapings is pending - CMV also pending for esophagitis with plaques Nausea and vomiting (Acute) suspect due to narcotics Urine retention requiring Bautista placement - Secondary Discharge Diagnosis Chronic Problems (Last Reviewed 03/16/18 @ 12:42 by STAN Medina) Cancer of left lung (Chronic) - a primary lung CA Cancer, 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 No MR evidence for metastatic disease to cervical spine. 2. Metastatic disease of the T2 and T3 vertebral bodies, please refer to MRI thoracic spine performed at same time for further detail. 3. Varying degrees of canal and foraminal stenosis from the C3-C4 through the C6-C7 levels as described above, most pronounced at C4-C5. 4. Evidence of prior radiation treatment as demonstrated by fatty marrow changes of the cervical spine. at 0127 Reported and signed by: Devaughn Garcia MD Electronically Signed: Devaughn Garcia MD at 1:26 EDT Tel , Service support , Chest CT 08/02/18 17:02 IMPRESSION: 1. Marked interval increase size of left upper lobe mass now measuring 4.0 x 5.6 x 5.5 cm with direct extension into the left hilum with severe narrowing of the left upper lobe pulmonary artery. 2. No evidence for metastases within the remainder of the lungs. 3. Small left pleural effusion. Small pericardial effusion. 4. Mild bibasilar subsegmental atelectasis. 5. Pulmonary emphysema. 6. Interval laryngectomy as described with tracheostomy tube in place. 7. Please refer to MRI thoracic and lumbar spine performed on same day, for further detail regarding osseous metastases. Individualized dose optimization techniques were used for this CT. at 2339 Reported and signed by: Devaughn Garcia MD Electronically Signed: Devaughn Garcia MD at 23:38 EDT Tel , Service support , Lumbar Spine MRI 08/02/18 17:02 IMPRESSION: 1. Extensive metastatic disease involving the L5 vertebra and posterior elements with cranial extension into the facet joints of left L4 and left L4 pedicle. Obliteration of the left L4-L5 neural foramina with tumor. 2. Focal enhancement involving a large Schmorl's node of superior endplate of L1 which most likely is reactive in nature and represents acute on chronic Schmorl's node and less likely a small deposit of metastatic disease. 3. Please refer to MRI thoracic spine performed at same time for further detail regarding thoracic spine metastatic disease. at 0318 Reported and signed by: Devaughn Garcia MD Electronically Signed: Devaughn Garcia MD at 3:16 EDT Tel , Service support , Soft Tissue Neck CT 08/02/18 17:02 IMPRESSION: 1. Status post total laryngectomy. Tracheostomy tube in place. 2. Small focus of mild asymmetry right anterior aspect of the resection bed as described above without abnormal enhancement. This may be postoperative in nature. Nevertheless, follow-up with PET/CT may be more helpful for evaluation of the neck for residual/recurrent neoplasm. 3. No abnormal cervical lymphadenopathy. 4. Partially seen left upper lobe pulmonary mass, please refer to CT chest performed at same time for further detail. Individualized dose optimization techniques were used for this CT. at 2310 Reported and signed by: Devaughn Garcia MD Electronically Signed: Devaughn Garcia MD at 23:09 EDT Tel , Service support , Thoracic Spine MRI 08/02/18 17:02 IMPRESSION: 1. Metastatic disease involving the T3 and T2 vertebra as described above without pathologic fracture. 2. Benign osseous hemangiomas within the T9 and T10 vertebral bodies. 3. No canal or foraminal stenosis of the thoracic spine. 4. No acute compression fractures. Multiple old compression fractures as described. at 0306 Reported and signed by: Devaughn Garcia MD Electronically Signed: Devaughn Garcia MD at 3:05 EDT Tel , Service support , Biopsy CT 08/03/18 09:15 IMPRESSION: Successful CT-guided biopsy of the left L5 paravertebral mass. The patient tolerated the procedure well. Electronically Signed: Zacarias Ga, at 13:26 EDT , Service support , Laboratory Results - last 24 hr 08/05/18 08/05/18 05:31 05:31 WBC 5.6 RBC 3.41 L Hgb 9.7 L Hct 29.8 L MCV 87.4 MCH 28.4 MCHC 32.6 RDW 14.9 H RDW Differential 48.2 H Plt Count 253 MPV 9.0 Immature Gran % (Auto) 0.400 Neut % (Auto) 65.2 Lymph % (Auto) 15.9 L Coal % (Auto) 15.0 H Eos % (Auto) 3.1 Baso % (Auto) 0.4 Absolute Neuts (auto) 3.6 Absolute Lymphs (auto) 0.88 Total Counted Not Reportable Sodium 138 Potassium 4.3 Chloride 105 Carbon Dioxide 24.0 Anion Gap 9 BUN 12 Creatinine 0.82 Estim Creat Clear Calc 73.93 Est GFR (MDRD) Af Amer 118 Est GFR (MDRD) Non-Af 97 BUN/Creatinine Ratio 14.7 Glucose 96 Calcium 8.[address] Jason Santos-radiation oncology [employer] Shweta Davies - oncology Dr. Michael Cho - General surgery Operations: None Procedures: EGD - Impressions : - LA Grade D reflux, monilial, acute and erosive esophagitis. Biopsied. Upper GI bleeding is secondary to severe erosive distal esophagitis with likely monilial component - 6 cm hiatal hernia. - Normal stomach. Biopsied. - Normal examined duodenum., - - bone biopsy of L5 by Dr. Ga on 08/03/18 Summary of Care Provided: The patient is a 77-year-old male with a past medical history of former alcohol abuse, peripheral vascular disease, hypertension, hyperlipidemia, former tobacco dependence, and history of simultaneous left lung and laryngeal cancer (status post chemotherapy, radiation, total laryngectomy and trach) who p resented to the ED at [facility] on 08/01/18 after having a black emesis at home. He admitted to taking Aleve at home for persistent low back pain. He complained of nausea and emesis for the previous few days. Vital signs of presentation to the emergency department were temperature 98.4, pulse rate 111, blood pressure 134/70, respiratory rate 20 and he was 96 to 98% saturated on room air. CBC was remarkable for a hemoglobin of 11.3 with normochromic normocytic indices. Hemoglobin on 07/23/2018 was 12.7 and the preceding month was 11.5. Weightless were within normal limits. BMP was remarkable for an elevated BUN at 22 and a creatinine of 1.14, up from 0.87 on 07/23/2018. MRI was done on 08/01 as an OP and showed a expansile lytic metastasis to the left L5 vertebral body, left L5 pedicle, left L4 pedicle, left L4-L5 facet joint and the left L5 transverse process. This lytic metastasis is causing moderate stenosis of the left L4-L5 intervertebral neural foramen. There was moderate stenosis of bilateral L5-S1 intervertebral neuroforamina. There was mild central canal stenosis at L3-L4. There were old compression fractures of the upper L1-L2 vertebral bodies. Patient was evaluated by Dr. Michael Cho in the emergency room and he felt comfortable keeping the patient at [facility]. Dr. Cho recommended admission and to keep the patient n.p.o. for EGD on 08/02/2018. Fritz singh was placed on a Protonix 40 mg IV every 12 hours. He was taken to the endoscopy suite on 08/03/18 for EGD and this revealed LA Grade D reflux, suspected monilial erosive esophagitis with plaquing, 6 cm hiatal hernia and a normal stomach and duodenum. He was started on a full liquid diet the following day which he tolerated well. Oncology was consulted to the pt for the large lytic lesion located at L5. Dr. Santos was also consulted and a bone biopsy was done by Dr. Ga on 08/03/18. Pathology is pending. A CT scan of the neck and the chest showed an enlarging lung mass in the REMA. There was no definite evidence of any recurrent disease in the neck. Dr. Santos has him scheduled for CT simulation on 08/06/18 to start radiation to the lytic lesion at L5 for palliation and pain relief. He continued to complain of severe back pain and was started on oxycodone but stated it did not last very long and he was started on Oxycontin 10 mg BID. On 08/04/18 he started having bilious vomiting that continued despite Zofran and Phenergan. OxyContin and oxycodone were discontinued and the patient was given Reglan with improvement. Later in the day he tolerated his diet and had no more nausea or vomiting. He was started on a low dose of Gabapentin to see if this would help the pain in the back that radiates around to the abdomen. He was transferred to TCU and will be transported to radiation daily from TCU. Will continue Protonix 40 PO BID. Fungal stain and culture of scrapings from the tongue are pending. CMV IGM and IGG are pending. CMV can also cause plaques in the esophagus. PHYSICAL EXAM: GENERAL: alert, Cooperative, NAD, sitting in bed ORAL: dry mucosa, tongue has a patchy white coating NECK: No JVD, no nuchal rigidity, trachea midline LUNGS: CTA, symmetric chest expansion, not tachypneic, trach site is without purulent discharge or periwound erythema HEART: RRR, Normal S1 and S2, no rub, no gallop ABDOMEN: soft, NT, ND, BS present, no guarding with palpation....had a few episodes bilious emesis this AM and this has resolved EXTREMITIES: no edema, no cyanosis, no calf tenderness SKIN: No rashes, no breakdown NEUROLOGIC: no focal neurologic deficits PSYCH: appropriate, normal affect, pleasant This note was generated with [employer] dictation software. It may contain incorrect words, spelling, and punctuation that were not noted in checking the note before signing. Patient Problems: Active and Suspected Problems (Last Reviewed 03/16/18 @ 12:42 by Jacki mendosa, [employer] O[employer]ATOR-C) Upper GI bleeding (Acute) Thrush of mouth and esophagus (Suspected) fungal stain and culture of the tongue scrapings is pending Nausea and vomiting (Acute) suspect due to narcotics - Physical Exam Vital Signs Temp Pulse Resp BP Pulse Ox 99.4 F H 85 18 117/47 L 93 08/05/18 15:49 08/05/18 15:49 08/05/18 15:49 08/05/18 15:49 08/05/18 15:49 Oxygen Flow Rate (L/min) [5] 4 Oxygen Flow Rate (L/min) [4] 4 Oxygen Flow Rate (L/min) [3] 4 Oxygen Flow Rate (L/min) [2] 4 Oxygen Delivery Method [5] Nasal Cannula Oxygen Delivery Method [4] Nasal Cannula Oxygen Delivery Method [3] Nasal Cannula Oxygen Delivery Method [2] Nasal Cannula Oxygen Delivery Method [1 ( Room Air Initial Baseline)] Oxygen Delivery Method Room Air Weight: 150 lb 5.684 oz Body Mass Index (BMI) 22.1 Intake and Output for Last 24 Hours 08/03/18 08/04/18 08/05/18 23:59 23:59 23:59 Intake Total 2286 / 2286 614 / 614 2228 / 2228 Output Total 1650 / 1650 1125 / 1125 2100 / 2100 Balance 636 / 636 -511 / -511 128 / 128 Laboratory Tests Past 24 Hrs 08/05/18 08/05/18 05:31 05:31 WBC 5.6 RBC 3.41 L Hgb 9.7 L Hct 29.8 L MCV 87.4 MCH 28.4 MCHC 32.6 RDW 14.9 H RDW Differential 48.2 H Plt Count 253 MPV 9.0 Immature Gran % (Auto) 0.400 Neut % (Auto) 65.2 Lymph % (Auto) 15.9 L Coal % (Auto) 15.0 H Eos % (Auto) 3.1 Baso % (Auto) 0.4 Absolute Neuts (auto) 3.6 Absolute Lymphs (auto) 0.88 Total Counted Not Reportable Sodium 138 Potassium 4.3 Chloride 105 Carbon Dioxide 24.0 Anion Gap 9 BUN 12 Creatinine 0.82 Estim Creat Clear Calc 73.93 Est GFR (MDRD) Af Amer 118 Est GFR (MDRD) Non-Af 97 BUN/Creatinine Ratio 14.7 Glucose 96 Calcium 8.4 L Magnesium 1.9 Home Medications: Medications to take at Discharge Amlodipine Besylate 7.5 mg PO DAILY 08/01/18 Guaifenesin [Mucinex] 1,200 mg PO BID 08/01/18 Oxybutynin Chloride [Ditropan Xl] 10 mg PO DAILY 08/01/18 Acetaminophen [Tylenol Extra Strength] 1,000 mg PO Q8H #1 tablet 08/05/18 Finasteride [Proscar] 5 mg PO DAILY tablet 08/05/18 Fluconazole Suspension [Fluconazole] 200 mg PO DAILY ml 08/05/18 Gabapentin [Neurontin] 100 mg PO BID #1 capsule 08/05/18 Gabapentin [Neurontin] 200 mg PO QHS #1 capsule 08/05/18 Lisinopril [Zestril] 10 mg PO DAILY #1 tablet 08/05/18 Melatonin 3 mg PO QHS PRN PRN tablet 08/05/18 Pantoprazole Sodium [Protonix] 40 mg PO DAILY tablet 08/05/18 Polyethylene Glycol 3350 [Miralax] 17 gm PO BID packet 08/05/18 Tamsulosin HCl [Flomax] 0.4 mg PO BID@0830,1730 capsule 08/05/18 Following Prescrptions Were Given to Patient: Acetaminophen [Tylenol Extra Strength] 1,000 mg PO Q8H #1 tablet Gabapentin [Neurontin] 200 mg PO QHS #1 capsule Lisinopril [Zestril] 10 mg PO DAILY #1 tablet Gabapentin [Neurontin] 100 mg PO BID #1 capsule Primary Care Physician: Hilario Rodriguez DO [Primary Care Provider] - Please follow up with your Primary Care Physician in: following DC from TCU Please Follow Up With: Jason Santos DO When: Has an appt Monday for CT simulation to start radiation to the lumber spine Disposition: Snf facility Minutes spent on discharge:: 40 Patient Condition:: Stable Medical Necessity - Tobacco Use Smoking Status: Former smoker Tobacco Use: Non-smoker Meaningful Use Info Meaningful Use Diagnoses (Choose all that apply): None applicable Code Visit Inpatient E&M: 05503 Disch Hosp
--- NOTE | 2018-08-05 17:28 | NURSING ---
Report called to [facility] on TCU-- pt will go to TCU 6. Notified that staff awaiting transfer until pt urinates.
--- NOTE | 2018-08-05 19:38 | NURSING ---
pt urinated 100cc-- bladder scanned for 64- ok to d/c to TCU per order
--- NOTE | 2018-08-05 20:25 | NURSING ---
Report called by previous shift nurse. This nurse called TCU with update. Will send pt now.
[2018-08-06 12:06] LABS: CMV Acute Antibody IgM < 30.0 AU/mL (0.0-29.9)
== END 2018-08-05 20:25 | disposition skilled nursing facility (03) | DRG 369 ==
LOC: ED 19:36 → MS3 19:53
PROVIDERS: Surgery; Admitting Provider Family Medicine; Emergency Provider Emergency Medicine; Family Provider Family Medicine; PCP Family Medicine; Referring Provider Family Medicine; Visit Provider Internal Medicine
PROC: 0DJ08ZZ Inspection of Upper Intestinal Tract, Via Natural or Artificial Opening Endoscopic (ICD-10-PCS; CPT 43235; principal; 2018-08-02 10:55)
DX: K22.6 Gastro-esophageal laceration-hemorrhage syndrome (principal); B37.81 Candidal esophagitis; C79.51 Secondary malignant neoplasm of bone; C34.92 Malignant neoplasm of unspecified part of left bronchus or lung; Z93.0 Tracheostomy status; I10 Essential (primary) hypertension; N40.1 Benign prostatic hyperplasia with lower urinary tract symptoms; R33.9 Retention of urine, unspecified; K44.9 Diaphragmatic hernia without obstruction or gangrene; F10.21 Alcohol dependence, in remission; Z90.02 Acquired absence of larynx; Z87.891 Personal history of nicotine dependence; R11.2 Nausea with vomiting, unspecified; T40.2X5A Adverse effect of other opioids, initial encounter; Z92.3 Personal history of irradiation; Z92.21 Personal history of antineoplastic chemotherapy; Z85.21 Personal history of malignant neoplasm of larynx; D50.0 Iron deficiency anemia secondary to blood loss (chronic); K29.70 Gastritis, unspecified, without bleeding; R29.898 Other symptoms and signs involving the musculoskeletal system
CPT/HCPCS: 36415; 70491; 71260; 72148; 72149; 72156; 72157; 77012; 80048; 80053; 83735; 84100; 85014; 85018; 85025; 85027; 85610; 85730; 86644; 86645; 86850; 86900; 87101; 87206; 88172; 88305; 88312; 88313; 88341; 88342; 92526; 92610; 93005; 97110; 97162; 97166; 97530; 97803; 99156; 99157; 99285; A9575; J7030; J7040; Q9967; A4216; J2405

== ENCOUNTER 2018-08-05 20:35 | Inpatient (IN) | payer MEDICARE, OTHER, SELFPAY ==
[2018-08-02 10:00] VITALS: BMI 22.1
[2018-08-05 20:35] VITALS: BP 164/83; PULSE 98; RESP 20; TEMP 36.7; O2SAT 92
--- NOTE | 2018-08-05 20:35 | NURSING ---
Pt arrived to floor via bed from [facility].
[2018-08-05 21:15] VITALS: BMI 23.6
--- NOTE | 2018-08-05 21:30 | PCM.HP.STD ---
Problem List (1) Peptic ulcer disease Status: Chronic (2) Hypertension Status: Chronic (3) Anemia Status: Acute (4) Pulmonary nodule Status: Chronic (5) Alcohol dependence Status: Chronic (6) Overactive bladder Status: Chronic (7) Esophagitis Status: Acute (8) Gastritis Status: Acute (9) Upper GI bleeding Status: Acute (10) Cancer, metastatic to bone Status: Chronic (11) BPH (benign prostatic hyperplasia) Status: Chronic (12) Radiation esophagitis Status: Chronic (13) Laryngeal cancer Status: Chronic Comment: diagnosed February of 2016 on biopsy of the epiglottis and false vocal cord History of Present Illness Date of Admission: 08/05/18 Chief Complaint: Here for rehabilitation, strengthening, prior to discharge home with spouse. The patient is a 77 year old Male with below past medical history here with followin08/01/2018 Patient presented to [facility] Emergency Department with nosebleed. Black liquid coming from nose, mouth. Chronic tracheostomy, does not talk much. History of laryngeal cancer. Vomited blood, then black liquid. 08/01/2018 Admit to Hospital. Acute GI bleed secondary to NSAID therapy. H&H every 6 hours, IV Proton pump inhibitor. 08/02/2018 EKG normal sinus rhythm, normal EKG. 08/02/2018 Dr. Cho performed EGD showed acute erose esophagitis with plaques consistent with yeast. 08/02/2018 Biopsy showed mild chronic gastritis, NEGATIVE Helicobacter Pylori, NEGATIVE yeast. 08/02/2018 MRI cervical spine showed cervical spinal stenosis. 08/02/2018 CT chest showed large left upper lobe mass. 08/02/2018 MRI lumbar spine showed metastatic disease. 08/02/2018 CT neck status post laryngectomy. 08/02/2018 MRI Thoracic spine showed T2, T3 metastatic disease. 08/03/2018 Dr. Ga performed L5 biopsy. 08/03/2018 Dr. Santos recommended palliative radiation simulation. Low back pain treated with oxycontin 10MG twice daily. 08/04/2018 Bilious vomiting despite Zofran, Phenergan. Oxycontin, Oxycodone stopped, Reglan given with improvement. Gabapentin added for pain control. Protonix 40MG twice daily for hiatal hernia, gastroesophageal reflux disease. CMV tests pending for CMV esophagitis. 08/05/2018 Admit to TCU with debility, here for rehabilitation, strengthening, outpatient radiation treatments, prior to discharge home with spouse. 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) Chronic back pain (Chronic) new bone lesion at L5 - biopsied on 08/03/18 Alcohol dependence in remission (Chronic) BPH (benign prostatic hyperplasia) (Chronic) Peptic ulcer disease (Chronic) Hypertension (Chronic) Pulmonary nodule (Chronic) Alcohol dependence (Chronic) Overactive bladder (Chronic) Former smoker (Chronic) quit February 2016 Normochromic normocytic anemia (Chronic) due to laryngeal CA and chemotherapy/radiation Peripheral vascular disease (Chronic) Radiation esophagitis (Chronic) 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 on biopsy of the epiglottis and false vocal cord Alcohol abuse (Chronic) states he quit drinking in February of 2016 when he was diagnosed with Laryngeal cancer...also quit smoking Hypertension, essential, benign (Chronic) Difficulty chewing (Chronic) Medical History: Medical History (Last Reviewed 03/16/18 @ 12:42 by Jacki Venegas NP-C) Odynophagia (Acute) R13.10 Former smoker (Chronic) Z87.891 quit February 2016 Normochromic normocytic anemia (Chronic) D64.9 due to laryngeal CA and chemotherapy/radiation Peripheral vascular disease (Chronic) I73.9 Radiation esophagitis (Chronic) K20.8 Laryngeal cancer (Chronic) C32.9 diagnosed February of 2016 on biopsy of the epiglottis and false vocal cord Alcohol abuse (Chronic) F10.10 states he quit drinking in February of 2016 when he was diagnosed with Laryngeal cancer...also quit smoking Hypertension, essential, benign (Chronic) I10 Difficulty chewing (Chronic) R63.3 Urine retention (Acute) R33.9 Hypokalemia (Resolved) E87.6 Hypomagnesemia (Resolved) E83.42 Neutropenia (Resolved) D70.9 Allergies No Known Allergies Allergy (Verified 08/01/18 15:36) Home Medications: Ambulatory Orders Medication Instructions Recorded Amlodipine Besylate 7.5 mg PO DAILY 08/01/18 Guaifenesin [Mucinex] 1,200 mg PO BID 08/01/18 Oxybutynin Chloride [Ditropan Xl] 10 mg PO DAILY 08/01/18 Acetaminophen [Tylenol Extra 1,000 mg PO Q8H 08/05/18 Strength] Finasteride [Proscar] 5 mg PO DAILY 08/05/18 Fluconazole Suspension 200 mg PO DAILY 08/05/18 [Fluconazole] Gabapentin [Neurontin] 100 mg PO BID 08/05/18 Gabapentin [Neurontin] 200 mg PO QHS 08/05/18 Lisinopril [Zestril] 10 mg PO DAILY 08/05/18 Melatonin 3 mg PO QHS PRN PRN tablet 08/05/18 Pantoprazole Sodium [Protonix] 40 mg PO BID 08/05/18 Polyethylene Glycol 3350 [Miralax] 17 gm PO BID 08/05/18 Tamsulosin HCl [Flomax] 0.4 mg PO BID@0830,1730 08/05/18 Surgical History: Surgical History (Last Reviewed 03/16/18 @ 12:42 by STAN Medina) s/p PEG tube removal Onset Date: ~08/29/17 Status post insertion of percutaneous endoscopic gastrostomy (PEG) tube (Inactive) Z93.1 Surgical History: - - Laryngeal CA resection, tracheostomy, PEG insertion and removal. Psychiatric History: No pertinent psych hx Lives: Spouse/ Significant Other Smoking Status: Former smoker Tobacco Use: Non-smoker Alcohol: Sober Drugs: None - *Family History Maternal Family History: Family History (Last Reviewed 03/16/18 @ 12:42 by STAN Medina) Mother Hypertension CVA (cerebral vascular accident) History Items: Hypertension, Stroke Paternal Family History: Family History (Last Reviewed 03/16/18 @ 12:42 by STAN Medina) Mother Hypertension CVA (cerebral vascular accident) History Items: Hypertension Review of Systems Constitutional: Denies: Chills, Fever, Weight Change HEENT: Denies: Head Aches, Sinus Congestion, Sinus Drainage Cardiovascular: Denies: Chest Pain, Palpitations Respiratory: Denies: Cough, Shortness of breath at rest, Sputum production Gastrointestinal: Denies: Abdominal Pain, Nausea, Vomiting Genitourinary: Denies: Dysuria Musculoskeletal: Denies: Joint Pain, Joint Tenderness Skin: Denies: Rash, Wounds Neurological: Denies: Numbness, Tingling, Focal weakness Psychiatric: Denies: Anxiety, Depression, Homicidal Ideations, Suicidal Ideations Hematologic/ Lymphatic: Denies: Easy Bruising, Easy Bleeding VTE Information - Inpt Only VTE Present on Admission: No VTE Mechan Device Prophylaxis: Knee High [place] Hose VTE Pharm Prophylaxis ordered?: No Reason prophylaxis not ordered:: Medical Contraindication Patient Problems: Active and Suspected Problems (Last Reviewed 03/16/18 @ 12:42 by Jacki Venegas NP-C) Anemia (Acute) Esophagitis (Acute) Gastritis (Acute) - Physical Exam General: Alert, Oriented x3, Cooperative HEENT: Atraumatic, PERRLA, EOMI, Normocephalic Neck: Supple, No JVD, Negative Carotid Bruits, - - Tracheostomy. Lungs: Clear to auscultation, Normal air movement Cardiovascular: Regular rate, No murmurs Abdomen: Bowel Sounds Present, Soft, Non Tender Extremities: No edema, Capillary Refill Less than 3 Seconds Skin: No rashes, No breakdown Musculoskeletal: No Tenderness to Palpation of Joints or Extremities Neurological: Cranial nerves II-XII grossly intact Psych/Mental Status: Normal Affect, Appropriate Vital Signs Temp Pulse Resp BP Pulse Ox 98.0 F 98 20 H 164/83 H 92 08/05/18 20:35 08/05/18 20:35 08/05/18 20:35 08/05/18 20:35 08/05/18 20:35 Oxygen Delivery Method Room Air Body Mass Index (BMI) 22.1 Assessment/Plan All Active Problems (Last Reviewed 03/16/18 @ 12:42 by Jacki Venegas NP-Junior) Upper GI bleeding (Acute) Nausea and vomiting (Acute) Anemia (Acute) Esophagitis (Acute) Gastritis (Acute) Odynophagia (Acute) Urine retention (Acute) Abnormal cardiac enzyme level (Resolved) Hypokalemia (Resolved) Hypomagnesemia (Resolved) Neutropenia (Resolved) Syncope (Resolved) 77 year old male with below past medical history significant for laryngeal cancer, hospitalized for upper gastrointestinal bleeding secondary to esophagitis, gastritis, complicated by bony metastatic disease, admitted to TCU with debility, here for rehabilitation, strengthening, outpatient radiation treatments, prior to discharge home with spouse. Debility - PT/OT. Pain - Tylenol 1000MG Q8H, Tramadol 50MG Q6H PRN moderate pain, consider steroids, bisphosphonates for bony metastatic pain, NSAIDS contraindicated due to GI bleed. Bowel - Miralax 17GM BID, Senna/colace 2 tablets BID, Dulcolax 10MG daily PRN. Pneumonia vaccination - Administer Prevnar 13 and/or Pneumovax 23 as necessary. DVT prophylaxis - contraindicated due to recent gastrointestinal bleed. Hypertension - Lisinopril 10MG daily, Amlodipine 7.5MG daily. Skin irritation - Eucerin BID. BPH - Finasteride 5MG daily, Tamsulosin 0.4MG BID. Yeast esophagitis - Fluconazole 200MG daily thru 08/12/2018, CMV tests pending. Neuropathic pain - Gabapentin 100MG BID, 200MG QHS. Congestion - Mucinex 1200MG BID. Insomnia - Melatonin 3MG QHS PRN. Overactive bladder - Oxybutynin 10MG daily. Esophagitis/Gastritis/hiatal hernia/GERD - Pantoprazole 40MG BID. Laryngeal cancer with bony spinal metastasis - outpatient radiation treatments per Dr. Santos.
--- NOTE | 2018-08-05 21:41 | HP.PCM_ITS ---
Problem List (1) Peptic ulcer disease Status: Chronic (2) Hypertension Status: Chronic (3) Anemia Status: Acute (4) Pulmonary nodule Status: Chronic (5) Alcohol dependence Status: Chronic (6) Overactive bladder Status: Chronic (7) Esophagitis Status: Acute (8) Gastritis Status: Acute (9) Upper GI bleeding Status: Acute (10) Cancer, metastatic to bone Status: Chronic (11) BPH (benign prostatic hyperplasia) Status: Chronic (12) Radiation esophagitis Status: Chronic (13) Laryngeal cancer Status: Chronic Comment: diagnosed February of 2016 on biopsy of the epiglottis and false vocal cord History of Present Illness Date of Admission: 08/05/18 Chief Complaint: Here for rehabilitation, strengthening, prior to discharge home with spouse. The patient is a 77 year old Male with below past medical history here with followin08/01/2018 Patient presented to [facility] Emergency Department with nosebleed. Black liquid coming from nose, mouth. Chronic tracheostomy, does not talk much. History of laryngeal cancer. Vomited blood, then black liquid. 08/01/2018 Admit to Hospital. Acute GI bleed secondary to NSAID therapy. H&H every 6 hours, IV Proton pump inhibitor. 08/02/2018 EKG normal sinus rhythm, normal EKG. 08/02/2018 Dr. Cho performed EGD showed acute erose esophagitis with plaques consistent with yeast. 08/02/2018 Biopsy showed mild chronic gastritis, NEGATIVE Helicobacter Pylori, NEGATIVE yeast. 08/02/2018 MRI cervical spine showed cervical spinal stenosis. 08/02/2018 CT chest showed large left upper lobe mass. 08/02/2018 MRI lumbar spine showed metastatic disease. 08/02/2018 CT neck status post laryngectomy. 08/02/2018 MRI Thoracic spine showed T2, T3 metastatic disease. 08/03/2018 Dr. Ga performed L5 biopsy. 08/03/2018 Dr. Santos recommended palliative radiation simulation. Low back pain treated with oxycontin 10MG twice daily. 08/04/2018 Bilious vomiting despite Zofran, Phenergan. Oxycontin, Oxycodone stopped, Reglan given with improvement. Gabapentin added for pain control. Protonix 40MG twice daily for hiatal hernia, gastroesophageal reflux disease. CMV tests pending for CMV esophagitis. 08/05/2018 Admit to TCU with debility, here for rehabilitation, strengthening, outpatient radiation treatments, prior to discharge home with spouse. 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) Chronic back pain (Chronic) new bone lesion at L5 - biopsied on 08/03/18 Alcohol dependence in remission (Chronic) BPH (benign prostatic hyperplasia) (Chronic) Peptic ulcer disease (Chronic) Hypertension (Chronic) Pulmonary nodule (Chronic) Alcohol dependence (Chronic) Overactive bladder (Chronic) Former smoker (Chronic) quit February 2016 Normochromic normocytic anemia (Chronic) due to laryngeal CA and chemotherapy/radiation Peripheral vascular disease (Chronic) Radiation esophagitis (Chronic) 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 on biopsy of the epiglottis and false vocal cord Alcohol abuse (Chronic) states he quit drinking in February of 2016 when he was diagnosed with Laryngeal cancer...also quit smoking Hypertension, essential, benign (Chronic) Difficulty chewing (Chronic) Medical History: Medical History (Last Reviewed 03/16/18 @ 12:42 by Jacki Venegas NP-C) Odynophagia (Acute) R13.10 Former smoker (Chronic) Z87.891 quit February 2016 Normochromic normocytic anemia (Chronic) D64.9 due to laryngeal CA and chemotherapy/radiation Peripheral vascular disease (Chronic) I73.9 Radiation esophagitis (Chronic) K20.8 Laryngeal cancer (Chronic) C32.9 diagnosed February of 2016 on biopsy of the epiglottis and false vocal cord Alcohol abuse (Chronic) F10.10 states he quit drinking in February of 2016 when he was diagnosed with Laryngeal cancer...also quit smoking Hypertension, essential, benign (Chronic) I10 Difficulty chewing (Chronic) R63.3 Urine retention (Acute) R33.9 Hypokalemia (Resolved) E87.6 Hypomagnesemia (Resolved) E83.42 Neutropenia (Resolved) D70.9 Allergies No Known Allergies Allergy (Verified 08/01/18 15:36) Home Medications: Ambulatory Orders Medication Instructions Recorded Amlodipine Besylate 7.5 mg PO DAILY 08/01/18 Guaifenesin [Mucinex] 1,200 mg PO BID 08/01/18 Oxybutynin Chloride [Ditropan Xl] 10 mg PO DAILY 08/01/18 Acetaminophen [Tylenol Extra 1,000 mg PO Q8H 08/05/18 Strength] Finasteride [Proscar] 5 mg PO DAILY 08/05/18 Fluconazole Suspension 200 mg PO DAILY 08/05/18 [Fluconazole] Gabapentin [Neurontin] 100 mg PO BID 08/05/18 Gabapentin [Neurontin] 200 mg PO QHS 08/05/18 Lisinopril [Zestril] 10 mg PO DAILY 08/05/18 Melatonin 3 mg PO QHS PRN PRN tablet 08/05/18 Pantoprazole Sodium [Protonix] 40 mg PO BID 08/05/18 Polyethylene Glycol 3350 [Miralax] 17 gm PO BID 08/05/18 Tamsulosin HCl [Flomax] 0.4 mg PO BID@0830,1730 08/05/18 Surgical History: Surgical History (Last Reviewed 03/16/18 @ 12:42 by STAN Medina) s/p PEG tube removal Onset Date: ~08/29/17 Status post insertion of percutaneous endoscopic gastrostomy (PEG) tube (Inactive) Z93.1 Surgical History: - - Laryngeal CA resection, tracheostomy, PEG insertion and removal. Psychiatric History: No pertinent psych hx Lives: Spouse/ Significant Other Smoking Status: Former smoker Tobacco Use: Non-smoker Alcohol: Sober Drugs: None - *Family History Maternal Family History: Family History (Last Reviewed 03/16/18 @ 12:42 by STAN Medina) Mother Hypertension CVA (cerebral vascular accident) History Items: Hypertension, Stroke Paternal Family History: Family History (Last Reviewed 03/16/18 @ 12:42 by STAN Medina) Mother Hypertension CVA (cerebral vascular accident) History Items: Hypertension Review of Systems Constitutional: Denies: Chills, Fever, Weight Change HEENT: Denies: Head Aches, Sinus Congestion, Sinus Drainage Cardiovascular: Denies: Chest Pain, Palpitations Respiratory: Denies: Cough, Shortness of breath at rest, Sputum production Gastrointestinal: Denies: Abdominal Pain, Nausea, Vomiting Genitourinary: Denies: Dysuria Musculoskeletal: Denies: Joint Pain, Joint Tenderness Skin: Denies: Rash, Wounds Neurological: Denies: Numbness, Tingling, Focal weakness Psychiatric: Denies: Anxiety, Depression, Homicidal Ideations, Suicidal Ideations Hematologic/ Lymphatic: Denies: Easy Bruising, Easy Bleeding VTE Information - Inpt Only VTE Present on Admission: No VTE Mechan Device Prophylaxis: Knee High [place] Hose VTE Pharm Prophylaxis ordered?: No Reason prophylaxis not ordered:: Medical Contraindication Patient Problems: Active and Suspected Problems (Last Reviewed 03/16/18 @ 12:42 by Jacki Venegas NP-C) Anemia (Acute) Esophagitis (Acute) Gastritis (Acute) - Physical Exam General: Alert, Oriented x3, Cooperative HEENT: Atraumatic, PERRLA, EOMI, Normocephalic Neck: Supple, No JVD, Negative Carotid Bruits, - - Tracheostomy. Lungs: Clear to auscultation, Normal air movement Cardiovascular: Regular rate, No murmurs Abdomen: Bowel Sounds Present, Soft, Non Tender Extremities: No edema, Capillary Refill Less than 3 Seconds Skin: No rashes, No breakdown Musculoskeletal: No Tenderness to Palpation of Joints or Extremities Neurological: Cranial nerves II-XII grossly intact Psych/Mental Status: Normal Affect, Appropriate Vital Signs Temp Pulse Resp BP Pulse Ox 98.0 F 98 20 H 164/83 H 92 08/05/18 20:35 08/05/18 20:35 08/05/18 20:35 08/05/18 20:35 08/05/18 20:35 Oxygen Delivery Method Room Air Body Mass Index (BMI) 22.1 Assessment/Plan All Active Problems (Last Reviewed 03/16/18 @ 12:42 by Jacki Venegas NP-Junior) Upper GI bleeding (Acute) Nausea and vomiting (Acute) Anemia (Acute) Esophagitis (Acute) Gastritis (Acute) Odynophagia (Acute) Urine retention (Acute) Abnormal cardiac enzyme level (Resolved) Hypokalemia (Resolved) Hypomagnesemia (Resolved) Neutropenia (Resolved) Syncope (Resolved) 77 year old male with below past medical history significant for laryngeal cancer, hospitalized for upper gastrointestinal bleeding secondary to esophagitis, gastritis, complicated by bony metastatic disease, admitted to TCU with debility, here for rehabilitation, strengthening, outpatient radiation treatments, prior to discharge home with spouse. * Debility - PT/OT. * Pain - Tylenol 1000MG Q8H, Tramadol 50MG Q6H PRN moderate pain, consider steroids, bisphosphonates for bony metastatic pain, NSAIDS contraindicated due to GI bleed. * Bowel - Miralax 17GM BID, Senna/colace 2 tablets BID, Dulcolax 10MG daily PRN. * Pneumonia vaccination - Administer Prevnar 13 and/or Pneumovax 23 as necessary. * DVT prophylaxis - contraindicated due to recent gastrointestinal bleed. * Hypertension - Lisinopril 10MG daily, Amlodipine 7.5MG daily. * Skin irritation - Eucerin BID. * BPH - Finasteride 5MG daily, Tamsulosin 0.4MG BID. * Yeast esophagitis - Fluconazole 200MG daily thru 08/12/2018, CMV tests pending. * Neuropathic pain - Gabapentin 100MG BID, 200MG QHS. * Congestion - Mucinex 1200MG BID. * Insomnia - Melatonin 3MG QHS PRN. * Overactive bladder - Oxybutynin 10MG daily. * Esophagitis/Gastritis/hiatal hernia/GERD - Pantoprazole 40MG BID. * Laryngeal cancer with bony spinal metastasis - outpatient radiation treatments per Dr. Santos.
[2018-08-05 21:50] VITALS: BMI 23.6
[2018-08-05] MEDS: Gabapentin 100 MG Capsule 200 MG PO (21:59)
[2018-08-05] MEDS: Acetaminophen 500 MG Tablet 1000 MG PO (21:59)
[2018-08-05] MEDS: traMADol 50 MG Tablet PO (22:16)
[2018-08-05 22:27] VITALS: PULSE 98; RESP 20; O2SAT 92
[2018-08-05] MEDS: MELATONIN 3 MG TABLET PO (22:35)
[2018-08-06] MEDS: Acetaminophen 500 MG Tablet 1000 MG PO ×3 (05:28→21:07)
[2018-08-06] MEDS: Fluconazole 100 MG Tablet 200 MG PO (05:28)
[2018-08-06] MEDS: Finasteride 5 MG Tablet PO (05:29)
[2018-08-06] MEDS: Tolterodine Tartrate 2 MG CAP.SA PO (05:29)
[2018-08-06] MEDS: Senna/Docusate Sodium 1 Tablet 2 TABLET PO ×2 (05:29→17:42)
[2018-08-06] MEDS: amLODIPine 5 MG Tablet 7.5 MG PO (05:29)
[2018-08-06] MEDS: guaiFENesin 1,200 MG Tablet 1200 MG PO ×2 (05:30→17:42)
[2018-08-06] MEDS: Lisinopril 10 MG Tablet PO (05:30)
[2018-08-06] MEDS: Polyethylene Glycol 3350 17 GM PACKET PO ×2 (05:30→17:43)
[2018-08-06] MEDS: Gabapentin 100 MG Capsule PO ×2 (05:30→17:42)
[2018-08-06] MEDS: Pantoprazole Sodium 40 MG Tablet PO ×2 (05:30→17:42)
[2018-08-06] MEDS: traMADol 50 MG Tablet PO ×2 (05:34→11:48)
[2018-08-06 05:51] LABS: Basophil# 0.02 X10^3/uL; Basophil% 0.4 % (0-1); Eosinophil# 0.23 X10^3/uL; Eosinophils% 4.9 % (0-5); Hematocrit 29.5 % (40-54); Hemoglobin 9.6 g/dl (13.0-16.5); Lymphocyte % 14.8 % (19-41); Mean Corp Hgb Conc 32.5 g/gl (32-36); Mean Corpuscular Hgb 28.4 pg (27.0-32.0); Mean Corpuscular Volume 87.3 fL (80-94); Mean Platelet Vol. 9.1 fl (6.2-12.0); Monocyte# 0.78 X10^3/uL; Monocyte% 16.5 % (0-10); Neutrophil # 2.97 X10^3/uL (2.7-7.7); Platelet Count 263 K/mm3 (150-450); RBC Distribution Width CV 14.5 % (11.6-14.6); RBC Distribution Width SD 44.9 fl (35.1-43.9); Red Blood Count 3.38 M/mm3 (4.6-6.2); White Blood Count 4.7 K/mm3 (4.4-11.0)
[2018-08-06 05:53] LABS: POSITIVE COUNT NO; POSITIVE DIFFERENTIAL NO; POSITIVE MORPHOLOGY NO
[2018-08-06 06:11] LABS: Anion Gap 8 (5-15); BUN 10 mg/dL (7-18); BUN/Creat Ratio 13.4 RATIO (10-20); Calcium,Total 8.6 mg/dL (8.5-10.1); Chloride 105 mmol/L (98-107); Creatinine, Serum 0.75 mg/dL (0.70-1.30); EST Glomerular Filtration Rate 108 mL/min (>60); Est Glom Filt Rate - Afr Amer 130 mL/min (>60); Estimated Creatinine Clearance 62.84 ml/min; Glucose 87 mg/dL (74-106); Potassium 4.3 mmol/L (3.5-5.1); Sodium Level 139 mmol/L (136-145)
[2018-08-06] MEDS: Tamsulosin HCl 0.4 MG Capsule PO ×2 (08:15→17:42)
[2018-08-06] MEDS: Tuberculin,Purif.prot.deriv. 50 TU/ML Vial 5 ML ID (09:46)
--- NOTE | 2018-08-06 11:12 | NURSING ---
THIS NURSE CLEANED PT TRACH. PT TOLERATED WELL.
--- NOTE | 2018-08-06 13:22 | NURSING ---
PT THROWING UP SMALL AMOUNT OF YELLOW EMESES. ASKED PT HOW LONG HE HAS BEEN NAUSEATED,PT STATED 5 DAYS. REPORTED TO MARK ANTHONY CASTELAN
--- NOTE | 2018-08-06 14:06 | NURSING ---
PT VOIDED,BLADDER SCANNED FOR 338 AT 1400. REPORTED TO MARK ANTHONY CASTELAN
--- NOTE | 2018-08-06 14:33 | NURSING ---
WENT INTO PT ROOM AND SEEN PT HAD TOILET PAPER STUCK CLEAR UP IN HIS NOSE. ASKED PT WHY HE HAD IT IN THERE. PT STATED HIS NOSE JUST WONT QUIT RUNNING. REPORTED TO MARK ANTHONY CASTELAN
[2018-08-06 15:10] VITALS: BP 98/63; PULSE 79; RESP 17; TEMP 37; O2SAT 95
[2018-08-06] MEDS: Gabapentin 100 MG Capsule 200 MG PO (21:09)
[2018-08-06 22:00] VITALS: PULSE 88; RESP 20; O2SAT 95
--- NOTE | 2018-08-07 03:38 | NURSING ---
Addendum entered by Crista Brandon 08/07/18 09:38: new order to consult urology, Dr Hickman. Original Note: Pt with voiding difficulty. Pt would urinate in spurts, minimal amt. Pt denies burning/pain. Pt informed RN it has been getting more difficult to urinate. Pt perviously seen by Dr Hickman for urinary. Will update Dr Hernández.
[2018-08-07] MEDS: Acetaminophen 500 MG Tablet 1000 MG PO ×3 (05:41→21:13)
[2018-08-07] MEDS: Pantoprazole Sodium 40 MG Tablet PO ×2 (05:42→17:46)
[2018-08-07] MEDS: Senna/Docusate Sodium 1 Tablet 2 TABLET PO ×2 (05:42→17:47)
[2018-08-07] MEDS: amLODIPine 5 MG Tablet 7.5 MG PO (05:42)
[2018-08-07] MEDS: Tolterodine Tartrate 2 MG CAP.SA PO (05:42)
[2018-08-07] MEDS: Polyethylene Glycol 3350 17 GM PACKET PO ×2 (05:43→17:47)
[2018-08-07] MEDS: guaiFENesin 1,200 MG Tablet 1200 MG PO ×2 (05:45→17:46)
[2018-08-07] MEDS: Gabapentin 100 MG Capsule PO ×2 (05:46→17:46)
[2018-08-07] MEDS: Finasteride 5 MG Tablet PO (05:46)
[2018-08-07] MEDS: Lisinopril 10 MG Tablet PO (05:47)
--- NOTE | 2018-08-07 07:29 | NURSING ---
Trach care completed in room with Resp Therapists present. Patient tolerated procedure well. Will cont to monitor.
[2018-08-07] MEDS: Fluconazole 100 MG Tablet 200 MG PO (07:38)
[2018-08-07] MEDS: traMADol 50 MG Tablet PO (08:10)
[2018-08-07] MEDS: Tamsulosin HCl 0.4 MG Capsule PO ×2 (08:10→17:46)
--- NOTE | 2018-08-07 10:45 | PCM.PN.RX ---
<Ok Aburto D - Last Filed: 08/07/18 10:45> Progress Note - Pharmacy Subjective: TCU Admission Objective: Allergies No Known Allergies Allergy (Verified 08/01/18 15:36) Current Medications Generic Name Dose Route Start Last Admin Trade Name Freq PRN Reason Stop Dose Admin Acetaminophen 1,000 mg 08/05/18 21:30 08/07/18 05:41 Tylenol PO 1,000 mg Q8H CARLOZ Administration Amlodipine Besylate 7.5 mg 08/06/18 06:00 08/07/18 05:42 Norvasc PO 7.5 mg DAILY CARLOZ Administration Bisacodyl 10 mg 08/05/18 21:50 Dulcolax PO DAILY PRN Constipation Emollient Ointment 1 applic 08/05/18 22:00 08/07/18 05:44 Eucerin Intensive Repair TOPICAL 1 applicatio 0600,2200 CARLOZ Administration Protocol Finasteride 5 mg 08/06/18 06:00 08/07/18 05:46 Proscar PO 5 mg DAILY CARLOZ Administration Fluconazole 200 mg 08/08/18 06:00 Diflucan PO 08/12/18 23:59 DAILY CARLOZ Gabapentin 100 mg 08/06/18 06:00 08/07/18 05:46 Neurontin PO 100 mg BID CARLOZ Administration Gabapentin 200 mg 08/05/18 22:00 08/06/18 21:09 Neurontin PO 200 mg QHS CARLOZ Administration Guaifenesin 1,200 mg 08/06/18 06:00 08/07/18 05:45 Mucinex PO 1,200 mg BID CARLOZ Administration Lisinopril 10 mg 08/06/18 06:00 08/07/18 05:47 Zestril PO 10 mg DAILY CARLOZ Administration Melatonin 3 mg 08/05/18 21:28 08/05/18 22:35 Melatonin PO 3 mg QHS PRN PRN Administration INSOMNIA Nutritional Formula (Lactose Free) 120 ml 08/06/18 06:00 08/07/18 05:44 Ensure Enlive PO Not Given 4X/DAY CARLOZ Ondansetron HCl 4 mg 08/06/18 18:05 Zofran Odt PO Q8H PRN PRN NAUSEA Pantoprazole Sodium 40 mg 08/06/18 06:00 08/07/18 05:42 Protonix PO 40 mg BID CARLOZ Administration Polyethylene Glycol 17 gm 08/06/18 06:00 08/07/18 05:43 Miralax PO 17 gm BID CARLOZ Administration Senna/Docusate Sodium 2 tablet 08/06/18 06:00 08/07/18 05:42 Senokot-S, Urvashi-Colace PO 2 tablet BID CARLOZ Administration Tamsulosin HCl 0.4 mg 08/06/18 08:30 08/07/18 08:10 Flomax PO 0.4 mg BID@0830,1730 CARLOZ Administration Tolterodine Tartrate 2 mg 08/06/18 06:00 08/07/18 05:42 Detrol La PO 2 mg DAILY CARLOZ Administration Tramadol HCl 50 mg 08/05/18 21:50 08/07/18 08:10 Ultram PO 50 mg Q6H PRN PRN Administration MODERATE PAIN (4-5/10) Tuberculin PPD 5 tu 08/13/18 10:00 Tubersol, Aplisol, Ppd ID 08/13/18 10:01 X1 ONE Problem List (Last Reviewed 03/16/18 @ 12:42 by Jacki Venegas NP-C) Peptic ulcer disease (Chronic) Hypertension (Chronic) Anemia (Acute) Pulmonary nodule (Chronic) Alcohol dependence (Chronic) Overactive bladder (Chronic) Esophagitis (Acute) Gastritis (Acute) Vital Signs Temp Pulse Resp BP Pulse Ox 98.6 F 88 20 H 98/63 95 08/06/18 15:10 08/06/18 22:00 08/06/18 22:00 08/06/18 15:10 08/06/18 22:00 Oxygen Delivery Method Room Air Weight: 69.4 kg Body Mass Index (BMI) 23.6 Sodium 139 mmol/L (136-145) 08/06/18 05:15 Potassium 4.3 mmol/L (3.5-5.1) 08/06/18 05:15 Chloride 105 mmol/L (98-107) 08/06/18 05:15 Carbon Dioxide 26.0 mmol/L (21.0-32.0) 08/06/18 05:15 Anion Gap 8 (5-15) 08/06/18 05:15 BUN 10 mg/dL (7-18) 08/06/18 05:15 Creatinine 0.75 mg/dL (0.70-1.30) 08/06/18 05:15 Est GFR (MDRD) Af Amer 130 mL/min (>60) 08/06/18 05:15 Est GFR (MDRD) Non-Af 108 mL/min (>60) 08/06/18 05:15 BUN/Creatinine Ratio 13.4 RATIO (10-20) 08/06/18 05:15 Glucose 87 mg/dL (74-106) 08/06/18 05:15 Assessment/Plan: 1) Pain APAP, gabapentin, tramadol for moderate pain. Continue to monitor prn medication use, daily pain scores. 2) HTN Amlodipine, lisinopril. Continue to monitor BP/HR, renal function, electrolytes. 3) ID Fluconazole thru 08/12 for esophagitis. Continue to monitor s/s infection. 4) GI Pantoprazole, ondansetron prn. Continue to monitor prn medication use, s/s GI distress. 5) Tamsulosin, tolterodine, finasteride. Continue to monitor for symptoms. 6) Sleep Melatonin at HS as needed. Continue to monitor prn medication use, for insomnia. Psychotropic Medications: None Unnecessary Medications: None Bowel Regimen: 7) Senna/s, PEG, prn bisacodyl. Continue to monitor prn medication use, for constipation/diarrhea. Date of Note:: 08/07/18 - Provider Comments Provider responsibility: Provider responsible to enter orders to implement recommendations <Saran Hernández Chi - Last Filed: 08/07/18 17:34> Progress Note - Pharmacy Subjective: [] Objective: Allergies No Known Allergies Allergy (Verified 08/01/18 15:36) Current Medications Generic Name Dose Route Start Last Admin Trade Name Freq PRN Reason Stop Dose Admin Acetaminophen 1,000 mg 08/05/18 21:30 08/07/18 14:18 Tylenol PO 1,000 mg Q8H CARLOZ Administration Amlodipine Besylate 7.5 mg 08/06/18 06:00 08/07/18 05:42 Norvasc PO 7.5 mg DAILY CARLOZ Administration Bisacodyl 10 mg 08/05/18 21:50 Dulcolax PO DAILY PRN Constipation Emollient Ointment 1 applic 08/05/18 22:00 08/07/18 05:44 Eucerin Intensive Repair TOPICAL 1 applicatio 0600,2200 CARLOZ Administration Protocol Finasteride 5 mg 08/06/18 06:00 08/07/18 05:46 Proscar PO 5 mg DAILY CARLOZ Administration Fluconazole 200 mg 08/08/18 06:00 Diflucan PO 08/12/18 23:59 DAILY CARLOZ Gabapentin 100 mg 08/06/18 06:00 08/07/18 05:46 Neurontin PO 100 mg BID CARLOZ Administration Gabapentin 200 mg 08/05/18 22:00 08/06/18 21:09 Neurontin PO 200 mg QHS CARLOZ Administration Guaifenesin 1,200 mg 08/06/18 06:00 08/07/18 05:45 Mucinex PO 1,200 mg BID CARLOZ Administration Lisinopril 10 mg 08/06/18 06:00 08/07/18 05:47 Zestril PO 10 mg DAILY [facility] Administration Melatonin 3 mg 08/05/18 21:28 08/05/18 22:35 Melatonin PO 3 mg QHS PRN PRN Administration INSOMNIA Nutritional Formula (Lactose Free) 120 ml 08/06/18 06:00 08/07/18 11:55 Ensure Enlive PO Not Given 4X/DAY [facility] Ondansetron HCl 4 mg 08/06/18 18:05 08/07/18 13:31 Zofran Odt PO 4 mg Q8H PRN PRN Administration NAUSEA Pantoprazole Sodium 40 mg 08/06/18 06:00 08/07/18 05:42 Protonix PO 40 mg BID [facility] Administration Polyethylene Glycol 17 gm 08/06/18 06:00 08/07/18 05:43 Miralax PO 17 gm BID [facility] Administration Senna/Docusate Sodium 2 tablet 08/06/18 06:00 08/07/18 05:42 Senokot-S, Urvashi-Colace PO 2 tablet BID [facility] Administration Tamsulosin HCl 0.4 mg 08/06/18 08:30 08/07/18 08:10 Flomax PO 0.4 mg BID@0830,1730 [facility] Administration Tolterodine Tartrate 2 mg 08/06/18 06:00 08/07/18 05:42 Detrol La PO 2 mg DAILY [facility] Administration Tramadol HCl 50 mg 08/05/18 21:50 08/07/18 08:10 Ultram PO 50 mg Q6H PRN PRN Administration MODERATE PAIN (4-5/10) Tuberculin PPD 5 tu 08/13/18 10:00 Tubersol, Aplisol, Ppd ID 08/13/18 10:01 X1 ONE Problem List (Last Reviewed 03/16/18 @ 12:42 by Jacki Venegas NP-C) Peptic ulcer disease (Chronic) Hypertension (Chronic) Anemia (Acute) Pulmonary nodule (Chronic) Alcohol dependence (Chronic) Overactive bladder (Chronic) Esophagitis (Acute) Gastritis (Acute) Vital Signs Temp Pulse Resp BP Pulse Ox 98.8 F 76 18 99/56 L 91 08/07/18 16:00 08/07/18 16:00 08/07/18 16:00 08/07/18 16:00 08/07/18 16:00 Oxygen Delivery Method Room Air Weight: 69.4 kg Body Mass Index (BMI) 23.6 Sodium 139 mmol/L (136-145) 08/06/18 05:15 Potassium 4.3 mmol/L (3.5-5.1) 08/06/18 05:15 Chloride 105 mmol/L (98-107) 08/06/18 05:15 Carbon Dioxide 26.0 mmol/L (21.0-32.0) 08/06/18 05:15 Anion Gap 8 (5-15) 08/06/18 05:15 BUN 10 mg/dL (7-18) 08/06/18 05:15 Creatinine 0.75 mg/dL (0.70-1.30) 08/06/18 05:15 Est GFR (MDRD) Af Amer 130 mL/min (>60) 08/06/18 05:15 Est GFR (MDRD) Non-Af 108 mL/min (>60) 08/06/18 05:15 BUN/Creatinine Ratio 13.4 RATIO (10-20) 08/06/18 05:15 Glucose 87 mg/dL (74-106) 08/06/18 05:15 Assessment/Plan: Psychotropic Medications: Unnecessary Medications: Bowel Regimen: - Provider Comments Provider responsibility: Provider responsible to enter orders to implement recommendations Provider Comments to Recommendations by Pharmacy: Agree
--- NOTE | 2018-08-07 10:54 | PHA.CONS_ITS ---
<Ok Aburto D - Last Filed: 08/07/18 10:45> Progress Note - Pharmacy Subjective: TCU Admission Objective: Allergies No Known Allergies Allergy (Verified 08/01/18 15:36) Current Medications Generic Name Dose Route Start Last Admin Trade Name Freq PRN Reason Stop Dose Admin Acetaminophen 1,000 mg 08/05/18 21:30 08/07/18 05:41 Tylenol PO 1,000 mg Q8H CARLOZ Administration Amlodipine Besylate 7.5 mg 08/06/18 06:00 08/07/18 05:42 Norvasc PO 7.5 mg DAILY CARLOZ Administration Bisacodyl 10 mg 08/05/18 21:50 Dulcolax PO DAILY PRN Constipation Emollient Ointment 1 applic 08/05/18 22:00 08/07/18 05:44 Eucerin Intensive Repair TOPICAL 1 applicatio 0600,2200 CARLOZ Administration Protocol Finasteride 5 mg 08/06/18 06:00 08/07/18 05:46 Proscar PO 5 mg DAILY CARLOZ Administration Fluconazole 200 mg 08/08/18 06:00 Diflucan PO 08/12/18 23:59 DAILY CARLOZ Gabapentin 100 mg 08/06/18 06:00 08/07/18 05:46 Neurontin PO 100 mg BID CARLOZ Administration Gabapentin 200 mg 08/05/18 22:00 08/06/18 21:09 Neurontin PO 200 mg QHS CARLOZ Administration Guaifenesin 1,200 mg 08/06/18 06:00 08/07/18 05:45 Mucinex PO 1,200 mg BID CARLOZ Administration Lisinopril 10 mg 08/06/18 06:00 08/07/18 05:47 Zestril PO 10 mg DAILY CARLOZ Administration Melatonin 3 mg 08/05/18 21:28 08/05/18 22:35 Melatonin PO 3 mg QHS PRN PRN Administration INSOMNIA Nutritional Formula (Lactose Free) 120 ml 08/06/18 06:00 08/07/18 05:44 Ensure Enlive PO Not Given 4X/DAY CARLOZ Ondansetron HCl 4 mg 08/06/18 18:05 Zofran Odt PO Q8H PRN PRN NAUSEA Pantoprazole Sodium 40 mg 08/06/18 06:00 08/07/18 05:42 Protonix PO 40 mg BID CARLOZ Administration Polyethylene Glycol 17 gm 08/06/18 06:00 08/07/18 05:43 Miralax PO 17 gm BID CARLOZ Administration Senna/Docusate Sodium 2 tablet 08/06/18 06:00 08/07/18 05:42 Senokot-S, Urvashi-Colace PO 2 tablet BID CARLOZ Administration Tamsulosin HCl 0.4 mg 08/06/18 08:30 08/07/18 08:10 Flomax PO 0.4 mg BID@0830,1730 CARLOZ Administration Tolterodine Tartrate 2 mg 08/06/18 06:00 08/07/18 05:42 Detrol La PO 2 mg DAILY CARLOZ Administration Tramadol HCl 50 mg 08/05/18 21:50 08/07/18 08:10 Ultram PO 50 mg Q6H PRN PRN Administration MODERATE PAIN (4-5/10) Tuberculin PPD 5 tu 08/13/18 10:00 Tubersol, Aplisol, Ppd ID 08/13/18 10:01 X1 ONE Problem List (Last Reviewed 03/16/18 @ 12:42 by Jacki Venegas NP-C) Peptic ulcer disease (Chronic) Hypertension (Chronic) Anemia (Acute) Pulmonary nodule (Chronic) Alcohol dependence (Chronic) Overactive bladder (Chronic) Esophagitis (Acute) Gastritis (Acute) Vital Signs Temp Pulse Resp BP Pulse Ox 98.6 F 88 20 H 98/63 95 08/06/18 15:10 08/06/18 22:00 08/06/18 22:00 08/06/18 15:10 08/06/18 22:00 Oxygen Delivery Method Room Air Weight: 69.4 kg Body Mass Index (BMI) 23.6 Sodium 139 mmol/L (136-145) 08/06/18 05:15 Potassium 4.3 mmol/L (3.5-5.1) 08/06/18 05:15 Chloride 105 mmol/L (98-107) 08/06/18 05:15 Carbon Dioxide 26.0 mmol/L (21.0-32.0) 08/06/18 05:15 Anion Gap 8 (5-15) 08/06/18 05:15 BUN 10 mg/dL (7-18) 08/06/18 05:15 Creatinine 0.75 mg/dL (0.70-1.30) 08/06/18 05:15 Est GFR (MDRD) Af Amer 130 mL/min (>60) 08/06/18 05:15 Est GFR (MDRD) Non-Af 108 mL/min (>60) 08/06/18 05:15 BUN/Creatinine Ratio 13.4 RATIO (10-20) 08/06/18 05:15 Glucose 87 mg/dL (74-106) 08/06/18 05:15 Assessment/Plan: 1) Pain APAP, gabapentin, tramadol for moderate pain. Continue to monitor prn medication use, daily pain scores. 2) HTN Amlodipine, lisinopril. Continue to monitor BP/HR, renal function, electrolytes. 3) ID Fluconazole thru 08/12 for esophagitis. Continue to monitor s/s infection. 4) GI Pantoprazole, ondansetron prn. Continue to monitor prn medication use, s/s GI distress. 5) Tamsulosin, tolterodine, finasteride. Continue to monitor for symptoms. 6) Sleep Melatonin at HS as needed. Continue to monitor prn medication use, for insomnia. Psychotropic Medications: None Unnecessary Medications: None Bowel Regimen: 7) Senna/s, PEG, prn bisacodyl. Continue to monitor prn medication use, for constipation/diarrhea. Date of Note:: 08/07/18 - Provider Comments Provider responsibility: Provider responsible to enter orders to implement recommendations <Saran Hernández Chi - Last Filed: 08/07/18 17:34> Progress Note - Pharmacy Subjective: [] Objective: Allergies No Known Allergies Allergy (Verified 08/01/18 15:36) Current Medications Generic Name Dose Route Start Last Admin Trade Name Freq PRN Reason Stop Dose Admin Acetaminophen 1,000 mg 08/05/18 21:30 08/07/18 14:18 Tylenol PO 1,000 mg Q8H CARLOZ Administration Amlodipine Besylate 7.5 mg 08/06/18 06:00 08/07/18 05:42 Norvasc PO 7.5 mg DAILY CARLOZ Administration Bisacodyl 10 mg 08/05/18 21:50 Dulcolax PO DAILY PRN Constipation Emollient Ointment 1 applic 08/05/18 22:00 08/07/18 05:44 Eucerin Intensive Repair TOPICAL 1 applicatio 0600,2200 CARLOZ Administration Protocol Finasteride 5 mg 08/06/18 06:00 08/07/18 05:46 Proscar PO 5 mg DAILY CARLOZ Administration Fluconazole 200 mg 08/08/18 06:00 Diflucan PO 08/12/18 23:59 DAILY CARLOZ Gabapentin 100 mg 08/06/18 06:00 08/07/18 05:46 Neurontin PO 100 mg BID CARLOZ Administration Gabapentin 200 mg 08/05/18 22:00 08/06/18 21:09 Neurontin PO 200 mg QHS CARLOZ Administration Guaifenesin 1,200 mg 08/06/18 06:00 08/07/18 05:45 Mucinex PO 1,200 mg BID CARLOZ Administration Lisinopril 10 mg 08/06/18 06:00 08/07/18 05:47 Zestril PO 10 mg DAILY [facility] Administration Melatonin 3 mg 08/05/18 21:28 08/05/18 22:35 Melatonin PO 3 mg QHS PRN PRN Administration INSOMNIA Nutritional Formula (Lactose Free) 120 ml 08/06/18 06:00 08/07/18 11:55 Ensure Enlive PO Not Given 4X/DAY [facility] Ondansetron HCl 4 mg 08/06/18 18:05 08/07/18 13:31 Zofran Odt PO 4 mg Q8H PRN PRN Administration NAUSEA Pantoprazole Sodium 40 mg 08/06/18 06:00 08/07/18 05:42 Protonix PO 40 mg BID [facility] Administration Polyethylene Glycol 17 gm 08/06/18 06:00 08/07/18 05:43 Miralax PO 17 gm BID [facility] Administration Senna/Docusate Sodium 2 tablet 08/06/18 06:00 08/07/18 05:42 Senokot-S, Urvasih-Colace PO 2 tablet BID [facility] Administration Tamsulosin HCl 0.4 mg 08/06/18 08:30 08/07/18 08:10 Flomax PO 0.4 mg BID@0830,1730 [facility] Administration Tolterodine Tartrate 2 mg 08/06/18 06:00 08/07/18 05:42 Detrol La PO 2 mg DAILY [facility] Administration Tramadol HCl 50 mg 08/05/18 21:50 08/07/18 08:10 Ultram PO 50 mg Q6H PRN PRN Administration MODERATE PAIN (4-5/10) Tuberculin PPD 5 tu 08/13/18 10:00 Tubersol, Aplisol, Ppd ID 08/13/18 10:01 X1 ONE Problem List (Last Reviewed 03/16/18 @ 12:42 by Jacki Venegas NP-C) Peptic ulcer disease (Chronic) Hypertension (Chronic) Anemia (Acute) Pulmonary nodule (Chronic) Alcohol dependence (Chronic) Overactive bladder (Chronic) Esophagitis (Acute) Gastritis (Acute) Vital Signs Temp Pulse Resp BP Pulse Ox 98.8 F 76 18 99/56 L 91 08/07/18 16:00 08/07/18 16:00 08/07/18 16:00 08/07/18 16:00 08/07/18 16:00 Oxygen Delivery Method Room Air Weight: 69.4 kg Body Mass Index (BMI) 23.6 Sodium 139 mmol/L (136-145) 08/06/18 05:15 Potassium 4.3 mmol/L (3.5-5.1) 08/06/18 05:15 Chloride 105 mmol/L (98-107) 08/06/18 05:15 Carbon Dioxide 26.0 mmol/L (21.0-32.0) 08/06/18 05:15 Anion Gap 8 (5-15) 08/06/18 05:15 BUN 10 mg/dL (7-18) 08/06/18 05:15 Creatinine 0.75 mg/dL (0.70-1.30) 08/06/18 05:15 Est GFR (MDRD) Af Amer 130 mL/min (>60) 08/06/18 05:15 Est GFR (MDRD) Non-Af 108 mL/min (>60) 08/06/18 05:15 BUN/Creatinine Ratio 13.4 RATIO (10-20) 08/06/18 05:15 Glucose 87 mg/dL (74-106) 08/06/18 05:15 Assessment/Plan: Psychotropic Medications: Unnecessary Medications: Bowel Regimen: - Provider Comments Provider responsibility: Provider responsible to enter orders to implement recommendations Provider Comments to Recommendations by Pharmacy: Agree
--- NOTE | 2018-08-07 12:52 | CON.PCM_ITS ---
Reason for Consult Date of Consultation: 08/07/18 Reason for Consultation: 77-year-old male admitted to the hospital for GI bleed now in rehab. History of Present Illness: The patient is a 77 year old male with a history of prostate BPH enlargement who was in complete retention when I saw him in the office about a month and a half ago. After this he underwent a uro-lift procedure and he was able to urinate well. He recently was admitted to the hospital with a GI bleed and has been noticed to have high postvoid residuals around 330 cc. However given the fact that he has a history of retention of urine a stretch out bladder along with the patient is able to urinate we will tolerate higher postvoid residuals and do not recommend intermittent catheterization. He can follow-up with me in the office for another checkup as an outpatient. 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) Chronic back pain (Chronic) new bone lesion at L5 - biopsied on 08/03/18 Alcohol dependence in remission (Chronic) BPH (benign prostatic hyperplasia) (Chronic) Peptic ulcer disease (Chronic) Hypertension (Chronic) Pulmonary nodule (Chronic) Alcohol dependence (Chronic) Overactive bladder (Chronic) Former smoker (Chronic) quit February 2016 Normochromic normocytic anemia (Chronic) due to laryngeal CA and chemotherapy/radiation Peripheral vascular disease (Chronic) Radiation esophagitis (Chronic) 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 on biopsy of the epiglottis and false vocal cord Alcohol abuse (Chronic) states he quit drinking in February of 2016 when he was diagnosed with Laryngeal cancer...also quit smoking Hypertension, essential, benign (Chronic) Difficulty chewing (Chronic) Medical History: Medical History (Last Reviewed 03/16/18 @ 12:42 by STAN Medina) Odynophagia (Acute) R13.10 Former smoker (Chronic) Z87.891 quit February 2016 Normochromic normocytic anemia (Chronic) D64.9 due to laryngeal CA and chemotherapy/radiation Peripheral vascular disease (Chronic) I73.9 Radiation esophagitis (Chronic) K20.8 Laryngeal cancer (Chronic) C32.9 diagnosed February of 2016 on biopsy of the epiglottis and false vocal cord Alcohol abuse (Chronic) F10.10 states he quit drinking in February of 2016 when he was diagnosed with Laryngeal cancer...also quit smoking Hypertension, essential, benign (Chronic) I10 Difficulty chewing (Chronic) R63.3 Urine retention (Acute) R33.9 Hypokalemia (Resolved) E87.6 Hypomagnesemia (Resolved) E83.42 Neutropenia (Resolved) D70.9 Allergies No Known Allergies Allergy (Verified 08/01/18 15:36) Home Medications: Ambulatory Orders Medication Instructions Recorded Amlodipine Besylate 7.5 mg PO DAILY 08/01/18 Guaifenesin [Mucinex] 1,200 mg PO BID 08/01/18 Oxybutynin Chloride [Ditropan Xl] 10 mg PO DAILY 08/01/18 Acetaminophen [Tylenol Extra 1,000 mg PO Q8H 08/05/18 Strength] Finasteride [Proscar] 5 mg PO DAILY 08/05/18 Fluconazole Suspension 200 mg PO DAILY 08/05/18 [Fluconazole] Gabapentin [Neurontin] 100 mg PO BID 08/05/18 Gabapentin [Neurontin] 200 mg PO QHS 08/05/18 Lisinopril [Zestril] 10 mg PO DAILY 08/05/18 Melatonin 3 mg PO QHS PRN PRN tablet 08/05/18 Pantoprazole Sodium [Protonix] 40 mg PO BID 08/05/18 Polyethylene Glycol 3350 [Miralax] 17 gm PO BID 08/05/18 Tamsulosin HCl [Flomax] 0.4 mg PO BID@0830,1730 08/05/18 Surgical History: Surgical History (Last Reviewed 08/07/18 @ 12:51 by Mayo Hickman MD) s/p PEG tube removal Onset Date: ~08/29/17 Status post insertion of percutaneous endoscopic gastrostomy (PEG) tube (Inactive) Z93.1 Surgical History: - - Laryngeal CA resection, tracheostomy, PEG insertion and removal. Psychiatric History: No pertinent psych hx Lives: Spouse/ Significant Other Smoking Status: Former smoker Tobacco Use: Non-smoker Alcohol: Sober Drugs: None - *Family History Maternal Family History: Family History (Last Reviewed 08/07/18 @ 12:51 by Mayo Hickman MD) Mother Hypertension CVA (cerebral vascular accident) History Items: Hypertension, Stroke Paternal Family History: Family History (Last Reviewed 08/07/18 @ 12:51 by Mayo Hickman MD) Mother Hypertension CVA (cerebral vascular accident) History Items: Hypertension Review of Systems Constitutional: Reports: Anorexia, Chills HEENT: Denies: Head Aches, Sinus Congestion, Sinus Drainage Cardiovascular: Denies: Chest Pain, Palpitations Respiratory: Denies: Cough, Shortness of breath at rest, Sputum production Genitourinary: Reports: Retention Musculoskeletal: Denies: Joint Pain, Joint Tenderness Skin: Denies: Rash, Wounds Psychiatric: Denies: Anxiety, Depression, Homicidal Ideations, Suicidal Ideations Physical Exam - Physical Exam Vital Signs Temp 98.6 F 08/06/18 15:10 Pulse 88 08/06/18 22:00 Resp 20 H 08/06/18 22:00 BP 98/63 08/06/18 15:10 Pulse Ox 95 08/06/18 22:00 Intake & Output 08/05/18 08/06/18 08/07/18 23:59 23:59 23:59 Intake Total 1285 / 1285 320 / 320 Output Total 100 / 100 100 / 100 Balance -100 / -100 1285 / 1285 220 / 220 Weight: 72.348 kg 72.348 kg 69.4 kg Intake: Oral 1285 / 1285 320 / 320 Output: Urine 100 / 100 100 / 100 General: Alert, Oriented x3 HEENT: Atraumatic Oral: Moist Mucosa Neck: Supple Lungs: Normal air movement Abdomen: Soft Assessment/Plan All Active Problems (Last Reviewed 03/16/18 @ 12:42 by Jacki Venegas NP-C) Upper GI bleeding (Acute) Nausea and vomiting (Acute) Anemia (Acute) Esophagitis (Acute) Gastritis (Acute) Odynophagia (Acute) Urine retention (Acute) Abnormal cardiac enzyme level (Resolved) Hypokalemia (Resolved) Hypomagnesemia (Resolved) Neutropenia (Resolved) Syncope (Resolved) 77-year-old male with a history of BPH and retention, status post UroLift procedure and at this point is able to urinate but still retaining high PVRs but I think this is satisfactory for now do not recommend any catheterizations or intermittent cath etc. unless he cannot urinate at all. He can follow-up with his outpatient with me and after discharge from the nursing short-term group home facility any questions give me a call.
[2018-08-07] MEDS: Ondansetron ODT 4 MG Tablet PO (13:31)
--- NOTE | 2018-08-07 14:26 | NURSING ---
J tube trach care provided. Son in law Malcolm, states that pt has a supply of HMI filters at home and gets Jtube replacements every 6 months. Cleans it BID or more freq depending on mucus amts.
[2018-08-07 16:00] VITALS: BP 99/56; PULSE 76; RESP 18; TEMP 37.1; O2SAT 91
[2018-08-07] MEDS: Gabapentin 100 MG Capsule 200 MG PO (21:15)
[2018-08-07 21:31] VITALS: PULSE 84; RESP 18; O2SAT 96
[2018-08-08] MEDS: traMADol 50 MG Tablet PO ×4 (00:26→23:39)
[2018-08-08] MEDS: Fluconazole 100 MG Tablet 200 MG PO (05:19)
[2018-08-08] MEDS: amLODIPine 5 MG Tablet 7.5 MG PO (05:20)
[2018-08-08] MEDS: Acetaminophen 500 MG Tablet 1000 MG PO ×3 (05:21→20:37)
[2018-08-08] MEDS: Pantoprazole Sodium 40 MG Tablet PO ×2 (05:21→17:28)
[2018-08-08] MEDS: Tolterodine Tartrate 2 MG CAP.SA PO (05:21)
[2018-08-08] MEDS: Lisinopril 10 MG Tablet PO (05:21)
[2018-08-08] MEDS: Senna/Docusate Sodium 1 Tablet 2 TABLET PO ×2 (05:21→17:28)
[2018-08-08] MEDS: Finasteride 5 MG Tablet PO (05:21)
[2018-08-08] MEDS: guaiFENesin 1,200 MG Tablet 1200 MG PO ×2 (05:23→17:27)
[2018-08-08] MEDS: Polyethylene Glycol 3350 17 GM PACKET PO ×2 (05:23→17:27)
[2018-08-08] MEDS: Gabapentin 100 MG Capsule PO ×2 (05:30→17:27)
[2018-08-08] MEDS: Tamsulosin HCl 0.4 MG Capsule PO ×2 (08:23→17:04)
--- NOTE | 2018-08-08 08:28 | NURSING ---
Pt stated he had the urge to void but can't. Bladder scanned with 0ml residual. Will continue to monitor.
--- NOTE | 2018-08-08 11:53 | NURSING ---
Pt bladder scanned between 400-500ml residual. Crista HOPSON aware. Will continue to monitor.
--- NOTE | 2018-08-08 12:51 | NURSING ---
Pt voided 75ml. Crista HOPSON aware. Will continue to monitor.
[2018-08-08] MEDS: Ondansetron ODT 4 MG Tablet PO (14:14)
--- NOTE | 2018-08-08 14:28 | NURSING ---
Trach care provided by Crista ROBBINS Pt tolerated well.
[2018-08-08 16:00] VITALS: BP 115/61; PULSE 74; RESP 18; TEMP 36.4; O2SAT 95
--- NOTE | 2018-08-08 16:11 | NURSING ---
Addendum entered by Crista Brandon 08/08/18 16:18: Dr Hickman notified of below, new order to st cath for urgency, scan >500cc, or no void Original Note: Pt states he has small urge to void, but not strong enough to go yet. Bladder scanned for 505 ml. Crista HOPSON made aware.
--- NOTE | 2018-08-08 16:49 | NURSING ---
This nurse entered pt room and asked if I could straight cath him d/t not voiding. Pt was explained to that Dr was called and we were given an order to straight cath if bladder scan's were >500 or no void. Pt flung hand up and stated, I don't want that. Crista HOPSON aware.
--- NOTE | 2018-08-08 16:58 | NURSING ---
Pt assisted to bathroom and voided 275ml. Crista HOPSON updated.
--- NOTE | 2018-08-08 18:19 | NURSING ---
Pt threw up yellow emesis. When asked by this nurse, pt stated he does not feel nauseous and feels better. Reported to Crista HOPSON.
--- NOTE | 2018-08-08 18:57 | NURSING ---
Pt assisted to bathroom and voided 100ml. Crista HOPSON updated.
[2018-08-08 20:23] VITALS: PULSE 80; RESP 18; O2SAT 94
[2018-08-08] MEDS: Gabapentin 100 MG Capsule 200 MG PO (20:37)
[2018-08-09] MEDS: Tolterodine Tartrate 2 MG CAP.SA PO (05:49)
[2018-08-09] MEDS: Finasteride 5 MG Tablet PO (05:49)
[2018-08-09] MEDS: guaiFENesin 1,200 MG Tablet 1200 MG PO ×2 (05:49→18:03)
[2018-08-09] MEDS: Lisinopril 10 MG Tablet PO (05:49)
[2018-08-09] MEDS: Acetaminophen 500 MG Tablet 1000 MG PO ×3 (05:49→20:58)
[2018-08-09] MEDS: Fluconazole 100 MG Tablet 200 MG PO (05:50)
[2018-08-09] MEDS: Gabapentin 100 MG Capsule PO ×2 (05:51→18:04)
[2018-08-09] MEDS: amLODIPine 5 MG Tablet 7.5 MG PO (05:51)
[2018-08-09] MEDS: Pantoprazole Sodium 40 MG Tablet PO ×2 (05:51→18:04)
[2018-08-09] MEDS: Senna/Docusate Sodium 1 Tablet 2 TABLET PO ×2 (05:52→18:03)
[2018-08-09] MEDS: Polyethylene Glycol 3350 17 GM PACKET PO ×2 (05:56→18:03)
--- NOTE | 2018-08-09 06:44 | NURSING ---
Trach care provided by this nurse no concerns noted at this time.
[2018-08-09] MEDS: Ondansetron ODT 4 MG Tablet PO (08:03)
[2018-08-09] MEDS: Tamsulosin HCl 0.4 MG Capsule PO ×2 (08:03→18:03)
--- NOTE | 2018-08-09 11:40 | CASEMGMT ---
Social Work IDT met with patient, daughter and son-in-law for care plan meeting. Patient lives at home alone and performs all trach care independently. HARESH assists at home as needed. Pt and family looking into AL or LTC facilities for DC plan. Provided list of facilities to daughter. Pt stating he has chronic pain, and receiving radiation daily for cancer. educated pt and family to Palliative Care - completed screening tool - pt agreeable to consult to assist with pain and disease management. Referral made to [facility]. [facility] will reach out to HARESH to schedule appt. Patient continues to progress with therapy. Will continue to follow for DC planning. TROY JensenW
[2018-08-09 13:59] VITALS: BP 128/71; PULSE 89; RESP 18; TEMP 36.9; O2SAT 94
--- NOTE | 2018-08-09 14:39 | MDS.RN ---
Pain interview for tesfaye 08/12/18 completed.
[2018-08-09] MEDS: Gabapentin 100 MG Capsule 200 MG PO (20:58)
[2018-08-09] MEDS: Bisacodyl 10 MG Suppository RECTAL (23:31)
[2018-08-10] MEDS: traMADol 50 MG Tablet PO ×2 (02:22→09:36)
[2018-08-10] MEDS: Polyethylene Glycol 3350 17 GM PACKET PO (06:36)
[2018-08-10] MEDS: Senna/Docusate Sodium 1 Tablet 2 TABLET PO ×2 (06:37→18:18)
[2018-08-10] MEDS: amLODIPine 5 MG Tablet 7.5 MG PO (06:37)
[2018-08-10] MEDS: Pantoprazole Sodium 40 MG Tablet PO ×2 (06:37→18:18)
[2018-08-10] MEDS: Fluconazole 100 MG Tablet 200 MG PO (06:38)
[2018-08-10] MEDS: Acetaminophen 500 MG Tablet 1000 MG PO ×3 (06:38→20:30)
[2018-08-10] MEDS: guaiFENesin 1,200 MG Tablet 1200 MG PO ×2 (07:55→18:18)
[2018-08-10] MEDS: Lisinopril 10 MG Tablet PO (07:55)
[2018-08-10] MEDS: Finasteride 5 MG Tablet PO (07:55)
[2018-08-10] MEDS: Ondansetron ODT 4 MG Tablet PO (07:55)
[2018-08-10] MEDS: Tamsulosin HCl 0.4 MG Capsule PO ×2 (07:55→18:18)
[2018-08-10] MEDS: Gabapentin 100 MG Capsule PO ×2 (07:57→18:18)
[2018-08-10] MEDS: Tolterodine Tartrate 2 MG CAP.SA PO (07:57)
--- NOTE | 2018-08-10 09:53 | NURSING ---
TOOK PT UP TO SINK TO CLEAN HIS OWN TRACH STATED IN NOTES PT DOES OWN CLEANING AT HOME. PT NOT REAL HAPPY BUT DID WELL. PAIN MEDS GIVEN. PT REFUSED [place]. REPORTED TO MARK ANTHONY CASTELAN
--- NOTE | 2018-08-10 10:23 | CASEMGMT ---
Social Work BIMS and PHQ-9 completed on this date for MARIO 08/12. Eloisa Cordova, EXECUTIVE OFFICE MANAGER TEST BAKER
[2018-08-10 15:28] VITALS: BP 115/61; PULSE 81; RESP 18; TEMP 36.9; O2SAT 91
--- NOTE | 2018-08-10 16:15 | NURSING ---
pt again cleaned own trach at bed side. this nurse reinserted trach due to pt couldn't see to to do at time.
[2018-08-10] MEDS: Simethicone 40MG/0.6ML Bottle 160 MG PO (18:21)
[2018-08-10] MEDS: Gabapentin 100 MG Capsule 200 MG PO (20:29)
[2018-08-11] MEDS: amLODIPine 5 MG Tablet 7.5 MG PO (06:22)
[2018-08-11] MEDS: Pantoprazole Sodium 40 MG Tablet PO ×2 (06:22→17:16)
[2018-08-11] MEDS: Senna/Docusate Sodium 1 Tablet 2 TABLET PO (06:23)
[2018-08-11] MEDS: Fluconazole 100 MG Tablet 200 MG PO (06:23)
[2018-08-11] MEDS: Acetaminophen 500 MG Tablet 1000 MG PO ×3 (06:25→21:08)
[2018-08-11] MEDS: guaiFENesin 1,200 MG Tablet 1200 MG PO ×2 (09:25→17:16)
[2018-08-11] MEDS: Lisinopril 10 MG Tablet PO (09:25)
[2018-08-11] MEDS: Gabapentin 100 MG Capsule PO ×2 (09:25→17:16)
[2018-08-11] MEDS: Finasteride 5 MG Tablet PO (09:25)
[2018-08-11] MEDS: Tolterodine Tartrate 2 MG CAP.SA PO (09:25)
[2018-08-11] MEDS: Tamsulosin HCl 0.4 MG Capsule PO ×2 (09:26→17:16)
[2018-08-11] MEDS: Simethicone 40MG/0.6ML Bottle 160 MG PO ×3 (09:49→17:17)
[2018-08-11 16:00] VITALS: BP 127/66; PULSE 84; RESP 20; TEMP 36.8; O2SAT 95
[2018-08-11] MEDS: Gabapentin 100 MG Capsule 200 MG PO (21:09)
[2018-08-11 21:10] VITALS: PULSE 88; RESP 18; O2SAT 94
[2018-08-12] MEDS: Acetaminophen 500 MG Tablet 1000 MG PO ×3 (05:36→21:29)
[2018-08-12] MEDS: amLODIPine 5 MG Tablet 7.5 MG PO (05:37)
[2018-08-12] MEDS: Fluconazole 100 MG Tablet 200 MG PO (05:39)
[2018-08-12] MEDS: Pantoprazole Sodium 40 MG Tablet PO ×2 (05:39→17:53)
[2018-08-12] MEDS: guaiFENesin 1,200 MG Tablet 1200 MG PO ×2 (07:42→17:52)
[2018-08-12] MEDS: Tamsulosin HCl 0.4 MG Capsule PO ×2 (07:42→17:51)
[2018-08-12] MEDS: Finasteride 5 MG Tablet PO (07:43)
[2018-08-12] MEDS: Lisinopril 10 MG Tablet PO (07:43)
[2018-08-12] MEDS: Tolterodine Tartrate 2 MG CAP.SA PO (07:43)
[2018-08-12] MEDS: Gabapentin 100 MG Capsule PO ×2 (07:43→17:52)
[2018-08-12] MEDS: Simethicone 40MG/0.6ML Bottle 160 MG PO ×3 (07:47→17:51)
[2018-08-12 15:57] VITALS: BP 126/70; PULSE 85; RESP 18; TEMP 36.6; O2SAT 93
[2018-08-12 21:10] VITALS: PULSE 87; RESP 18; O2SAT 96
[2018-08-12] MEDS: Gabapentin 100 MG Capsule 200 MG PO (21:29)
[2018-08-13] MEDS: Acetaminophen 500 MG Tablet 1000 MG PO ×3 (05:38→21:24)
[2018-08-13] MEDS: amLODIPine 5 MG Tablet 7.5 MG PO (05:39)
[2018-08-13] MEDS: Pantoprazole Sodium 40 MG Tablet PO ×2 (05:51→17:11)
[2018-08-13 06:00] VITALS: PULSE 84; RESP 18; O2SAT 95
[2018-08-13 06:03] LABS: Absolute Lymphocyte Count 0.68 X10^3/ul (0.83-4.51); Basophil# 0.01 X10^3/uL; Basophil% 0.2 % (0-1); Eosinophil# 0.18 X10^3/uL; Eosinophils% 2.7 % (0-5); Hematocrit 32.3 % (40-54); Hemoglobin 10.6 g/dl (13.0-16.5); Lymphocyte # 0.68 X10^3/ul (4.0); Lymphocyte % 10.4 % (19-41); Mean Corp Hgb Conc 32.8 g/gl (32-36); Mean Corpuscular Hgb 28.3 pg (27.0-32.0); Mean Corpuscular Volume 86.4 fL (80-94); Monocyte# 0.68 X10^3/uL; Monocyte% 10.4 % (0-10); Neutrophil # 4.99 X10^3/uL (2.7-7.7); Platelet Count 362 K/mm3 (150-450); RBC Distribution Width SD 47.6 fl (35.1-43.9); Red Blood Count 3.74 M/mm3 (4.6-6.2); White Blood Count 6.6 K/mm3 (4.4-11.0)
[2018-08-13 06:04] LABS: POSITIVE COUNT NO; POSITIVE DIFFERENTIAL NO; POSITIVE MORPHOLOGY NO
[2018-08-13 06:10] LABS: Anion Gap 11 (5-15); BUN 11 mg/dL (7-18); BUN/Creat Ratio 16.1 RATIO (10-20); Calcium,Total 8.6 mg/dL (8.5-10.1); Chloride 102 mmol/L (98-107); Creatinine, Serum 0.68 mg/dL (0.70-1.30); EST Glomerular Filtration Rate 119 mL/min (>60); Est Glom Filt Rate - Afr Amer 144 mL/min (>60); Estimated Creatinine Clearance 61.69 ml/min; Glucose 94 mg/dL (74-106); Potassium 3.8 mmol/L (3.5-5.1); Sodium Level 138 mmol/L (136-145)
[2018-08-13] MEDS: Lisinopril 10 MG Tablet PO (08:09)
[2018-08-13] MEDS: Tolterodine Tartrate 2 MG CAP.SA PO (08:09)
[2018-08-13] MEDS: Finasteride 5 MG Tablet PO (08:09)
[2018-08-13] MEDS: Tamsulosin HCl 0.4 MG Capsule PO ×2 (08:09→17:10)
[2018-08-13] MEDS: Ondansetron ODT 4 MG Tablet PO (08:09)
[2018-08-13] MEDS: Simethicone 40MG/0.6ML Bottle 160 MG PO ×3 (08:09→18:03)
[2018-08-13] MEDS: Gabapentin 100 MG Capsule PO ×2 (09:47→17:11)
[2018-08-13] MEDS: guaiFENesin 1,200 MG Tablet 1200 MG PO ×2 (09:48→17:11)
--- NOTE | 2018-08-13 10:18 | CASEMGMT ---
Social Work Followed up with [facility] on Palliative Medicine consult for pt. They are awaiting confirmation from insurance company at this time, and will notify this SW when an appointment is scheduled with the pt and family for consult. TROY Jensen
--- NOTE | 2018-08-13 11:12 | NURSING ---
Trach care provided. Pt tolerated well.
[2018-08-13] MEDS: Tuberculin,Purif.prot.deriv. 50 TU/ML Vial 5 ML ID (11:53)
[2018-08-13 16:00] VITALS: BP 124/66; PULSE 86; RESP 16; TEMP 36.7; O2SAT 95
[2018-08-13] MEDS: Polyethylene Glycol 3350 17 GM PACKET PO (17:10)
[2018-08-13] MEDS: Senna/Docusate Sodium 1 Tablet 2 TABLET PO (17:11)
--- NOTE | 2018-08-13 18:12 | NURSING ---
Trach care provided at this time. Pt tolerated well.
[2018-08-13] MEDS: Gabapentin 100 MG Capsule 200 MG PO (21:24)
[2018-08-14] MEDS: Acetaminophen 500 MG Tablet 1000 MG PO ×3 (06:00→21:47)
[2018-08-14] MEDS: amLODIPine 5 MG Tablet 7.5 MG PO (06:30)
[2018-08-14] MEDS: Polyethylene Glycol 3350 17 GM PACKET PO (06:30)
[2018-08-14] MEDS: Pantoprazole Sodium 40 MG Tablet PO ×2 (06:30→18:07)
[2018-08-14] MEDS: Senna/Docusate Sodium 1 Tablet 2 TABLET PO (06:30)
--- NOTE | 2018-08-14 06:30 | NURSING ---
Trach care provided. Patient tolerated procedure well.
[2018-08-14] MEDS: Finasteride 5 MG Tablet PO (07:48)
[2018-08-14] MEDS: Ondansetron ODT 4 MG Tablet PO (07:48)
[2018-08-14] MEDS: Lisinopril 10 MG Tablet PO (07:48)
[2018-08-14] MEDS: Tamsulosin HCl 0.4 MG Capsule PO ×2 (07:48→18:07)
[2018-08-14] MEDS: Gabapentin 100 MG Capsule PO ×2 (07:49→18:07)
[2018-08-14] MEDS: guaiFENesin 1,200 MG Tablet 1200 MG PO ×2 (07:49→18:07)
[2018-08-14] MEDS: Tolterodine Tartrate 2 MG CAP.SA PO (07:49)
[2018-08-14] MEDS: Simethicone 40MG/0.6ML Bottle 160 MG PO ×3 (07:50→18:08)
[2018-08-14 10:20] VITALS: PULSE 84; RESP 18; O2SAT 96
--- NOTE | 2018-08-14 14:57 | CASEMGMT ---
Addendum entered by Eloisa Cordova 08/14/18 15:34: HARESH spoke with Janeth at [facility] whom requested information be faxed for review. Referral sent. Original Note: Social Work Per pt permission, called HARESH to f/u on AL/LTC facility search. Answered questions - educated to facilities completing visit with pt to determine if AL or LTC would be more appropriate and to get better understanding about finances. Pt progressing well in therapy and continuing to receive radiation. Still awaiting insurance outcome for start of Palliative care. HARESH appreciative of assistance. Will continue to follow. Eloisa Cordova, TROY RESENDEZW
[2018-08-14 15:21] VITALS: BP 105/58; PULSE 93; RESP 18; TEMP 37; O2SAT 94
--- NOTE | 2018-08-14 16:52 | NURSING ---
PT CLEANED TRACH AND SITE WITH HELP OF THIS NURSE. REPORTED TO MARK ANTHONY CASTELAN
[2018-08-14] MEDS: Gabapentin 100 MG Capsule 200 MG PO (21:47)
[2018-08-15] MEDS: Pantoprazole Sodium 40 MG Tablet PO ×2 (04:55→18:04)
[2018-08-15] MEDS: amLODIPine 5 MG Tablet 7.5 MG PO (04:56)
[2018-08-15] MEDS: Acetaminophen 500 MG Tablet 1000 MG PO ×3 (04:57→22:12)
[2018-08-15] MEDS: Tamsulosin HCl 0.4 MG Capsule PO ×2 (08:31→18:05)
[2018-08-15] MEDS: Lisinopril 10 MG Tablet PO (08:32)
[2018-08-15] MEDS: guaiFENesin 1,200 MG Tablet 1200 MG PO ×2 (08:32→18:04)
[2018-08-15] MEDS: Gabapentin 100 MG Capsule PO ×2 (08:32→18:05)
[2018-08-15] MEDS: Tolterodine Tartrate 2 MG CAP.SA PO (08:32)
[2018-08-15] MEDS: Ondansetron ODT 4 MG Tablet PO (08:32)
[2018-08-15] MEDS: Finasteride 5 MG Tablet PO (08:32)
[2018-08-15] MEDS: Simethicone 40MG/0.6ML Bottle 160 MG PO ×3 (08:35→18:05)
--- NOTE | 2018-08-15 09:06 | NURSING ---
TRACH CARE DONE BY PT AND THIS NURSE. PT TOLERATED WELL.
--- NOTE | 2018-08-15 10:12 | CASEMGMT ---
Social Work Received call from [facility] that they have scheduled an admission meeting with pt and HARESH 08/17 at 9:30 am. Will continue to follow. TROY JensenW
--- NOTE | 2018-08-15 15:29 | NURSING ---
PT CLEANED TRACH WITH HELP OF THIS NURSE. PT TOLERATED WELL.
[2018-08-15 15:49] VITALS: BP 98/52; PULSE 89; RESP 16; TEMP 37.1; O2SAT 92
[2018-08-15] MEDS: Senna/Docusate Sodium 1 Tablet 2 TABLET PO (18:04)
[2018-08-15 18:09] VITALS: BP 124/59; PULSE 86
[2018-08-15 22:00] VITALS: PULSE 82; O2SAT 97
[2018-08-15] MEDS: Gabapentin 100 MG Capsule 200 MG PO (22:11)
[2018-08-16] MEDS: Acetaminophen 500 MG Tablet 1000 MG PO ×3 (06:10→20:42)
[2018-08-16] MEDS: amLODIPine 5 MG Tablet 7.5 MG PO (06:11)
[2018-08-16] MEDS: Pantoprazole Sodium 40 MG Tablet PO ×2 (06:12→17:28)
[2018-08-16] MEDS: Tolterodine Tartrate 2 MG CAP.SA PO (08:22)
[2018-08-16] MEDS: guaiFENesin 1,200 MG Tablet 1200 MG PO ×2 (08:22→17:28)
[2018-08-16] MEDS: Finasteride 5 MG Tablet PO (08:23)
[2018-08-16] MEDS: Tamsulosin HCl 0.4 MG Capsule PO ×2 (08:23→17:28)
[2018-08-16] MEDS: Lisinopril 10 MG Tablet PO (08:23)
[2018-08-16] MEDS: Gabapentin 100 MG Capsule PO ×2 (08:23→17:28)
[2018-08-16] MEDS: Simethicone 40MG/0.6ML Bottle 160 MG PO ×3 (08:25→17:29)
--- NOTE | 2018-08-16 12:08 | NURSING ---
TRACH CARE DONE BY THIS NURSE
--- NOTE | 2018-08-16 12:38 | MDS.RN ---
Information for the mds was obtained from review of the clinical record, interview of resident, staff, and direct observation of resident's care.
--- NOTE | 2018-08-16 13:44 | CASEMGMT ---
BIMS and PHQ9 interviews completed on this date for MDS assessment. Pt does state that he feels he would be better off at times due to pain and debility however pt denies any suicidal ideation. SW spoke with pt regarding feelings of depression. Will continue to follow. CONNOR Solano
[2018-08-16] MEDS: traMADol 50 MG Tablet PO (14:16)
[2018-08-16 15:22] VITALS: BP 132/71; PULSE 90; RESP 18; TEMP 36.9; O2SAT 94
[2018-08-16] MEDS: Polyethylene Glycol 3350 17 GM PACKET PO (17:27)
[2018-08-16] MEDS: Gabapentin 100 MG Capsule 200 MG PO (20:43)
[2018-08-16] MEDS: MELATONIN 3 MG TABLET PO (20:45)
[2018-08-16 21:02] VITALS: PULSE 90; RESP 18; O2SAT 94
[2018-08-17] MEDS: Acetaminophen 500 MG Tablet 1000 MG PO ×3 (04:46→20:47)
[2018-08-17] MEDS: amLODIPine 5 MG Tablet 7.5 MG PO (04:47)
[2018-08-17] MEDS: Senna/Docusate Sodium 1 Tablet 2 TABLET PO (04:47)
[2018-08-17] MEDS: Pantoprazole Sodium 40 MG Tablet PO ×2 (04:47→17:37)
[2018-08-17] MEDS: Simethicone 40MG/0.6ML Bottle 160 MG PO ×3 (08:23→17:34)
[2018-08-17] MEDS: Tolterodine Tartrate 2 MG CAP.SA PO (08:24)
[2018-08-17] MEDS: guaiFENesin 1,200 MG Tablet 1200 MG PO ×2 (08:24→17:37)
[2018-08-17] MEDS: Lisinopril 10 MG Tablet PO (08:25)
[2018-08-17] MEDS: Tamsulosin HCl 0.4 MG Capsule PO ×2 (08:25→17:36)
[2018-08-17] MEDS: Finasteride 5 MG Tablet PO (08:25)
[2018-08-17] MEDS: Gabapentin 100 MG Capsule PO ×2 (08:25→17:37)
--- NOTE | 2018-08-17 09:53 | NURSING ---
Trach care provided by this nurse. Pt tolerated well.
[2018-08-17 10:00] VITALS: PULSE 82; RESP 18; O2SAT 96
--- NOTE | 2018-08-17 10:39 | MDS.RN ---
Pain interview for tesfaye 08/19/18 completed.
[2018-08-17 16:00] VITALS: BP 122/47; PULSE 74; RESP 16; TEMP 37.4; O2SAT 94
[2018-08-17] MEDS: MELATONIN 3 MG TABLET PO (20:47)
[2018-08-17] MEDS: Gabapentin 100 MG Capsule 200 MG PO (20:49)
[2018-08-17] MEDS: traMADol 50 MG Tablet PO (21:56)
[2018-08-18] MEDS: traMADol 50 MG Tablet PO (02:09)
[2018-08-18] MEDS: Senna/Docusate Sodium 1 Tablet 2 TABLET PO ×2 (03:24→17:29)
[2018-08-18] MEDS: Acetaminophen 500 MG Tablet 1000 MG PO ×3 (03:24→20:35)
[2018-08-18] MEDS: amLODIPine 5 MG Tablet 7.5 MG PO (03:24)
[2018-08-18] MEDS: Pantoprazole Sodium 40 MG Tablet PO ×2 (03:24→17:29)
[2018-08-18] MEDS: Ibuprofen 400 MG Tablet PO (03:30)
[2018-08-18] MEDS: guaiFENesin 1,200 MG Tablet 1200 MG PO ×2 (07:58→17:29)
[2018-08-18] MEDS: Tolterodine Tartrate 2 MG CAP.SA PO (07:58)
[2018-08-18] MEDS: Gabapentin 100 MG Capsule PO ×2 (07:59→17:29)
[2018-08-18] MEDS: Finasteride 5 MG Tablet PO (07:59)
[2018-08-18] MEDS: Lisinopril 10 MG Tablet PO (07:59)
[2018-08-18] MEDS: Simethicone 40MG/0.6ML Bottle 160 MG PO ×3 (08:00→17:34)
[2018-08-18] MEDS: Tamsulosin HCl 0.4 MG Capsule PO ×2 (08:00→17:28)
[2018-08-18 11:03] VITALS: PULSE 80; RESP 18; O2SAT 97
[2018-08-18 15:25] VITALS: BP 90/49; PULSE 77; RESP 18; TEMP 36.8; O2SAT 96
[2018-08-18] MEDS: Gabapentin 100 MG Capsule 200 MG PO (20:34)
[2018-08-18] MEDS: NYSTATIN 500,000 UNIT/5 ML UDC 500000 UNIT PO (20:35)
[2018-08-19] MEDS: traMADol 50 MG Tablet PO ×2 (00:26→08:16)
[2018-08-19] MEDS: Ibuprofen 400 MG Tablet PO (03:51)
[2018-08-19] MEDS: amLODIPine 5 MG Tablet 7.5 MG PO (06:01)
[2018-08-19] MEDS: Pantoprazole Sodium 40 MG Tablet PO ×2 (06:01→17:05)
[2018-08-19] MEDS: NYSTATIN 500,000 UNIT/5 ML UDC 500000 UNIT PO ×4 (06:02→20:02)
[2018-08-19] MEDS: Acetaminophen 500 MG Tablet 1000 MG PO ×3 (06:02→20:01)
[2018-08-19] MEDS: Finasteride 5 MG Tablet PO (08:16)
[2018-08-19] MEDS: Gabapentin 100 MG Capsule PO ×2 (08:16→17:31)
[2018-08-19] MEDS: Tolterodine Tartrate 2 MG CAP.SA PO (08:16)
[2018-08-19] MEDS: Lisinopril 10 MG Tablet PO (08:16)
[2018-08-19] MEDS: guaiFENesin 1,200 MG Tablet 1200 MG PO ×2 (08:16→17:06)
[2018-08-19] MEDS: Tamsulosin HCl 0.4 MG Capsule PO ×2 (08:16→17:05)
[2018-08-19] MEDS: Simethicone 40MG/0.6ML Bottle 160 MG PO ×3 (08:18→17:32)
[2018-08-19 15:28] VITALS: BP 106/56; PULSE 84; RESP 18; TEMP 36.1; O2SAT 95
[2018-08-19] MEDS: Senna/Docusate Sodium 1 Tablet 2 TABLET PO (17:05)
[2018-08-19] MEDS: Gabapentin 100 MG Capsule 200 MG PO (20:01)
[2018-08-19 21:22] VITALS: PULSE 86; RESP 18; O2SAT 96
[2018-08-20 05:44] LABS: Absolute Neutrophil Count 4.9 X10^3/uL (2.0-7.7); Basophil# 0.03 X10^3/uL; Basophil% 0.4 % (0-1); Eosinophils% 4.3 % (0-5); Hematocrit 33.8 % (40-54); Hemoglobin 10.8 g/dl (13.0-16.5); Mean Corpuscular Hgb 27.7 pg (27.0-32.0); Mean Corpuscular Volume 86.7 fL (80-94); Mean Platelet Vol. 9.1 fl (6.2-12.0); Monocyte# 0.77 X10^3/uL; Monocyte% 11.1 % (0-10); Neutrophil # 4.91 X10^3/uL (2.7-7.7); Neutrophil % 70.8 % (47-70); Platelet Count 346 K/mm3 (150-450); RBC Distribution Width CV 15.3 % (11.6-14.6); RBC Distribution Width SD 47.3 fl (35.1-43.9); White Blood Count 6.9 K/mm3 (4.4-11.0)
[2018-08-20 05:46] LABS: POSITIVE COUNT NO; POSITIVE DIFFERENTIAL NO; POSITIVE MORPHOLOGY NO
[2018-08-20 05:51] LABS: Anion Gap 9 (5-15); BUN 15 mg/dL (7-18); BUN/Creat Ratio 18.6 RATIO (10-20); Calcium,Total 8.6 mg/dL (8.5-10.1); Chloride 104 mmol/L (98-107); Creatinine, Serum 0.81 mg/dL (0.70-1.30); EST Glomerular Filtration Rate 99 mL/min (>60); Est Glom Filt Rate - Afr Amer 120 mL/min (>60); Estimated Creatinine Clearance 70.74 ml/min; Glucose 94 mg/dL (74-106); Potassium 4.1 mmol/L (3.5-5.1); Sodium Level 137 mmol/L (136-145)
[2018-08-20] MEDS: Acetaminophen 500 MG Tablet 1000 MG PO ×3 (06:35→20:48)
[2018-08-20] MEDS: amLODIPine 5 MG Tablet 7.5 MG PO (06:36)
[2018-08-20] MEDS: traMADol 50 MG Tablet PO (06:37)
[2018-08-20] MEDS: Pantoprazole Sodium 40 MG Tablet PO ×2 (06:38→17:16)
[2018-08-20] MEDS: NYSTATIN 500,000 UNIT/5 ML UDC 500000 UNIT PO ×4 (06:38→20:47)
[2018-08-20] MEDS: Tamsulosin HCl 0.4 MG Capsule PO ×2 (08:04→17:15)
[2018-08-20] MEDS: Tolterodine Tartrate 2 MG CAP.SA PO (08:04)
[2018-08-20] MEDS: Lisinopril 10 MG Tablet PO (08:04)
[2018-08-20] MEDS: guaiFENesin 1,200 MG Tablet 1200 MG PO ×2 (08:04→17:15)
[2018-08-20] MEDS: Finasteride 5 MG Tablet PO (08:04)
[2018-08-20] MEDS: Gabapentin 100 MG Capsule PO ×2 (08:04→17:16)
[2018-08-20] MEDS: Simethicone 40MG/0.6ML Bottle 160 MG PO ×3 (08:08→18:25)
[2018-08-20 10:00] VITALS: PULSE 82; RESP 18; O2SAT 96
[2018-08-20 15:38] VITALS: BP 122/64; PULSE 74; RESP 16; TEMP 36.7; O2SAT 96
--- NOTE | 2018-08-20 18:27 | NURSING ---
Trach care provided at this time. Pt tolerated well.
[2018-08-20] MEDS: Gabapentin 100 MG Capsule 200 MG PO (20:47)
[2018-08-21] MEDS: amLODIPine 5 MG Tablet 7.5 MG PO (06:29)
[2018-08-21] MEDS: Pantoprazole Sodium 40 MG Tablet PO ×2 (06:29→17:50)
[2018-08-21] MEDS: Acetaminophen 500 MG Tablet 1000 MG PO ×3 (06:29→20:16)
[2018-08-21] MEDS: NYSTATIN 500,000 UNIT/5 ML UDC 500000 UNIT PO ×4 (06:31→20:15)
[2018-08-21] MEDS: Gabapentin 100 MG Capsule PO ×2 (08:09→17:49)
[2018-08-21] MEDS: Finasteride 5 MG Tablet PO (08:09)
[2018-08-21] MEDS: Tamsulosin HCl 0.4 MG Capsule PO ×2 (08:09→17:49)
[2018-08-21] MEDS: guaiFENesin 1,200 MG Tablet 1200 MG PO ×2 (08:09→17:49)
[2018-08-21] MEDS: Tolterodine Tartrate 2 MG CAP.SA PO (08:09)
[2018-08-21] MEDS: Lisinopril 10 MG Tablet PO (08:09)
[2018-08-21] MEDS: Simethicone 40MG/0.6ML Bottle 160 MG PO ×3 (08:10→17:49)
--- NOTE | 2018-08-21 11:25 | NURSING ---
Trach care provided by this nurse. Pt tolerated well.
[2018-08-21 16:00] VITALS: BP 150/73; PULSE 88; RESP 18; TEMP 37; O2SAT 95
--- NOTE | 2018-08-21 16:31 | NURSING ---
PT RETURNED FROM APPTS WITH ONCOLOGY, HAS NEW APPTS WITH DR VÁSQUEZ ON July AT 1330 & August CHEMO EDUCATION WITH VANNESA RICH AT 9AM [facility].
[2018-08-21] MEDS: Senna/Docusate Sodium 1 Tablet 2 TABLET PO (17:49)
[2018-08-21 20:00] VITALS: PULSE 88; RESP 16; O2SAT 94
[2018-08-21] MEDS: Gabapentin 100 MG Capsule 200 MG PO (20:16)
[2018-08-22] MEDS: Senna/Docusate Sodium 1 Tablet 2 TABLET PO (06:28)
[2018-08-22] MEDS: amLODIPine 5 MG Tablet 7.5 MG PO (06:28)
[2018-08-22] MEDS: NYSTATIN 500,000 UNIT/5 ML UDC 500000 UNIT PO ×4 (06:29→21:14)
[2018-08-22] MEDS: Pantoprazole Sodium 40 MG Tablet PO ×2 (06:29→17:55)
[2018-08-22 06:30] VITALS: PULSE 90; RESP 16; O2SAT 94
[2018-08-22] MEDS: Acetaminophen 500 MG Tablet 1000 MG PO ×3 (06:31→21:12)
--- NOTE | 2018-08-22 07:17 | NURSING ---
Patient found to be self ambulating to bathroom during the night. This nurse enc patient to ring for assistance to prevent any fall. Patient states he has to go fast when his bowels need to move. This nurse voiced understanding but again reminded patient to ring for help. Same reported to Bobbi RN and MARK ANTHONY Cox.
[2018-08-22] MEDS: Simethicone 40MG/0.6ML Bottle 160 MG PO ×3 (08:45→17:56)
[2018-08-22] MEDS: Gabapentin 100 MG Capsule 200 MG PO (08:45)
[2018-08-22] MEDS: Tolterodine Tartrate 2 MG CAP.SA PO (08:45)
[2018-08-22] MEDS: Finasteride 5 MG Tablet PO (08:45)
[2018-08-22] MEDS: Lisinopril 10 MG Tablet PO (08:45)
[2018-08-22] MEDS: Tamsulosin HCl 0.4 MG Capsule PO ×2 (08:45→17:55)
[2018-08-22] MEDS: guaiFENesin 1,200 MG Tablet 1200 MG PO ×2 (08:48→17:56)
[2018-08-22] MEDS: Gabapentin 100 MG Capsule PO ×2 (08:48→17:56)
[2018-08-22] MEDS: traMADol 50 MG Tablet PO (09:59)
[2018-08-22 16:00] VITALS: BP 109/56; PULSE 88; RESP 20; TEMP 37.1; O2SAT 98
[2018-08-22] MEDS: HYDROcodone Bitartrate/Apap 5/325 Tablet PO (21:11)
[2018-08-23] MEDS: HYDROcodone Bitartrate/Apap 5/325 Tablet PO ×3 (06:14→20:27)
[2018-08-23] MEDS: amLODIPine 5 MG Tablet 7.5 MG PO (06:17)
[2018-08-23] MEDS: Pantoprazole Sodium 40 MG Tablet PO ×2 (06:17→18:05)
[2018-08-23] MEDS: NYSTATIN 500,000 UNIT/5 ML UDC 500000 UNIT PO ×4 (06:18→20:31)
[2018-08-23] MEDS: Tamsulosin HCl 0.4 MG Capsule PO ×2 (08:27→18:05)
[2018-08-23] MEDS: Tolterodine Tartrate 2 MG CAP.SA PO (08:28)
[2018-08-23] MEDS: guaiFENesin 1,200 MG Tablet 1200 MG PO ×2 (08:28→18:05)
[2018-08-23] MEDS: Lisinopril 10 MG Tablet PO (08:28)
[2018-08-23] MEDS: Simethicone 40MG/0.6ML Bottle 160 MG PO ×3 (08:28→18:08)
[2018-08-23] MEDS: Finasteride 5 MG Tablet PO (08:28)
[2018-08-23] MEDS: Gabapentin 100 MG Capsule PO ×2 (08:28→18:06)
[2018-08-23] MEDS: traMADol 50 MG Tablet PO (09:16)
[2018-08-23 10:00] VITALS: PULSE 76; RESP 16; O2SAT 96
[2018-08-23] MEDS: Acetaminophen 500 MG Tablet 650 MG PO (12:31)
[2018-08-23 15:34] VITALS: BP 103/53; PULSE 75; RESP 16; TEMP 36.7; O2SAT 95
[2018-08-23] MEDS: Gabapentin 100 MG Capsule 200 MG PO (20:28)
[2018-08-24] MEDS: HYDROcodone Bitartrate/Apap 5/325 Tablet PO ×3 (06:10→21:14)
[2018-08-24] MEDS: amLODIPine 5 MG Tablet 7.5 MG PO (06:11)
[2018-08-24] MEDS: Pantoprazole Sodium 40 MG Tablet PO ×2 (06:12→17:00)
[2018-08-24] MEDS: NYSTATIN 500,000 UNIT/5 ML UDC 500000 UNIT PO ×4 (06:13→21:16)
[2018-08-24] MEDS: Finasteride 5 MG Tablet PO (08:22)
[2018-08-24] MEDS: Tamsulosin HCl 0.4 MG Capsule PO ×2 (08:22→17:01)
[2018-08-24] MEDS: Lisinopril 10 MG Tablet PO (08:22)
[2018-08-24] MEDS: Tolterodine Tartrate 2 MG CAP.SA PO (08:23)
[2018-08-24] MEDS: Gabapentin 100 MG Capsule PO ×2 (08:23→17:01)
[2018-08-24] MEDS: guaiFENesin 1,200 MG Tablet 1200 MG PO ×2 (08:23→17:01)
[2018-08-24] MEDS: Simethicone 40MG/0.6ML Bottle 160 MG PO ×3 (08:23→17:17)
[2018-08-24] MEDS: Ibuprofen 400 MG Tablet PO (08:26)
[2018-08-24 08:28] VITALS: BP 105/59; PULSE 80
[2018-08-24] MEDS: traMADol 50 MG Tablet PO (11:17)
[2018-08-24 17:04] VITALS: BP 104/58; PULSE 73; RESP 16; TEMP 37.2; O2SAT 95
[2018-08-24 21:15] VITALS: PULSE 74; RESP 15; O2SAT 94
[2018-08-24] MEDS: Gabapentin 100 MG Capsule 200 MG PO (21:16)
[2018-08-25] MEDS: HYDROcodone Bitartrate/Apap 5/325 Tablet PO ×3 (06:13→21:40)
[2018-08-25] MEDS: Pantoprazole Sodium 40 MG Tablet PO ×2 (06:14→17:50)
[2018-08-25] MEDS: NYSTATIN 500,000 UNIT/5 ML UDC 500000 UNIT PO ×4 (06:14→21:41)
[2018-08-25] MEDS: amLODIPine 5 MG Tablet 7.5 MG PO (06:14)
[2018-08-25] MEDS: Simethicone 40MG/0.6ML Bottle 160 MG PO ×3 (08:06→17:49)
[2018-08-25] MEDS: Lisinopril 10 MG Tablet PO (08:07)
[2018-08-25] MEDS: Tamsulosin HCl 0.4 MG Capsule PO ×2 (08:07→17:50)
[2018-08-25] MEDS: Gabapentin 100 MG Capsule PO ×2 (08:07→17:50)
[2018-08-25] MEDS: Tolterodine Tartrate 2 MG CAP.SA PO (08:07)
[2018-08-25] MEDS: guaiFENesin 1,200 MG Tablet 1200 MG PO ×2 (08:07→17:50)
[2018-08-25] MEDS: Finasteride 5 MG Tablet PO (08:07)
--- NOTE | 2018-08-25 12:14 | NURSING ---
Pt assisted to sink by this nurse. Trach care done and site cleaned by pt with the help of this nurse. Pt tolerated well.
[2018-08-25 15:48] VITALS: BP 124/58; PULSE 81; RESP 16; TEMP 36.8; O2SAT 93
[2018-08-25] MEDS: Gabapentin 100 MG Capsule 200 MG PO (21:41)
[2018-08-25 21:55] VITALS: PULSE 80; RESP 16; O2SAT 93
[2018-08-26] MEDS: HYDROcodone Bitartrate/Apap 5/325 Tablet PO ×3 (05:27→20:15)
[2018-08-26] MEDS: amLODIPine 5 MG Tablet 7.5 MG PO (05:28)
[2018-08-26] MEDS: NYSTATIN 500,000 UNIT/5 ML UDC 500000 UNIT PO ×4 (05:28→20:17)
[2018-08-26] MEDS: Pantoprazole Sodium 40 MG Tablet PO ×2 (05:28→17:21)
[2018-08-26] MEDS: Simethicone 40MG/0.6ML Bottle 160 MG PO ×3 (08:55→17:21)
[2018-08-26] MEDS: Gabapentin 100 MG Capsule PO ×2 (08:57→17:21)
[2018-08-26] MEDS: Tolterodine Tartrate 2 MG CAP.SA PO (08:57)
[2018-08-26] MEDS: guaiFENesin 1,200 MG Tablet 1200 MG PO ×2 (08:57→17:21)
[2018-08-26] MEDS: Lisinopril 10 MG Tablet PO (08:57)
[2018-08-26] MEDS: Tamsulosin HCl 0.4 MG Capsule PO ×2 (08:58→17:21)
[2018-08-26] MEDS: Finasteride 5 MG Tablet PO (08:58)
[2018-08-26 10:00] VITALS: PULSE 76; RESP 16; O2SAT 97
--- NOTE | 2018-08-26 14:56 | NURSING ---
Pt assisted to sink by this nurse. Trach care done and site cleaned by pt with the help of this nurse. Pt tolerated well.
[2018-08-26 15:37] VITALS: BP 118/60; PULSE 75; RESP 24; TEMP 37; O2SAT 93
[2018-08-26] MEDS: Gabapentin 100 MG Capsule 200 MG PO (20:16)
[2018-08-27] MEDS: HYDROcodone Bitartrate/Apap 5/325 Tablet PO ×3 (05:27→20:32)
[2018-08-27] MEDS: Pantoprazole Sodium 40 MG Tablet PO ×2 (05:28→17:24)
[2018-08-27] MEDS: amLODIPine 5 MG Tablet 7.5 MG PO (05:28)
[2018-08-27] MEDS: NYSTATIN 500,000 UNIT/5 ML UDC 500000 UNIT PO ×4 (05:29→20:35)
[2018-08-27 05:48] LABS: Absolute Lymphocyte Count 0.67 X10^3/ul (0.83-4.51); Absolute Neutrophil Count 4.3 X10^3/uL (2.0-7.7); Basophil# 0.04 X10^3/uL; Basophil% 0.7 % (0-1); Eosinophil# 0.32 X10^3/uL; Eosinophils% 5.2 % (0-5); Hematocrit 32.4 % (40-54); Hemoglobin 10.4 g/dl (13.0-16.5); Lymphocyte # 0.67 X10^3/ul (4.0); Lymphocyte % 10.9 % (19-41); Mean Corp Hgb Conc 32.1 g/gl (32-36); Mean Corpuscular Hgb 28.1 pg (27.0-32.0); Mean Corpuscular Volume 87.6 fL (80-94); Mean Platelet Vol. 8.8 fl (6.2-12.0); Monocyte# 0.76 X10^3/uL; Monocyte% 12.4 % (0-10); Neutrophil % 70.3 % (47-70); Platelet Count 251 K/mm3 (150-450); RBC Distribution Width CV 15.3 % (11.6-14.6); RBC Distribution Width SD 49.1 fl (35.1-43.9); White Blood Count 6.1 K/mm3 (4.4-11.0)
[2018-08-27 06:07] LABS: Anion Gap 7 (5-15); BUN 12 mg/dL (7-18); BUN/Creat Ratio 14.8 RATIO (10-20); Chloride 104 mmol/L (98-107); Creatinine, Serum 0.81 mg/dL (0.70-1.30); EST Glomerular Filtration Rate 98 mL/min (>60); Est Glom Filt Rate - Afr Amer 119 mL/min (>60); Estimated Creatinine Clearance 68.69 ml/min; Glucose 89 mg/dL (74-106); Potassium 4.5 mmol/L (3.5-5.1); Sodium Level 138 mmol/L (136-145)
[2018-08-27 06:24] LABS: POSITIVE COUNT NO; POSITIVE DIFFERENTIAL NO; POSITIVE MORPHOLOGY NO
[2018-08-27] MEDS: Finasteride 5 MG Tablet PO (08:21)
[2018-08-27] MEDS: Tamsulosin HCl 0.4 MG Capsule PO ×2 (08:21→17:24)
[2018-08-27] MEDS: Lisinopril 10 MG Tablet PO (08:21)
[2018-08-27] MEDS: Tolterodine Tartrate 2 MG CAP.SA PO (08:21)
[2018-08-27] MEDS: guaiFENesin 1,200 MG Tablet 1200 MG PO ×2 (08:21→17:24)
[2018-08-27] MEDS: Gabapentin 100 MG Capsule PO ×2 (08:22→17:24)
[2018-08-27] MEDS: Simethicone 40MG/0.6ML Bottle 160 MG PO ×3 (10:45→17:25)
[2018-08-27 15:50] VITALS: BP 123/63; PULSE 78; RESP 16; TEMP 37.1; O2SAT 96
[2018-08-27] MEDS: Gabapentin 100 MG Capsule 200 MG PO (20:34)
[2018-08-28] MEDS: HYDROcodone Bitartrate/Apap 5/325 Tablet PO ×3 (06:09→21:06)
[2018-08-28] MEDS: Pantoprazole Sodium 40 MG Tablet PO ×2 (06:10→17:47)
[2018-08-28] MEDS: NYSTATIN 500,000 UNIT/5 ML UDC 500000 UNIT PO ×4 (06:10→21:07)
[2018-08-28] MEDS: amLODIPine 5 MG Tablet 7.5 MG PO (06:10)
[2018-08-28] MEDS: Tamsulosin HCl 0.4 MG Capsule PO ×2 (08:38→17:47)
[2018-08-28] MEDS: guaiFENesin 1,200 MG Tablet 1200 MG PO ×2 (08:39→17:47)
[2018-08-28] MEDS: Tolterodine Tartrate 2 MG CAP.SA PO (08:39)
[2018-08-28] MEDS: Finasteride 5 MG Tablet PO (08:39)
[2018-08-28] MEDS: Gabapentin 100 MG Capsule PO ×2 (08:39→17:47)
[2018-08-28] MEDS: Simethicone 40MG/0.6ML Bottle 160 MG PO ×3 (08:39→17:48)
[2018-08-28] MEDS: Lisinopril 10 MG Tablet PO (08:39)
--- NOTE | 2018-08-28 08:51 | MDS.RN ---
Information for the mds was obtained from review of the clinical record, interview of resident, staff, and direct observation of resident's care.
--- NOTE | 2018-08-28 13:48 | CASEMGMT ---
Addendum entered by Eloisa Cordova 08/31/18 10:11: Notified [facility] Palliative team of pts DC date and plans. Original Note: Social Work Spoke with daughter, HARESH and pt about discharge plans. All agreeable to DC to [facility]. [facility] has accepted pt. PASRR completed. Plan to DC 09/01 to [facility]. Eloisa Cordova, TROY SUPERVISOR SMOKE CONTROL
[2018-08-28] MEDS: Senna/Docusate Sodium 1 Tablet 2 TABLET PO (14:34)
[2018-08-28 15:41] VITALS: BP 101/44; PULSE 75; RESP 14; TEMP 36.9; O2SAT 94
--- NOTE | 2018-08-28 19:52 | PCM.TXEXTCAR ---
- Diet 08/06/18 18:08 Diet: Regular Diet Is pt able to select menu?: Yes - Routine Orders/Code Status Suppository Type: Dulcolax 10mg Suppository Frequency: Daily PRN Code Status: Full Code - Wound(s) right littlejohn Wound Type: Abrasion left lateral ankle Wound Type: Abrasion - Therapies Weight Bearing: Weight bearing as tolerated Extremity Affected:: Bilateral Lower Physical Therapy: Eval and Treat Occupational Therapy: Eval and Treat - Problem/Diagnosis (1) Peptic ulcer disease Status: Chronic Current Visit: Yes (2) Hypertension Status: Chronic Current Visit: Yes (3) Anemia Status: Acute Current Visit: Yes (4) Pulmonary nodule Status: Chronic Current Visit: Yes (5) Alcohol dependence Status: Chronic Current Visit: Yes (6) Overactive bladder Status: Chronic Current Visit: Yes (7) Esophagitis Status: Acute Current Visit: Yes (8) Gastritis Status: Acute Current Visit: Yes (9) Upper GI bleeding Status: Acute Current Visit: No (10) Cancer, metastatic to bone Status: Chronic Current Visit: No (11) BPH (benign prostatic hyperplasia) Status: Chronic Current Visit: No (12) Radiation esophagitis Status: Chronic Current Visit: No (13) Laryngeal cancer Status: Chronic Comment: diagnosed February of 2016 on biopsy of the epiglottis and false vocal cord Current Visit: No - Allergies/Procedures Done in Hospital Allergies/Adverse Reactions: Allergies No Known Allergies Allergy (Verified 08/21/18 14:54) - Type of Care/Length of Stay Estimated LOS: More Than 30 Days Type of Care Needed: Intermediate Rehab Potential: Fair Prognosis: Poor - Additional Orders/Day of Discharge Day of Discharge: 09/01/18 - Dietary and Speech Recommendations Dietitian Recommendations/Changes: Will continue to provide ensure enlive 240 cc ensure enlive milkshakes at all meals. Rec consider supplemental nutrition support if in accordance w/ res/family wishes r/t increased s/s of malnutrition - please consult for rec as indicated. - Follow Up Care Primary Care Physician: Hilario Rodriguez DO [Primary Care Provider] - Please follow up with your Primary Care Physician in: 1 week. Please Follow Up With: Mayo Hickman MD When: As scheduled. Please Follow Up With: Dr Santos When: As scheduled. Please Follow Up With: Gabriela Katz MD When: As scheduled. Please Follow Up With: Alisha Dixon MD When: As scheduled. Please Follow Up With: Shweta Davies NP-C When: As scheduled.
--- NOTE | 2018-08-28 19:55 | DS.PCM_ITS ---
Discharge Date and Diagnosis - Problem List Patient Problems: Active and Suspected Problems (Last Reviewed 08/27/18 @ 09:28 by Jacklyn Forrester) Encounter for education (Acute) Anemia (Acute) Esophagitis (Acute) Gastritis (Acute) Date of Admission: 08/05/18 Date of Discharge: 09/01/18 - Primary Discharge Diagnosis Active and Suspected Problems (Last Reviewed 08/27/18 @ 09:28 by Jacklyn Forrester) Encounter for education (Acute) Anemia (Acute) Esophagitis (Acute) Gastritis (Acute) - Secondary Discharge Diagnosis Chronic Problems (Last Reviewed 08/27/18 @ 09:28 by Jacklyn Forrester) Regional lymph node metastasis present (Chronic) Cancer of left lung (Chronic) Cancer, metastatic to bone (Chronic) 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) Chronic back pain (Chronic) new bone lesion at L5 - biopsied on 08/03/18 Alcohol dependence in remission (Chronic) BPH (benign prostatic hyperplasia) (Chronic) Peptic ulcer disease (Chronic) Hypertension (Chronic) Pulmonary nodule (Chronic) Alcohol dependence (Chronic) Overactive bladder (Chronic) Former smoker (Chronic) quit February 2016 Normochromic normocytic anemia (Chronic) due to laryngeal CA and chemotherapy/radiation Peripheral vascular disease (Chronic) Radiation esophagitis (Chronic) 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 on biopsy of the epiglottis and false vocal cord Alcohol abuse (Chronic) states he quit drinking in February of 2016 when he was diagnosed with Laryngeal cancer...also quit smoking Hypertension, essential, benign (Chronic) Difficulty chewing (Chronic) Hospital Course and Treatment Imaging Results: 08/06/18 18:08 Diet: Regular Diet Is pt able to select menu?: Yes Labs (Last 48 Hours) 08/27/18 08/27/18 05:05 05:05 WBC 6.1 RBC 3.70 L Hgb 10.4 L Hct 32.4 L MCV 87.6 MCH 28.1 MCHC 32.1 RDW 15.3 H RDW Differential 49.1 H Plt Count 251 MPV 8.8 Immature Gran % (Auto) 0.500 Neut % (Auto) 70.3 H Lymph % (Auto) 10.9 L [place] % (Auto) 12.4 H Eos % (Auto) 5.2 H Baso % (Auto) 0.7 Absolute Neuts (auto) 4.3 Absolute Lymphs (auto) 0.67 L Total Counted Not Reportable Sodium 138 Potassium 4.5 Chloride 104 Carbon Dioxide 27.0 Anion Gap 7 BUN 12 Creatinine 0.81 Estim Creat Clear Calc 68.69 Est GFR (MDRD) Af Amer 119 Est GFR (MDRD) Non-Af 98 BUN/Creatinine Ratio 14.8 Glucose 89 Calcium 9.0 Operations: None Procedures: None Summary of Care Provided: The patient is a 78 year old Male with below past medical history significant for laryngeal cancer, hospitalized for upper gastrointestinal bleeding secondary to esophagitis, gastritis, complicated by bony metastatic disease, admitted to TCU with debility, here for rehabilitation, strengthening, outpatient radiation treatments, prior to discharge home with spouse. Discharge to [facility] non-skilled. Patient Problems: Active and Suspected Problems (Last Reviewed 08/27/18 @ 09:28 by Jacklyn Forrester) Encounter for education (Acute) Anemia (Acute) Esophagitis (Acute) Gastritis (Acute) - Physical Exam Vital Signs Temp Pulse Resp BP Pulse Ox 98.4 F 75 14 101/44 L 94 08/28/18 15:41 08/28/18 15:41 08/28/18 15:41 08/28/18 15:41 08/28/18 15:41 Oxygen Delivery Method Room Air Weight: 63.673 kg Body Mass Index (BMI) 23.6 Intake and Output for Last 24 Hours 08/26/18 08/27/18 08/28/18 23:59 23:59 23:59 Intake Total 720 / 720 840 / 840 720 / 720 Balance 720 / 720 840 / 840 720 / 720 Discharge Diet: No Restrictions Discharge Activity: Return to Normal Activity, May Shower, Use Walker Weight Bearing Status: Weight bearing as tolerated Call your doctor if you observe: Fever of 101 or Higher, Inability to urinate, Inability to have a bowel movement, Shortness of breath, Chest pain, Uncontrolled pain Home Medications: Medications to take at Discharge Amlodipine Besylate 7.5 mg PO DAILY 08/01/18 Guaifenesin [Mucinex] 1,200 mg PO BID 08/01/18 Oxybutynin Chloride [Ditropan Xl] 10 mg PO DAILY 08/01/18 Finasteride [Proscar] 5 mg PO DAILY 08/05/18 Gabapentin [Neurontin] 100 mg PO BID 08/05/18 Gabapentin [Neurontin] 200 mg PO QHS 08/05/18 Lisinopril [Zestril] 10 mg PO DAILY 08/05/18 Melatonin 3 mg PO QHS PRN PRN tablet 08/05/18 Pantoprazole Sodium [Protonix] 40 mg PO BID 08/05/18 Polyethylene Glycol 3350 [Miralax] 17 gm PO BID 08/05/18 Tamsulosin HCl [Flomax] 0.4 mg PO BID@0830,1730 08/05/18 Acetaminophen [Tylenol] 650 mg PO Q6H PRN PRN tablet 08/28/18 Bisacodyl [Dulcolax] 10 mg RECTAL DAILY PRN suppos. 08/28/18 Hydrocodone Bitart/Apap 5-325 [Gaston 5/325] 1 tab PO TID 4 Days #12 tab 08/28/18 Ibuprofen [Motrin] 400 mg PO Q4H PRN PRN tablet 08/28/18 Senna/Docusate Sodium [Senokot-S] 2 tablet PO DAILY PRN tablet 08/28/18 Simethicone 40MG/0.6ML [Mylicon] 160 mg PO TIDPC bottle 08/28/18 traMADol [Ultram] 50 mg PO Q4H PRN PRN 7 Days #30 tab 08/28/18 Following Prescrptions Were Given to Patient: Hydrocodone Bitart/Apap 5-325 [Gaston 5/325] 1 tab PO TID 4 Days #12 tab Prescription Printed traMADol [Ultram] 50 mg PO Q4H PRN PRN 7 Days #30 tab PRN Reason: Moderate Pain (4-5/10) Prescription Printed Primary Care Physician: Hilario Rodriguez DO [Primary Care Provider] - Please follow up with your Primary Care Physician in: 1 week. Please Follow Up With: Mayo Hickman MD When: As scheduled. Please Follow Up With: Dr Santos When: As scheduled. Please Follow Up With: Gabriela Katz MD When: As scheduled. Please Follow Up With: Alisha Dixon MD When: As scheduled. Please Follow Up With: Shweta Davies NP-C When: As scheduled. Disposition: Asstd Living/Non-Skill [facility] Minutes spent on discharge:: 30 Patient Condition:: Poor Medical Necessity - Tobacco Use Smoking Status: Former smoker Tobacco Use: Non-smoker Meaningful Use Info Meaningful Use Diagnoses (Choose all that apply): None applicable
[2018-08-28 21:00] VITALS: PULSE 76; RESP 14; O2SAT 96
[2018-08-28] MEDS: Gabapentin 100 MG Capsule 200 MG PO (21:06)
[2018-08-29] MEDS: HYDROcodone Bitartrate/Apap 5/325 Tablet PO ×3 (05:55→20:43)
[2018-08-29] MEDS: Pantoprazole Sodium 40 MG Tablet PO ×2 (05:56→18:01)
[2018-08-29] MEDS: amLODIPine 5 MG Tablet 7.5 MG PO (05:56)
[2018-08-29] MEDS: Gabapentin 100 MG Capsule PO ×2 (08:47→18:02)
[2018-08-29] MEDS: Tamsulosin HCl 0.4 MG Capsule PO ×2 (08:47→18:01)
[2018-08-29] MEDS: Lisinopril 10 MG Tablet PO (08:47)
[2018-08-29] MEDS: Finasteride 5 MG Tablet PO (08:47)
[2018-08-29] MEDS: Tolterodine Tartrate 2 MG CAP.SA PO (08:47)
[2018-08-29] MEDS: guaiFENesin 1,200 MG Tablet 1200 MG PO ×2 (08:47→18:01)
[2018-08-29] MEDS: Ibuprofen 400 MG Tablet PO (08:48)
[2018-08-29] MEDS: Simethicone 40MG/0.6ML Bottle 160 MG PO ×3 (08:51→18:01)
--- NOTE | 2018-08-29 13:55 | MDS.RN ---
Pain interview for tesfaye 09/01/18 completed.
[2018-08-29] MEDS: Gabapentin 100 MG Capsule 200 MG PO (20:44)
[2018-08-30] MEDS: HYDROcodone Bitartrate/Apap 5/325 Tablet PO ×3 (05:34→20:06)
[2018-08-30] MEDS: amLODIPine 5 MG Tablet 7.5 MG PO (05:34)
[2018-08-30] MEDS: Pantoprazole Sodium 40 MG Tablet PO ×2 (05:34→17:07)
[2018-08-30] MEDS: Lisinopril 10 MG Tablet PO (09:10)
[2018-08-30] MEDS: guaiFENesin 1,200 MG Tablet 1200 MG PO ×2 (09:10→17:07)
[2018-08-30] MEDS: Tamsulosin HCl 0.4 MG Capsule PO ×2 (09:10→17:07)
[2018-08-30] MEDS: Gabapentin 100 MG Capsule PO ×2 (09:10→17:07)
[2018-08-30] MEDS: Simethicone 40MG/0.6ML Bottle 160 MG PO ×3 (09:10→17:06)
[2018-08-30] MEDS: Tolterodine Tartrate 2 MG CAP.SA PO (09:10)
[2018-08-30] MEDS: Finasteride 5 MG Tablet PO (09:10)
--- NOTE | 2018-08-30 12:31 | NURSING ---
Upon entering room, pt was standing at sink and had just completed trach care.
[2018-08-30 14:09] VITALS: BP 107/52; PULSE 72; RESP 16; TEMP 36.8; O2SAT 93
[2018-08-30] MEDS: Gabapentin 100 MG Capsule 200 MG PO (20:07)
[2018-08-30 20:10] VITALS: PULSE 74; RESP 18; O2SAT 95
[2018-08-31] MEDS: HYDROcodone Bitartrate/Apap 5/325 Tablet PO ×3 (05:59→20:53)
[2018-08-31] MEDS: Pantoprazole Sodium 40 MG Tablet PO ×2 (06:00→18:15)
[2018-08-31] MEDS: amLODIPine 5 MG Tablet 7.5 MG PO (06:00)
[2018-08-31] MEDS: Simethicone 40MG/0.6ML Bottle 160 MG PO ×3 (08:14→18:14)
[2018-08-31] MEDS: Tolterodine Tartrate 2 MG CAP.SA PO (08:15)
[2018-08-31] MEDS: guaiFENesin 1,200 MG Tablet 1200 MG PO ×2 (08:15→18:15)
[2018-08-31] MEDS: Lisinopril 10 MG Tablet PO (08:15)
[2018-08-31] MEDS: Tamsulosin HCl 0.4 MG Capsule PO ×2 (08:15→18:15)
[2018-08-31] MEDS: Gabapentin 100 MG Capsule PO ×2 (08:15→18:15)
[2018-08-31] MEDS: Finasteride 5 MG Tablet PO (08:15)
[2018-08-31 10:00] VITALS: PULSE 70; RESP 16; O2SAT 98
--- NOTE | 2018-08-31 10:36 | NURSING ---
Upon this nurse entering room, pt was standing at sink and had just completed own trach care.
[2018-08-31] MEDS: Ibuprofen 400 MG Tablet PO (10:46)
--- NOTE | 2018-08-31 13:26 | CASEMGMT ---
Social Work BIMS and PHQ-9 completed for MDS assessment. Eloisa Cordova, CILNICAL SCIENTIST SENIOR SYSTEMS DEVELOPER
[2018-08-31 15:34] VITALS: BP 119/65; PULSE 65; RESP 16; TEMP 36.4; O2SAT 94
[2018-08-31] MEDS: Gabapentin 100 MG Capsule 200 MG PO (20:53)
[2018-09-01] MEDS: HYDROcodone Bitartrate/Apap 5/325 Tablet PO (05:10)
[2018-09-01] MEDS: Pantoprazole Sodium 40 MG Tablet PO (05:11)
[2018-09-01] MEDS: amLODIPine 5 MG Tablet 7.5 MG PO (05:11)
[2018-09-01] MEDS: Lisinopril 10 MG Tablet PO (08:15)
[2018-09-01] MEDS: Tamsulosin HCl 0.4 MG Capsule PO (08:15)
[2018-09-01] MEDS: Simethicone 40MG/0.6ML Bottle 160 MG PO (08:15)
[2018-09-01] MEDS: Gabapentin 100 MG Capsule PO (08:16)
[2018-09-01] MEDS: Finasteride 5 MG Tablet PO (08:16)
[2018-09-01] MEDS: guaiFENesin 1,200 MG Tablet 1200 MG PO (08:16)
[2018-09-01] MEDS: Tolterodine Tartrate 2 MG CAP.SA PO (08:16)
[2018-09-01 08:42] VITALS: PULSE 68; RESP 16; O2SAT 98
[2018-09-01 10:40] VITALS: BP 110/65; PULSE 68; RESP 16; TEMP 36.7; O2SAT 98
[2018-09-01 10:59] VITALS: BP 110/65; PULSE 68; RESP 16; TEMP 36.7
== END 2018-09-01 10:50 | disposition skilled nursing facility (03) | DRG 948 ==
PROVIDERS: Admitting Provider Family Medicine Geriatric Medicine; Family Provider Family Medicine; PCP Family Medicine; Referring Provider Family Medicine Geriatric Medicine; Visit Provider Family Medicine Geriatric Medicine
DX: R53.81 Other malaise (principal); C79.51 Secondary malignant neoplasm of bone; B37.81 Candidal esophagitis; C34.92 Malignant neoplasm of unspecified part of left bronchus or lung; C77.9 Secondary and unspecified malignant neoplasm of lymph node, unspecified; I10 Essential (primary) hypertension; Z23 Encounter for immunization; N40.0 Benign prostatic hyperplasia without lower urinary tract symptoms; C32.9 Malignant neoplasm of larynx, unspecified; N32.81 Overactive bladder; K44.9 Diaphragmatic hernia without obstruction or gangrene; F10.21 Alcohol dependence, in remission; I73.9 Peripheral vascular disease, unspecified; G89.29 Other chronic pain; D64.9 Anemia, unspecified; K29.50 Unspecified chronic gastritis without bleeding; K21.0 Gastro-esophageal reflux disease with esophagitis; K27.7 Chronic peptic ulcer, site unspecified, without hemorrhage or perforation; Y84.2 Radiological procedure and radiotherapy as the cause of abnormal reaction of the patient, or of later complication, without mention of misadventure at the time of the procedure; Z93.0 Tracheostomy status; Z87.891 Personal history of nicotine dependence; Z92.21 Personal history of antineoplastic chemotherapy
CPT/HCPCS: 36415; 77336; 80048; 85025; 97110; 97116; 97163; 97166; 97530; 97535; 97802; 90670

== ENCOUNTER → 2018-09-10 | Outpatient (REF) | payer MEDICARE, OTHER, SELFPAY ==
[2018-08-27 09:30] VITALS: BMI 20.3
[2018-09-10 07:55] LABS: Hematocrit 33.5 % (40-54); Mean Corp Hgb Conc 32.8 g/gl (32-36); Mean Corpuscular Hgb 28.3 pg (27.0-32.0); Mean Corpuscular Volume 86.1 fL (80-94); Mean Platelet Vol. 9.5 fl (6.2-12.0); Platelet Count 321 K/mm3 (150-450); RBC Distribution Width CV 15.2 % (11.6-14.6); RBC Distribution Width SD 47.1 fl (35.1-43.9); Red Blood Count 3.89 M/mm3 (4.6-6.2); White Blood Count 6.7 K/mm3 (4.4-11.0)
[2018-09-10 07:57] LABS: Anion Gap 7 (5-15); BUN 18 mg/dL (7-18); BUN/Creat Ratio 20.3 RATIO (10-20); Calcium,Total 9.2 mg/dL (8.5-10.1); Chloride 103 mmol/L (98-107); Creatinine, Serum 0.89 mg/dL (0.70-1.30); EST Glomerular Filtration Rate 88 mL/min (>60); Est Glom Filt Rate - Afr Amer 107 mL/min (>60); Glucose 93 mg/dL (74-106); Potassium 4.5 mmol/L (3.5-5.1); Sodium Level 137 mmol/L (136-145)
[2018-09-10 08:00] LABS: Scan Indicated on CBC? Y/N NO
== END | disposition home or self-care (01) ==
LOC: OLS.WHLTCC 05:45
PROVIDERS: Visit Provider Family Medicine
DX: I10 Essential (primary) hypertension (principal)
CPT/HCPCS: 36415; 80048; 85027

== ENCOUNTER → 2018-10-08 05:45 | Outpatient (REF) | payer SELFPAY ==
[2018-08-27 09:30] VITALS: BMI 20.3
[2018-10-08 08:45] LABS: Hematocrit 36.6 % (40-54); Hemoglobin 11.4 g/dL (13.0-16.5); Mean Corp Hgb Conc 31.1 g/dL (32-36); Mean Corpuscular Hgb 27.4 pg (27.0-32.0); Platelet Count 209 K/mm3 (150-450); RBC Distribution Width CV 16.2 % (11.6-14.6); RBC Distribution Width SD 51.8 fl (35.1-43.9); Red Blood Count 4.16 M/mm3 (4.6-6.2); White Blood Count 7.8 K/mm3 (4.4-11.0)
[2018-10-08 08:57] LABS: Anion Gap 7 (5-15); BUN 19 mg/dL (7-18); BUN/Creat Ratio 19.6 RATIO (10-20); Chloride 104 mmol/L (98-107); Creatinine, Serum 0.97 mg/dL (0.70-1.30); EST Glomerular Filtration Rate 80 mL/min (>60); Est Glom Filt Rate - Afr Amer 97 mL/min (>60); Glucose 85 mg/dL (74-106); Potassium 4.1 mmol/L (3.5-5.1); Sodium Level 138 mmol/L (136-145)
== END ==
LOC: OLS.WHLTCC 05:45
PROVIDERS: Visit Provider Family Medicine
DX: C32.9 Malignant neoplasm of larynx, unspecified (principal); C79.51 Secondary malignant neoplasm of bone; C34.92 Malignant neoplasm of unspecified part of left bronchus or lung; Z93.9 Artificial opening status, unspecified; K92.2 Gastrointestinal hemorrhage, unspecified; I10 Essential (primary) hypertension
CPT/HCPCS: 36415; 80048; 85027